=== PATIENT | female | born 1955 | race Caucasian/White ===

== ENCOUNTER 2019-01-08 22:10 | Inpatient (IN) | payer MEDICARE, OTHER ==
[~2019-01-08] VITALS: Ht 154.9 cm; Wt 121.8 kg
[2019-01-08] MEDS ORDERED: KETOROLAC 15 MG/ML VIAL IVP ONE (22:45)
[2019-01-08] MEDS ORDERED: diphenhydrAMINE 50 MG/ML INJ (BENADRYL) IVP ONE (22:45)
[2019-01-08] MEDS ORDERED: PROMETHAZINE INJ 25 MG/ML (PHENERGAN) AMP IVP ONE (22:45)
[2019-01-08] MEDS ORDERED: ACETAMINOPHEN 500 MG TAB (TYLENOL) PO ONE (22:45)
[2019-01-08 22:59] LABS: HEMATOCRIT 37 % (35-52); HEMOGLOBIN 11.9 G/DL (11.5-16.0); MEAN CORPUSCULAR HEMOGLOBIN 25 PG (25-34); MEAN CORPUSCULAR HGB CONC 32 G/DL (32-36); MEAN CORPUSCULAR VOLUME 78 FL (80-99); MEAN PLATELET VOLUME 9.9 FL (7.4-10.4); PLATELET COUNT 217 10^3/uL (130-400); WHITE BLOOD COUNT 10.4 10^3/uL (4.3-11.0)
[2019-01-08 23:00] LABS: BASOPHILS # (AUTO) 0.1 10^3/uL (0.0-0.1); BASOPHILS % (AUTO) 1 % (0-10); EOSINOPHILS # (AUTO) 0.1 10^3/uL (0.0-0.3); EOSINOPHILS % (AUTO) 1 % (0-10); LYMPHOCYTES # (AUTO) 0.9 X 10^3 (1.0-4.0); LYMPHOCYTES % (AUTO) 8 % (12-44); MONOCYTES # (AUTO) 0.9 X 10^3 (0.0-1.0); MONOCYTES % (AUTO) 9 % (0-12); NEUTROPHILS # (AUTO) 8.4 X 10^3 (1.8-7.8); NEUTROPHILS % (AUTO) 81 % (42-75)
[2019-01-08] MEDS ORDERED: PRD20T PO (23:00)
[2019-01-08] MEDS ORDERED: RT-ALBUINH IH (23:00)
[2019-01-08] MEDS ORDERED: BENZ100C18 PO (23:00)
--- NOTE | 2019-01-08 23:01 | ED General ---
General Chief Complaint: Chest Pain Stated Complaint: FLU SYMPTOMS History of Present Illness Date Seen by Provider: Jan 08, 2019 Time Seen by Provider: 23:00 Initial Comments Patient presents emergency department for evaluation of multiple symptoms including cough congestion fevers chills headache chest pain shortness of breath and generally not feeling well. She had a heart catheterization 3 weeks ago at [facility] with stents placed and was treated with Keflex for urinary tract infection however she says that she still has frequent urination. Symptoms of cough and fever she says started approximately one week ago she feels it is worse over the past several days. She says she has a pounding headache for the past week as well which she thinks may be related to her Ranexa. She says the cough is productive of yellowish sputum. She appears chronically ill and is in mild respiratory distress. Allergies and Home Medications Allergies Coded Allergies: No Known Drug Allergies (Unverified , 01/08/19) Home Medications Albuterol Sulfate 1 Puff Puff, 2 PUFF IH Q4H 1 PUFF = 90 MCG Prescribed by: FARZAD CRAVEN on 01/08/192299 Benzonatate 100 Mg Capsule, 100 MG PO TID PRN for COUGH Prescribed by: FARZAD CRAVEN on 01/08/192299 Prednisone 20 Mg Tab, 60 MG PO DAILY Prescribed by: FARZAD CRAVEN on 01/08/192299 Patient Home Medication List Home Medication List Reviewed: Yes Review of Systems Review of Systems Constitutional: chills, fever EENTM: nose congestion Respiratory: cough, dyspnea on exertion, short of breath Cardiovascular: chest pain Gastrointestinal: No abdominal pain Genitourinary: frequency Musculoskeletal: joint pain, muscle pain Skin: No rash Psychiatric/Neurological: Headache Hematologic/Lymphatic: Denies Blood Clots Past Htjbxxj-Rsqgun-Egjowp Hx Patient Social History Recent Foreign Travel: No Contact w/Someone Who Travel: No Physical Exam Vital Signs Vital Signs - First Documented 01/08/19 22:18 Temp 100.9 Pulse 79 Resp 16 B/P (MAP) 165/72 (103) Pulse Ox 94 Capillary Refill : Height, Weight, BMI Height: '" Weight: lbs. oz. kg; BMI Method: General Appearance: Chronically ill, Mild Distress HEENT: PERRL/EOMI, Pharynx Normal Neck: Full Range of Motion Respiratory: Crackles, Rhonci, Wheezing Cardiovascular: Regular Rate, Rhythm, No Edema Gastrointestinal: Non Tender Extremity: Normal Capillary Refill Neurologic/Psychiatric: Alert, Oriented x3 Skin: Normal Color, Warm/Dry Progress/Results/Core Measures Suspected Sepsis SIRS Temperature: Pulse: Respiratory Rate: Laboratory Tests 01/08/19 22:38: White Blood Count 10.4 Blood Pressure / Mean: Laboratory Tests 01/08/19 22:38: Creatinine 0.85, INR Comment 1.1, Platelet Count 217, Total Bilirubin 0.4 Results/Orders Lab Results Laboratory Tests Test 01/08/19 22:38 Range/Units White Blood Count 10.4 4.3-11.0 10^3/uL Red Blood Count 4.78 4.35-5.85 10^6/uL Hemoglobin 11.9 11.5-16.0 G/DL Hematocrit 37 35-52 % Mean Corpuscular Volume 78 L 80-99 FL Mean Corpuscular Hemoglobin 25 25-34 PG Mean Corpuscular Hemoglobin Concent 32 32-36 G/DL Red Cell Distribution Width 14.0 10.0-14.5 % Platelet Count 217 130-400 10^3/uL Mean Platelet Volume 9.9 7.4-10.4 FL Neutrophils (%) (Auto) 81 H 42-75 % Lymphocytes (%) (Auto) 8 L 12-44 % Monocytes (%) (Auto) 9 0-12 % Eosinophils (%) (Auto) 1 0-10 % Basophils (%) (Auto) 1 0-10 % Neutrophils # (Auto) 8.4 H 1.8-7.8 X 10^3 Lymphocytes # (Auto) 0.9 L 1.0-4.0 X 10^3 Monocytes # (Auto) 0.9 0.0-1.0 X 10^3 Eosinophils # (Auto) 0.1 0.0-0.3 10^3/uL Basophils # (Auto) 0.1 0.0-0.1 10^3/uL Prothrombin Time 14.5 12.2-14.7 SEC INR Comment 1.1 0.8-1.4 Activated Partial Thromboplast Time 27 24-35 SEC Sodium Level 135 135-145 MMOL/L Potassium Level 4.4 3.6-5.0 MMOL/L Chloride Level 98 98-107 MMOL/L Carbon Dioxide Level 19 L 21-32 MMOL/L Anion Gap 18 H 5-14 MMOL/L Blood Urea Nitrogen 19 H 7-18 MG/DL Creatinine 0.85 0.60-1.30 MG/DL Estimat Glomerular Filtration Rate > 60 BUN/Creatinine Ratio 22 Glucose Level 270 H 70-105 MG/DL Calcium Level 9.0 8.5-10.1 MG/DL Corrected Calcium 8.9 8.5-10.1 MG/DL Magnesium Level 1.8 1.8-2.4 MG/DL Total Bilirubin 0.4 0.1-1.0 MG/DL Aspartate Amino Transf (AST/SGOT) 9 5-34 U/L Alanine Aminotransferase (ALT/SGPT) 13 0-55 U/L Alkaline Phosphatase 105 40-136 U/L Troponin T 11 H <=10 NG/L Pro-B-Type Natriuretic Peptide 575.0 H <75.0 PG/ML Total Protein 7.1 6.4-8.2 GM/DL Albumin 4.1 3.2-4.5 GM/DL Micro Results Microbiology 01/08/19 Influenza Types A,B Antigen (WANDA) - Final, Complete My Orders Orders - FARZAD CRAVEN DO Cbc With Automated Diff (01/08/19 22:24) Magnesium (01/08/19 22:24) Chest 1 View Ap/Pa Only (01/08/19 22:24) Ekg Tracing (01/08/19 22:24) Comprehensive Metabolic Panel (01/08/19 22:24) Protime With Inr (01/08/19 22:24) Partial Thromboplastin Time (01/08/19 22:24) Saline Lock/Iv-Start (01/08/19 22:24) Troponin T (01/08/19 22:24) Probnp Fs (01/08/19 22:24) Ua Culture If Indicated (01/08/19 22:24) Influenza A And B Antigens (01/08/19 22:24) Acetaminophen Tablet (Tylenol Tablet) (01/08/19 22:45) Ketorolac Injection (Toradol Injection) (01/08/19 22:45) Promethazine Injection (Phenergan Injec (01/08/19 22:45) Diphenhydramine Injection (Benadryl Inje (01/08/19 22:45) Blood Culture (01/08/19 23:35) Lactic Acid Analyzer (01/08/19 23:35) Levofloxacin 750 Mg/150 Ml Iv (Levaquin (01/08/19 23:45) Azithromycin Injection (Zithromax Inject (01/09/19 00:00) Medications Given in ED Current Medications Medications Dose Ordered Sig/Sha Route Start Time Stop Time Status Last Admin Dose Admin Acetaminophen 1,000 mg ONCE ONCE PO 01/08/19 22:45 01/08/19 22:46 DC 01/08/19 22:50 1,000 MG Diphenhydramine HCl 25 mg ONCE ONCE IVP 01/08/19 22:45 01/08/19 22:46 DC 01/08/19 22:47 25 MG Promethazine HCl 12.5 mg ONCE ONCE IVP 01/08/19 22:45 01/08/19 22:46 DC 01/08/19 22:52 12.5 MG Vital Signs/I&O 01/08/19 22:18 Temp 100.9 Pulse 79 Resp 16 B/P (MAP) 165/72 (103) Pulse Ox 94 Capillary Refill : Progress Note : Time: 00:04 Progress Note Patient is febrile with cough and appears to have an abnormal chest x-ray with possible perihilar infiltrate and/or right lower lobe infiltrate. She could have some pulmonary edema as well however I do not have a old chest x-ray to compare to. Given symptoms of cough fever productive sputum she would have a diagnosis of healthcare associated pneumonia. She was started on Levaquin and Zithromax. Her troponin is slightly elevated so this will need to be trended in addition her elevated BNP may need to be further evaluated as well. Patient will be transferred to inpatient care at [facility] in stable condition. Departure Impression Primary Impression: HCAP (healthcare-associated pneumonia) Additional Impressions: Elevated troponin Elevated brain natriuretic peptide (BNP) level Disposition: XFER SHT-TRM HOSP Condition: Stable Admissions Decision to Admit/Date: Jan 09, 2019 Time/Decision to Admit Time: 00:00 Transfer Method of Transfer: EMS Departure-Patient Inst. Decision time for Depature: 22:59 Scripts Benzonatate (TESSALON PERLES) 100 Mg Capsule 100 MG PO TID PRN for COUGH, #15 CAP Prov: FARZAD CRAVEN DO 01/08/19 Prednisone (Prednisone) 20 Mg Tab 60 MG PO DAILY for 4 Days, #4 TAB 0 Refills Prov: FARZAD CRAVEN DO 01/08/19 Albuterol Sulfate (PROAIR HFA) 1 Puff Puff 2 PUFF IH Q4H, #1 INHALER 1 PUFF = 90 MCG Prov: FARZAD CRAVEN DO 01/08/19 FARZAD CRAVEN DO Jan 08, 2019 23:01
[2019-01-08 23:08] LABS: INR 1.1 (0.8-1.4); PROTHROMBIN TIME PATIENT 14.5 SEC (12.2-14.7)
[2019-01-08 23:25] LABS: BUN/CREATININE RATIO 22; CARBON DIOXIDE 19 MMOL/L (21-32); CHLORIDE 98 MMOL/L (98-107); CREATININE SERUM 0.85 MG/DL (0.60-1.30); GFR ESTIMATED > 60; GLUCOSE 270 MG/DL (70-105); POTASSIUM 4.4 MMOL/L (3.6-5.0); SODIUM 135 MMOL/L (135-145)
[2019-01-08 23:26] LABS: ALANINE AMINOTRANSFERASE 13 U/L (0-55); ALBUMIN 4.1 GM/DL (3.2-4.5); ALKALINE PHOSPHATASE 105 U/L (40-136); BILIRUBIN,TOTAL 0.4 MG/DL (0.1-1.0); MAGNESIUM 1.8 MG/DL (1.8-2.4); TOTAL PROTEIN 7.1 GM/DL (6.4-8.2)
[2019-01-08] MEDS ORDERED: LEVOFLOXACIN 750 MG/150 ML IV 150 ML IV ONE (23:45)
[2019-01-09] MEDS ORDERED: AZITHROMYCIN INJECTION 500 MG in NS (IVPB) 250 ML IV ONE ×2
[2019-01-09 00:08] LABS: CLARITY,URINE SL CLOUDY; COLOR,URINE YELLOW; GLUCOSE, URINE (UA) 2+ (NEGATIVE); KETONES,URINE NEGATIVE (NEGATIVE); NITRITE,URINE POSITIVE (NEGATIVE); PH,URINE 6.5 (5-9); PROTEIN,URINE NEGATIVE (NEGATIVE)
[2019-01-09 00:09] LABS: BACTERIA,URINE LARGE /HPF; BILIRUBIN,URINE NEGATIVE (NEGATIVE); LEUKOCYTE ESTERASE ,URINE NEGATIVE (NEGATIVE); RBC,URINE 0-2 /HPF; SQUAMOUS EPITHELIAL CELL,UR 0-2 /HPF; UROBILINOGEN,URINE 0.2 MG/DL (NORMAL)
--- NOTE | 2019-01-09 01:55 | NUR ---
JARVIS COLMENARES admitted to room 408-1, with an admitting diagnosis of PNEUMONIA AND CHEST PAIN, on 01/09/19 from [facility], accompanied by EMS STAFF. JARVIS COLMENARES introduced to surroundings, call light, bed controls, phone, TV, temperature control, lights, meal times, smoking policy, visitor policy, side rail policy, bathrooms and showers. Patient Rights given to patient in the handbook. JARVIS COLMENARES verbalizes understanding that [facility] is not responsible for the loss or damage to any personal effects or valuables that are kept in the patients posession during their hospitalization. Care Plans and Discharge Planning were discussed with the with the pt. JARVIS COLMENARES verbalizes understanding of Interdisciplinary Patient Education. Patient and/or family were informed about the Rapid Response Team and its purpose.
[2019-01-09 02:00] VITALS: BP 139/81
[2019-01-09] MEDS ORDERED: AZITHROMYCIN 500 MG (ZITHROMAX) VIAL ONE (03:11)
[2019-01-09] MEDS ORDERED: WATER (STERILE) FOR INJECTION 10 ML ONE (03:12)
--- NOTE | 2019-01-09 03:12 | NUR ---
Zithromax 500mg dose was not give in ED. Dose given when pt came to the floor
[2019-01-09] MEDS: PROMETHAZINE INJ 25 MG/ML (PHENERGAN) AMP IV PRN ×2 (03:51→14:23)
[2019-01-09 04:00] VITALS: BP 150/82
[2019-01-09 04:05] LABS: BASOPHILS % (AUTO) 0 % (0-10); EOSINOPHILS # (AUTO) 0.2 10^3/uL (0.0-0.3); EOSINOPHILS % (AUTO) 2 % (0-10); HEMATOCRIT 37 % (35-52); HEMOGLOBIN 11.6 G/DL (11.5-16.0); LYMPHOCYTES # (AUTO) 1.5 X 10^3 (1.0-4.0); LYMPHOCYTES % (AUTO) 17 % (12-44); MEAN CORPUSCULAR HEMOGLOBIN 25 PG (25-34); MEAN CORPUSCULAR HGB CONC 32 G/DL (32-36); MEAN CORPUSCULAR VOLUME 78 FL (80-99); MEAN PLATELET VOLUME 9.9 FL (7.4-10.4); MONOCYTES # (AUTO) 0.7 X 10^3 (0.0-1.0); MONOCYTES % (AUTO) 8 % (0-12); NEUTROPHILS # (AUTO) 6.1 X 10^3 (1.8-7.8); NEUTROPHILS % (AUTO) 72 % (42-75); PLATELET COUNT 206 10^3/uL (130-400); RED CELL DISTRIBUTION WIDTH 14.5 % (10.0-14.5); WHITE BLOOD COUNT 8.4 10^3/uL (4.3-11.0)
[2019-01-09 04:28] LABS: BILIRUBIN,TOTAL 0.6 MG/DL (0.1-1.0); CALCIUM 8.9 MG/DL (8.5-10.1); POTASSIUM 4.3 MMOL/L (3.6-5.0); TOTAL PROTEIN 6.8 GM/DL (6.4-8.2)
--- NOTE | 2019-01-09 06:55 | Diagnostic Imaging Report ---
Indication: Dyspnea and cough since Thursday, worsening. Comparison: None. Discussion: Single portable upright view of the chest was obtained. Cardiomegaly is noted. Engorgement of central pulmonary vascularity is present. Bilateral mixed interstitial and alveolar opacities are noted diffusely. Findings likely represent moderate to severe pulmonary edema, with atypical pneumonia not entirely excluded. No pleural fluid or pneumothorax. No osseous abnormality. Impression: 1. Cardiomegaly with suspected moderate to severe failure. Dictated by: Dictated on workstation # [id number]
[2019-01-09 08:00] VITALS: BP 149/74
[2019-01-09] MEDS ORDERED: inSUlin ASPART (NovoLOG) 1 UNIT/0.01 ML (CHARGE PER UNIT) SC SCH (10:00)
[2019-01-09] MEDS ORDERED: LEVOFLOXACIN 500 MG/100 ML IV 100 ML IV SCH (10:10)
--- NOTE | 2019-01-09 10:10 | History & Physical-Hospitalist ---
History of Present Illness HPI/Chief Complaint This is a 63-year-old white female who has been ill for the last week. She has been in her house and in bed with cough productive of green smith sputum and increased shortness of breath. She had gotten out yesterday to go to [facility] with her and then began having chills and becoming more dyspneic and presented the emergency room in [place] where she was found to be ill with evidence of a right lower lobe pneumonia and elevated BNP and relative hypoxia with O2 sat of 87 percent. She was accepted here for inpatient admission for pneumonia. Patient had a heart catheter about 3 weeks ago and was found to have obstructive coronary artery disease that was not amenable to stent placement. She has not been able to tolerate the Ranexa because of headaches. Her BNP was elevated and chest x-ray is reflective of possible pulmonary edema. At the time of my interview this morning the patient is lying down flat in no respiratory distress and says that she feels a little better. Source: patient Exam Limitations: no limitations Date Seen 01/09/19 Time Seen by a Provider: 09:45 Attending Physician Darline Zapien MD PCP Referring Physician Date of Admission Jan 09, 2019 at 00:27 Home Medications & Allergies Home Medications Reviewed patient Home Medication Reconciliation performed by pharmacy medication reconciliations a/c technician and/or nursing. Patients Allergies have been reviewed. Allergies Allergies Coded Allergies No Known Drug Allergies (Unverified01/08/19) Past Dwbiaof-Jtbvtl-Fpsgzu Hx Past Med/Social Hx: Reviewed Nursing Past Med/Soc Hx Patient Social History Marrital Status: Number of Children: 4 Employed/Student: retired (RN) Alcohol Use: Denies Use Smoking Status: Never a Smoker Recent Foreign Travel: No Contact w/other who traveled: No Recent Infectious Disease Expo: No Immunizations Up To Date Date of Pneumonia Vaccine: Jan 09, 2017 Date of Influenza Vaccine: Sep 11, 2018 Past Medical History Surgeries: Adenoidectomy, Hysterectomy, Oophorectomy Respiratory: Asthma Cardiac: Coronary Artery Disease, High Cholesterol, Hypertension Neurological: Neuropathy : No Hysterectomy Gastrointestinal: Gastroesophageal Reflux Musculoskeletal: Arthritis Endocrine: Diabetes, Insulin dep Psychosocial: Depression Family History Cancer (Breast) Review of Systems Constitutional: chills EENTM: no symptoms reported Respiratory: cough, dyspnea on exertion, short of breath Cardiovascular: no symptoms reported Gastrointestinal: heartburn Genitourinary: no symptoms reported Musculoskeletal: neck pain Skin: no symptoms reported Psychiatric/Neurological: Depressed Physical Exam Physical Exam Vital Signs Vital Signs - First Documented 01/08/19 22:18 Temp 100.9 Pulse 79 Resp 16 B/P (MAP) 165/72 (103) Pulse Ox 94 Capillary Refill : Less Than 3 Seconds Height, Weight, BMI Height: 5'1.00" Weight: 268lbs. 10.0oz. 121.289968dm; 50.8 BMI Method:Stated General Appearance: No Apparent Distress, Obese Eyes: Bilateral Eye Normal Inspection HEENT: Normal ENT Inspection, Pharynx Normal Neck: Limited Range of Motion Respiratory: Chest Non Tender, No Accessory Muscle Use, No Respiratory Distress , Rales, Wheezing Cardiovascular: Regular Rate, Rhythm, No Gallop, No Murmur, Normal Peripheral Pulses Gastrointestinal: Normal Bowel Sounds, No Organomegaly, Non Tender, Soft Back: Normal Inspection, No CVA Tenderness, No Vertebral Tenderness Extremity: Normal Range of Motion, Non Tender, No Calf Tenderness Neurologic/Psychiatric: Alert, Oriented x3, No Motor/Sensory Deficits, Normal Mood/Affect, agent ticketing gate II-XII Norm as Tested Skin: Normal Color, Warm/Dry Results Results/Procedures Labs Laboratory Tests 01/08/19 22:38 01/09/19 03:53 Patient resulted labs reviewed. Imaging: Reviewed Imaging Films, Reviewed Imaging Report Assessment/Plan Admission Diagnosis 1. Pneumonia- community acquired but with recent hospitalization also with history of allergies to cephalosporins-Day number 2 Levaquin and Zithromax 2. Reactive airway disease secondary to number 1-we'll add Advair avoiding steroids secondary to diabetes 3. Coronary artery disease not amenable to stent placement per her history 4. Elevated BNP and cardiomegaly and chest x-ray will obtain echocardiogram consult cardiology 5. Type II diabetes with medical noncompliance secondary to financial difficulties 6. Hypertension we'll restart her medications 7. Intolerance of KEILY inhibitor secondary to cough 8. Morbid obesity and obstructive sleep apnea intolerant of CPAP 9. Strong family history of cancer the breast will obtain mammograms 10. Depression we'll continue sertraline Admission Status: Inpatient Order (span 2 midnights) Reason for Inpatient Admission: Multiple comorbidities Diagnosis/Problems Diagnosis/Problems (1) PNEUMONIA Status: Acute (2) Asthma exacerbation Status: Acute (3) Obstructive sleep apnea Status: Chronic (4) Obesity Status: Chronic Qualifiers: Body mass index: BMI 50.0-59.9 (5) Coronary artery disease Status: Chronic Qualifiers: Coronary Disease-Associated Artery/Lesion type: unga artery Associated angina: with stable angina (6) Hypertension Status: Chronic (7) Diabetes Status: Chronic Qualifiers: Diabetes mellitus type: type 2 Diabetes mellitus long-term insulin use: with long-term use Diabetes mellitus complication status: with neurologic complications Diabetes mellitus complication detail: with polyneuropathy Qualified Codes: E11.42 - Type 2 diabetes mellitus with diabetic polyneuropathy ; Z79.4 - superintendent terminal (current) use of insulin (8) Elevated brain natriuretic peptide (BNP) level Status: Acute (9) Elevated troponin Status: Acute Clinical Quality Measures AMI/AHF: ASA po Prior to arrival: No DVT/VTE Risk/Contraindication: Risk Factor Score Per Nursin RFS Level Per Nursing on Admit: 3=High DARLINE ZAPIEN MD Jan 09, 2019 10:10
[2019-01-09] MEDS ORDERED: ENOXAPARIN 40 MG/0.4 ML (LOVENOX) SYR SC SCH (10:15)
--- NOTE | 2019-01-09 10:27 | NUR ---
EULOGIO DUVAL[employer]PORATE EXECUTIVE NOTIFIED OF NEED FOR 2D ECHO AT THIS TIME. THIS RN WILL CONT TO MONITOR THIS PATIENT THROUGHOUT THE REMAINDER OF THIS SHIFT.
[2019-01-09] MEDS: ENOXAPARIN 60 MG/0.6 ML (LOVENOX) SYR SC SCH ×2 (10:35→21:25)
--- NOTE | 2019-01-09 11:51 | NUR ---
Noon vital signs poor, see interventions for details. New orders to send this patient to icu-8 at this time, per Dr. You. vitals signs 101.2 pulse 111 b/p 86/50 o2 at 90 on a bipap machine.
[2019-01-09 12:00] VITALS: BP 121/56
--- NOTE | 2019-01-09 12:37 | Diagnostic Imaging Report ---
INDICATION: Pneumonia and cough. TIME OF EXAM: 12:26 PM COMPARISON: Correlation is made with prior study from one day earlier. FINDINGS: Patchy airspace infiltrate in the right base is seen consistent with pneumonia. Left lung is clear. No effusion or pneumothorax is seen. IMPRESSION: Patchy right basilar pneumonia. This appears to be improved when compared with examination one day earlier. Dictated by: Dictated on workstation # [id number]
[2019-01-09] MEDS ORDERED: RANOLAZINE ER 500 MG TAB (RANEXA) PO NR (13:30)
[2019-01-09] MEDS ORDERED: amLODIPine 10 MG (NORVASC) TAB PO NR (13:30)
[2019-01-09] MEDS ORDERED: meTOprolol SUCCINATE 100 MG (TOPROL XL) TAB PO NR (13:30)
--- NOTE | 2019-01-09 13:32 | Consultation-Cardiology ---
HPI-Cardiology Cardiology Consultation: Date of Consultation 01/09/19 Time Seen by a Provider: 13:10 Date of Admission 01/08/19 Attending Physician Darline Deng MD Admitting Physician Consulting Physician DAPHNE FUCHS MD, MA, FACP, FACC, FSCAI, CCDS Physician requesting consult: Dr Deng HPI: Chief Complaint: CC: Shaking chills HPI 63 yo woman who presented to [facility] last night with shaking chills. Was transferred to this hosp to Dr Deng of community-acquired pneumonia. Has had cough productive of yellowis/greenish sputum for several days. We have been asked to see her for chronic chest discomfort: present for many months to a year, present in the mid chest, worse with exertion, improved with rest, feeling of pressure, mild to mod in intensity, sometimes radiating to shoulders , present nearly daily, unchanged in the recent past. Has had recent cath in [place] and her chef teacher has informed her she is not a candidate for further [facility] intervention Review of Systems-Cardiology Review of Systems Constitutional: malaise, tiredness; No weight loss, No weight gain Eyes: No vision change Ears/Nose/Throat: No nasal drainage, No recent hearing loss, No ulcerations Respiratory: As described under HPI Cardiovascular: As described under HPI Gastrointestinal: No constipation, No diarrhea, No nausea, No vomiting Genitourinary: No dysuria, No hematuria, No urine frequency changes Musculoskeletal: No back pain Psychiatric/Neurological: No seizure, No focal weakness, No syncope Hematologic: No bleeding abnormalities NHQ-Uwhsfh-Ddehzr Hx Patient Social History Marrital Status: Number of Children: 4 Employed/Student: retired (RN) Alcohol Use: Denies Use Smoking Status: Never a Smoker Recent Foreign Travel: No Recent Infectious Disease Expo: No Hospitalization with Isolation: Denies Immunizations Up To Date Date of Pneumonia Vaccine: Jan 09, 2017 Date of Influenza Vaccine: Sep 11, 2018 Past Medical History PMH As described under Assessment. Family Medical History Family Medical History: Notes a strong fam h/o DM and heart disease, but does not report h/o early CAD in the [facility] Allergies and Home Medications Allergies Coded Allergies: No Known Drug Allergies (Unverified , 01/08/19) Home Medications Albuterol Sulfate 1 Puff Puff, 2 PUFF IH Q4H 1 PUFF = 90 MCG Prescribed by: FARZAD CRAVEN on 01/08/192299 Benzonatate 100 Mg Capsule, 100 MG PO TID PRN for COUGH Prescribed by: FARZAD CRAVEN on 01/08/192299 Prednisone 20 Mg Tab, 60 MG PO DAILY Prescribed by: FARZAD CRAVEN on 01/08/192299 Patient Home Medication List Home Medication List Reviewed: Yes Physical Exam-Cardiology Physical Exam Vital Signs/I&O 01/09/19 01/09/19 01/09/19 01/09/19 02:00 02:00 03:24 04:00 Temp 100.0 98.9 Pulse 71 74 75 Resp 20 18 B/P (MAP) 139/81 150/82 (104) Pulse Ox 96 O2 Delivery Room Air Room Air Room Air 01/09/19 01/09/19 01/09/19 01/09/19 07:00 08:00 08:00 12:00 Temp 99.6 99.8 Pulse 73 68 83 Resp 22 20 B/P (MAP) 149/74 (99) 121/56 (77) Pulse Ox 96 O2 Delivery Room Air Room Air Room Air O2 Flow Rate 2.00 Capillary Refill : Less Than 3 Seconds Constitutional: AAO x 3, well-developed, well-nourished HEENT: EOMI, hearing is well preserved; No xanthelasmas are seen Neck: No carotid bruit; carotid pulses are 2 + bilaterally, with good upstrokes Respiratory: No accessory muscle use; other (fair to good bilat air entry, diminished at the bases) Cardiovascular: regular rate-rhythm, S1 and S2, systolic murmur (faint JERICA at card base) Gastrointestinal: No tender; soft; No guarding, No rebound; audible bowel sounds Extremities: No clubbing, No cyanosis, No significant edema Neurologic/Psychiatric: oriented x 3, grossly intact, power is 5/5 both on sides Skin: No rash on exposed areas, No ulcerations on exposed areas Data Review Labs Laboratory Tests 01/08/19 22:38: White Blood Count 10.4, Red Blood Count 4.78, Hemoglobin 11.9, Hematocrit 37, Mean Corpuscular Volume 78L, Mean Corpuscular Hemoglobin 25, Mean Corpuscular Hemoglobin Concent 32, Red Cell Distribution Width 14.0, Platelet Count 217, Mean Platelet Volume 9.9, Neutrophils (%) (Auto) 81H, Lymphocytes (%) (Auto) 8L , Monocytes (%) (Auto) 9, Eosinophils (%) (Auto) 1, Basophils (%) (Auto) 1, Neutrophils # (Auto) 8.4H, Lymphocytes # (Auto) 0.9L, Monocytes # (Auto) 0.9, Eosinophils # (Auto) 0.1, Basophils # (Auto) 0.1, Prothrombin Time 14.5, INR Comment 1.1, Activated Partial Thromboplast Time 27, Sodium Level 135, Potassium Level 4.4, Chloride Level 98, Carbon Dioxide Level 19L, Anion Gap 18H , Blood Urea Nitrogen 19H, Creatinine 0.85, Estimat Glomerular Filtration Rate > 60, BUN/Creatinine Ratio 22, Glucose Level 270H, Calcium Level 9.0, Corrected Calcium 8.9, Magnesium Level 1.8, Total Bilirubin 0.4, Aspartate Amino Transf ( AST/SGOT) 9, Alanine Aminotransferase (ALT/SGPT) 13, Alkaline Phosphatase 105, Troponin T 11H, Pro-B-Type Natriuretic Peptide 575.0H, Total Protein 7.1, Albumin 4.1 01/08/19 23:55: Urine Color YELLOW, Urine Clarity SL CLOUDY, Urine pH 6.5, Urine Specific [place] 1.010L, Urine Protein NEGATIVE, Urine Glucose (UA) 2+H, Urine Ketones NEGATIVE, Urine Nitrite POSITIVEH, Urine Bilirubin NEGATIVE, Urine Urobilinogen 0.2, Urine Leukocyte Esterase NEGATIVE, Urine RBC (Auto) TRACEH, Urine RBC 0-2, Urine WBC 10-25H, Urine Squamous Epithelial Cells 0-2, Urine Crystals NONE, Urine Bacteria LARGEH, Urine Casts NONE, Urine Mucus NONE, Urine Culture Indicated YES, Lactic Acid Level 0.83 01/09/19 03:53: White Blood Count 8.4, Red Blood Count 4.67, Hemoglobin 11.6, Hematocrit 37, Mean Corpuscular Volume 78L, Mean Corpuscular Hemoglobin 25, Mean Corpuscular Hemoglobin Concent 32, Red Cell Distribution Width 14.5, Platelet Count 206, Mean Platelet Volume 9.9, Neutrophils (%) (Auto) 72, Lymphocytes (%) (Auto) 17, Monocytes (%) (Auto) 8, Eosinophils (%) (Auto) 2, Basophils (%) (Auto) 0, Neutrophils # (Auto) 6.1, Lymphocytes # (Auto) 1.5, Monocytes # (Auto) 0.7, Eosinophils # (Auto) 0.2, Basophils # (Auto) 0.0, Sodium Level 137, Potassium Level 4.3, Chloride Level 102, Carbon Dioxide Level 23, Anion Gap 12, Blood Urea Nitrogen 17, Creatinine 1.00, Estimat Glomerular Filtration Rate 56, BUN/ Creatinine Ratio 17, Glucose Level 218H, Calcium Level 8.9, Corrected Calcium 8.9, Total Bilirubin 0.6, Aspartate Amino Transf (AST/SGOT) 13, Alanine Aminotransferase (ALT/SGPT) 14, Alkaline Phosphatase 91, Total Protein 6.8, Albumin 4.0, Troponin I < 0.028 Microbiology 01/08/19 Influenza Types A,B Antigen (WANDA) - Final, Complete Laboratory Tests 01/08/19 22:38 01/09/19 03:53 A/P-Cardiology Assessment/Admission Diagnosis Community acquired pneumonia Chronic stable angina pectoris. Reports severe intolerance to oral nitrates ( severe headaches) CAD. Has had LAD stenting in early 2017 (per her description); last card cath in late Dec 2018 at [place] and was told that she has diffused blockages in small caliber vessels and that she is not a candidate for further [facility] intervention Echo on 01/09/19: LVEF 65-70%, grade I rivers dysfunction, PASP approx 25 mmHg DM II HTN Obesity with BMI approx 51. ROBBIN reported, but intolerant to CPAP KEILY-inhib cause cough, but has been able to take ARBs Discussion and Recomendations * Complex issues that include CAD that is, by her report, inoperable * Continue triple therapy for angina (metoprolol succinate, amlodipine, ranolazine. Oral/topical nitrates not a good option because of her marked intolerance. Also notes moderate intolerance to ranolazine (headaches) but has been able to continue it w/o interruption since being placed on it and it has helped angina * Continue dual antiplatelet therapy * Monitor labs * I discussed her case with Dr Deng on the phone this am * I answered Ms Roger' CV-related questions Clinical Quality Measures AMI/AHF: ASA po Prior to arrival: No DVT/VTE Risk/Contraindication: Risk Factor Score Per Nursin RFS Level Per Nursing on Admit: 3=High DAPHNE FUCHS MD FACP FACC CCDS Jan 09, 2019 13:32
[2019-01-09] MEDS ORDERED: ASPIRIN 81 MG CHEW (CHILDREN'S ASA) PO NR (13:50)
[2019-01-09] MEDS ORDERED: CLOPIDOGREL 75 MG (PLAVIX) TABLET PO NR (13:50)
[2019-01-09] MEDS ORDERED: AMLO10TA4 PO (13:58)
[2019-01-09] MEDS ORDERED: MORP-34 PO (13:58)
[2019-01-09] MEDS ORDERED: GABA-486 PO (13:58)
[2019-01-09] MEDS ORDERED: CLOP75TA69 PO (13:58)
[2019-01-09] MEDS ORDERED: ASPI81TA55 PO (13:58)
[2019-01-09] MEDS ORDERED: RANO500T3 PO (13:58)
[2019-01-09] MEDS ORDERED: SERT100T8 PO (13:58)
[2019-01-09] MEDS ORDERED: TIZA4CAP8 PO (14:01)
[2019-01-09] MEDS ORDERED: LOSA100T57 PO (14:01)
[2019-01-09] MEDS ORDERED: METO100T12 PO (14:01)
[2019-01-09] MEDS ORDERED: FAMO20TA5 PO (14:01)
[2019-01-09 16:00] VITALS: BP 138/88
[2019-01-09] MEDS: inSUlin ASPART (NovoLOG) 1 UNIT/0.01 ML (CHARGE PER UNIT) SC SCH ×2 (16:42→21:26)
[2019-01-09] MEDS: RT-ALBUTEROL/IPRATROPIUM 3 ML (DUONEB) VIAL INH SCH (19:28)
[2019-01-09] MEDS: RT-ADVAIR HFA 115/21 MCG PER PUFF IH SCH (19:28)
[2019-01-09 20:00] VITALS: BP 162/82
[2019-01-09] MEDS: meTOprolol SUCCINATE 100 MG (TOPROL XL) TAB PO SCH (21:24)
[2019-01-09] MEDS: SERTRALINE 100 MG (ZOLOFT) TAB PO SCH (21:24)
[2019-01-09] MEDS: RANOLAZINE ER 500 MG TAB (RANEXA) PO SCH (21:24)
[2019-01-09] MEDS: inSUlin DETERMIR 1 UNIT/0.01 ML (LEVEMIR) CHARGE PER UNIT SQ SCH (21:25)
[2019-01-09] MEDS: FAMOTIDINE 20 MG (PEPCID) TABLET PO SCH (21:25)
[2019-01-10] VITALS (7 sets, daily range): BP systolic 119–170; BP diastolic 68–88
[2019-01-10] MEDS: RT-ALBUTEROL/IPRATROPIUM 3 ML (DUONEB) VIAL INH SCH ×4 (01:32→20:19)
[2019-01-10] MEDS: inSUlin ASPART (NovoLOG) 1 UNIT/0.01 ML (CHARGE PER UNIT) SC SCH ×4 (06:17→22:27)
[2019-01-10] MEDS: FAMOTIDINE 20 MG (PEPCID) TABLET PO SCH ×2 (08:55→20:28)
[2019-01-10] MEDS ORDERED: LOSA100T57 PO (08:55)
[2019-01-10] MEDS ORDERED: FAMO20TA3 PO (08:55)
[2019-01-10] MEDS ORDERED: ASPI-983 PO (08:55)
[2019-01-10] MEDS ORDERED: GABA-486 PO (08:55)
[2019-01-10] MEDS: meTOprolol SUCCINATE 100 MG (TOPROL XL) TAB PO SCH ×2 (08:55→20:28)
[2019-01-10] MEDS ORDERED: SERT100T8 PO (08:55)
[2019-01-10] MEDS: AZITHROMYCIN 250 MG TAB (ZITHROMAX) PO SCH (08:55)
[2019-01-10] MEDS: ASPIRIN E.C. 81 MG (ECOTRIN) TAB PO SCH (08:55)
[2019-01-10] MEDS: CLOPIDOGREL 75 MG (PLAVIX) TABLET PO SCH (08:55)
[2019-01-10] MEDS: amLODIPine 10 MG (NORVASC) TAB PO SCH (08:55)
[2019-01-10] MEDS ORDERED: RANO500T3 PO (08:55)
[2019-01-10] MEDS ORDERED: AMLO10TA7 PO (08:55)
[2019-01-10] MEDS: RANOLAZINE ER 500 MG TAB (RANEXA) PO SCH ×2 (08:55→20:28)
[2019-01-10] MEDS ORDERED: METO100T12 PO (08:55)
[2019-01-10] MEDS ORDERED: TIZA4TAB3 PO (08:55)
[2019-01-10] MEDS ORDERED: CLOP75TA69 PO (08:55)
--- NOTE | 2019-01-10 08:56 | NUR ---
WENT OVER MEDICATION BOTTLES THE PATIENT BROUGHT IN WITH HER. SHE VERIFIED HOW SHE TAKES THEM. SHE TAKES ASPIRIN 81MG DAILY OTC. THERE WERE THREE NEW PRESCRIPTIONS ENTERED BY [facility] ON 01-08-19 HOWEVER THE PATIENT WAS ADMITTED SO SHE DID NOT RECEIVE OR START THESE SCRIPTS. I REMOVED THEM FROM THE MED REC AT THIS TIME. SHE DID NOT HAVE HER INSULIN IN THE BOX WITH HER MEDS BUT STATES SHE USES HUMALOG SLIDING SCALE AND LEVEMIR 34 UNITS HS.
[2019-01-10] MEDS ORDERED: LEVOFLOXACIN 500 MG/100 ML IV 100 ML IV SCH (09:00)
[2019-01-10] MEDS ORDERED: meTOprolol SUCCINATE 100 MG (TOPROL XL) TAB PO SCH (09:00)
[2019-01-10] MEDS ORDERED: INSU100V SQ (09:01)
[2019-01-10] MEDS ORDERED: INSU100I29 SQ (09:01)
--- NOTE | 2019-01-10 09:19 | Progress Note-Hospitalist ---
Subjective HPI/CC On Admission Date Seen by Provider: Jan 10, 2019 Time Seen by Provider: 09:04 This is a 63-year-old white female who has been ill for the last week. She has been in her house and in bed with cough productive of green smith sputum and increased shortness of breath. She had gotten out yesterday to go to [facility] with her and then began having chills and becoming more dyspneic and presented the emergency room in [place] where she was found to be ill with evidence of a right lower lobe pneumonia and elevated BNP and relative hypoxia with O2 sat of 87 percent. She was accepted here for inpatient admission for pneumonia. Subjective/Events-last exam Pt reports feeling poorly still. Laying flat in bed. Denies orthopnea but does complain of SOB. Focused Exam Lactate Level 01/08/19 23:55: Lactic Acid Level 0.83 Objective Exam Vital Signs Vital Signs Date Time Temp Pulse Resp B/P (MAP) Pulse Ox O2 Delivery O2 Flow Rate FiO2 01/11/19 08:06 96 Nasal Cannula 2.00 01/11/19 08:00 97.4 64 20 146/67 (93) 01/09/19 16:31 21 Capillary Refill : Less Than 3 Seconds General Appearance: No Apparent Distress, Obese Respiratory: Lungs Clear, No Accessory Muscle Use, No Respiratory Distress, Decreased Breath Sounds (porr inspiratory effort) Cardiovascular: Regular Rate, Rhythm, No Gallop, No Murmur, Normal Peripheral Pulses Gastrointestinal: Normal Bowel Sounds, Non Tender, Soft Extremity: Non Tender, No Calf Tenderness Neurologic/Psychiatric: Alert, Oriented x3 Results/Procedures Lab Patient resulted labs reviewed. Imaging: Reviewed Imaging Films, Reviewed Imaging Report Assessment/Plan Assessment and Plan Assess & Plan/Chief Complaint HCAP- Continue on Levaquin and Azithro Reactive airway disease- Continue Advair CAD- Cardiology consulted, appreciate recs, continue Plavix, ASA dCHF- denies orthopnea, appears clinically compensated; cardiology consulted IDDMII- SSI, social scientist consulted due to financial difficulties with affording medications HTN- Continue Metoprolol, amlodipine- cannot tolerate KEILY due to cough Depression: Continue Zoloft Family history of breast cancer: Mammogram ordered over the weekend Diagnosis/Problems Diagnosis/Problems (1) Coronary artery disease Status: Chronic Qualifiers: Coronary Disease-Associated Artery/Lesion type: [place] artery Associated angina: with stable angina (2) HCAP (healthcare-associated pneumonia) Status: Acute (3) Diabetes Status: Chronic Qualifiers: Diabetes mellitus type: type 2 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
[2019-01-10] MEDS: RT-ADVAIR HFA 115/21 MCG PER PUFF IH SCH ×2 (09:57→20:19)
--- NOTE | 2019-01-10 10:56 | Physical Therapy Evaluation ---
PT Evaluation-General Medical Diagnosis Admission Date Jan 09, 2019 at 00:27 Medical Diagnosis: pneumonia and chest pain Onset Date: Jan 09, 2019 Therapy Diagnosis Therapy Diagnosis: impaired mobility, strength, endurance Height/Weight Height (Feet): 5 Height (Inches): 1.00 Weight (Pounds): 268 Weight (Ounces): 10.0 Precautions Precautions/Isolations: Fall Prevention Weight Bear Status Right Lower Extremity: Right Weight Bearing/Tolerated Left Lower Extremity: Left Weight Bearing/Tolerated Referral Physician: Cammie Wakefield MD Reason for Referral: Evaluation/Treatment Medical History Additional Medical History Past Medical History Surgeries: Adenoidectomy, Hysterectomy, Oophorectomy Respiratory: Asthma Cardiac: Coronary Artery Disease, High Cholesterol, Hypertension Neurological: Neuropathy : No Hysterectomy Gastrointestinal: Gastroesophageal Reflux Musculoskeletal: Arthritis Endocrine: Diabetes, Insulin dep Psychosocial: Depression Reviewed History: Yes Social History Home: Single Level Entry Into Home: Level Entry Prior/Core FIM Prior Level of Function Therapy Code Descriptions/Definitions Functional [place] Measure: 0=Not Assessed/NA 4=Minimal Assistance 1=Total Assistance 5=Supervision or Setup 2=Maximal Assistance 6=Modified [place] 3=Moderate Assistance 7=Complete [place] Therapy Quality Codes: 6 Independent with activity with or without an assistive device 5 Patient requires set up or clean up by helper. Patient completes activity by themselves 4 Supervision or touching assist (CGA). [place] provide cues , steadying assist 3 The helper provides less than half the effort to complete the activity 2 The helper provides more than half the effort to complete the activity 1 Dependent. The helper does all the effort to complete an activity 7 Patient refused to complete or attempt activity 9 The patient did not perform the activity before the current illness or injury 88 Not attempted due to Medical conditions or safety concerns Functional Abilities and Goals: Independent: Patient completed the activities by him/herself, with or without an assistive device, with no assistance from a helper. Needed Some Help: Patient needed partial assistance from another person to complete activities. Dependent: A helper completed the activities for the patient. Unknown: Not Applicable: Bed Mobility: 6 Transfers (B,C,W/C) (FIM): 6 Gait: 6 Indoor Mobility (Ambulation): Independent Stairs: Independent Patient states she uses a 4-wheeled walker on occasion. PT Evaluation-Current Subjective Patient in bed pre tx, agrees to PT, has no complaints of pain. Pt/Family Goals to be independent at home Objective Patient Orientation: Person, Place, Situation Attachments: Oxygen 2L of O2 nasal canula ROM/Strength ROM Lower Extremities WNL Strength Lower Extremities 4/5 gross bilateral lower extremities Sensory Vision: Wears Glasses Hearing: Impaired Sensation Right Lower Extremit: Impaired Sensation Left Lower Extremity: Impaired Transfers Therapy Code Descriptions/Definitions Functional [place] Measure: 0=Not Assessed/NA 4=Minimal Assistance 1=Total Assistance 5=Supervision or Setup 2=Maximal Assistance 6=Modified [place] 3=Moderate Assistance 7=Complete [place] Transfers (B, C, W/C) (FIM): 5 Scootin Rollin Supine to/from Sit: 5 Sit to/from Stand: 5 Gait Mode of Locomotion: Walk Anticipated Mode of Locomotion: Walk Gait (FIM): 2 Distance: 80' Gait Level of Assist: 5 Gait Persons Needed: 1 Gait Assistive Device: FWW Comments/Gait Description Slow but steady ambulation, cues for purse lip breathing Balance Sitting Static: Normal Sitting Dynamic: Normal Standing Static: Normal Standing Dynamic: Normal Treatment LAQ x15, AP x15 Assessment/Needs Patient has impaired mobility, strength, endurance, gets SOB with activity Rehab Potential: Fair PT Short Term Goals Short Term Goals Time Frame: Jan 17, 2019 Transfers (B,C,W/C) (FIM): 6 Gait (FIM): 6 Gait Distance Comment: 150' Gait Level of Assist: 6 Gait Assistive Device: FWW PT Plan Problem List Problem List: Activity Tolerance, Functional Strength, Safety, Balance, Gait, Transfer, Bed Mobility Treatment/Plan Treatment Plan: Continue Plan of Care Treatment Plan: Bed Mobility, Education, Functional Activity David, Functional Strength, Gait, Safety, Therapeutic Exercise, Transfers Treatment Duration: Jan 17, 2019 Frequency: 6 times per week Estimated Hrs Per Day: .25 hour per day (15-30') Patient and/or Family Agrees t: Yes Safety Risks/Education Patient Education: Gait Training, Transfer Techniques, Correct Positioning, Safety Issues Teaching Recipient: Patient Teaching Methods: Demonstration, Discussion Response to Teaching: Reinforcement Needed Discharge Recommendations Plan Patient will perform bed mobility and transfer training, balance and endurance training, functional strengthening, stair training, gait training, and education , to improve functional mobility and independence at home. Therapy D/C Recommendations: Home w/ Family Support Time/GCodes Time In: 1030 Time Out: 1045 Total Billed Treatment Time: 15 Total Billed Treatment 1 visit BETH 15' JEREMIAS DELACRUZ PT Jan 10, 2019 10:56
--- NOTE | 2019-01-10 11:09 | Progress Note-Cardiology ---
Cardiology SOAP Progress Note Subjective: Sitting up in bed. Just finished ambulating with PT. No c/o CP today. Continued dyspnea with exertion. No c/o CP or palpitations. Objective: I&O/Vital Signs 01/10/19 01/10/19 01/10/19 01/10/19 07:00 08:00 08:00 09:54 Temp 98.7 Pulse 66 70 Resp 22 B/P (MAP) 169/79 (109) Pulse Ox 95 97 98 O2 Delivery Room Air Nasal Cannula Nasal Cannula O2 Flow Rate 2.00 2.00 01/10/19 01/10/19 01/10/19 01/10/19 12:00 13:07 15:00 15:24 Temp 96.9 98.5 Pulse 69 77 74 Resp 22 22 B/P (MAP) 149/68 (95) 119/72 (88) Pulse Ox 98 96 97 O2 Delivery Room Air Nasal Cannula Nasal Cannula O2 Flow Rate 2.00 2.00 01/10/19 00:00 Intake Total 1630 ml Output Total 2600 ml Balance -970 ml Weight (Pounds): 268 Weight (Ounces): 10.0 Weight (Calculated Kilograms): 121.289536 Constitutional: AAO x 3, well-developed, well-nourished Respiratory: No accessory muscle use; other (fair to good bilat air entry, diminished at the bases) Cardiovascular: regular rate-rhythm, S1 and S2, systolic murmur (faint JERICA at card base) Gastrointestional: No tender; soft; No guarding, No rebound; audible bowel sounds Extremities: No clubbing, No cyanosis, No significant edema Neurologic/Psychiatric: oriented x 3, grossly intact, power is 5/5 both on sides Skin: No rash on exposed areas, No ulcerations on exposed areas Results/Procedures: Labs Laboratory Tests 01/09/19 20:16: Glucometer 320H 01/10/19 05:41: Glucometer 229H 01/10/19 11:03: Glucometer 293H 01/10/19 15:25: Glucometer 209H Microbiology 01/08/19 Blood Culture - Preliminary, Resulted No growth 01/08/19 Influenza Types A,B Antigen (WANDA) - Final, Complete 01/08/19 Urine Culture - Preliminary, Resulted Escherichia coli A/P: Assessment: Community acquired pneumonia Chronic stable angina pectoris. Reports severe intolerance to oral nitrates ( severe headaches) CAD. Has had LAD stenting in early 2017 (per her description); last card cath in late Dec 2018 at [facility] and was told that she has diffused blockages in small caliber vessels and that she is not a candidate for further [facility] intervention Echo on 01/09/19: LVEF 65-70%, grade I [place] dysfunction, PASP approx 25 mmHg DM II HTN Obesity with BMI approx 51. ROBBIN reported, but intolerant to CPAP KEILY-inhib cause cough, but has been able to take ARBs Plan: * Complex issues that include CAD that is, by her report, inoperable * Continue triple therapy for angina (metoprolol succinate, amlodipine, ranolazine. Oral/topical nitrates not a good option because of her marked intolerance. Also notes moderate intolerance to ranolazine (headaches) but has been able to continue it w/o interruption since being placed on it and it has helped angina - no c/o CP today * Continue dual antiplatelet therapy * Monitor labs * Management of pneumonia per medical services Physician Assessment Physician Assessment No cp or palp or syncope; shortness of breath improving Lungs: good air entry, diminished at the bases Cor: reg Ext: no c/c/e A&R * As documented in our note above that I updated (italics) and as noted below * Continue current regimen * Monitor labs Clinical Quality Measures AMI/AHF: ASA po Prior to arrival: SAL Savage Jan 10, 2019 11:09 DAPHNE FUCHS MD [facility] Jan 10, 2019 18:30
[2019-01-10] MEDS: LACTOBACILLUS ACIDOPHILUS (PROBIOTIC) CAPSULE PO SCH ×2 (11:53→16:20)
[2019-01-10] MEDS: ENOXAPARIN 60 MG/0.6 ML (LOVENOX) SYR SC SCH ×2 (11:53→22:26)
--- NOTE | 2019-01-10 13:55 | NUR ---
Pastoral care visit.
--- NOTE | 2019-01-10 16:14 | NUR ---
CM/SS, respond to consult. Patient resides with her spouse in [place]. Concerns were for possible non-compliance to Rx due to costs/financial hardship. As a result of interview, the following post hospital plan is indicated: Patient's PCP is Dr. Lemuel Ojeda. She understands that she can access [facility] pharmacy if Rx assistance is needed. Tiler'S Assistant provided a [facility] Financial Assistance application for her completion to assist with expediting that process. Patient and her spouse changed insurances to a Medicare replacement, Roberto Nguyen. She indicates this plan has better Rx coverage for them and has greatly improved their ability to obtain meds. Her spouse has multiple comorbidities and is disabled, multiple cardiac drugs and noc O2. They are enrolled with Meals on Wheels and will continue that program. DME: Patient has 4WW with seat. If she should need home O2, her preferred agency is [employer] [place] which is where her spouse is established for his services. It does not appear that Rx assistance is necessary for discharge; however, will continue to follow patient progress and reassess intermittently. 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 Her custodial was several years ago because of a work related injury.
--- NOTE | 2019-01-10 16:48 | Pulmonary Consultation ---
History of Present Illness History of Present Illness Date of Consultation 01/10/19 16:43 Date of Admission Allergies and Home Medications Allergies Coded Allergies: KEILY Inhibitors (Verified Adverse Reaction, Unknown, cough, 01/10/19) Home Medications Amlodipine Besylate 10 Mg Tablet, 10 MG PO HS, (Reported) Aspirin 81 Mg Tablet.dr, 81 MG PO DAILY, (Reported) Clopidogrel Bisulfate 75 Mg Tablet, 75 MG PO DAILY, (Reported) Famotidine 20 Mg Tablet, 20 MG PO BID, (Reported) Gabapentin 100 Mg Capsule, 100 MG PO TID, (Reported) Insulin Detemir 100 Unit/1 Ml Insuln.pen, 34 UNIT SQ HS, (Reported) Insulin Lispro 100 Unit/1 Ml Vial, SQ TIDAC, (Reported) Losartan Potassium 100 Mg Tablet, 100 MG PO DAILY, (Reported) Metoprolol Tartrate 100 Mg Tablet, 100 MG PO BID, (Reported) Ranolazine 500 Mg Tab.er.12h, 500 MG PO BID, (Reported) Sertraline HCl 100 Mg Tablet, 100 MG PO HS, (Reported) Tizanidine HCl 4 Mg Tablet, 4 MG PO Q6H PRN for MUSCLE SPASMS, (Reported) Past Mqeuxtc-Kcyimk-Lovavy Hx Past Med/Social Hx: Reviewed Nursing Past Med/Soc Hx Patient Social History Alcohol Use: Denies Use Smoking Status: Never a Smoker Recent Foreign Travel: No Contact w/Someone Who Travel: No Recent Infectious Disease Expo: No Physical Abuse: No Sexual Abuse: No Mistreated: No Fear: No Immunizations Up To Date Date of Pneumonia Vaccine: Jan 09, 2017 Date of Influenza Vaccine: Sep 11, 2018 Past Medical History Adenoidectomy, Hysterectomy, Oophorectomy Coronary Artery Disease, High Cholesterol, Hypertension 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 10.0oz. 121.301175tz; 50.8 BMI Method:Stated Exam Exam Vital Signs Date Time Temp Pulse Resp B/P (MAP) Pulse Ox O2 Delivery O2 Flow Rate FiO2 01/10/19 15:24 98.5 74 22 119/72 (88) 97 Nasal Cannula 2.00 01/10/19 15:00 96 Nasal Cannula 2.00 01/10/19 13:07 77 3/11/19 12:00 96.9 69 22 149/68 (95) 98 Room Air 01/10/19 09:54 98 Nasal Cannula 2.00 01/10/19 08:00 97 Nasal Cannula 2.00 01/10/19 08:00 98.7 70 22 169/79 (109) 95 Room Air 01/10/19 07:00 66 01/10/19 04:51 98.5 70 20 149/80 (103) 93 Room Air 01/10/19 01:33 93 Nasal Cannula 2.00 01/10/19 01:00 80 01/10/19 00:22 98.9 82 24 165/73 (103) 96 Room Air 01/09/19 20:00 Room Air 2.00 01/09/19 20:00 99.5 88 22 162/82 (108) 96 Room Air 01/09/19 19:40 Nasal Cannula 2.00 01/09/19 19:29 95 Nasal Cannula 2.00 01/09/19 19:00 94 I & O 01/10/19 07:00 Intake Total 1930 ml Output Total 3200 ml Balance -1270 ml Height & Weight Height: 5'1.00" Weight: 268lbs. 10.0oz. 121.392410cs; 50.8 BMI Method:Stated General Appearance: No Apparent Distress, Obese Respiratory: Lungs Clear, No Accessory Muscle Use, No Respiratory Distress, Decreased Breath Sounds (porr inspiratory effort) Cardiovascular: Regular Rate, Rhythm, No Gallop, No Murmur, Normal Peripheral Pulses Capillary Refill: Less Than 3 Seconds Extremity: Non Tender, No Calf Tenderness Neurologic/Psychiatric: Alert, Oriented x3 Skin: Normal Color, Warm/Dry Results Lab Laboratory Tests 01/08/19 22:38 01/09/19 03:53 Assessment/Plan Assessment/Plan HCAP -Currently on Levaquin and azithromycin -BNP is 571 -Influ is neg Grade I diastolic dysfunction -EF 01/09/19 shows EF 65-70% -PAP 25 ROBBIN -PT has been intolerant of CPAP therapy -out pt follow up CAD KEKE SLAUGHTER DO Jan 10, 2019 16:48
[2019-01-10] MEDS ORDERED: fluCOnazole (DIFLUCAN) 100 MG TAB PO NR (17:00)
[2019-01-10] MEDS: SERTRALINE 100 MG (ZOLOFT) TAB PO SCH (20:28)
[2019-01-10] MEDS: inSUlin DETERMIR 1 UNIT/0.01 ML (LEVEMIR) CHARGE PER UNIT SQ SCH (22:26)
[2019-01-11] VITALS (7 sets, daily range): BP systolic 126–158; BP diastolic 63–70
--- NOTE | 2019-01-11 02:13 | NUR ---
0140-pt called this rn to the room because she is diaphoretic-pt denies any concerns other than she is requesting her bs be check-bs resulted 233- pt cleaned up, gown & linens changed
[2019-01-11] MEDS: RT-ALBUTEROL/IPRATROPIUM 3 ML (DUONEB) VIAL INH SCH ×4 (02:52→21:48)
--- NOTE | 2019-01-11 06:37 | NUR ---
pt requesting to wait to take novolog & lactobacillus
[2019-01-11] MEDS: RT-ADVAIR HFA 115/21 MCG PER PUFF IH SCH ×2 (08:06→21:48)
[2019-01-11] MEDS: amLODIPine 10 MG (NORVASC) TAB PO SCH (08:43)
[2019-01-11] MEDS: inSUlin ASPART (NovoLOG) 1 UNIT/0.01 ML (CHARGE PER UNIT) SC SCH ×4 (08:43→22:38)
[2019-01-11] MEDS: LACTOBACILLUS ACIDOPHILUS (PROBIOTIC) CAPSULE PO SCH ×3 (08:43→17:09)
[2019-01-11] MEDS: RANOLAZINE ER 500 MG TAB (RANEXA) PO SCH ×2 (08:43→20:25)
[2019-01-11] MEDS: AZITHROMYCIN 250 MG TAB (ZITHROMAX) PO SCH (08:44)
[2019-01-11] MEDS: CLOPIDOGREL 75 MG (PLAVIX) TABLET PO SCH (08:44)
[2019-01-11] MEDS: FAMOTIDINE 20 MG (PEPCID) TABLET PO SCH ×2 (08:44→20:25)
[2019-01-11] MEDS: ASPIRIN E.C. 81 MG (ECOTRIN) TAB PO SCH (08:44)
[2019-01-11] MEDS: meTOprolol SUCCINATE 100 MG (TOPROL XL) TAB PO SCH ×2 (08:44→20:25)
[2019-01-11] MEDS: ACETAMINOPHEN 325 MG TABLET PO PRN ×3 (08:48→23:15)
--- NOTE | 2019-01-11 09:18 | Progress Note-Hospitalist ---
Subjective HPI/CC On Admission Date Seen by Provider: Jan 11, 2019 Time Seen by Provider: 09:13 This is a 63-year-old white female who has been ill for the last week. She has been in her house and in bed with cough productive of green smith sputum and increased shortness of breath. She had gotten out yesterday to go to [facility] with her and then began having chills and becoming more dyspneic and presented the emergency room in [place] where she was found to be ill with evidence of a right lower lobe pneumonia and elevated BNP and relative hypoxia with O2 sat of 87 percent. She was accepted here for inpatient admission for pneumonia. Patient had a heart catheter about 3 weeks ago and was found to have obstructive coronary artery disease that was not amenable to stent placement. She has not been able to tolerate the Ranexa because of headaches. Her BNP was elevated and chest x-ray is reflective of possible pulmonary edema. At the time of my interview this morning the patient is lying down flat in no respiratory distress and says that she feels a little better. Subjective/Events-last exam Pt reports not feeling any better still. Woke up drenched in sweat twice overnight. Has remained afebrile overnight though. Still on oxygen. Focused Exam Lactate Level 01/08/19 23:55: Lactic Acid Level 0.83 Objective Exam Vital Signs Vital Signs Date Time Temp Pulse Resp B/P (MAP) Pulse Ox O2 Delivery O2 Flow Rate FiO2 01/11/19 08:06 96 Nasal Cannula 2.00 01/11/19 08:00 97.4 64 20 146/67 (93) 01/09/19 16:31 21 Capillary Refill : Less Than 3 Seconds General Appearance: No Apparent Distress, Obese Respiratory: Lungs Clear, No Accessory Muscle Use, No Respiratory Distress Cardiovascular: Regular Rate, Rhythm, No Gallop, No Murmur, Normal Peripheral Pulses Gastrointestinal: Normal Bowel Sounds, Non Tender, Soft Extremity: Non Tender, No Calf Tenderness Neurologic/Psychiatric: Alert, Oriented x3, Normal Mood/Affect Results/Procedures Lab Patient resulted labs reviewed. Imaging: Reviewed Imaging Films, Reviewed Imaging Report Assessment/Plan Assessment and Plan Assess & Plan/Chief Complaint HCAP- Continue on Levaquin and Azithro Reactive airway disease- Continue Advair, Pulm consulted- appreciate recs CAD- Cardiology consulted, appreciate recs, continue Plavix, ASA dCHF- denies orthopnea, appears clinically compensated; cardiology consulted IDDMII- SSI, social service assistant consulted due to financial difficulties with affording medications HTN- Continue Metoprolol, amlodipine- cannot tolerate KEILY due to cough Depression: Continue Zoloft Family history of breast cancer: Mammogram ordered over the weekend but unable to be done- needs as an outpatient UTI- e coli growing on culture- should be covered by Levaquin but will await sensitivities Diagnosis/Problems Diagnosis/Problems (1) Coronary artery disease Status: Chronic Qualifiers: Coronary Disease-Associated Artery/Lesion type: [place] artery Associated angina: with stable angina (2) HCAP (healthcare-associated pneumonia) Status: Acute (3) Diabetes Status: Chronic Qualifiers: Diabetes mellitus type: type 2 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
[2019-01-11] MEDS: ENOXAPARIN 60 MG/0.6 ML (LOVENOX) SYR SC SCH ×2 (11:13→22:38)
[2019-01-11] MEDS: LEVOFLOXACIN 500 MG TAB (LEVAQUIN) PO SCH (11:15)
--- NOTE | 2019-01-11 11:36 | Progress Note-Cardiology ---
Cardiology SOAP Progress Note Subjective: Sitting up in a chair at the bedside. No c/o CP today. Dyspnea improved. Objective: I&O/Vital Signs 01/11/19 01/11/19 01/11/19 01/11/19 12:00 12:54 14:50 15:23 Temp 98.6 99.3 Pulse 67 74 70 Resp 20 20 B/P (MAP) 139/66 (90) 136/68 (90) Pulse Ox 96 95 97 O2 Delivery Room Air Nasal Cannula Nasal Cannula O2 Flow Rate 2.00 2.00 01/11/19 01/11/19 01/11/19 19:00 19:03 20:19 Temp 97.0 Pulse 75 64 74 Resp 20 B/P (MAP) 146/67 (93) 158/70 (99) Pulse Ox 98 O2 Delivery Room Air Nasal Cannula O2 Flow Rate 2.00 01/11/19 00:00 Intake Total 2220 ml Output Total 1900 ml Balance 320 ml Weight (Pounds): 268 Weight (Ounces): 10.0 Weight (Calculated Kilograms): 121.921719 Constitutional: AAO x 3, well-developed, well-nourished Respiratory: No accessory muscle use; other (fair to good bilat air entry, diminished at the bases) Cardiovascular: regular rate-rhythm, S1 and S2, systolic murmur (faint JERICA at card base) Gastrointestional: No tender; soft; No guarding, No rebound; audible bowel sounds Extremities: No clubbing, No cyanosis, No significant edema Neurologic/Psychiatric: oriented x 3, grossly intact, power is 5/5 both on sides Skin: No rash on exposed areas, No ulcerations on exposed areas Results/Procedures: Labs Laboratory Tests 01/11/19 01:47: Glucometer 233H 01/11/19 06:27: Glucometer 220H 01/11/19 10:58: Glucometer 242H 01/11/19 15:24: Glucometer 243H Microbiology 01/08/19 Blood Culture - Preliminary, Resulted No growth 01/08/19 Influenza Types A,B Antigen (WANDA) - Final, Complete 01/08/19 Urine Culture - Final, Complete Escherichia coli A/P: Assessment: Community acquired pneumonia Chronic stable angina pectoris. Reports severe intolerance to oral nitrates ( severe headaches) CAD. Has had LAD stenting in early 2018 (per her description); last card cath in late Dec 2018 at [facility] and was told that she has diffused blockages in small caliber vessels and that she is not a candidate for further [facility] intervention Echo on 01/09/19: LVEF 65-70%, grade I rivers dysfunction, PASP approx 25 mmHg DM II HTN Obesity with BMI approx 51. ROBBIN reported, but intolerant to CPAP KEILY-inhib cause cough, but has been able to take ARBs Plan: * Complex issues that include CAD that is, by her report, inoperable * Continue triple therapy for angina (metoprolol succinate, amlodipine, ranolazine. Oral/topical nitrates not a good option because of her marked intolerance. Also notes moderate intolerance to ranolazine (headaches) but has been able to continue it w/o interruption since being placed on it and it has helped angina - no further c/o CP * Continue dual antiplatelet therapy * Monitor labs * Management of pneumonia per medical services * Discharge planning for today * She states she will f/u with her assembler semiconductor at [facility] * Continue cardiac meds Physician Assessment Physician Assessment No cp. Shortness of breath at usual baseline. No palp or syncope Lungs: fair to good bilat air entry Cor: reg Ext: no c/c/e A&R * As documented in our note above that I updated (italics) and as noted below * Outpt cardiac f/u advised Clinical Quality Measures AMI/AHF: ASA po Prior to arrival: No SAL BACON FOOD AND BEVERAGE ASSISTANT Jan 11, 2019 11:36 DAPHNE FUCHS MD [facility] Jan 11, 2019 21:30
[2019-01-11] MEDS ORDERED: METO-395 PO (11:38)
--- NOTE | 2019-01-11 14:15 | Physical Therapy Daily Note ---
PT Daily Note-Current Subjective Pt sitting in recliner upon arrival. Pt agrees to PT. Pain Location: No Pain Reported Mental Status Patient Orientation: Person, Place, Time, Situation Attachments: Oxygen (2L) Transfers Therapy Code Descriptions/Definitions Functional [place] Measure: 0=Not Assessed/NA 4=Minimal Assistance 1=Total Assistance 5=Supervision or Setup 2=Maximal Assistance 6=Modified [place] 3=Moderate Assistance 7=Complete [place] Therapy Quality Codes: 6 Independent with activity with or without an assistive device 5 Patient requires set up or clean up by helper. Patient completes activity by themselves 4 Supervision or touching assist (CGA). [place] provide cues , steadying assist 3 The helper provides less than half the effort to complete the activity 2 The helper provides more than half the effort to complete the activity 1 Dependent. The helper does all the effort to complete an activity 7 Patient refused to complete or attempt activity 9 The patient did not perform the activity before the current illness or injury 88 Not attempted due to Medical conditions or safety concerns Scootin Rollin Supine to/from Sit: 6 Sit to/from Stand: 6 Bed to/from Chair: 6 Weight Bearing Right Lower Extremity: Right Weight Bearing/Tolerated Left Lower Extremity: Left Weight Bearing/Tolerated Gait Training Distance (FIM): 3=150 ft Distance: 150' Gait Level of Assist: 5 Gait Persons Needed: 1 Gait Assistive Device: FWW Pt walks with slight kyphotic posture and slow ervin. Pt reports SOB but O2 shows 95% during ambulation. Treatments Pt transfers from recliner to standing and ambulates in hallway using FWW at SBA with O2. Pt returns to EOB to rest then transfers to Supine in bed with HOB raised. Pt resting with all needs met at end of tx. Assessment Current Status: Good Progress Pt improved distance of ambulation, although still feeling SOB due to medical dx. PT Short Term Goals Short Term Goals Time Frame: Jan 17, 2019 Transfers (B,C,W/C) (FIM): 6 Gait (FIM): 6 Gait Distance Comment: 150' Gait Level of Assist: 6 Gait Assistive Device: FWW PT Plan Problem List Problem List: Activity Tolerance, Functional Strength, Safety, Gait Treatment/Plan Treatment Plan: Continue Plan of Care Treatment Plan: Bed Mobility, Education, Functional Activity David, Functional Strength, Gait, Safety, Therapeutic Exercise, Transfers Treatment Duration: Jan 17, 2019 Frequency: 6 times per week Estimated Hrs Per Day: .25 hour per day (15-30') Patient and/or Family Agrees t: Yes Safety Risks/Education Patient Education: Gait Training, Transfer Techniques, Correct Positioning, Safety Issues Teaching Recipient: Patient Teaching Methods: Discussion Response to Teaching: Verbalize Understanding Time/GCodes Time In: 1332 Time Out: 1402 Total Billed Treatment Time: 30 Total Billed Treatment 1, GT (20m) & FA (10m) G Codes Necessary: ITZ Nuñez EMERGENCY MEDICAL SERVICE COORDINATOR Jan 11, 2019 14:15
--- NOTE | 2019-01-11 16:08 | Pulmonary Progress Note ---
Sepsis Event Evaluation Height, Weight, BMI Height: 5'" Weight: 268lbs. 10.0oz. 121.074448cf; 50.8 BMI Method:Stated Focused Exam Lactate Level 01/08/19 23:55: Lactic Acid Level 0.83 Exam Exam Vital Signs Date Time Temp Pulse Resp B/P (MAP) Pulse Ox O2 Delivery O2 Flow Rate FiO2 01/11/19 15:23 99.3 70 20 136/68 (90) 97 Nasal Cannula 2.00 01/11/19 14:50 95 Nasal Cannula 2.00 01/11/19 12:54 74 01/11/19 12:00 98.6 67 20 139/66 (90) 96 Room Air 01/11/19 08:06 96 Nasal Cannula 2.00 01/11/19 08:00 97.4 64 20 146/67 (93) 98 Room Air 01/11/19 08:00 Nasal Cannula 2.00 01/11/19 07:06 65 01/11/19 04:30 98.0 67 20 126/65 (85) 97 Nasal Cannula 2.00 01/11/19 02:53 94 Nasal Cannula 2.00 01/11/19 01:00 70 01/11/19 00:16 98.8 73 20 140/63 (88) 95 Nasal Cannula 2.00 01/10/19 20:27 78 20 154/88 (110) 96 Nasal Cannula 2.00 01/10/19 20:19 96 Nasal Cannula 2.00 01/10/19 20:00 Nasal Cannula 2.00 01/10/19 19:19 99.6 80 19 156/80 (105) 97 Nasal Cannula 2.00 01/10/19 19:00 77 I & O 01/11/19 06:59 Intake Total 2620 ml Output Total 4100 ml Balance -1480 ml Height & Weight Height: 5'.00" Weight: 268lbs. 10.0oz. 121.770214dc; 50.8 BMI Method:Stated General Appearance: No Apparent Distress, Obese Respiratory: Lungs Clear, No Accessory Muscle Use, No Respiratory Distress, Decreased Breath Sounds (porr inspiratory effort) Cardiovascular: Regular Rate, Rhythm, No Gallop, No Murmur, Normal Peripheral Pulses Capillary Refill: Less Than 3 Seconds Extremity: Non Tender, No Calf Tenderness Neurologic/Psychiatric: Alert, Oriented x3 Assessment/Plan Assessment/Plan HCAP -Currently on Levaquin and azithromycin -BNP is 571 -Influ is neg Grade I diastolic dysfunction -EF 01/09/19 shows EF 65-70% -PAP 25 ROBBIN -PT has been intolerant of CPAP therapy -out pt follow up CAD KEKE SLAUGHTER DO Jan 11, 2019 16:08
[2019-01-11] MEDS: NYSTATIN OINTMENT 30 GM TUBE TOP SCH (20:25)
[2019-01-11] MEDS: SERTRALINE 100 MG (ZOLOFT) TAB PO SCH (20:25)
[2019-01-11] MEDS: inSUlin DETERMIR 1 UNIT/0.01 ML (LEVEMIR) CHARGE PER UNIT SQ SCH (22:38)
[2019-01-12] VITALS: BP 146/77
[2019-01-12] MEDS: RT-ALBUTEROL/IPRATROPIUM 3 ML (DUONEB) VIAL INH SCH ×2 (03:14→06:47)
[2019-01-12 04:09] VITALS: BP 137/78
[2019-01-12] MEDS: inSUlin ASPART (NovoLOG) 1 UNIT/0.01 ML (CHARGE PER UNIT) SC SCH ×2 (05:43→11:23)
[2019-01-12] MEDS: ACETAMINOPHEN 325 MG TABLET PO PRN ×2 (05:58→11:24)
--- NOTE | 2019-01-12 06:21 | Pulmonary Progress Note ---
Subjective Time Seen by a Provider: 07:03 Subjective/Events-last exam Pt is doing much better. Sepsis Event Evaluation Height, Weight, BMI Height: 5'1.00" Weight: 268lbs. 10.0oz. 121.842621qn; 50.8 BMI Method:Stated Exam Exam Vital Signs Date Time Temp Pulse Resp B/P (MAP) Pulse Ox O2 Delivery O2 Flow Rate FiO2 01/12/19 04:09 97.6 64 14 137/78 (97) 94 Nasal Cannula 01/12/19 03:14 97 Nasal Cannula 1.00 01/12/19 01:00 73 01/12/19 00:00 97.8 68 16 146/77 (100) 92 Nasal Cannula 2.00 01/11/19 21:48 98 Nasal Cannula 2.00 01/11/19 20:19 74 158/70 (99) Nasal Cannula 2.00 01/11/19 20:00 Nasal Cannula 2.00 01/11/19 19:03 97.0 64 20 146/67 (93) 98 Room Air 01/11/19 19:00 75 01/11/19 15:23 99.3 70 20 136/68 (90) 97 Nasal Cannula 2.00 01/11/19 14:50 95 Nasal Cannula 2.00 01/11/19 12:54 74 01/11/19 12:00 98.6 67 20 139/66 (90) 96 Room Air 01/11/19 08:06 96 Nasal Cannula 2.00 01/11/19 08:00 97.4 64 20 146/67 (93) 98 Room Air 01/11/19 08:00 Nasal Cannula 2.00 01/11/19 07:06 65 I & O 01/12/19 07:00 Intake Total 2620 ml Output Total 2500 ml Balance 120 ml Height & Weight Height: 5'1.00" Weight: 268lbs. 10.0oz. 121.159613ra; 50.8 BMI Method:Stated General Appearance: No Apparent Distress, Obese Respiratory: Lungs Clear, No Accessory Muscle Use, No Respiratory Distress, Decreased Breath Sounds (porr inspiratory effort) Cardiovascular: Regular Rate, Rhythm, No Gallop, No Murmur, Normal Peripheral Pulses Capillary Refill: Less Than 3 Seconds Extremity: Non Tender, No Calf Tenderness Neurologic/Psychiatric: Alert, Oriented x3 Assessment/Plan Assessment/Plan HCAP -Currently on Levaquin and azithromycin - Continue x 5days then D/C -Influ is neg Grade I diastolic dysfunction -EF 01/09/19 shows EF 65-70% -PAP 25 ROBBIN hx -PT has been intolerant of CPAP therapy -out pt follow up CAD DM Pt is ok for discharge from pulmonary standpoint. KEKE ESPANA DO Jan 12, 2019 06:20
--- NOTE | 2019-01-12 06:47 | NUR ---
PT STATES SHE IS NOT READY TO ORDER BREAKFAST AT THIS TIME, PT STATES SHE WILL TAKE HER LACTOBACILLUS WHEN SHE ORDERS HER BREAKFAST.
[2019-01-12] MEDS: RT-ADVAIR HFA 115/21 MCG PER PUFF IH SCH (06:57)
[2019-01-12] MEDS: RANOLAZINE ER 500 MG TAB (RANEXA) PO SCH (08:27)
[2019-01-12] MEDS: AZITHROMYCIN 250 MG TAB (ZITHROMAX) PO SCH (08:27)
[2019-01-12] MEDS: CLOPIDOGREL 75 MG (PLAVIX) TABLET PO SCH (08:27)
[2019-01-12] MEDS: LACTOBACILLUS ACIDOPHILUS (PROBIOTIC) CAPSULE PO SCH (08:27)
[2019-01-12] MEDS: amLODIPine 10 MG (NORVASC) TAB PO SCH (08:28)
[2019-01-12] MEDS: FAMOTIDINE 20 MG (PEPCID) TABLET PO SCH (08:28)
[2019-01-12] MEDS: ASPIRIN E.C. 81 MG (ECOTRIN) TAB PO SCH (08:28)
[2019-01-12] MEDS: meTOprolol SUCCINATE 100 MG (TOPROL XL) TAB PO SCH (08:28)
[2019-01-12] MEDS: NYSTATIN OINTMENT 30 GM TUBE TOP SCH (08:28)
[2019-01-12] MEDS ORDERED: AZIT250T12 PO (08:46)
[2019-01-12] MEDS ORDERED: FLUT12AE4 IH (08:46)
[2019-01-12] MEDS ORDERED: NYST15OI13 TOP (08:46)
[2019-01-12] MEDS ORDERED: LEVO500T80 PO (08:46)
--- NOTE | 2019-01-12 08:50 | Discharge Inst-Simple/Standard ---
Discharge Inst-Standard Discharge Medications New, Converted or Re-Newed RX: Transmitted to Pharmacy Patient Instructions/Follow Up Plan of Care/Instructions/FU: Please continue to take your medications as written. Please follow up with your PCP and your mellowing machine operator. Please establish with Dr You to follow your ROBBIN and keep your referral to Dr Joy. Activity as Tolerated: Yes Discharge Diet: ADA Diet, Cardiac Diet Return to The Hospital For: Shortness of breath, chest pain, fevers, if you feel you are getting worse. EDUARDA MEAD MD Jan 12, 2019 08:50
--- NOTE | 2019-01-12 08:56 | Discharge Summary-Hospitalist ---
Diagnosis/Chief Complaint Date of Admission Jan 09, 2019 at 00:27 Date of Discharge Discharge Date: Jan 12, 2019 Admission Diagnosis 1. Pneumonia- community acquired but with recent hospitalization also with history of allergies to cephalosporins-Day number 2 Levaquin and Zithromax 2. Reactive airway disease secondary to number 1-we'll add Advair avoiding steroids secondary to diabetes 3. Coronary artery disease not amenable to stent placement per her history 4. Elevated BNP and cardiomegaly and chest x-ray will obtain echocardiogram consult cardiology 5. Type II diabetes with medical noncompliance secondary to financial difficulties 6. Hypertension we'll restart her medications 7. Intolerance of KEILY inhibitor secondary to cough 8. Morbid obesity and obstructive sleep apnea intolerant of CPAP 9. Strong family history of cancer the breast will obtain mammograms 10. Depression we'll continue sertraline Discharge Diagnosis (1) Coronary artery disease Status: Chronic (2) HCAP (healthcare-associated pneumonia) Status: Acute (3) Diabetes Status: Chronic (4) Hypertension Status: Chronic (5) Elevated brain natriuretic peptide (BNP) level Status: Acute Discharge Summary Procedures/Consulations Dr Mckeon- Cardiology Dr layne- Pulmonology Discharge Physical Exam Allergies: Coded Allergies: KEILY Inhibitors (Verified Adverse Reaction, Unknown, cough, 01/10/19) Vitals & I&Os Vital Signs Date Time Temp Pulse Resp B/P (MAP) Pulse Ox O2 Delivery O2 Flow Rate FiO2 01/12/19 12:13 74 18 147/65 98 Room Air 01/12/19 11:24 96.8 01/12/19 06:35 0.00 01/09/19 16:31 21 General Appearance: No Apparent Distress, WD/WN Respiratory: Lungs Clear, No Respiratory Distress Cardiovascular: Regular Rate, Rhythm, No Murmur Neurologic/Psychiatric: Alert, Oriented x3 Hospital Course Pt was admitted for pneumonia and acute asthma exacerbation. She was treated with IV abx. She had profound weakness from her illness and PT/OT was consulted to assisted with therapy to treat her debility. She improved slowly but had an otherwise uneventful hospital course. Cardiology was consulted as she had chronic stable angina. She is to follow up with her Battery Charger Conveyor Line as an outpatient. She did complain of vaginal pain which was treated with diflucan for presumed yeast infection and referral was made for outpatient cable supervisor follow up per her request. She was discharged home in stable condition to complete her course of antibiotics. Labs (last 24 hrs) Microbiology 01/08/19 Blood Culture - Preliminary, Resulted No growth 01/08/19 Influenza Types A,B Antigen (WANDA) - Final, Complete 01/08/19 Urine Culture - Final, Complete Escherichia coli Patient resulted labs reviewed. Pending Labs Imaging: Reviewed Imaging Films, Reviewed Imaging Report Discussion & Recommendations Discharge Planning: >30 minutes discharge planning Discharge Home Medications: Active Scripts Active Nystatin 15 Gm Oint...g. 0 Gm TOP BID Advair Hfa 115-21 Mcg Inhaler (Fluticasone/Salmeterol) 12 Gm Hfa.aer.ad 2 Puff IH BID@08,20 Azithromycin 250 Mg Tablet 250 Mg PO DAILY Levofloxacin 500 Mg Tablet 500 Mg PO DAILY@11 Metoprolol Succinate 100 Mg Tab.er.24h 100 Mg PO BID Reported Humalog (Insulin Lispro) 100 Unit/1 Ml Vial SQ TIDAC Levemir Flextouch (Insulin Detemir) 100 Unit/1 Ml Insuln.pen 34 Unit SQ HS Tizanidine HCl 4 Mg Tablet 4 Mg PO Q6H PRN Ranexa (Ranolazine) 500 Mg Tab.er.12h 500 Mg PO BID Aspirin EC (Aspirin) 81 Mg Tablet.dr 81 Mg PO DAILY Plavix (Clopidogrel Bisulfate) 75 Mg Tablet 75 Mg PO DAILY Amlodipine Besylate 10 Mg Tablet 10 Mg PO HS Acid Deputy Juvenile Officer (FAMOTIDINE) (Famotidine) 20 Mg Tablet 20 Mg PO BID Gabapentin 100 Mg Capsule 100 Mg PO TID Sertraline HCl 100 Mg Tablet 100 Mg PO HS Instructions to patient/family Please see electronic discharge instructions given to patient. Clinical Quality Measures AMI/AHF: ASA po Prior to arrival: No DVT/VTE Risk/Contraindication: Risk Factor Score Per Nursin RFS Level Per Nursing on Admit: 3=High Problem Qualifiers (1) Coronary artery disease: Coronary Disease-Associated Artery/Lesion type: [place] artery Associated angina: with stable angina (2) Diabetes: Diabetes mellitus type: type 2 Diabetes mellitus skilled nursing insulin use: with medium cycle salesperson use Diabetes mellitus complication status: with neurologic complications Diabetes mellitus complication detail: with polyneuropathy Qualified Codes: E11.42 - Type 2 diabetes mellitus with diabetic polyneuropathy ; Z79.4 - USP (current) use of insulin EDUARDA MEAD MD Jan 12, 2019 08:56
[2019-01-12 09:00] VITALS: BP 147/65
--- NOTE | 2019-01-12 10:00 | Diagnostic Imaging Report ---
INDICATION: Pneumonia. Time of exam 6:39 a.m. COMPARISON: Correlation is made with prior study from 01/09/2019. FINDINGS: The heart size is stable. Patchy right basilar infiltrate does appear improved and shows partial clearing since prior study. Left lung is clear. No effusion or pneumothorax is seen. IMPRESSION: Improved aeration to the right base when compared with the examination three days earlier. Dictated by: Dictated on workstation # [id number]
--- NOTE | 2019-01-12 10:08 | Cardiology Progress Note ---
Cardiology SOAP Progress Note Subjective: No cardiac symptoms. Objective: I&O/Vital Signs 01/12/19 01/12/19 01/12/19 09:00 11:24 12:13 Temp 96.8 96.8 Pulse 74 74 Resp 18 18 B/P (MAP) 147/65 (92) 147/65 Pulse Ox 98 98 O2 Delivery Room Air Room Air 01/12/19 00:00 Intake Total 2120 ml Output Total 1500 ml Balance 620 ml Weight (Pounds): 268 Weight (Ounces): 10.0 Weight (Calculated Kilograms): 121.224303 Constitutional: AAO x 3, well-developed, well-nourished Respiratory: No accessory muscle use; lungs clear to auscultation, other (fair to good bilat air entry, diminished at the bases) Cardiovascular: regular rate-rhythm, S1 and S2, systolic murmur (faint JERICA at card base) Gastrointestional: No tender; soft; No guarding, No rebound; audible bowel sounds Extremities: No normal range of motion, No non-tender, No normal inspection, No pedal edema, No calf tenderness, No normal capillary refill, No pelvis stable , No calf tenderness, No inflammation, No pedal edema, No slow capillary refill , No swelling, No other, No abrasion, No clubbing, No cyanosis, No ecchymosis, No laceration, No no lower extremity edema bilateral, No significant edema, No tenderness, No wound Neurologic/Psychiatric: no motor/sensory deficits, alert, normal mood/affect, oriented x 3, grossly intact, power is 5/5 both on sides Skin: No rash on exposed areas, No ulcerations on exposed areas Results/Procedures: Labs Laboratory Tests 01/11/19 21:47: Glucometer 241H 01/12/19 05:06: Glucometer 177H 01/12/19 11:15: Glucometer 291H Microbiology 01/08/19 Blood Culture - Preliminary, Resulted No growth 01/08/19 Influenza Types A,B Antigen (WANDA) - Final, Complete 01/08/19 Urine Culture - Final, Complete Escherichia coli A/P: Assessment/Dx: Community acquired pneumonia Chronic stable angina pectoris. Reports severe intolerance to oral nitrates ( severe headaches) CAD. Has had LAD stenting in early 2017 (per her description); last card cath in late Dec 2018 at [place] and was told that she has diffused blockages in small caliber vessels and that she is not a candidate for further [facility] intervention Echo on 01/09/19: LVEF 65-70%, grade I rivers dysfunction, PASP approx 25 mmHg DM II HTN Obesity with BMI approx 51. ROBBIN reported, but intolerant to CPAP KEILY-inhib cause cough, but has been able to take ARBs Plan: * Complex issues that include CAD that is, by her report, inoperable * Continue triple therapy for angina (metoprolol succinate, amlodipine, ranolazine. Oral/topical nitrates not a good option because of her marked intolerance. Also notes moderate intolerance to ranolazine (headaches) but has been able to continue it w/o interruption since being placed on it and it has helped angina - no further c/o CP * Continue dual antiplatelet therapy * Monitor labs * Management of pneumonia per medical services * Continue cardiac meds Thank you for your consultation. Please call me if you have any questions. Brea Montejo MD, FACP, FACC, FSCAI, FHRS, CCDS Interventional Cardiology Cardiac Electrophysiology Vascular Medicine and Endovascular Interventions Clinical Quality Measures AMI/AHF: ASA po Prior to arrival: Sinan Garrison MD Jan 12, 2019 10:08
--- NOTE | 2019-01-12 10:18 | Physical Therapy Daily Note ---
PT Daily Note-Current Subjective Pt sitting in recliner upon arrival. Pt agrees to PT. Pain Location: No Pain Reported Mental Status Patient Orientation: Person, Place, Time, Situation Transfers Therapy Code Descriptions/Definitions Functional [place] Measure: 0=Not Assessed/NA 4=Minimal Assistance 1=Total Assistance 5=Supervision or Setup 2=Maximal Assistance 6=Modified [place] 3=Moderate Assistance 7=Complete [place] Therapy Quality Codes: 6 Independent with activity with or without an assistive device 5 Patient requires set up or clean up by helper. Patient completes activity by themselves 4 Supervision or touching assist (CGA). [place] provide cues , steadying assist 3 The helper provides less than half the effort to complete the activity 2 The helper provides more than half the effort to complete the activity 1 Dependent. The helper does all the effort to complete an activity 7 Patient refused to complete or attempt activity 9 The patient did not perform the activity before the current illness or injury 88 Not attempted due to Medical conditions or safety concerns Weight Bearing Right Lower Extremity: Right Weight Bearing/Tolerated Left Lower Extremity: Left Weight Bearing/Tolerated Treatments Upon arrival, Paste Worker visiting with pt about DC. TRAFFIC II MANAGER discusses pt ed. about FWW vs 4WW, proper positioning and sizing w/in FWW as well as FWW skis and tennis balls to improve current FWW. Pt resting in recliner at end of tx with all needs met. Assessment Current Status: Good Progress Pt is motivated to continue to improve at home and is excited to DC. PT Short Term Goals Short Term Goals Time Frame: Jan 17, 2019 Transfers (B,C,W/C) (FIM): 6 Gait (FIM): 6 Gait Distance Comment: 150' Gait Level of Assist: 6 Gait Assistive Device: FWW PT Plan Problem List Problem List: Activity Tolerance Treatment/Plan Treatment Plan: Continue Plan of Care Treatment Plan: Bed Mobility, Education, Functional Activity David, Functional Strength, Gait, Safety, Therapeutic Exercise, Transfers Treatment Duration: Jan 17, 2019 Frequency: 6 times per week Estimated Hrs Per Day: .25 hour per day (15-30') Patient and/or Family Agrees t: Yes Safety Risks/Education Patient Education: Gait Training, Correct Positioning, Safety Issues Teaching Recipient: Patient Teaching Methods: Discussion Response to Teaching: Verbalize Understanding Time/GCodes Time In: 925 Time Out: 940 Total Billed Treatment Time: 15 Total Billed Treatment 1, FA (15m) G Codes Necessary: ITZ Nuñez TRAFFIC II MANAGER Jan 12, 2019 10:18
[2019-01-12] MEDS: LEVOFLOXACIN 500 MG TAB (LEVAQUIN) PO SCH (10:50)
[2019-01-12] MEDS: ENOXAPARIN 60 MG/0.6 ML (LOVENOX) SYR SC SCH (10:52)
[2019-01-12 12:13] VITALS: BP 147/65
--- NOTE | 2019-01-12 13:10 | NUR ---
CM/SS. Final conversation with patient about her insulin. She does not get paid for a few more days. She has samples to use from Dr. Ojeda, she is also continuing her plan to utilize the [facility] pharmacy at [place] as soon as she can access that. [employer] provided her a [facility] Financial Assist form to expedite. She has not attempted to get insulin Rx under her new insurance this year, she does not know what benefit she has. Spouse here to transport.
--- NOTE | 2019-01-14 13:29 | Physician Query Clarification ---
PQ-Conflicting Diagnosis Admission/Discharge Admission Date: Jan 09, 2019 at 00:27 Discharge Date: Jan 12, 2019 at 12:16 The medical record reflects the following clinical scenario: History/Risk Factors: asthma Clinical Findings: pneumonia, asthma Treatment: Albuterol, Advair Question: Do you agree with the impression of the ACUTE EXACERBATION ASTHMA per Dr. Deng H&P? Please document a response below. PHYSICIAN RESPONSE Do you agree w/Consulting Dx?: Yes In responding to this query, please exercise your independent professional judgment. The purpose of this communication is to more accurately reflect the complexity of your patients condition. The fact that a question is asked does not imply that any particular answer is desired or expected. Thank you for your timely response to this clarification. Requestors name: [ ] Phone # [ ] THIS PHYSICIAN QUERY FORM IS A PERMANENT PART OF THE MEDICAL RECORD ZOILA CARROLL Jan 14, 2019 13:29 EDUARDA MEAD MD Jan 14, 2019 14:41
== END 2019-01-12 12:16 | disposition home or self-care (01) | DRG 194 ==
LOC: EDUNIT# 22:10 → ER FS 22:15 → 4TH 01-09 00:27
PROVIDERS: ADMIT Internal Medicine; ATTEND Internal Medicine
DX: J18.9 Pneumonia, unspecified organism (principal); J45.901 Unspecified asthma with (acute) exacerbation; N39.0 Urinary tract infection, site not specified; B96.20 Unspecified Escherichia coli [E. coli] as the cause of diseases classified elsewhere; R09.02 Hypoxemia; I25.118 Atherosclerotic heart disease of native coronary artery with other forms of angina pectoris; E66.01 Morbid (severe) obesity due to excess calories; Z68.43 Body mass index [BMI] 50.0-59.9, adult; E78.00 Pure hypercholesterolemia, unspecified; I11.0 Hypertensive heart disease with heart failure; I50.9 Heart failure, unspecified; K21.9 Gastro-esophageal reflux disease without esophagitis; E11.42 Type 2 diabetes mellitus with diabetic polyneuropathy; F32.9 Major depressive disorder, single episode, unspecified; M19.91 Primary osteoarthritis, unspecified site; G47.33 Obstructive sleep apnea (adult) (pediatric); R79.89 Other specified abnormal findings of blood chemistry; Z80.3 Family history of malignant neoplasm of breast; Z91.19 Patient's noncompliance with other medical treatment and regimen; Z82.49 Family history of ischemic heart disease and other diseases of the circulatory system; Z79.4 Long term (current) use of insulin; Z95.5 Presence of coronary angioplasty implant and graft; Z88.1 Allergy status to other antibiotic agents
CPT/HCPCS: 36415; 71045; 71046; 80053; 81000; 82962; 83605; 83735; 83880; 84484; 85025; 85610; 85730; 87040; 87077; 87088; 87186; 87804; 93005; 93306; 94640; 94760; 94761; 96374; 96375

== ENCOUNTER 2019-06-24 07:19 | Emergency (ER) | payer MEDICARE | END 2019-06-24 09:43 | disposition home or self-care (01) | LOC: ER FS 07:19 ==

== ENCOUNTER 2020-01-01 11:26 | Emergency (ER) | payer MEDICARE ==
[~2020-01-01] VITALS: Ht 152 cm; Wt 118.0 kg
[~2020-01-01 11:26] MED LIST: AMLO10TA4 PO; AMLO10TA7 PO; ASPI-983 PO; ASPI81TA55 PO; AZIT250T12 PO; BENZ100C18 PO; CLOP75TA69 PO; FAMO20TA3 PO; FAMO20TA5 PO; FLUT12AE4 IH; GABA-486 PO; INSU100I29 SQ; INSU100V SQ; LEVO500T80 PO; LOSA100T57 PO; MECL-149 PO; METO100T12 PO; MORP-69 PO; MTP100TCR PO; NYST15OI13 TOP; ONDA4TAB11 PO; PRD20T PO; RANO500T3 PO; RT-ALBUINH IH; SERT100T8 PO; TIZA4CAP8 PO; TIZA4TAB4 PO
--- NOTE | 2020-01-01 11:55 | ED Fall/Injury ---
General Chief Complaint: Trauma-Non Activation Stated Complaint: FALL Source: patient Exam Limitations: no limitations History of Present Illness Date Seen by Provider: Jan 01, 2020 Time Seen by Provider: 11:50 Initial Comments Patient uses a cane due to neuropathy fell all dealing with her dogs in the yard today onto her right side injuring her right knee and her right chest and right sided abdomen. No syncope or chest pain she does complain of shortness of breath but no pain with breathing Occurred: just prior to arrival Injuries/Pain Location: chest, abdomen, lower extremity Context: lost balance Loss of Consciousness: no loss of consciousness Modifying Factors: Worse With Movement Associated Symptoms (Fall): Abdominal Pain; No Chest Pain, No Confusion, No Nausea/Vomiting, No Neck Pain; Shortness of Air Allergies and Home Medications Allergies Coded Allergies: Penicillins (Verified Allergy, Unknown, 06/24/19) acetaminophen (Verified Allergy, Unknown, 06/24/19) clarithromycin (Verified Allergy, Unknown, 06/24/19) codeine (Verified Allergy, Unknown, 06/24/19) glimepiride (Verified Allergy, Unknown, 06/24/19) meperidine (Verified Allergy, Unknown, 06/24/19) oxycodone (Verified Allergy, Unknown, 06/24/19) promethazine (Verified Allergy, Unknown, 06/24/19) sitagliptin (Verified Allergy, Unknown, 06/24/19) KEILY Inhibitors (Verified Adverse Reaction, Unknown, cough, 01/10/19) Home Medications Amlodipine Besylate 10 Mg Tablet, 10 MG PO HS, (Reported) Aspirin 81 Mg Tablet.dr, 81 MG PO DAILY, (Reported) Azithromycin 250 Mg Tablet, 250 MG PO DAILY Prescribed by: EDUARDA MEAD on 01/12/19 0846 Clopidogrel Bisulfate 75 Mg Tablet, 75 MG PO DAILY, (Reported) Famotidine 20 Mg Tablet, 20 MG PO BID, (Reported) Fluticasone/Salmeterol 12 Gm Hfa.aer.ad, 2 PUFF IH BID@ Prescribed by: EDUARDA MEAD on 01/12/19 0846 Gabapentin 100 Mg Capsule, 100 MG PO TID, (Reported) Insulin Detemir 100 Unit/1 Ml Insuln.pen, 34 UNIT SQ HS, (Reported) Insulin Lispro 100 Unit/1 Ml Vial, SQ TIDAC, (Reported) Levofloxacin 500 Mg Tablet, 500 MG PO DAILY@11 Prescribed by: EDUARDA MEAD on 01/12/19 0846 Meclizine HCl 25 Mg Tablet, 25 MG PO Q6H PRN for DIZZINESS Prescribed by: PADMAJA GRACIA on 06/24/19 09 Metoprolol Succinate 100 Mg Tab.er.24h, 100 MG PO BID Prescribed by: SAL BACON on 01/11/19 1138 Nystatin 15 Gm Oint...g., 0 GM TOP BID Prescribed by: EDUARDA MEAD on 01/12/19 0846 Ondansetron 4 Mg Tab.rapdis, 4 MG PO Q6H PRN for NAUSEA/VOMITING Prescribed by: PADMAJA GRACIA on 06/24/19925 Ranolazine 500 Mg Tab.er.12h, 500 MG PO BID, (Reported) Sertraline HCl 100 Mg Tablet, 100 MG PO HS, (Reported) Tizanidine HCl 4 Mg Tablet, 4 MG PO Q6H PRN for MUSCLE SPASMS, (Reported) Patient Home Medication List Home Medication List Reviewed: Yes Review of Systems Review of Systems Constitutional: no symptoms reported Eyes: No Symptoms Reported Ears, Nose, Mouth, Throat: no symptoms reported Respiratory: see HPI Cardiovascular: see HPI Gastrointestinal: see HPI Genitourinary: no symptoms reported : No Musculoskeletal: see HPI Skin: no symptoms reported Psychiatric/Neurological: No Symptoms Reported Past Crzpshj-Cdxtch-Skrnot Hx Past Med/Social Hx: Reviewed Nursing Past Med/Soc Hx Patient Social History Alcohol Use: Denies Use Recreational Drug Use: No Smoking Status: Never a Smoker 2nd Hand Smoke Exposure: No Recent Hopitalizations: No Physical Abuse: No Sexual Abuse: No Mistreated: No Fear: No Immunizations Up To Date Date of Pneumonia Vaccine: Jan 09, 2017 Date of Influenza Vaccine: Sep 11, 2018 Seasonal Allergies Seasonal Allergies: No Past Medical History Surgeries: Yes (Uvulopalatopharyngoplasty) Adenoidectomy, Hysterectomy, Oophorectomy Respiratory: Yes Asthma, Sleep Apnea Cardiac: Yes Angina, Coronary Artery Disease, Heart Attack, High Cholesterol, Hypertension Neurological: Yes Neuropathy [employer] History: Hysterectomy Genitourinary: No Gastrointestinal: Yes Gastroesophageal Reflux Musculoskeletal: Yes Degenerate Disk Disease, Arthritis, Chronic Back Pain Endocrine: Yes Diabetes, Insulin dep HEENT: No Cancer: No Psychosocial: Yes Depression Integumentary: No Blood Disorders: No Family Medical History Cancer Physical Exam Vital Signs Vital Signs - First Documented 01/01/20 11:42 Temp 36.6 Pulse 68 Resp 18 B/P (MAP) 173/88 (116) Pulse Ox 97 Capillary Refill : Height, Weight, BMI Height: 5'1.00" Weight: 268lbs. 10.0oz. 121.166210dd; 50.8 BMI Method:Stated General Appearance: no apparent distress, obese HEENT: PERRL/EOMI, normal ENT inspection Neck: non-tender, full range of motion, supple, normal inspection Cardiovascular: regular rate, rhythm, no edema, no murmur Respiratory: lungs clear, normal breath sounds, no respiratory distress, no accessory muscle use, other (mild to moderate right upper quadrant chest tenderness) Gastrointestinal: normal bowel sounds, soft, tenderness, hernia (right upper quadrant area either a mass or hernia), mass, other (. Using erythema abrasions noted) Back: normal inspection, no CVA tenderness, other (no evidence of injury to the ribs flank or back) Extremities: pelvis stable; No calf tenderness; other (patient indicates pain to the right knee there is no bruising there is no deformity gross ligamentous laxity) Neurologic/Psychiatric: technical support representative II-XII nml as tested, no motor/sensory deficits, alert, normal mood/affect, oriented x 3 Skin: normal color, warm/dry Progress/Results/Core Measures Results/Orders Lab Results Laboratory Tests Test 01/01/20 12:00 Range/Units White Blood Count 11.4 H 4.3-11.0 10^3/uL Red Blood Count 5.10 4.35-5.85 10^6/uL Hemoglobin 12.7 11.5-16.0 G/DL Hematocrit 40 35-52 % Mean Corpuscular Volume 78 L 80-99 FL Mean Corpuscular Hemoglobin 25 25-34 PG Mean Corpuscular Hemoglobin Concent 32 32-36 G/DL Red Cell Distribution Width 14.2 10.0-14.5 % Platelet Count 237 130-400 10^3/uL Mean Platelet Volume 10.0 7.4-10.4 FL Sodium Level 134 L 135-145 MMOL/L Potassium Level 4.6 3.6-5.0 MMOL/L Chloride Level 100 98-107 MMOL/L Carbon Dioxide Level 23 21-32 MMOL/L Anion Gap 11 5-14 MMOL/L Blood Urea Nitrogen 26 H 7-18 MG/DL Creatinine 0.77 0.60-1.30 MG/DL Estimat Glomerular Filtration Rate > 60 BUN/Creatinine Ratio 34 Glucose Level 322 H 70-105 MG/DL Calcium Level 9.2 8.5-10.1 MG/DL Corrected Calcium 9.0 8.5-10.1 MG/DL Total Bilirubin 0.5 0.1-1.0 MG/DL Aspartate Amino Transf (AST/SGOT) 12 5-34 U/L Alanine Aminotransferase (ALT/SGPT) 15 0-55 U/L Alkaline Phosphatase 114 40-136 U/L Troponin I < 0.30 <0.30 NG/ML Total Protein 7.2 6.4-8.2 GM/DL Albumin 4.2 3.2-4.5 GM/DL My Orders Orders - VERDE,MARCIO B DO Ct Chest/Abdomen/Pelvis Wo (01/01/20 11:46) Cbc No Diff (01/01/20 11:46) Comprehensive Metabolic Panel (01/01/20 11:46) Troponin I Fs (01/01/20 11:46) Knee 3 View Right (01/01/20 11:46) Ekg Tracing (01/01/20 11:46) Ed Iv/Invasive Line Start (01/01/20 11:46) Fentanyl Injection (Sublimaze Injection (01/01/20 12:00) Ondansetron Injection (Zofran Injectio (01/01/20 13:00) Medications Given in ED Current Medications Medications Dose Ordered Sig/Sha Route Start Time Stop Time Status Last Admin Dose Admin Fentanyl Citrate 50 mcg ONCE ONCE IVP 01/01/20 12:00 01/01/20 12:01 DC 01/01/20 12:54 50 MCG Ondansetron HCl 8 mg ONCE ONCE IVP 01/01/20 13:00 01/01/20 13:01 DC 01/01/20 12:54 8 MG Vital Signs/I&O 01/01/20 11:42 Temp 36.6 Pulse 68 Resp 18 B/P (MAP) 173/88 (116) Pulse Ox 97 Progress Progress Note : Progress Note Morbidly obese female who became overbalanced and fell injuring her right chest and abdomen. She is on aspirin and Plavix for coronary artery disease and she complains of mild shortness of breath without chest pain. Differential would include rib fractures hemothorax pulmonary contusion and blunt intra-abdominal trauma given her antiplatelet therapy. We'll plan aggressive advanced imaging and disposition based on screening labs and imaging. Initial ECG Impression Date: Jan 01, 2020 Initial ECG Impression Time: 12:23 Initial ECG Rate: 65 Initial ECG Rhythm: Normal Sinus Initial ECG Impression: Nonspecific Changes Initial ECG Comparisson: No Previous ECG Available Departure Communication (Admissions) CT chest abdomen pelvis show no contusion no bleeding no fractures no solid organ injury laboratory studies normal EKG was unremarkable CT chest showed no pulmonary edema or infiltrate. Once the patient was disrobed the right knee is apparent the symmetric with the left as far as I can tell due to her body habitus there is a small superficial linear abrasion on the proximal tibia with no bleeding partial care. Reviewed all this with the patient explaining her should be discharged home with topical and oral analgesics Impression Primary Impression: Fall at home Additional Impressions: Contusion, chest wall Contusion of right knee Disposition: 01 HOME, SELF-CARE Condition: Stable Departure-Patient Inst. Referrals: NO,LOCAL PHYSICIAN (PCP/Family) Primary Care Physician Patient Instructions: Preventing Falls in the Older Adult, Contusion (DC), Bruised Rib MARCIO VERDE DO Jan 01, 2020 11:55
[2020-01-01] MEDS ORDERED: fentaNYL INJECTION 100 MCG/2 ML AMP IVP ONE (12:00)
--- NOTE | 2020-01-01 12:26 | Diagnostic Imaging Report ---
Clinical indication: Patient status post fall right knee pain. EXAMINATION: X-ray of the right knee, 3 views. COMPARISON: None. FINDINGS: There is no acute fracture or dislocation. There are severely hypertrophic tricompartmental spurs. There is severe medial compartment narrowing and mild lateral compartment narrowing. Central osteophytes are seen involving the lateral distal femoral condyle. There is no significant knee effusion. IMPRESSION: 1: There is no acute fracture or dislocation. 2: There is severe degenerative disease of the right knee. Dictated by: Dictated on workstation # [id number]
[2020-01-01 12:33] LABS: HEMOGLOBIN 12.7 G/DL (11.5-16.0); RED CELL DISTRIBUTION WIDTH 14.2 % (10.0-14.5); WHITE BLOOD COUNT 11.4 10^3/uL (4.3-11.0)
[2020-01-01 12:44] LABS: CARBON DIOXIDE 23 MMOL/L (21-32); CHLORIDE 100 MMOL/L (98-107); POTASSIUM 4.6 MMOL/L (3.6-5.0); SODIUM 134 MMOL/L (135-145)
[2020-01-01 12:45] LABS: ALANINE AMINOTRANSFERASE 15 U/L (0-55); ALBUMIN 4.2 GM/DL (3.2-4.5); ALKALINE PHOSPHATASE 114 U/L (40-136); BILIRUBIN,TOTAL 0.5 MG/DL (0.1-1.0); BUN/CREATININE RATIO 34; CALCIUM 9.2 MG/DL (8.5-10.1); CREATININE SERUM 0.77 MG/DL (0.60-1.30); GFR ESTIMATED > 60; GLUCOSE 322 MG/DL (70-105); TOTAL PROTEIN 7.2 GM/DL (6.4-8.2)
[2020-01-01] MEDS ORDERED: ONDANSETRON 4 MG/2 ML (SDV) Z0FRAN IVP ONE (13:00)
--- NOTE | 2020-01-01 13:19 | Diagnostic Imaging Report ---
CLINICAL INDICATION: Patient status post fall with right-sided chest wall pain and abdominal pain. Patient with shortness of breath. EXAM: CT scan of the chest, abdomen, and pelvis performed without IV or enteric contrast. All CT scans use one or more of the following dose optimizing techniques: automated exposure control, MA and/or KvP adjustment based on patient size and exam type or iterative reconstruction. COMPARISON: None. FINDINGS: There is mild atelectasis involving both lung bases. Otherwise, lungs are clear. There is no pleural effusion or pneumothorax. There is no mediastinal or hilar lymphadenopathy. There is no axillary lymphadenopathy. There is no mediastinal hematoma. There is atherosclerotic disease involving the coronary arteries. Extrathoracic soft tissue structures show no significant abnormality. Liver is prominent measuring 24.4 cm in craniocaudal dimension, but there is small left lobe of liver and this may represent a Mohini's lobe. There are vascular calcifications seen within the abdomen and pelvis. The spleen, pancreas and adrenal glands are unremarkable. There is high-density layered fluid within the gallbladder. There is a focal area of increased density within the gallbladder. This may represent stones and sludge. No CT evidence of cholecystitis. Both kidneys are unremarkable with no hydronephrosis, stone, or mass. The ureters and bladder are unremarkable. Uterus and adnexal regions are not visualized and likely surgically resected. There is no intestinal obstruction. There is no intra-abdominal free air or free fluid. There is no significant lymphadenopathy. The extraabdominal and extrapelvic soft tissue structures are unremarkable. There are hypertrophic spurs involving the thoracic and lumbar spine. There is no acute thoracic spine or lumbar spine fracture. There is multilevel thoracic and lumbar spine degenerative disease. The sternum is intact. There is no rib fracture visualized. IMPRESSION: 1. There is no CT evidence of acute chest, abdomen, or pelvic process. There is no pneumothorax, intra-abdominal free fluid, or free air. There is no acute bony fracture seen on this exam. 2: There is an enlarged liver which may be related to Mohini's lobe. 3: Cholelithiasis with no CT evidence of cholecystitis. Dictated by: Dictated on workstation # [id number]
[2020-01-01] MEDS ORDERED: TRM50T PO (13:56)
[2020-01-01] MEDS ORDERED: DICL100G31 TP (13:57)
[2020-01-01 14:02] VITALS: BP 145/74
== END 2020-01-01 14:08 | disposition home or self-care (01) ==
LOC: EDUNIT# 11:26 → ER FS 11:27
DX: S20.211A Contusion of right front wall of thorax, initial encounter (principal); S80.01XA Contusion of right knee, initial encounter; J45.909 Unspecified asthma, uncomplicated; I10 Essential (primary) hypertension; E11.40 Type 2 diabetes mellitus with diabetic neuropathy, unspecified; E78.00 Pure hypercholesterolemia, unspecified; I25.2 Old myocardial infarction; I25.10 Atherosclerotic heart disease of native coronary artery without angina pectoris; K21.9 Gastro-esophageal reflux disease without esophagitis; F32.9 Major depressive disorder, single episode, unspecified; Z79.02 Long term (current) use of antithrombotics/antiplatelets; Z79.82 Long term (current) use of aspirin; Z79.51 Long term (current) use of inhaled steroids; Z79.4 Long term (current) use of insulin; Z88.0 Allergy status to penicillin; Z88.6 Allergy status to analgesic agent; Z88.5 Allergy status to narcotic agent; Z79.84 Long term (current) use of oral hypoglycemic drugs; Z88.8 Allergy status to other drugs, medicaments and biological substances; Z88.1 Allergy status to other antibiotic agents; W19.XXXA Unspecified fall, initial encounter; Y92.007 Garden or yard of unspecified non-institutional (private) residence as the place of occurrence of the external cause
CPT/HCPCS: 36415; 71250; 73562; 74176; 80053; 84484; 85027; 93005; 96374; 96375

== ENCOUNTER 2021-05-16 12:48 | Emergency (ER) | payer MEDICARE ==
[~2021-05-16] VITALS: Ht 152.4 cm; Wt 118.1 kg
[~2021-05-16 12:48] MED LIST changes: +AMLO-251 PO; -AMLO10TA7 PO; +ASPI-1238 PO; -ASPI-983 PO; +DICL100G13 TP; +SERT-414 PO; -SERT100T8 PO; +TRM50T PO
--- NOTE | 2021-05-16 13:28 | ED Chest Pain ---
General Chief Complaint: Chest Pain Stated Complaint: CHEST PAIND History of Present Illness Date Seen by Provider: May 16, 2021 Time Seen by Provider: 01:18 Initial Comments 65-year-old female presents from her doctor's office with chest pain. Patient was seen her doctor today because of swelling in her right jaw and tenderness. She states it started 2 days ago and was worse yesterday. She did not have chest pain until 11:00 today. Significant history of coronary artery disease with 2 MIs and 4 stents. Her licensed occupational therapist is at [facility], her last stent was about 2 years ago and she has not been seen by her licensed occupational therapist in about a year. No new change of her medications, she has not taken her a.m. medications today. Denies any recent illness, fever chills or cough. Denies any abdominal pain nausea. Allergies and Home Medications Allergies Coded Allergies: Penicillins (Verified Allergy, Unknown, 06/24/19) acetaminophen (Verified Allergy, Unknown, 06/24/19) clarithromycin (Verified Allergy, Unknown, 06/24/19) codeine (Verified Allergy, Unknown, 06/24/19) glimepiride (Verified Allergy, Unknown, 06/24/19) meperidine (Verified Allergy, Unknown, 06/24/19) oxycodone (Verified Allergy, Unknown, 06/24/19) promethazine (Verified Allergy, Unknown, 06/24/19) sitagliptin (Verified Allergy, Unknown, 06/24/19) KEILY Inhibitors (Verified Adverse Reaction, Unknown, cough, 01/10/19) Home Medications Amlodipine Besylate 10 Mg Tablet, 10 MG PO HS, (Reported) Last Action: Last Taken Edited Aspirin 81 Mg Tablet.dr, 81 MG PO DAILY, (Reported) Last Action: Last Taken Edited Clopidogrel Bisulfate 75 Mg Tablet, 75 MG PO DAILY, (Reported) Last Action: Last Taken Edited Famotidine 20 Mg Tablet, 20 MG PO BID, (Reported) Last Action: Last Taken Edited Fluticasone/Salmeterol 12 Gm Hfa.aer.ad, 2 PUFF IH BID@08,20 Prescribed by: EDUARDA MEAD on 01/12/19 0846 Last Action: Last Taken Edited Gabapentin 100 Mg Capsule, 100 MG PO TID, (Reported) Last Action: Last Taken Edited Insulin Detemir 100 Unit/1 Ml Insuln.pen, 34 UNIT SQ HS, (Reported) Last Action: Last Taken Edited Insulin Lispro 100 Unit/1 Ml Vial, SQ TIDAC, (Reported) Last Action: Last Taken Edited Metoprolol Succinate 100 Mg Tab.er.24h, 100 MG PO BID Prescribed by: SAL BACON on 01/11/19 1138 Last Action: Last Taken Edited Nystatin 15 Gm Oint...g., 0 GM TOP BID Prescribed by: EDUARDA MEAD on 01/12/19 0846 Last Action: Last Taken Edited Ranolazine 500 Mg Tab.er.12h, 500 MG PO BID, (Reported) Last Action: Last Taken Edited Sertraline HCl 100 Mg Tablet, 100 MG PO HS, (Reported) Last Action: Last Taken Edited Tizanidine HCl 4 Mg Tablet, 4 MG PO Q6H PRN for MUSCLE SPASMS, (Reported) Last Action: Last Taken Edited Valacyclovir HCl 1,000 Mg Tablet, 1,000 MG PO BID Prescribed by: ELBA HORN on 05/16/21 1503 Patient Home Medication List Home Medication List Reviewed: Yes Review of Systems Review of Systems Constitutional: No fever, No malaise, No weakness EENTM: See HPI, Other (jaw swelling and pain R side. NO dental pain or mouth swelling. Pain began in her neck- right sided) Respiratory: Denies Cough, Denies Shortness of Air Cardiovascular: Chest Pain; Denies Edema, Denies Lightheadedness, Denies Palpitations, Denies Syncope Gastrointestinal: Denies Abdominal Pain, Denies Nausea, Denies Vomiting Psychiatric/Neurological: Denies Headache, Denies Numbness, Denies Paresthesia, Denies Seizure Past Glfsckk-Irduma-Uatzjd Hx Patient Social History Tobacco Use?: No Seasonal Allergies Seasonal Allergies: No Past Medical History Surgeries: Yes (Uvulopalatopharyngoplasty) Adenoidectomy, Hysterectomy, Oophorectomy Respiratory: Yes Asthma, Sleep Apnea Cardiac: Yes Angina, Coronary Artery Disease, Heart Attack, High Cholesterol, Hypertension Neurological: Yes Neuropathy BEEF BONER History: Hysterectomy Genitourinary: No Gastrointestinal: Yes Gastroesophageal Reflux Musculoskeletal: Yes Degenerate Disk Disease, Arthritis, Chronic Back Pain Endocrine: Yes Diabetes, Insulin dep HEENT: No Cancer: No Psychosocial: Yes Depression Integumentary: No Blood Disorders: No Family Medical History Cancer Physical Exam Vital Signs Vital Signs - First Documented Capillary Refill : Height, Weight, BMI Height: 5'1.00" Weight: 268lbs. 10.0oz. 121.797015ry; 51.00 BMI Method:Stated General Appearance: No Apparent Distress, WD/WN HEENT: PERRL/EOMI, TMs Normal, Pharynx Normal, Other (edema angle of R mandible with minimal tenderness. NOTED clusters of erythematous macules and papules submental area (c/w zoster)) Neck: Full Range of Motion, Supple, Other (tenderness R mid neck paraspinal ms without palpable mass. ) Respiratory: Chest Non Tender, Lungs Clear, Normal Breath Sounds, No Accessory Muscle Use, No Respiratory Distress Cardiovascular: Regular Rate, Rhythm, No Edema, No JVD, Normal Peripheral Pulses Gastrointestinal: Non Tender, Soft Extremity: Normal Capillary Refill, Normal Inspection, Non Tender Neurologic/Psychiatric: Alert, Oriented x3, No Motor/Sensory Deficits, Normal Mood/Affect Progress/Results/Core Measures Results/Orders Lab Results Laboratory Tests Test 05/16/21 13:00 05/16/21 14:10 05/16/21 14:15 Range/Units White Blood Count 7.6 4.3-11.0 10^3/uL Red Blood Count 4.97 4.35-5.85 10^6/uL Hemoglobin 11.9 11.5-16.0 G/DL Hematocrit 39 35-52 % Mean Corpuscular Volume 78 L 80-99 FL Mean Corpuscular Hemoglobin 24 L 25-34 PG Mean Corpuscular Hemoglobin Concent 31 L 32-36 G/DL Red Cell Distribution Width 15.6 H 10.0-14.5 % Platelet Count 245 130-400 10^3/uL Mean Platelet Volume 9.9 7.4-10.4 FL Immature Granulocyte % (Auto) 0 % Neutrophils (%) (Auto) 67 42-75 % Lymphocytes (%) (Auto) 18 12-44 % Monocytes (%) (Auto) 10 0-12 % Eosinophils (%) (Auto) 5 0-10 % Basophils (%) (Auto) 1 0-10 % Neutrophils # (Auto) 5.1 1.8-7.8 X 10^3 Lymphocytes # (Auto) 1.4 1.0-4.0 X 10^3 Monocytes # (Auto) 0.7 0.0-1.0 X 10^3 Eosinophils # (Auto) 0.4 H 0.0-0.3 10^3/uL Basophils # (Auto) 0.1 0.0-0.1 10^3/uL Immature Granulocyte # (Auto) 0.0 0.0-0.1 10^3/uL Sodium Level 139 135-145 MMOL/L Potassium Level 4.3 3.6-5.0 MMOL/L Chloride Level 103 98-107 MMOL/L Carbon Dioxide Level 25 21-32 MMOL/L Anion Gap 11 5-14 MMOL/L Blood Urea Nitrogen 20 H 7-18 MG/DL Creatinine 0.87 0.60-1.30 MG/DL Estimat Glomerular Filtration Rate > 60 BUN/Creatinine Ratio 23 Glucose Level 169 H 70-105 MG/DL Calcium Level 8.5 8.5-10.1 MG/DL Corrected Calcium 8.3 L 8.5-10.1 MG/DL Total Bilirubin 0.4 0.1-1.0 MG/DL Aspartate Amino Transf (AST/SGOT) 11 5-34 U/L Alanine Aminotransferase (ALT/SGPT) 13 0-55 U/L Alkaline Phosphatase 90 40-136 U/L Troponin I < 0.30 < 0.30 <0.30 NG/ML Total Protein 7.1 6.4-8.2 GM/DL Albumin 4.3 3.2-4.5 GM/DL Urine Color YELLOW Urine Clarity CLEAR Urine pH 6.5 5-9 Urine Specific [place] <=1.005 1.016-1.022 Urine Protein NEGATIVE NEGATIVE Urine Glucose (UA) 2+ H NEGATIVE Urine Ketones NEGATIVE NEGATIVE Urine Nitrite POSITIVE H NEGATIVE Urine Bilirubin NEGATIVE NEGATIVE Urine Urobilinogen 0.2 < = 1.0 MG/DL Urine Leukocyte Esterase TRACE H NEGATIVE Urine RBC (Auto) NEGATIVE NEGATIVE Urine RBC NONE /HPF Urine WBC 5-10 H /HPF Urine Squamous Epithelial Cells 2-5 /HPF Urine Crystals NONE /LPF Urine Bacteria LARGE H /HPF Urine Casts NONE /LPF Urine Mucus NEGATIVE /LPF Urine Culture Indicated YES My Orders Orders - ROVENSTINEELBA DO Ed Iv/Invasive Line Start (05/16/21 13:23) Chest 1 View Ap/Pa Only (05/16/21 13:23) Ekg Tracing (05/16/21 13:23) Cbc With Automated Diff (05/16/21 13:23) Comprehensive Metabolic Panel (05/16/21 13:23) Troponin I Fs (05/16/21 13:23) Aspirin Chewable Tablet (Baby Aspirin Ch (05/16/21 13:30) Ns Iv 1000 Ml (Sodium Chloride 0.9%) (05/16/21 13:45) Troponin I Fs (05/16/21 14:05) Urinalysis (05/16/21 14:07) Urine Culture (05/16/21 14:10) Medications Given in ED Current Medications Medications Dose Ordered Sig/Sha Route Start Time Stop Time Status Last Admin Dose Admin Aspirin 324 mg ONCE ONCE PO 05/16/21 13:30 05/16/21 13:40 DC 05/16/21 14:01 324 MG Vital Signs/I&O 05/16/21 05/16/21 12:50 12:50 Temp 36.5 Pulse 79 Resp 22 B/P (MAP) 170/78 (108) Pulse Ox 95 O2 Delivery Room Air Room Air Initial ECG Impression Date: May 16, 2021 Initial ECG Impression Time: 12:55 Initial ECG Rate: 70 Initial ECG Rhythm: Normal Sinus Initial ECG Intervals: Normal Initial ECG Comparisson: No Previous ECG Available, Unchanged (compared to ECG 01/01/2020) Comment anterior q-waves Diagnostic Imaging Diagonstic Imaging: Xray Plain Films/CT/US/NM/MRI: chest Comments Date of Exam:05/16/21 CHEST 1 VIEW AP/PA ONLY Indication: Chest pain. TIME OF EXAM: 1:16 PM Correlation is made with prior chest from 01/12/2019. The heart is enlarged. Lungs appear to be clear. No infiltrate or failure is detected. There is no effusion or pneumothorax. IMPRESSION: Cardiomegaly. No other significant abnormality is detected. Dictated on workstation # [id number] Dict: 05/16/21 1332 Trans: 05/16/21 1340 [facility] [id number] Interpreted by: SUSIE MARSH MD Electronically signed by: Departure Impression Primary Impression: Chest pain Qualified Codes: R07.9 - Chest pain, unspecified Additional Impression: Varicella-zoster Disposition: 01 HOME, SELF-CARE Condition: Improved Departure-Patient Inst. Decision time for Depature: 14:58 Referrals: GEOVANNA HAWKINS MD, DAVID L JR, MD SELF,NICHOL DIXON (PCP/Family) Primary Care Physician Patient Instructions: Shingles (DC), Chest Pain (DC) Add. Discharge Instructions: Continue your current medications Call Dr Hawkins or Dr Larsen to set up a new patient visit (Cardiology) Take the Nitroglycerin as directed for any further episodes of chest pain. Call 911 for any CP not relieved by Nitroglycerin All discharge instructions reviewed with patient and/or family. Voiced understanding. Scripts Nitroglycerin (Nitroglycerin) 0.4 Mg Tab.subl 0.4 MG SL UD PRN for CHEST PAIN, #20 TAB Prov: ELBA HORN DO 05/16/21 Valacyclovir HCl (Valtrex) 1,000 Mg Tablet 1000 MG PO BID, #14 TAB Prov: ELBA HORN DO 05/16/21 ELBA HORN DO May 16, 2021 13:28
[2021-05-16] MEDS ORDERED: ASPIRIN 81 MG CHEW (CHILDREN'S ASA) PO ONE (13:30)
[2021-05-16 13:37] LABS: HEMATOCRIT 39 % (35-52); HEMOGLOBIN 11.9 G/DL (11.5-16.0); MEAN CORPUSCULAR HEMOGLOBIN 24 PG (25-34); MEAN CORPUSCULAR HGB CONC 31 G/DL (32-36); MEAN CORPUSCULAR VOLUME 78 FL (80-99); MEAN PLATELET VOLUME 9.9 FL (7.4-10.4); PLATELET COUNT 245 10^3/uL (130-400); WHITE BLOOD COUNT 7.6 10^3/uL (4.3-11.0)
[2021-05-16 13:38] LABS: BASOPHILS # (AUTO) 0.1 10^3/uL (0.0-0.1); BASOPHILS % (AUTO) 1 % (0-10); EOSINOPHILS # (AUTO) 0.4 10^3/uL (0.0-0.3); EOSINOPHILS % (AUTO) 5 % (0-10); LYMPHOCYTES # (AUTO) 1.4 X 10^3 (1.0-4.0); LYMPHOCYTES % (AUTO) 18 % (12-44); MONOCYTES # (AUTO) 0.7 X 10^3 (0.0-1.0); MONOCYTES % (AUTO) 10 % (0-12); NEUTROPHILS # (AUTO) 5.1 X 10^3 (1.8-7.8); NEUTROPHILS % (AUTO) 67 % (42-75)
--- NOTE | 2021-05-16 13:41 | Diagnostic Imaging Report ---
Indication: Chest pain. TIME OF EXAM: 1:16 PM Correlation is made with prior chest from 01/12/2019. The heart is enlarged. Lungs appear to be clear. No infiltrate or failure is detected. There is no effusion or pneumothorax. IMPRESSION: Cardiomegaly. No other significant abnormality is detected. Dictated by: Dictated on workstation # [id number]
[2021-05-16] MEDS ORDERED: NS IV 1000 ML 1,000 ML IV SCH (13:45)
[2021-05-16 13:52] LABS: ALANINE AMINOTRANSFERASE 13 U/L (0-55); ALBUMIN 4.3 GM/DL (3.2-4.5); ALKALINE PHOSPHATASE 90 U/L (40-136); BILIRUBIN,TOTAL 0.4 MG/DL (0.1-1.0); BUN/CREATININE RATIO 23; CALCIUM 8.5 MG/DL (8.5-10.1); CARBON DIOXIDE 25 MMOL/L (21-32); CHLORIDE 103 MMOL/L (98-107); CREATININE SERUM 0.87 MG/DL (0.60-1.30); GFR ESTIMATED > 60; GLUCOSE 169 MG/DL (70-105); POTASSIUM 4.3 MMOL/L (3.6-5.0); SODIUM 139 MMOL/L (135-145); TOTAL PROTEIN 7.1 GM/DL (6.4-8.2)
[2021-05-16 14:16] LABS: BILIRUBIN,URINE NEGATIVE (NEGATIVE); CLARITY,URINE CLEAR; COLOR,URINE YELLOW; GLUCOSE, URINE (UA) 2+ (NEGATIVE); KETONES,URINE NEGATIVE (NEGATIVE); LEUKOCYTE ESTERASE ,URINE TRACE (NEGATIVE); NITRITE,URINE POSITIVE (NEGATIVE); PH,URINE 6.5 (5-9); PROTEIN,URINE NEGATIVE (NEGATIVE)
[2021-05-16 14:21] LABS: BACTERIA,URINE LARGE /HPF
[2021-05-16] MEDS ORDERED: VALA10004 PO (15:03)
[2021-05-16] MEDS ORDERED: NITR0.4T39 SL (15:11)
[2021-05-16 15:30] VITALS: BP 154/82
== END 2021-05-16 15:30 | disposition home or self-care (01) ==
LOC: EDUNIT# 12:48 → ER FS 12:50
DX: R07.9 Chest pain, unspecified (principal); B01.9 Varicella without complication; I10 Essential (primary) hypertension; I25.10 Atherosclerotic heart disease of native coronary artery without angina pectoris; I25.2 Old myocardial infarction; E11.40 Type 2 diabetes mellitus with diabetic neuropathy, unspecified; J45.909 Unspecified asthma, uncomplicated; K21.9 Gastro-esophageal reflux disease without esophagitis; G89.29 Other chronic pain; M54.9 Dorsalgia, unspecified; F32.9 Major depressive disorder, single episode, unspecified; Z95.5 Presence of coronary angioplasty implant and graft; Z79.82 Long term (current) use of aspirin; Z79.51 Long term (current) use of inhaled steroids; Z79.4 Long term (current) use of insulin; Z79.899 Other long term (current) drug therapy
CPT/HCPCS: 36415; 71045; 80053; 81000; 84484; 85025; 87077; 87088; 87186; 93005

== ENCOUNTER 2021-05-18 09:26 | Inpatient (IN) | payer MEDICARE ==
[~2021-05-18] VITALS: Ht 145 cm; Wt 152.5 kg
[~2021-05-18 09:26] MED LIST changes: +NITR0.4T39 SL; +VALA10004 PO
--- NOTE | 2021-05-18 09:58 | ED General ---
General Stated Complaint: UNRESPONSIVE History of Present Illness Date Seen by Provider: May 18, 2021 Time Seen by Provider: 09:45 Initial Comments 65-year-old female presents via EMS for unresponsive state. Patient was using the restroom and evidently feeling weak her son called 911 paramedics on arrival her oxygen saturations were 30% these gave her oxygen and assisted her breathing with a [id number]-aokh, on EMS arrival they started an IO in her left humerus, gave fluids and continue to assist her breathing and got her sats below 80%. Patient remained unresponsive with normal sinus rhythm and normal blood pressure. Patient seen by myself 2 days earlier for right jaw pain and an outbreak of shingles, also was having some chest tightness and had a work-up for her chest pain including 2 - troponins over few hours and was feeling better upon departure. (ELBA HORN DO) Allergies and Home Medications Allergies Coded Allergies: Penicillins (Verified Allergy, Unknown, 06/24/19) acetaminophen (Verified Allergy, Unknown, 06/24/19) clarithromycin (Verified Allergy, Unknown, 06/24/19) codeine (Verified Allergy, Unknown, 06/24/19) glimepiride (Verified Allergy, Unknown, 06/24/19) meperidine (Verified Allergy, Unknown, 06/24/19) oxycodone (Verified Allergy, Unknown, 06/24/19) promethazine (Verified Allergy, Unknown, 06/24/19) sitagliptin (Verified Allergy, Unknown, 06/24/19) KEILY Inhibitors (Verified Adverse Reaction, Unknown, cough, 01/10/19) Home Medications Amlodipine Besylate 10 Mg Tablet, 10 MG PO HS, (Reported) Aspirin 81 Mg Tablet.dr, 81 MG PO DAILY, (Reported) Clopidogrel Bisulfate 75 Mg Tablet, 75 MG PO DAILY, (Reported) Famotidine 20 Mg Tablet, 20 MG PO BID, (Reported) Fluticasone/Salmeterol 12 Gm Hfa.aer.ad, 2 PUFF IH BID@ Prescribed by: EDUARDA MEAD on 01/12/19 0846 Gabapentin 100 Mg Capsule, 100 MG PO TID, (Reported) Insulin Detemir 100 Unit/1 Ml Insuln.pen, 34 UNIT SQ HS, (Reported) Insulin Lispro 100 Unit/1 Ml Vial, SQ TIDAC, (Reported) Metoprolol Succinate 100 Mg Tab.er.24h, 100 MG PO BID Prescribed by: SAL BACON on 01/11/19 1138 Nitroglycerin 0.4 Mg Tab.subl, 0.4 MG SL UD PRN for CHEST PAIN Prescribed by: ELBA HORN on 05/16/21 1511 Nystatin 15 Gm Oint...g., 0 GM TOP BID Prescribed by: EDUARDA MEAD on 01/12/19 0846 Ranolazine 500 Mg Tab.er.12h, 500 MG PO BID, (Reported) Sertraline HCl 100 Mg Tablet, 100 MG PO HS, (Reported) Tizanidine HCl 4 Mg Tablet, 4 MG PO Q6H PRN for MUSCLE SPASMS, (Reported) Valacyclovir HCl 1,000 Mg Tablet, 1,000 MG PO BID Prescribed by: ELBA HORN on 05/16/21 1503 Patient Home Medication List Home Medication List Reviewed: Yes (ELBA HORN DO) Review of Systems Review of Systems Constitutional: no symptoms reported (unable to obtain) (ELBA HORN DO) Past Tqwqfmu-Fqsgfr-Gppjas Hx Seasonal Allergies Seasonal Allergies: No (ELBA HORN DO) Past Medical History Surgery/Hospitalization HX: PCTA x 2 with stenting, Hyst Surgeries: Yes (Uvulopalatopharyngoplasty) Adenoidectomy, Hysterectomy, Oophorectomy Respiratory: Yes Asthma, Sleep Apnea Cardiac: Yes Angina, Coronary Artery Disease, Heart Attack, High Cholesterol, Hypertension Neurological: Yes Neuropathy [employer] History: Hysterectomy Genitourinary: No Gastrointestinal: Yes Gastroesophageal Reflux Musculoskeletal: Yes Degenerate Disk Disease, Arthritis, Chronic Back Pain Endocrine: Yes Diabetes, Insulin dep HEENT: No Cancer: No Psychosocial: Yes Depression Integumentary: No Blood Disorders: No (ELBA HORN DO) Family Medical History Cancer (ELBA HORN DO) Physical Exam Vital Signs Vital Signs - First Documented 05/18/21 10:50 Temp 36.1 Pulse 96 Resp 10 B/P (MAP) 172/82 (112) Pulse Ox 88 O2 Delivery Ambu Bag (PATSY MELENDEZ APRN) Vital Signs Capillary Refill : (ELBA HORN DO) Height, Weight, BMI Height: 5'1.00" Weight: 268lbs. 10.0oz. 121.015671tq; 50.00 BMI Method:Stated General Appearance: Other (unresponsive) Neck: Normal Inspection, Supple, Other (shingles rash Right ant neck and submental area) Respiratory: No Accessory Muscle Use, Decreased Breath Sounds (assisted REspirations w BVM), Wheezing (faint) Cardiovascular: Regular Rate, Rhythm, No JVD Gastrointestinal: No Pulsatile Mass, Soft; No Distended Extremity: Normal Capillary Refill, Normal Inspection Neurologic/Psychiatric: Other (unresponsive) (ELBA HORN DO) Focused Exam Lactate Level 05/18/21 09:48: Lactic Acid Level 3.32*H (PATSY MELENDEZ APRN) Lactic Acid Level Laboratory Tests Test 05/18/21 09:48 Lactic Acid Level 3.32 MMOL/L (0.50-2.00) *H (PATSY MELENDEZ APRN) Progress/Results/Core Measures Suspected Sepsis SIRS Temperature: Pulse: Respiratory Rate: Laboratory Tests 05/18/21 09:48: White Blood Count 12.3H Blood Pressure / Mean: 05/18/21 09:48: Lactic Acid Level 3.32*H Laboratory Tests 05/18/21 09:48: Creatinine 0.89, INR Comment 1.0, Platelet Count 337, Total Bilirubin 0.4 (ELBA HORN DO) Results/Orders Lab Results Laboratory Tests Test 05/18/21 09:48 05/18/21 10:02 05/18/21 10:17 05/18/21 11:39 Range/Units White Blood Count 12.3 H 4.3-11.0 10^3/uL Red Blood Count 5.30 4.35-5.85 10^6/uL Hemoglobin 12.8 11.5-16.0 G/DL Hematocrit 42 35-52 % Mean Corpuscular Volume 80 80-99 FL Mean Corpuscular Hemoglobin 24 L 25-34 PG Mean Corpuscular Hemoglobin Concent 30 L 32-36 G/DL Red Cell Distribution Width 15.6 H 10.0-14.5 % Platelet Count 337 130-400 10^3/uL Mean Platelet Volume 9.8 7.4-10.4 FL Immature Granulocyte % (Auto) 1 % Neutrophils (%) (Auto) 68 42-75 % Lymphocytes (%) (Auto) 18 12-44 % Monocytes (%) (Auto) 11 0-12 % Eosinophils (%) (Auto) 3 0-10 % Basophils (%) (Auto) 1 0-10 % Neutrophils # (Auto) 8.3 H 1.8-7.8 X 10^3 Lymphocytes # (Auto) 2.2 1.0-4.0 X 10^3 Monocytes # (Auto) 1.3 H 0.0-1.0 X 10^3 Eosinophils # (Auto) 0.3 0.0-0.3 10^3/uL Basophils # (Auto) 0.1 0.0-0.1 10^3/uL Immature Granulocyte # (Auto) 0.1 0.0-0.1 10^3/uL Prothrombin Time 13.0 12.2-14.7 SEC INR Comment 1.0 0.8-1.4 Activated Partial Thromboplast Time 25 24-35 SEC Sodium Level 135 135-145 MMOL/L Potassium Level 4.6 3.6-5.0 MMOL/L Chloride Level 100 98-107 MMOL/L Carbon Dioxide Level 21 21-32 MMOL/L Anion Gap 14 5-14 MMOL/L Blood Urea Nitrogen 21 H 7-18 MG/DL Creatinine 0.89 0.60-1.30 MG/DL Estimat Glomerular Filtration Rate > 60 BUN/Creatinine Ratio 24 Glucose Level 258 H 70-105 MG/DL Lactic Acid Level 3.32 *H 0.50-2.00 MMOL/L Calcium Level 8.3 L 8.5-10.1 MG/DL Corrected Calcium 8.1 L 8.5-10.1 MG/DL Total Bilirubin 0.4 0.1-1.0 MG/DL Aspartate Amino Transf (AST/SGOT) 18 5-34 U/L Alanine Aminotransferase (ALT/SGPT) 14 0-55 U/L Alkaline Phosphatase 95 40-136 U/L Troponin I 0.55 *H <0.30 NG/ML Pro-B-Type Natriuretic Peptide 1392.0 H <75.0 PG/ML Total Protein 7.2 6.4-8.2 GM/DL Albumin 4.3 3.2-4.5 GM/DL Urine Color YELLOW Urine Clarity TURBID Urine pH 6.0 5-9 Urine Specific [place] 1.020 1.016-1.022 Urine Protein 1+ H NEGATIVE Urine Glucose (UA) 3+ H NEGATIVE Urine Ketones NEGATIVE NEGATIVE Urine Nitrite NEGATIVE NEGATIVE Urine Bilirubin NEGATIVE NEGATIVE Urine Urobilinogen 0.2 < = 1.0 MG/DL Urine Leukocyte Esterase NEGATIVE NEGATIVE Urine RBC (Auto) NEGATIVE NEGATIVE Urine RBC 0-2 /HPF Urine WBC 10-25 H /HPF Urine Squamous Epithelial Cells RARE /HPF Urine Crystals NONE /LPF Urine Bacteria LARGE H /HPF Urine Casts PRESENT /LPF Urine Hyaline Casts 0-2 H /LPF Urine Mucus LARGE H /LPF Urine Culture Indicated YES Urine Opiates Screen NEGATIVE NEGATIVE Urine Oxycodone Screen NEGATIVE NEGATIVE Urine Methadone Screen NEGATIVE NEGATIVE Urine Propoxyphene Screen NEGATIVE NEGATIVE Urine Barbiturates Screen NEGATIVE NEGATIVE Ur Tricyclic Antidepressants Screen NEGATIVE NEGATIVE Urine Phencyclidine Screen NEGATIVE NEGATIVE Urine Amphetamines Screen NEGATIVE NEGATIVE Urine Methamphetamines Screen NEGATIVE NEGATIVE Urine Benzodiazepines Screen NEGATIVE NEGATIVE Urine Cocaine Screen NEGATIVE NEGATIVE Urine Cannabinoids Screen NEGATIVE NEGATIVE Blood Gas Puncture Site RT. BRACHIAL Blood Gas Patient Temperature 36.1 Arterial Blood pH 7.23 *L 7.37-7.43 Arterial Blood Partial Pressure CO2 60 H 35-45 MMHG Arterial Blood Partial Pressure O2 29 *L 79-93 MMHG Arterial Blood HCO3 25 23-27 MMOL/L Arterial Blood Total CO2 26.9 21.0-31.0 MMOL/L Arterial Blood Oxygen Saturation 42 L 94-100 % Arterial Blood Base Excess -3.3 L -2.5-2.5 MMOL/L Erasto Test YES-POS Blood Gas Ventilator Setting YES Blood Gas Inspired Oxygen 100% Influenza Type A (RT-PCR) Not Detected Not Detecte Influenza Type B (RT-PCR) Not Detected Not Detecte SARS-CoV-2 RNA (RT-PCR) Not Detected Not Detecte (PATSY MELENDEZ APRN) My Orders Orders - PATSY MELENDEZ APRN Fentanyl Inj (Sublimaze Injection) (05/18/21 11:45) Midazolam Injection (Versed Injection) (05/18/21 11:45) Ct Head Wo (05/18/21 11:37) Ct Angio Chest W (05/18/21 11:37) Covid 19 Inhouse Test (05/18/21 11:37) Influenza A And B By Pcr (05/18/21 11:37) Iohexol Injection (Omnipaque 350 Mg/Ml 1 (05/18/21 12:00) Received Contrast (Hold Metformin- Contr (05/18/21 12:00) Sodium Chloride Flush (Catheter Flush Sy (05/18/21 12:00) Ns (Ivpb) (Sodium Chloride 0.9% Ivpb Bag (05/18/21 12:00) Fibrin Degradation Products (05/18/21 11:52) Chest 1 View, Ap/Pa Only (05/18/21 12:08) Ketamine Injection (Ketalar Injection) (05/18/21 12:15) Cefepime Injection (Maxipime Injection) (05/18/21 12:15) Cefepime Injection (Maxipime Injection) (05/18/21 12:30) (PATSY MELENDEZ APRN) Medications Given in ED Current Medications Medications Dose Ordered Sig/Sha Route Start Time Stop Time Status Last Admin Dose Admin Iohexol 100 ml ONCE ONCE IV 05/18/21 12:00 05/18/21 12:01 DC 05/18/21 12:07 100 ML Ketamine HCl 25 mg ONCE ONCE IV 05/18/21 11:30 05/18/21 11:31 DC 05/18/21 10:48 25 MG Ketamine HCl 75 mg ONCE ONCE IV 05/18/21 10:45 05/18/21 10:46 DC 05/18/21 10:33 75 MG Sodium Chloride 10 ml NEEDED PRN IV 05/18/21 12:00 05/18/21 12:07 10 ML Sodium Chloride 100 ml ONCE ONCE IV 05/18/21 12:00 05/18/21 12:01 DC 05/18/21 12:07 80 ML (PATSY MELENDEZ APRN) Vital Signs/I&O 05/18/21 05/18/21 10:50 11:25 Temp 36.1 36.6 Pulse 96 64 Resp 10 16 B/P (MAP) 172/82 (112) 140/81 (100) Pulse Ox 88 O2 Delivery Ambu Bag Room Air (PATSY MELENDEZ APRN) Vital Signs/I&O Capillary Refill : (ELBA HORN DO) Progress Note : Time: 11:03 Progress Note Discussed pt disposition w patients sons who were allowed to see her prior to transfer to [facility]. Explained need for higher level of care emergently and that [facility] was equipped to treat and further evaluate their mother, but if necessary they can stabilize then transfer to a higher level of care after further diagnostic evals. Family expresses understanding. *Prior to transfer to [facility] ETT was pulled back (p reading CXR) and re- secured. (ELBA HORN DO) ECG Initial ECG Impression Date: May 18, 2021 Initial ECG Impression Time: 10:13 Initial ECG Rate: 78 Initial ECG Rhythm: Normal Sinus Initial ECG Intervals: Normal Initial ECG Intervals Anterior q-waves No STEMI Initial ECG Impression: Nonspecific Changes Initial ECG Comparisson: Unchanged (from ECG 05/16/2021) (ELBA HORN DO) Diagnostic Imaging Diagonstic Imaging: Xray Plain Films/CT/US/NM/MRI: chest Comments Date of Exam:05/18/21 CHEST 1 VIEW AP/PA ONLY Indication: Post nasogastric tube placement, intubation. FINDINGS: Frontal view the chest demonstrates an endotracheal tube in the right mainstem bronchus. This needs [place] 3 cm. Bilateral pulmonary infiltrates are present. These are greater on the left than the right. An orogastric tube transverses radiograph. IMPRESSION: 1. Endotracheal tube needs to be pulled back approximately 3 cm. 2. There are bilateral pulmonary infiltrates. Dictated by: Dictated on workstation # [id number] Dict: 05/18/21 1010 Trans: 05/18/21 1011 [id number] Interpreted by: CRESCENCIO VILLEGAS MD Electronically signed by: CRESCENCIO VILLEGAS MD 05/18/21 1011 NAME: JARVIS COLMENARES MED REC#: [id number] PT STATUS: DEP ER : 1955 PHYSICIAN: ELBA HORN DO ADMIT DATE: 05/16/21/ER FS Signed Date of Exam:05/16/21 CHEST 1 VIEW AP/PA ONLY Indication: Chest pain. TIME OF EXAM: 1:16 PM Correlation is made with prior chest from 01/12/2019. The heart is enlarged. Lungs appear to be clear. No infiltrate or failure is detected. There is no effusion or pneumothorax. IMPRESSION: Cardiomegaly. No other significant abnormality is detected. Dictated by: Dictated on workstation # [id number] Dict: 05/16/21 1332 Trans: 05/16/21 1610 [facility] [id number] Interpreted by: SUSIE MARSH MD Electronically signed by: SUSIE MARSH MD 05/16/21 1610 (ELBA HORN DO) Critical Care Note Critical Care Start Time: 09:45 Stop Time: 10:55 Total Time (minutes) 70 Progress arrived EMS in unresponsive state and assisted shallow breathing w BVM, sats 90% GCS= 9 E-3/ V-1/ M-5 Intubation 20 etomidate, 100 succinycholine 7.0 tube inserted w rigid stylet visualized passing through cords w glidescope secured confirmed placement w BS both lungs, chest rise and CXR (pulled back 3cm afterwards) sedated w : Versed 4mg Fentanyl 100mcg Ketamine 75 & 25 mg attempted to use vent machine, but not functioning // unsuccessful....see NN for details (ELBA HORN DO) Departure Communication (Admissions) NAME: JARVIS COLMENARES [facility] REC#: [id number] PT STATUS: REG ER : 1955 PHYSICIAN: PATSY MELENDEZ RETORT COOLER ADMIT DATE: 05/18/21/ER Draft Date of Exam:05/18/21 CT HEAD WO EXAMINATION: CT head without contrast. TECHNIQUE: Multiple contiguous axial images were obtained through the brain without the use of intravenous contrast. All CT scans use one or more of the following dose optimizing techniques: automated exposure control, MA and/or KvP adjustment based on patient size and exam type or iterative reconstruction. HISTORY: Weakness. Unresponsive. COMPARISON: None available. FINDINGS: No large acute territorial ischemia, mass, or hemorrhage. Decreased attenuation is seen in the periventricular and subcortical white matter. No midline shift or mass effect. The ventricles, cortical sulci, and basilar cisterns are patent and unremarkable. The orbits are normal. Paranasal sinuses are normal. Mastoid air cells are clear. No soft tissue abnormality is seen. No osseus lesions or fractures are seen. IMPRESSION: 1. No large acute territorial ischemia, mass, or hemorrhage. 2. Age-indeterminate microvascular disease in the periventricular and subcortical white matter. If indicated, consider further evaluation with MRI brain. Dictated on workstation # [id number] Dict: 05/18/21 1216 Trans: 05/18/21 1219 [facility] [id number] Interpreted by: ARIANE CEJA DO Electronically signed by: 1133-patient arrived via EMS from [facility]. She has lung sounds on the right but not on the left. Stat chest x-ray obtained and showed a right mainstem intubation. Tube was withdrawn 4 cm. She has bilateral breath sounds now. Oxygen saturation about 90% with ventilator settings of tidal volume 450, PEEP of 12, FiO2 100%. Bilateral infiltrates noted on chest x-ray does not look like a Covid swab was done. I will do this here. She has an she has a papulovesicular rash to the right side of her neck consistent with a shingles diagnosis. These are not crusted over yet and she should be in precautions for this as well. 21-I discussed with Dr. Claudio, we will admit on cefepime consult cardiology. I spoke with Dr. Larsen he will see the patient as well. (PATSY MELENDEZ APRN) Impression Primary Impression: Respiratory failure Qualified Codes: J96.01 - Acute respiratory failure with hypoxia Additional Impression: Hypoxia Disposition: ADMITTED INPATIENT Condition: Critical Admissions Decision to Admit Reason: Admit from ER (General) Decision to Admit/Date: May 18, 2021 Time/Decision to Admit Time: 11:59 (PATSY MELENDEZ APRN) Transfer Transfer Reason: Exceeds level of care Time Spoke to Accepting Phy: 10:30 Transfer Progress Notes Initially called Dr Claudio for ICU admission @ 1015- he accepted and then later called back w suggestion for ER -ER transfer so I called Dr Addison @ 1030 who accepts. Desire for CT scan, but unsafe to do so @ facility due to fact patient was being ventilated manually as vent was not functioning. Move to higher level of care was critical for further eval and treatment. Great assistance w patient care from [facility]- EMS Transfer Time: 11:00 Transfer Facility: ER to ER transfer - FS to [facility] (LEBA HORN DO) Departure-Patient Inst. Referrals: NICHOL OLIVER MD (PCP/Family) Primary Care Physician ELBA HORN DO May 18, 2021 09:58 PATSY MELENDEZ APRN May 18, 2021 11:52
[2021-05-18 10:12] LABS: HEMATOCRIT 42 % (35-52); HEMOGLOBIN 12.8 G/DL (11.5-16.0); LYMPHOCYTES % (AUTO) 18 % (12-44); MEAN CORPUSCULAR HEMOGLOBIN 24 PG (25-34); MEAN CORPUSCULAR HGB CONC 30 G/DL (32-36); MEAN CORPUSCULAR VOLUME 80 FL (80-99); MEAN PLATELET VOLUME 9.8 FL (7.4-10.4); NEUTROPHILS % (AUTO) 68 % (42-75); PLATELET COUNT 337 10^3/uL (130-400); WHITE BLOOD COUNT 12.3 10^3/uL (4.3-11.0)
--- NOTE | 2021-05-18 10:12 | Diagnostic Imaging Report ---
Indication: Post nasogastric tube placement, intubation. FINDINGS: Frontal view the chest demonstrates an endotracheal tube in the right mainstem bronchus. This needs [place] 3 cm. Bilateral pulmonary infiltrates are present. These are greater on the left than the right. An orogastric tube transverses radiograph. IMPRESSION: 1. Endotracheal tube needs to be pulled back approximately 3 cm. 2. There are bilateral pulmonary infiltrates. Dictated by: Dictated on workstation # [id number]
[2021-05-18 10:13] LABS: BASOPHILS # (AUTO) 0.1 10^3/uL (0.0-0.1); BASOPHILS % (AUTO) 1 % (0-10); EOSINOPHILS # (AUTO) 0.3 10^3/uL (0.0-0.3); EOSINOPHILS % (AUTO) 3 % (0-10); LYMPHOCYTES # (AUTO) 2.2 X 10^3 (1.0-4.0); MONOCYTES # (AUTO) 1.3 X 10^3 (0.0-1.0); MONOCYTES % (AUTO) 11 % (0-12); NEUTROPHILS # (AUTO) 8.3 X 10^3 (1.8-7.8)
[2021-05-18] MEDS ORDERED: KETAMINE SYRINGE 50 MG/5 ML SYRINGE ONE (10:28)
[2021-05-18 10:31] LABS: ABG PCO2 60 MMHG (35-45); ABG PH 7.23 (7.37-7.43)
[2021-05-18 10:32] LABS: ABG BASE EXCESS -3.3 MMOL/L (-2.5-2.5); ABG OXYGEN SATURATION 42 % (94-100); ABG PO2 29 MMHG (79-93); ABG TCO2 26.9 MMOL/L (21.0-31.0); ALLENS TEST YES-POS
[2021-05-18 10:33] LABS: INSPIRED O2 100%; PATIENT TEMP 36.1; VENTILATOR YES
[2021-05-18 10:35] LABS: CARBON DIOXIDE 21 MMOL/L (21-32); CHLORIDE 100 MMOL/L (98-107); POTASSIUM 4.6 MMOL/L (3.6-5.0); SODIUM 135 MMOL/L (135-145)
[2021-05-18 10:36] LABS: ALANINE AMINOTRANSFERASE 14 U/L (0-55); ALKALINE PHOSPHATASE 95 U/L (40-136); BILIRUBIN,TOTAL 0.4 MG/DL (0.1-1.0); BUN/CREATININE RATIO 24; CALCIUM 8.3 MG/DL (8.5-10.1); CREATININE SERUM 0.89 MG/DL (0.60-1.30); GFR ESTIMATED > 60; GLUCOSE 258 MG/DL (70-105)
[2021-05-18 10:38] LABS: ALBUMIN 4.3 GM/DL (3.2-4.5); TOTAL PROTEIN 7.2 GM/DL (6.4-8.2)
[2021-05-18] MEDS ORDERED: KETAMINE HCL 100 MG/ML 5 ML VIAL IV ONE ×4 (10:45→12:15)
[2021-05-18 10:51] LABS: AMPHETAMINE SCREEN, URINE NEGATIVE (NEGATIVE); BARBITURATE SCREEN URINE NEGATIVE (NEGATIVE); BENZODIAZEPINES SCREEN URINE NEGATIVE (NEGATIVE); CANNABINOID SCREEN, URINE NEGATIVE (NEGATIVE); COCAINE SCREEN URINE NEGATIVE (NEGATIVE); METHADONE STAT NEGATIVE (NEGATIVE); METHAMPHETAMINE SCREEN URINE S NEGATIVE (NEGATIVE); OPIATE SCREEN URINE NEGATIVE (NEGATIVE); OXYCODONE STAT NEGATIVE (NEGATIVE); PROPOXYPHENE STAT NEGATIVE (NEGATIVE); TRICYCLIC ANTIDEPRESSANTS SCRE NEGATIVE (NEGATIVE)
[2021-05-18 10:59] LABS: BILIRUBIN,URINE NEGATIVE (NEGATIVE); CLARITY,URINE TURBID; COLOR,URINE YELLOW; GLUCOSE, URINE (UA) 3+ (NEGATIVE); KETONES,URINE NEGATIVE (NEGATIVE); LEUKOCYTE ESTERASE ,URINE NEGATIVE (NEGATIVE); NITRITE,URINE NEGATIVE (NEGATIVE); PROTEIN,URINE 1+ (NEGATIVE)
[2021-05-18 11:00] LABS: BACTERIA,URINE LARGE /HPF; HYALINE CASTS, URINE 0-2 /LPF; RBC,URINE 0-2 /HPF; SQUAMOUS EPITHELIAL CELL,UR RARE /HPF
[2021-05-18] MEDS ORDERED: MIDAZOLAM 5 MG/5 ML (VERSED) VIAL IVP ONE (11:45)
[2021-05-18] MEDS ORDERED: CATHETER FLUSH 10 ML SYR IV PRN (12:00)
[2021-05-18] MEDS ORDERED: NS 100 ML (IVPB) BAG IV ONE (12:00)
[2021-05-18] MEDS ORDERED: HOLD METFORMIN - RECEIVED CONTRAST 20 ML VIAL IV SCH (12:00)
[2021-05-18] MEDS ORDERED: IOHEXOL 350 MG/ML 100 ML (OMNIPAQUE 350) VIAL IV ONE (12:00)
[2021-05-18] MEDS ORDERED: CEFEPIME INJECTION 1,000 MG in WATER (STERILE) FOR INJECTION 10 ML IV ONE ×2 (12:15→12:30)
--- NOTE | 2021-05-18 12:19 | Diagnostic Imaging Report ---
EXAMINATION: CT head without contrast. TECHNIQUE: Multiple contiguous axial images were obtained through the brain without the use of intravenous contrast. All CT scans use one or more of the following dose optimizing techniques: automated exposure control, MA and/or KvP adjustment based on patient size and exam type or iterative reconstruction. HISTORY: Weakness. Unresponsive. COMPARISON: None available. FINDINGS: No large acute territorial ischemia, mass, or hemorrhage. Decreased attenuation is seen in the periventricular and subcortical white matter. No midline shift or mass effect. The ventricles, cortical sulci, and basilar cisterns are patent and unremarkable. The orbits are normal. Paranasal sinuses are normal. Mastoid air cells are clear. No soft tissue abnormality is seen. No osseus lesions or fractures are seen. IMPRESSION: 1. No large acute territorial ischemia, mass, or hemorrhage. 2. Age-indeterminate microvascular disease in the periventricular and subcortical white matter. If indicated, consider further evaluation with MRI brain. Dictated by: Dictated on workstation # [id number]
--- NOTE | 2021-05-18 12:23 | Diagnostic Imaging Report ---
PROCEDURE: CT angiography of the chest with contrast. TECHNIQUE: Multiple contiguous axial images were obtained through the chest after uneventful bolus administration of intravenous contrast. 3D reconstructed CTA MIP acquisitions were also performed. Auto Exposure Controls were utilized during the CT exam to meet ALARA standards for radiation dose reduction. INDICATION: Unresponsive. Weakness. Elevated D-dimer. Concern for PE. COMPARISON: Chest radiograph performed earlier the same date. FINDINGS: This helical CT pulmonary angiogram is diagnostic to the subsegmental level branches of the pulmonary artery and demonstrates no pulmonary emboli. The heart and great vessels are unremarkable. There is no pericardial effusion. There is calcified aortic and coronary atherosclerotic plaque without aneurysm. There is no axillary, mediastinal, or hilar adenopathy. Consolidative opacities are seen throughout the lungs with small bilateral pleural effusions present. No evidence of pneumothorax. No central endobronchial obstructing lesions. Endotracheal tube is in place with the tip overlying the trachea approximately 5 cm above the yudith. Osseous structures appear normal. Limited views of the upper abdomen are unremarkable. The enteric tube is seen with the tip in the stomach. IMPRESSION: 1. No acute pulmonary embolus. 2. Large amount of consolidative opacities throughout the dependent lungs with small bilateral pleural effusions. Findings are concerning for pneumonia with components of atelectasis or edema also possible. Dictated by: Dictated on workstation # [id number]
--- NOTE | 2021-05-18 12:35 | Diagnostic Imaging Report ---
EXAMINATION: Chest 1 view HISTORY: Evaluate endotracheal tube. COMPARISON: Chest radiograph performed earlier the same date. FINDINGS: The endotracheal tube remains within the right mainstem bronchus. Enteric tube is seen with the tip not included on the exam. Diffuse patchy opacities are seen throughout the lungs. No pneumothorax. Possible small pleural effusions are seen. Stable cardiac silhouette. IMPRESSION: 1. The endotracheal tube remains within the right mainstem bronchus. Recommend pulling back 3 to 4 cm. 2. Continued diffuse patchy opacities throughout the lungs with somewhat improved aeration in the left upper lobe. Dictated by: Dictated on workstation # [id number]
[2021-05-18] MEDS ORDERED: PROPOFOL DRIP (ICU) 100 ML IV ONE (12:56)
[2021-05-18] MEDS: CEFEPIME 2,000 MG/SWFI 20 ML IV PUSH IV SCH ×2 (13:23)
[2021-05-18] MEDS ORDERED: ENOXAPARIN 40 MG/0.4 ML (LOVENOX) SYR SC SCH (13:30)
[2021-05-18] MEDS ORDERED: FUROSEMIDE 40 MG/4 ML INJ (LASIX) ONE (13:44)
--- NOTE | 2021-05-18 13:51 | Tele-ICU Consult ---
History of Present Illness History of Present Illness Date Seen by Provider: May 18, 2021 Time Seen by Provider: 13:46 Date of Admission 05/18/2021 Reason for Visit: acute respiratory failure History of Present Illness She is a elderly female with past medical history of morbid obesity, hypertension, type 2 diabetes mellitus requiring insulin, coronary artery disease status post stent placement presented to the emergency room with a decreased responsiveness hence she was intubated en route and brought to the emergency room. Chest x-ray showed bilateral extensive infiltrates. Initially her ET tube is at the right mainstem bronchus which is. I did repeat chest x- ray done which showed again in the proximal portion of the right mainstem bronchus. This time as there is question of blockage of the tube the tube is exchanged by the respiratory therapist and afterwards another x-ray done at this time the ET tube above the yudith. Bilateral extensive infiltrates present. He had this time she looks like she may have a either pneumonia and are congestive heart failure. Based on her history of coronary artery disease and microvascular coronary artery disease and hypertension with obesity with the diastolic dysfunction your additional congestive heart failure is concern in this patient. Initial Covid19 test is negative. IV Lasix is being given. I have reviewed her results and ordered vent settings sedation DVT prophylaxis and ulcer prophylaxis. Discussed with the RN and the respiratory therapist. Allergies and Home Medications Allergies Coded Allergies: Penicillins (Verified Allergy, Unknown, 06/24/19) acetaminophen (Verified Allergy, Unknown, 06/24/19) clarithromycin (Verified Allergy, Unknown, 06/24/19) codeine (Verified Allergy, Unknown, 06/24/19) glimepiride (Verified Allergy, Unknown, 06/24/19) meperidine (Verified Allergy, Unknown, 06/24/19) oxycodone (Verified Allergy, Unknown, 06/24/19) promethazine (Verified Allergy, Unknown, 06/24/19) sitagliptin (Verified Allergy, Unknown, 06/24/19) KEILY Inhibitors (Verified Adverse Reaction, Unknown, cough, 01/10/19) Home Medications Amlodipine Besylate 10 Mg Tablet, 10 MG PO HS, (Reported) Aspirin 81 Mg Tablet.dr, 81 MG PO DAILY, (Reported) Clopidogrel Bisulfate 75 Mg Tablet, 75 MG PO DAILY, (Reported) Famotidine 20 Mg Tablet, 20 MG PO BID, (Reported) Fluticasone/Salmeterol 12 Gm Hfa.aer.ad, 2 PUFF IH BID@,20 Prescribed by: EDUARDA MEAD on 01/12/19 0846 Gabapentin 100 Mg Capsule, 100 MG PO TID, (Reported) Insulin Detemir 100 Unit/1 Ml Insuln.pen, 34 UNIT SQ HS, (Reported) Insulin Lispro 100 Unit/1 Ml Vial, SQ TIDAC, (Reported) Metoprolol Succinate 100 Mg Tab.er.24h, 100 MG PO BID Prescribed by: SAL BACON on 01/11/19 1138 Nitroglycerin 0.4 Mg Tab.subl, 0.4 MG SL UD PRN for CHEST PAIN Prescribed by: ELBA HORN on 05/16/21 1511 Nystatin 15 Gm Oint...g., 0 GM TOP BID Prescribed by: EDUARDA MEAD on 01/12/19 0846 Ranolazine 500 Mg Tab.er.12h, 500 MG PO BID, (Reported) Sertraline HCl 100 Mg Tablet, 100 MG PO HS, (Reported) Tizanidine HCl 4 Mg Tablet, 4 MG PO Q6H PRN for MUSCLE SPASMS, (Reported) Valacyclovir HCl 1,000 Mg Tablet, 1,000 MG PO BID Prescribed by: ELBA HORN on 05/16/21 1503 Past Medical/Social/Family Hx Patient Social History Marrital Status: (per attending) Immunizations Up To Date Tetanus Booster (TDap): Unknown Date of Pneumonia Vaccine: Jan 09, 2017 Current Status Primary Language: [place] Island[place] Review of Systems Constitutional: see HPI Other per attending physician Sepsis Event Evaluation Height, Weight, BMI Height: 5'1.00" Weight: 268lbs. 10.0oz. 121.508329zh; 50.00 BMI Method:Stated Exam Exam Patient acknowledged, consented, and participated in this virtual visit which was conducted using real time audio/video Vital Signs Date Time Temp Pulse Resp B/P (MAP) Pulse Ox O2 Delivery O2 Flow Rate FiO2 05/18/21 13:30 83 05/18/21 11:37 100 05/18/21 11:25 36.6 64 16 140/81 (100) Room Air 05/18/21 10:50 36.1 96 10 172/82 (112) 88 Ambu Bag Height & Weight Height: 5'1.00" Weight: 268lbs. 10.0oz. 121.871405gn; 50.00 BMI Method:Stated General Appearance: Other (unresponsive) Neck: Normal Inspection, Supple, Other (shingles rash Right ant neck and submental area) Respiratory: No Accessory Muscle Use, Decreased Breath Sounds (assisted REspirations w BVM), Wheezing (faint) Cardiovascular: Regular Rate, Rhythm, No JVD Capillary Refill: Less Than 3 Seconds Extremity: Normal Capillary Refill, Normal Inspection Neurologic/Psychiatric: Other (unresponsive) Results Lab Laboratory Tests 05/18/21 09:48 Meds reviewed Radiology cxrs reviewed Assessment/Plan Assessment/Plan 1. Acute hypoxic respiratory failure due to possible underlying pneumonia and/or congestive heart failure. 2. History of coronary artery disease with the microvascular as well as macrovascular disease. 3. Morbid obesity 4. Type 2 diabetes mellitus requiring insulin. 5. Hypertension with diastolic dysfunction Recommendations 1. Mechanical ventilatory support with a tidal volume of 450, respiratory rate 20, PEEP 12 and FiO2 100% and wean oxygen as tolerated. 2. IV Lasix 3. Broad-spectrum antibiotic with cefepime and doxycycline. 4. Monitor for hyperglycemia and a treatment with insulin for primary care physician 5. DVT prophylaxis and ulcer prophylaxis. 6. Sepsis protocol. Critical Care: Critically Ill Patient Time spent with patient (mins): 65 Diagnosis/Problems Problems/Diagonsis (1) Acute on chronic diastolic (congestive) heart failure (2) Hypertension Status: Chronic (3) Obesity Status: Chronic (4) Pneumonia Status: Acute (5) Respiratory failure Status: Acute Qualifiers: Qualified Codes: J96.01 - Acute respiratory failure with hypoxia KIM ROSALES MD May 18, 2021 13:51
--- NOTE | 2021-05-18 13:58 | Diagnostic Imaging Report ---
EXAMINATION: Chest 1 view HISTORY: Enteric tube placement. COMPARISON: Chest radiograph performed earlier the same date. FINDINGS: The endotracheal tube is visualized overlying the trachea approximately 4 cm above the yudith. Enteric tube is seen descending below the diaphragm with the tip overlying the stomach. Increasing consolidative opacities are seen in the right lung base with improved aeration in the left lung base. Stable cardiac silhouette. No large pleural effusion or pneumothorax. IMPRESSION: 1. Endotracheal tube and enteric tube in appropriate configuration. 2. Consolidative opacities in the right lung base with improved aeration in the left lung. Dictated by: Dictated on workstation # [id number]
[2021-05-18] MEDS ORDERED: ETOMIDATE IV SOLN 20 MG/10 ML VIAL IV ONE (14:21)
[2021-05-18] MEDS ORDERED: MIDAZOLAM 5 MG/5 ML (VERSED) VIAL IJ ONE (14:21)
[2021-05-18] MEDS ORDERED: fentaNYL INJ 100 MCG/2 ML AMP IV ONE (14:21)
[2021-05-18] MEDS ORDERED: SUCCINYLCHOLINE INJ 100 MG/5 ML SYR/VIAL INJ ONE (14:21)
[2021-05-18 14:32] LABS: ABG BASE EXCESS -1.6 MMOL/L (-2.5-2.5); ABG OXYGEN SATURATION 90 % (94-100); ABG PCO2 49 MMHG (35-45); ABG PO2 56 MMHG (79-93)
[2021-05-18 14:46] VITALS: BP 126/70
[2021-05-18] MEDS ORDERED: RT-ALBUTEROL/IPRATROPIUM 3 ML (DUONEB) VIAL ONE (14:46)
[2021-05-18 14:56] LABS: ALLENS TEST YES-POS
[2021-05-18 14:57] LABS: INSPIRED O2 100; PATIENT TEMP 34.9; VENTILATOR YES
--- NOTE | 2021-05-18 14:57 | History & Physical-Hospitalist ---
History of Present Illness HPI/Chief Complaint Paulette Roger is a 65-year-old female with past medical history of hypertension, insulin-dependent diabetes, coronary artery disease, GERD, morbid obesity, who presented with weakness and respiratory failure. EMS was called to her home where she had become very weak and short of breath while using the toilet. She required endotracheal intubation and intraosseous access. There is no ventilator available at [place] and she had to be mechanically bagged. Due to this, a complete work-up was not able to be performed in the emergency room and she was transferred to the [facility] emergency room. After arrival, she was placed on a ventilator. CT scans were performed which showed no acute intracranial abnormalities but did reveal bilateral consolidations, pleural effusions, and possible pulmonary edema. She is Covid and flu negative. She was recently diagnosed with shingles. According to her nurse, she was awake and following commands prior to being started on sedation. Source: RN/MD Exam Limitations: clinical condition Date Seen 05/18/21 Time Seen by a Provider: 13:30 Attending Physician Rachelle Broussard MD PCP SelfLemuel MD Referring Physician Date of Admission May 18, 2021 at 12:17 Home Medications & Allergies Home Medications Reviewed patient Home Medication Reconciliation performed by pharmacy medication reconciliations senior radiation protection technician and/or nursing. Patients Allergies have been reviewed. Allergies Allergies Coded Allergies Penicillins (Verified Allergy, Unknown, 06/24/19) acetaminophen (Verified Allergy, Unknown, 06/24/19) clarithromycin (Verified Allergy, Unknown, 06/24/19) codeine (Verified Allergy, Unknown, 06/24/19) glimepiride (Verified Allergy, Unknown, 06/24/19) meperidine (Verified Allergy, Unknown, 06/24/19) oxycodone (Verified Allergy, Unknown, 06/24/19) promethazine (Verified Allergy, Unknown, 06/24/19) sitagliptin (Verified Allergy, Unknown, 06/24/19) KEILY Inhibitors (Verified Adverse Reaction, Unknown, cough, 01/10/19) Past Vuavzsk-Lrhyhy-Dnmfuj Hx Patient Social History Marrital Status: (per attending) Immunizations Up To Date Date of Influenza Vaccine: Sep 11, 2018 Tetanus Booster (TDap): Unknown Date of Pneumonia Vaccine: Jan 09, 2017 Seasonal Allergies Seasonal Allergies: No Current Status Primary Language: Nicaraguan Past Medical History Surgeries: Adenoidectomy, Hysterectomy, Oophorectomy Asthma, Sleep Apnea Angina, Coronary Artery Disease, Heart Attack, High Cholesterol, Hypertension Neuropathy PRINTMAKER History: Hysterectomy Gastroesophageal Reflux Degenerate Disk Disease, Arthritis, Chronic Back Pain Diabetes, Insulin dep Depression Blood Disorders: No Family Medical History Cancer Review of Systems ROS-Unable to Obtain: Intubated and sedated Constitutional: see HPI Physical Exam Physical Exam Vital Signs Vital Signs - First Documented 05/18/21 05/18/21 05/18/21 10:50 11:37 13:00 Temp 36.1 Pulse 96 Resp 10 B/P (MAP) 172/82 (112) Pulse Ox 88 O2 Delivery Ambu Bag O2 Flow Rate 100.00 FiO2 100 Capillary Refill : Less Than 3 Seconds Height, Weight, BMI Height: 5'1.00" Weight: 268lbs. 10.0oz. 121.672505ol; 50.00 BMI Method:Stated General Appearance: No Apparent Distress, Obese, Other (Intubated and sedated) Neck: Supple, Other (Right submandibular vesicular lesions) Respiratory: Decreased Breath Sounds, Other (Coarse breath sounds bilaterally, intubated and mechanically ventilated) Cardiovascular: Regular Rate, Rhythm, No Murmur Gastrointestinal: Normal Bowel Sounds, Soft Extremity: Normal Inspection, Pedal Edema Neurologic/Psychiatric: Other (Sedated) Skin: Normal Color, Cool Lymphatic: No Adenopathy Results Results/Procedures Labs Laboratory Tests 05/18/21 09:48 Patient resulted labs reviewed. Imaging: Reviewed Imaging Films, Reviewed Imaging Report Assessment/Plan Admission Diagnosis Acute respiratory distress syndrome Admission Status: Inpatient Order (span 2 midnights) Reason for Inpatient Admission: Mechanically ventilated Assessment and Plan Acute respiratory distress syndrome Endotracheally intubated Severe sepsis due to pneumonia Lactic acidosis Pulmonary edema Bilateral pleural effusions NSTEMI CAD Intubated 05/18, high FiO2 and PEEP requirements CT chest with no PE, bilateral consolidations and small pleural effusions, possible pulmonary edema IV fluids held due to likely CHF and pulmonary edema One dose IV Lasix given Troponin elevated at 0.55 Add on procalcitonin Repeat lactic acid level and troponin Started on cefepime and doxycycline TeleICU consulted, appreciate assistance T2DM Sliding scale insulin Levemir HTN Hold home meds Morbid obesity Clinically significant, no acute management needs DVT prophylaxis: Lovenox Critical Care Critically Ill Patient Diagnosis/Problems Diagnosis/Problems (1) Acute respiratory distress syndrome (ARDS) Status: Acute (2) Endotracheally intubated Status: Acute (3) Severe sepsis Status: Acute (4) PNA (pneumonia) Status: Acute Qualifiers: Pneumonia type: due to unspecified organism Laterality: bilateral Lung location: unspecified part of lung Qualified Codes: J18.9 - Pneumonia, unspecified organism (5) NSTEMI (non-ST elevation myocardial infarction) Status: Acute (6) Pulmonary edema Status: Acute Qualifiers: Chronicity: acute Qualified Codes: J81.0 - Acute pulmonary edema (7) Bilateral pleural effusion Status: Acute (8) Herpes zoster infection of mandibular region Status: Acute (9) Hypertension Status: Chronic (10) Diabetes Status: Chronic (11) Morbid obesity Status: Chronic RACHELLE BROUSSARD MD May 18, 2021 14:57
--- NOTE | 2021-05-18 15:08 | Consultation-Cardiology ---
HPI-Cardiology Cardiology Consultation: Date of Consultation 05/18/21 Date of Admission Attending Physician Crys Claudio MD Admitting Physician Lemuel Ojeda MD Consulting Physician FARZAD HARDWICK JR, MD HPI: Time Seen by a Provider: 15:02 Chief Complaint: Reason for consultation: Possible heart failure and elevated troponin. I saw Paulette in the intensive care unit this afternoon. She was intubated and sedated. The majority of the history I obtained from the emergency room physician in [place] as well as the nursing staff. According to the emergency room physician, the patient had presented to her primary provider complaining of some chest pain. She was then told to go to the emergency room at [place]. She was undergoing evaluation in the emergency room. Developed progressive respiratory failure and ultimately was intubated. She was then transferred to our facility for further management. She was felt to be in heart failure and also had an elevated troponin level. As such, a cardiology consultation was requested. By report, she normally follows with a wallcovering texturer at [facility] and has had coronary stenting in the past. Details unknown to me. Again, I was not able to obtain any history from the patient due to her clinical status being intubated and sedated. Certain portions of this document may have been dictated utilizing voice recognition technology. Inherent to this technology, typographical and grammatical errors may exist. As much as I am diligent to identify and correct these mistakes, some errors may remain in the document. Review of Systems-Cardiology Review of Systems Other comments Not obtainable due to clinical status. OOI-Mnqffz-Mdsltj Hx Patient Social History Marrital Status: (per attending) 2nd Hand Smoke Exposure: No Immunizations Up To Date Date of Pneumonia Vaccine: Jan 09, 2017 Date of Influenza Vaccine: Sep 11, 2018 Past Medical History PMH As described under Assessment. Family Medical History Family Medical History: Notes a strong [facility] h/o DM and heart disease, but does not report h/o early CAD in the [facility] Allergies and Home Medications Allergies Coded Allergies: Penicillins (Verified Allergy, Unknown, 06/24/19) acetaminophen (Verified Allergy, Unknown, 06/24/19) clarithromycin (Verified Allergy, Unknown, 06/24/19) codeine (Verified Allergy, Unknown, 06/24/19) glimepiride (Verified Allergy, Unknown, 06/24/19) meperidine (Verified Allergy, Unknown, 06/24/19) oxycodone (Verified Allergy, Unknown, 06/24/19) promethazine (Verified Allergy, Unknown, 06/24/19) sitagliptin (Verified Allergy, Unknown, 06/24/19) KEILY Inhibitors (Verified Adverse Reaction, Unknown, cough, 01/10/19) Home Medications Amlodipine Besylate 10 Mg Tablet, 10 MG PO HS, (Reported) Aspirin 81 Mg Tablet.dr, 81 MG PO DAILY, (Reported) Clopidogrel Bisulfate 75 Mg Tablet, 75 MG PO DAILY, (Reported) Famotidine 20 Mg Tablet, 20 MG PO BID, (Reported) Fluticasone/Salmeterol 12 Gm Hfa.aer.ad, 2 PUFF IH BID@ Prescribed by: EDUARDA MEAD on 01/12/19 0846 Gabapentin 100 Mg Capsule, 100 MG PO TID, (Reported) Insulin Detemir 100 Unit/1 Ml Insuln.pen, 34 UNIT SQ HS, (Reported) Insulin Lispro 100 Unit/1 Ml Vial, SQ TIDAC, (Reported) Metoprolol Succinate 100 Mg Tab.er.24h, 100 MG PO BID Prescribed by: SAL BACON on 01/11/19 1138 Nitroglycerin 0.4 Mg Tab.subl, 0.4 MG SL UD PRN for CHEST PAIN Prescribed by: ELBA HORN on 05/16/21 1511 Nystatin 15 Gm Oint...g., 0 GM TOP BID Prescribed by: EDUARDA MEAD on 01/12/19 0846 Ranolazine 500 Mg Tab.er.12h, 500 MG PO BID, (Reported) Sertraline HCl 100 Mg Tablet, 100 MG PO HS, (Reported) Tizanidine HCl 4 Mg Tablet, 4 MG PO Q6H PRN for MUSCLE SPASMS, (Reported) Valacyclovir HCl 1,000 Mg Tablet, 1,000 MG PO BID Prescribed by: ELBA HORN on 05/16/21 1503 Patient Home Medication List Home Medication List Reviewed: Yes Exam Vital Signs Vital Signs Date Time Temp Pulse Resp B/P (MAP) Pulse Ox O2 Delivery O2 Flow Rate FiO2 05/18/21 15:00 79 12 142/90 (107) 93 Mechanical Ventilator 100.00 05/18/21 11:37 100 05/18/21 11:25 36.6 Physical Exam General: Intubated and sedated. Well nourished and appears stated age. Eye: Conjunctivae are clear. There are no xanthelasma. HENT: Normocephalic. Atraumatic. Carotid pulsations 2/2 without bruits. Neck: Jugular venous pressure does not appear elevated. No thyromegaly appreciated. Respiratory: Symmetrical expansion bilaterally. Coarse breath sounds to the ventilator. Cardiovascular: Normal rate. Regular rhythm. No murmur. No gallop. Point of maximal impulse is not appear displaced. Good pulses equal in all extremities. No edema. Gastrointestinal: Soft. Normal bowel sounds. Skin: Skin turgor is normal. There is no pallor. Musculoskeletal: No obvious deformities. Neurologic: Intubated and sedated. Psychiatric: Not obtainable due to clinical status. Labs Laboratory Tests Test 05/18/21 09:48 05/18/21 10:02 05/18/21 10:17 05/18/21 11:39 Range/Units White Blood Count 12.3 H 4.3-11.0 10^3/uL Red Blood Count 5.30 4.35-5.85 10^6/uL Hemoglobin 12.8 11.5-16.0 G/DL Hematocrit 42 35-52 % Mean Corpuscular Volume 80 80-99 FL Mean Corpuscular Hemoglobin 24 L 25-34 PG Mean Corpuscular Hemoglobin Concent 30 L 32-36 G/DL Red Cell Distribution Width 15.6 H 10.0-14.5 % Platelet Count 337 130-400 10^3/uL Mean Platelet Volume 9.8 7.4-10.4 FL Immature Granulocyte % (Auto) 1 % Neutrophils (%) (Auto) 68 42-75 % Lymphocytes (%) (Auto) 18 12-44 % Monocytes (%) (Auto) 11 0-12 % Eosinophils (%) (Auto) 3 0-10 % Basophils (%) (Auto) 1 0-10 % Neutrophils # (Auto) 8.3 H 1.8-7.8 X 10^3 Lymphocytes # (Auto) 2.2 1.0-4.0 X 10^3 Monocytes # (Auto) 1.3 H 0.0-1.0 X 10^3 Eosinophils # (Auto) 0.3 0.0-0.3 10^3/uL Basophils # (Auto) 0.1 0.0-0.1 10^3/uL Immature Granulocyte # (Auto) 0.1 0.0-0.1 10^3/uL Prothrombin Time 13.0 12.2-14.7 SEC INR Comment 1.0 0.8-1.4 Activated Partial Thromboplast Time 25 24-35 SEC Sodium Level 135 135-145 MMOL/L Potassium Level 4.6 3.6-5.0 MMOL/L Chloride Level 100 98-107 MMOL/L Carbon Dioxide Level 21 21-32 MMOL/L Anion Gap 14 5-14 MMOL/L Blood Urea Nitrogen 21 H 7-18 MG/DL Creatinine 0.89 0.60-1.30 MG/DL Estimat Glomerular Filtration Rate > 60 BUN/Creatinine Ratio 24 Glucose Level 258 H 70-105 MG/DL Lactic Acid Level 3.32 *H 0.50-2.00 MMOL/L Calcium Level 8.3 L 8.5-10.1 MG/DL Corrected Calcium 8.1 L 8.5-10.1 MG/DL Total Bilirubin 0.4 0.1-1.0 MG/DL Aspartate Amino Transf (AST/SGOT) 18 5-34 U/L Alanine Aminotransferase (ALT/SGPT) 14 0-55 U/L Alkaline Phosphatase 95 40-136 U/L Troponin I 0.55 *H <0.30 NG/ML Pro-B-Type Natriuretic Peptide 1392.0 H <75.0 PG/ML Total Protein 7.2 6.4-8.2 GM/DL Albumin 4.3 3.2-4.5 GM/DL Urine Color YELLOW Urine Clarity TURBID Urine pH 6.0 5-9 Urine Specific [place] 1.020 1.016-1.022 Urine Protein 1+ H NEGATIVE Urine Glucose (UA) 3+ H NEGATIVE Urine Ketones NEGATIVE NEGATIVE Urine Nitrite NEGATIVE NEGATIVE Urine Bilirubin NEGATIVE NEGATIVE Urine Urobilinogen 0.2 < = 1.0 MG/DL Urine Leukocyte Esterase NEGATIVE NEGATIVE Urine RBC (Auto) NEGATIVE NEGATIVE Urine RBC 0-2 /HPF Urine WBC 10-25 H /HPF Urine Squamous Epithelial Cells RARE /HPF Urine Crystals NONE /LPF Urine Bacteria LARGE H /HPF Urine Casts PRESENT /LPF Urine Hyaline Casts 0-2 H /LPF Urine Mucus LARGE H /LPF Urine Culture Indicated YES Urine Opiates Screen NEGATIVE NEGATIVE Urine Oxycodone Screen NEGATIVE NEGATIVE Urine Methadone Screen NEGATIVE NEGATIVE Urine Propoxyphene Screen NEGATIVE NEGATIVE Urine Barbiturates Screen NEGATIVE NEGATIVE Ur Tricyclic Antidepressants Screen NEGATIVE NEGATIVE Urine Phencyclidine Screen NEGATIVE NEGATIVE Urine Amphetamines Screen NEGATIVE NEGATIVE Urine Methamphetamines Screen NEGATIVE NEGATIVE Urine Benzodiazepines Screen NEGATIVE NEGATIVE Urine Cocaine Screen NEGATIVE NEGATIVE Urine Cannabinoids Screen NEGATIVE NEGATIVE Blood Gas Puncture Site RT. BRACHIAL Blood Gas Patient Temperature 36.1 Arterial Blood pH 7.23 *L 7.37-7.43 Arterial Blood Partial Pressure CO2 60 H 35-45 MMHG Arterial Blood Partial Pressure O2 29 *L 79-93 MMHG Arterial Blood HCO3 25 23-27 MMOL/L Arterial Blood Total CO2 26.9 21.0-31.0 MMOL/L Arterial Blood Oxygen Saturation 42 L 94-100 % Arterial Blood Base Excess -3.3 L -2.5-2.5 MMOL/L Erasto Test YES-POS Blood Gas Ventilator Setting YES Blood Gas Inspired Oxygen 100% Influenza Type A (RT-PCR) Not Detected Not Detecte Influenza Type B (RT-PCR) Not Detected Not Detecte SARS-CoV-2 RNA (RT-PCR) Not Detected Not Detecte Test 05/18/21 12:29 05/18/21 14:49 Range/Units Blood Gas Puncture Site L RAD Blood Gas Patient Temperature 34.9 Arterial Blood pH 7.30 *L 7.37-7.43 Arterial Blood Partial Pressure CO2 49 H 35-45 MMHG Arterial Blood Partial Pressure O2 56 L 79-93 MMHG Arterial Blood HCO3 24 23-27 MMOL/L Arterial Blood Total CO2 26.0 21.0-31.0 MMOL/L Arterial Blood Oxygen Saturation 90 L 94-100 % Arterial Blood Base Excess -1.6 -2.5-2.5 MMOL/L Erasto Test YES-POS Blood Gas Ventilator Setting YES Blood Gas Inspired Oxygen 100 Radiology ELECTROCARDIOGRAM (05/18/2021): Sinus rhythm with left anterior hemiblock and left ventricular hypertrophy with repolarization abnormality. ELECTROCARDIOGRAM (05/16/2021): Sinus rhythm with left anterior hemiblock and left ventricular hypertrophy with repolarization abnormality with poor R wave progression. ECHOCARDIOGRAM (01/09/2019): 1. Normal left ventricular chamber size with mild concentric left ventricular hypertrophy. Normal left ventricular systolic function with an estimated ejection fraction of 65-70%. 2. Grade 1 diastolic dysfunction. 3. Mild mitral regurgitation. 4. The estimated pulmonary artery systolic pressure is 25 mmHg. Diagnosis/Problems Diagnosis/Problems (1) Acute on chronic diastolic (congestive) heart failure Assessment & Plan: Her most recent echocardiogram showed a normal ejection fraction. I have ordered a follow-up echocardiogram for tomorrow. She does have an elevated BNP level with some evidence of pulmonary congestion on previous chest x-rays. She seems to be responding to intravenous Lasix. (2) NSTEMI (non-ST elevation myocardial infarction) Status: Acute Assessment & Plan: By report, she was complaining of chest pain at the outside facility prior to being intubated. She has elevated troponin levels but no obvious ischemic changes on her resting electrocardiogram. This could be a type II non-ST elevation myocardial infarction due to her acute respiratory failure. We will continue to trend the troponin levels. Resume aspirin and clopidogrel when able. Likewise, resume amlodipine and ranolazine when able. If her troponin levels continue to rise, she may need further evaluation with a cardiac catheterization. However, given her current clinical status coupled with her morbid obesity, this would certainly be a high risk procedure. (3) Coronary artery disease with unstable angina pectoris Assessment & Plan: We will proceed as above. (4) Acute kidney injury superimposed on chronic kidney disease Assessment & Plan: This may also be causing the troponin and BNP levels to be elevated. We will need to follow her renal function closely with the intravenous furosemide. (5) Essential hypertension Assessment & Plan: Resume outpatient antihypertensive medication when able. (6) Mixed hyperlipidemia Assessment & Plan: For unclear reasons, she has not been taking a statin at home. I have added a lipid panel to the blood work from this morning sample. FARZAD HARDWICK JR, MD May 18, 2021 15:08
[2021-05-18] MEDS ORDERED: NS IV 1000 ML 1,000 ML ONE (15:17)
[2021-05-18] MEDS: PROPOFOL DRIP (ICU) 100 ML IV SCH ×4 (15:26→23:02)
[2021-05-18] MEDS: PANTOPRAZOLE 40 MG (PROTONIX) VIAL IV SCH (15:32)
[2021-05-18] MEDS: DOXYCYCLINE INJECTION 100 MG in NS (IVPB) 100 ML IV SCH (15:32)
[2021-05-18 15:52] LABS: TRIGLYCERIDES 246 MG/DL (<150); VLDL CHOLESTEROL 49 MG/DL (5-40)
[2021-05-18 15:57] LABS: CHOLESTEROL 202 MG/DL (< 200)
[2021-05-18 15:58] LABS: HDL CHOLESTEROL 30 MG/DL (40-60)
[2021-05-18] MEDS ORDERED: RT-ALBUTEROL SULF 2.5 MG/3 ML PRE-MIX VIAL INH PRN (16:00)
[2021-05-18 18:19] VITALS: BP 93/54
[2021-05-18] MEDS: RT-ALBUTEROL/IPRATROPIUM 3 ML (DUONEB) VIAL INH SCH ×2 (18:19→21:18)
[2021-05-18] MEDS: inSUlin ASPART (NovoLOG) 1 UNIT/0.01 ML (CHARGE PER UNIT) SC SCH (19:53)
[2021-05-18] MEDS ORDERED: inSUlin ASPART (NovoLOG) 1 UNIT/0.01 ML (CHARGE PER UNIT) SC SCH (20:00)
[2021-05-18] MEDS ORDERED: VALACYCLOVIR 500 MG TAB (VALTREX) NG SCH (21:00)
[2021-05-18 21:18] VITALS: BP 96/39
[2021-05-18] MEDS ORDERED: NOREPINEPHRINE 8 MG/250 ML 250 ML IV ONE (21:47)
[2021-05-18] MEDS: NOREPINEPHRINE 8 MG/250 ML 250 ML IV SCH (21:52)
--- NOTE | 2021-05-18 23:15 | Anesthesia-Procedure Note ---
Procedures/Interventions Procedure Start/Stop/Diagnosis Date of Procedure: May 18, 2021 Start Time: 16:36 Brief History Called to ICU 12 for arterial line placement due to labile pressures and recent vent placement. Patient admitted to ICU 12 earlier today in respiratory failure and intubated. NIBP cuff reading 110/70. Patient on ventilator with propofol gtt for sedation. 20 g arterial line placed in patient's left wrist after prepping with chloraprep x1 attempt. Secured with opsite and wrist restraint replaced. NIBP correlates well with art line reading and wave form good. Reported off to PIERRE Pittman Stop Time: 16:50 CHARISSA DOUGHERTY CRNA May 18, 2021 23:15
[2021-05-19] MEDS: CEFEPIME 2,000 MG/SWFI 20 ML IV PUSH IV SCH ×4 (00:45→12:35)
[2021-05-19 02:18] VITALS: BP 121/45
[2021-05-19] MEDS: RT-ALBUTEROL/IPRATROPIUM 3 ML (DUONEB) VIAL INH SCH ×6 (02:18→21:55)
[2021-05-19] MEDS: DOXYCYCLINE INJECTION 100 MG in NS (IVPB) 100 ML IV SCH ×2 (02:56→15:18)
[2021-05-19] MEDS: PROPOFOL DRIP (ICU) 100 ML IV SCH ×9 (02:59→23:02)
[2021-05-19 03:14] LABS: ABG BASE EXCESS -5.2 MMOL/L (-2.5-2.5); ABG OXYGEN SATURATION 97 % (94-100); ABG PCO2 40 MMHG (35-45); ABG PO2 95 MMHG (79-93)
[2021-05-19 03:19] LABS: BASOPHILS # (AUTO) 0.1 10^3/uL (0.0-0.1); BASOPHILS % (AUTO) 0 % (0-10); EOSINOPHILS % (AUTO) 0 % (0-10); HEMATOCRIT 34 % (35-52); HEMOGLOBIN 10.6 g/dL (11.5-16.0); LYMPHOCYTES # (AUTO) 0.5 10^3/uL (1.0-4.0); LYMPHOCYTES % (AUTO) 2 % (12-44); MEAN CORPUSCULAR HEMOGLOBIN 25 pg (25-34); MEAN CORPUSCULAR HGB CONC 32 g/dL (32-36); MEAN CORPUSCULAR VOLUME 78 fL (80-99); MEAN PLATELET VOLUME 9.8 fL (9.0-12.2); MONOCYTES # (AUTO) 1.2 10^3/uL (0.0-1.0); MONOCYTES % (AUTO) 6 % (0-12); NEUTROPHILS # (AUTO) 20.3 10^3/uL (1.8-7.8); NEUTROPHILS % (AUTO) 92 % (42-75); PLATELET COUNT 215 10^3/uL (130-400); WHITE BLOOD COUNT 22.2 10^3/uL (4.3-11.0)
[2021-05-19 03:20] LABS: ALLENS TEST ART LINE; INSPIRED O2 85%; PATIENT TEMP 37; VENTILATOR YES
[2021-05-19 03:21] LABS: ABG PH 7.32 (7.37-7.43)
[2021-05-19 04:57] LABS: BAND NEUTROPHILS 16 %; LYMPHOCYTES % (MANUAL) 3 %; MONOCYTES % (MANUAL) 2 %; NEUTROPHILS % (MANUAL) 79 %
[2021-05-19 04:58] LABS: MICROCYTOSIS SLIGHT
[2021-05-19 05:47] LABS: ALBUMIN 3.5 GM/DL (3.2-4.5); BILIRUBIN,TOTAL 0.8 MG/DL (0.1-1.0); CALCIUM 8.2 MG/DL (8.5-10.1); CREATININE SERUM 1.54 MG/DL (0.60-1.30); POTASSIUM 3.8 MMOL/L (3.6-5.0); TOTAL PROTEIN 6.4 GM/DL (6.4-8.2)
[2021-05-19] MEDS: NOREPINEPHRINE 8 MG/250 ML 250 ML IV SCH ×3 (05:48→22:37)
[2021-05-19] MEDS: inSUlin ASPART (NovoLOG) 1 UNIT/0.01 ML (CHARGE PER UNIT) SC SCH ×3 (06:34→18:20)
--- NOTE | 2021-05-19 06:57 | Progress Note - Hospitalist ---
Subjective HPI/CC On Admission Date Seen by Provider: May 19, 2021 Time Seen by Provider: 10:00 Paulette Roger is a 65-year-old female with past medical history of hypertension, insulin-dependent diabetes, coronary artery disease, GERD, morbid obesity, who presented with weakness and respiratory failure. EMS was called to her home wh ere she had become very weak and short of breath while using the toilet. She required endotracheal intubation and intraosseous access. There is no ventilator available at [facility] and she had to be mechanically bagged. Due to this, a complete work-up was not able to be performed in the emergency room and she was transferred to the [facility] emergency room. After arrival, she was placed on a ventilator. CT scans were performed which showed no acute intracranial abnormalities but did reveal bilateral consolidations, pleural effusions, and possible pulmonary edema. She is Covid and flu negative. She was recently diagnosed with shingles. According to her nurse, she was awake and following commands prior to being started on sedation. Subjective/Events-last exam Patient remains intubated The right neck maintained on acyclovir IV since Valtrex was not being absorbed and OG tube removed Patient with non-ST elevation NJ requiring heparin Lumbar puncture will need to wait due to cardiac issues take precedence Check meds and labs Maintain on cefepime New onset atrial fibrillation now Elevated troponin noted Discussed with Dr. Larsen Focused Exam Lactate Level 05/18/21 09:48: Lactic Acid Level 3.32*H 05/18/21 14:49: Lactic Acid Level 1.33 05/19/21 09:50: Lactic Acid Level 1.01 Objective Exam Vital Signs Vital Signs Date Time Temp Pulse Resp B/P (MAP) Pulse Ox O2 Delivery O2 Flow Rate FiO2 05/20/21 05:33 130/52 05/20/21 04:00 36.8 91 28 96 Mechanical Ventilator 40.00 05/20/21 04:00 40 Capillary Refill : NONE General Appearance: No Apparent Distress, WD/WN, Chronically ill, Other (Intubated) Respiratory: Decreased Breath Sounds Cardiovascular: Irregularly Irregular Results/Procedures Lab Laboratory Tests 05/20/21 01:21 Patient resulted labs reviewed. Imaging: Reviewed Imaging Films, Reviewed Imaging Report Assessment/Plan Assessment and Plan Assess & Plan/Chief Complaint Assessment: ARDS Severe sepsis Pneumonia Intubated 05/08/2021 Acute right neck herpes zoster maintained on acyclovir IV Non-ST elevation NJ requiring heparin drip New onset atrial fibrillation Plan: Heparin drip since non-ST elevation NJ and new onset atrial fibrillation take precedence over lumbar puncture Maintain acyclovir Critical Care Critically Ill Patient ASHWINI BLANKENSHIP DO May 19, 2021 06:57
[2021-05-19 07:14] VITALS: BP 104/40
--- NOTE | 2021-05-19 09:07 | Tele-ICU Progress Note ---
Subjective Date Seen by a Provider: May 19, 2021 Time Seen by a Provider: 08:59 Subjective/Events-last exam Patient remained intubated and she is currently on 80% FiO2. She required briefly Levophed last night she has a midline catheter. However she would need a central line. Advised her to get a surgical consultation for CVC. RN reports that patient has a rash on the neck suggestive of herpes zoster. She was start ed on valacyclovir orally. However in view of her altered mental status and respiratory failure you I am also concerned about her. Just ran cephalitis. Hence we start her on acyclovir intravenously every 8 hours and try to get a lumbar puncture done by the anesthesia tomorrow after holding Lovenox today and tomorrow. Platelets are adequate even though they are decreased. Currently is 259 which is adequate. Chest x-ray reviewed and showed still bilateral infiltrate may be a minimal improvement seen Sepsis Event Evaluation Height, Weight, BMI Height: 5'1.00" Weight: 268lbs. 10.0oz. 121.047132nb; 59.07 BMI Method:Stated Focused Exam Lactate Level 05/18/21 09:48: Lactic Acid Level 3.32*H 05/18/21 14:49: Lactic Acid Level 1.33 Exam Exam Patient acknowledged, consented, and participated in this virtual visit which was conducted using real time audio/video Vital Signs Date Time Temp Pulse Resp B/P (MAP) Pulse Ox O2 Delivery O2 Flow Rate FiO2 05/19/21 08:28 76 128/51 05/19/21 08:24 65 81/37 05/19/21 08:18 74 106/40 05/19/21 08:00 68 23 104/40 (61) 94 Mechanical Ventilator 80.00 05/19/21 07:25 36.7 Mechanical Ventilator 80.00 05/19/21 07:14 76 27 96 80 05/19/21 07:10 137/46 05/19/21 07:00 78 28 163/53 (89) 97 Mechanical Ventilator 80.00 05/19/21 07:00 75 05/19/21 06:41 Mechanical Ventilator 80.00 05/19/21 06:00 75 22 125/51 (75) 95 Mechanical Ventilator 85.00 05/19/21 05:00 80 27 125/42 (69) 95 Mechanical Ventilator 85.00 05/19/21 04:57 36.6 7/18/21 04:41 111/42 05/19/21 04:00 94 Mechanical Ventilator 85 05/19/21 04:00 80 20 143/46 (78) 95 Mechanical Ventilator 85.00 05/19/21 03:15 37.0 05/19/21 03:00 85 21 96 Mechanical Ventilator 85.00 05/19/21 02:59 175/54 05/19/21 02:18 79 28 94 85 05/19/21 02:11 85.00 05/19/21 02:00 79 27 129/46 (73) 95 Mechanical Ventilator 95.00 05/19/21 01:00 87 05/19/21 01:00 84 21 121/47 (71) 92 Mechanical Ventilator 95.00 05/19/21 00:44 37.6 05/19/21 00:00 91 Mechanical Ventilator 95 05/19/21 00:00 84 19 95/40 (58) 89 Mechanical Ventilator 95.00 05/18/21 23:02 114/41 05/18/21 23:00 84 23 114/42 (66) 91 Mechanical Ventilator 95.00 05/18/21 22:28 150/51 (84) 96 Mechanical Ventilator 95.00 05/18/21 22:00 81 26 106/54 (71) 90 Mechanical Ventilator 100.00 05/18/21 22:00 37.8 05/18/21 21:52 100/53 05/18/21 21:18 79 29 90 100 05/18/21 21:00 91 24 95/41 (59) 89 Mechanical Ventilator 100.00 05/18/21 20:00 81 24 104/43 (63) 90 Mechanical Ventilator 100.00 05/18/21 19:54 102/43 05/18/21 19:51 38.0 81 25 104/43 (63) 92 Mechanical Ventilator 100.00 05/18/21 19:50 91 Mechanical Ventilator 100 05/18/21 19:00 76 05/18/21 18:19 71 26 90 100 05/18/21 18:00 68 26 93/54 (67) 90 Mechanical Ventilator 100.00 05/18/21 17:35 78 140/46 05/18/21 17:00 78 25 140/46 (77) 91 Mechanical Ventilator 100.00 05/18/21 16:00 75 26 99/59 (72) 86 Mechanical Ventilator 100.00 05/18/21 16:00 36.8 05/18/21 16:00 89 Mechanical Ventilator 100 05/18/21 15:26 84 129/96 05/18/21 15:25 111 05/18/21 15:00 79 12 142/90 (107) 93 Mechanical Ventilator 100.00 05/18/21 14:46 81 27 88 100 05/18/21 14:00 77 22 136/77 (96) 90 Mechanical Ventilator 100.00 05/18/21 13:30 83 05/18/21 13:00 89 29 151/77 (101) 85 Mechanical Ventilator 100.00 05/18/21 12:35 76 16 152/83 90 Mechanical Ventilator 05/18/21 12:30 76 12 152/83 (106) 89 Mechanical Ventilator 05/18/21 12:00 58 14 129/79 (96) 87 Mechanical Ventilator 05/18/21 11:45 60 16 85/55 (65) 87 Mechanical Ventilator 05/18/21 11:37 100 05/18/21 11:30 61 16 94/61 (72) 89 Mechanical Ventilator 05/18/21 11:25 36.6 64 16 140/81 (100) Room Air 05/18/21 10:50 36.1 96 10 172/82 (112) 88 Ambu Bag 05/18/21 09:39 36.1 96 25 172/82 (112) 88 Ambu Bag 10.00 I & O 05/19/21 07:00 Intake Total 200 ml Output Total 3025 ml Balance -2825 ml Height & Weight Height: 5'1.00" Weight: 268lbs. 10.0oz. 121.285960jg; 59.07 BMI Method:Stated General Appearance: Other (unresponsive) Neck: Normal Inspection, Supple, Other (shingles rash Right ant neck and subm ental area) Respiratory: No Accessory Muscle Use, Decreased Breath Sounds (assisted REspirations w BVM), Wheezing (faint) Cardiovascular: Regular Rate, Rhythm, No JVD Capillary Refill: NONE Extremity: Normal Capillary Refill, Normal Inspection Neurologic/Psychiatric: Other (unresponsive) Skin: Normal Color, Cool Lymphatic: No Adenopathy Results Lab Laboratory Tests 05/18/21 09:48 05/19/21 03:05 Meds reviewed Radiology cxr reviewed Assessment/Plan Assessment/Plan 1. Acute hypoxic respiratory failure due to possible underlying pneumonia and/or congestive heart failure. 2. History of coronary artery disease with the microvascular as well as macrovascular disease. 3. Morbid obesity 4. Type 2 diabetes mellitus requiring insulin. 5. Hypertension with diastolic dysfunction. 6. herpes zoster on the neck. needs to r/o zoster encephalitis. Recommendations 1. Mechanical ventilatory support with a tidal volume of 450, respiratory rate 20, PEEP 17 and FiO2 80% and wean oxygen as tolerated. 2. IV Lasix as tolerated 3. Broad-spectrum antibiotic with cefepime and doxycycline. and will add acyclovir to cover encephalitis 4. Monitor for hyperglycemia and a treatment with insulin for primary care physician 5. DVT prophylaxis and ulcer prophylaxis. 6. Suggest to get a LP done by anesthesia for csf analysis. 7. Gen. Surgery consult for cvc. 8. Hernandez cultures Critical Care: Critically Ill Patient Time spent with patient (mins): 35 Diagnosis/Problems Diagnosis/Problems (1) Acute on chronic diastolic (congestive) heart failure (2) Hypertension Status: Chronic (3) Obesity Status: Chronic (4) Pneumonia Status: Acute (5) Respiratory failure Status: Acute Qualifiers: Qualified Codes: J96.01 - Acute respiratory failure with hypoxia KIM ROSALES MD May 19, 2021 09:07
[2021-05-19] MEDS: PANTOPRAZOLE 40 MG (PROTONIX) VIAL IV SCH (09:15)
[2021-05-19] MEDS: ACYCLOVIR INJECTION 800 MG in NS (IVPB) 250 ML IV SCH ×2 (09:23→16:50)
[2021-05-19] MEDS ORDERED: ENOXAPARIN 60 MG/0.6 ML (LOVENOX) SYR SC SCH (10:00)
--- NOTE | 2021-05-19 10:12 | Consultation - Surgery ---
History of Present Illness History of Present Illness Patient Consulted On(hernan/time) 05/19/21 10:07 Time Seen by Provider: 09:11 Reason for Visit: acute respiratory failure History of Present Illness Surgery asked to consult regarding hypotension, venous insufficiency. HPI per ED: 65-year-old female presents via EMS for unresponsive state. Patient was using the restroom and evidently feeling weak her son called 911 paramedics on arrival her oxygen saturations were 30% these gave her oxygen and assisted her breathing with a [id number], on EMS arrival they started an IO in her left humerus, gave fluids and continue to assist her breathing and got her sats below 80%. Patient remained unresponsive with normal sinus rhythm and normal blood pressure. Patient seen by myself 2 days earlier for right jaw pain and an outbreak of shingles, also was having some chest tightness and had a work-up for her chest pain including 2 - troponins over few hours and was feeling better upon departure. When I saw pt she was intubated and sedated. Allergies and Home Medications Allergies Coded Allergies: Penicillins (Verified Allergy, Unknown, 06/24/19) acetaminophen (Verified Allergy, Unknown, 06/24/19) clarithromycin (Verified Allergy, Unknown, 06/24/19) codeine (Verified Allergy, Unknown, 06/24/19) glimepiride (Verified Allergy, Unknown, 06/24/19) meperidine (Verified Allergy, Unknown, 06/24/19) oxycodone (Verified Allergy, Unknown, 06/24/19) promethazine (Verified Allergy, Unknown, 06/24/19) sitagliptin (Verified Allergy, Unknown, 06/24/19) KEILY Inhibitors (Verified Adverse Reaction, Unknown, cough, 01/10/19) Home Medications Amlodipine Besylate 10 Mg Tablet, 10 MG PO HS, (Reported) Aspirin 81 Mg Tablet.dr, 81 MG PO DAILY, (Reported) Clopidogrel Bisulfate 75 Mg Tablet, 75 MG PO DAILY, (Reported) Famotidine 20 Mg Tablet, 20 MG PO BID, (Reported) Fluticasone/Salmeterol 12 Gm Hfa.aer.ad, 2 PUFF IH BID@08,20 Prescribed by: EDUARDA MEAD on 01/12/19 0846 Gabapentin 100 Mg Capsule, 100 MG PO TID, (Reported) Insulin Detemir 100 Unit/1 Ml Insuln.pen, 34 UNIT SQ HS, (Reported) Insulin Lispro 100 Unit/1 Ml Vial, SQ TIDAC, (Reported) Metoprolol Succinate 100 Mg Tab.er.24h, 100 MG PO BID Prescribed by: SAL BACON on 01/11/19 1138 Nitroglycerin 0.4 Mg Tab.subl, 0.4 MG SL UD PRN for CHEST PAIN Prescribed by: ELBA HORN on 05/16/21 1511 Nystatin 15 Gm Oint...g., 0 GM TOP BID Prescribed by: EDUARDA MEAD on 01/12/19 0846 Ranolazine 500 Mg Tab.er.12h, 500 MG PO BID, (Reported) Sertraline HCl 100 Mg Tablet, 100 MG PO HS, (Reported) Tizanidine HCl 4 Mg Tablet, 4 MG PO Q6H PRN for MUSCLE SPASMS, (Reported) Valacyclovir HCl 1,000 Mg Tablet, 1,000 MG PO BID Prescribed by: ELBA HORN on 05/16/21 1503 Patient Home Medication List Home Medication List Reviewed: Yes Past Kbycenq-Yudrda-Rvwphm Hx Patient Social History Smoking Status: Never a Smoker 2nd Hand Smoke Exposure: No Recent Hopitalizations: No Alcohol Use?: No Have you traveled recently?: No Immunizations Up To Date Date of Pneumonia Vaccine: Jan 09, 2017 Date of Influenza Vaccine: Sep 11, 2018 Seasonal Allergies Seasonal Allergies: No Surgeries History of Surgeries: Yes (Uvulopalatopharyngoplasty) Surgeries: Adenoidectomy, Hysterectomy, Oophorectomy Respiratory History of Respiratory Disorde: Yes Respiratory Disorders: Asthma, Sleep Apnea Cardiovascular History of Cardiac Disorders: Yes Cardiac Disorders: Angina, Coronary Artery Disease, Heart Attack, High Cholesterol, Hypertension Neurological History of Neurological Disord: Yes Neurological Disorders: Neuropathy 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 Genitourinary History of Genitourinary Disor: No Gastrointestinal History of Gastrointestinal Di: Yes Gastrointestinal Disorders: Gastroesophageal Reflux Musculoskeletal History of Musculoskeletal Dis: Yes Musculoskeletal Disorders: Degenerate Disk Disease, Arthritis, Chronic Back Pain Endocrine History of Endocrine Disorders: Yes Endocrine Disorders: Diabetes, Insulin dep HEENT History of HEENT Disorders: No Cancer History of Cancer: No Psychosocial History of Psychiatric Problem: Yes Behavioral Health Disorders: Depression Integumentary History of Skin or Integumenta: No Blood Transfusions History of Blood Disorders: No Family Medical History Significant Family History: Cancer Review of Systems-General ROS-Unable to Obtain: pt intubated and sedated Physical Exam-General Problems Physical Exam Vital Signs Vital Signs - First Documented 05/18/21 05/18/21 09:39 11:37 Temp 36.1 Pulse 96 Resp 25 B/P (MAP) 172/82 (112) Pulse Ox 88 O2 Delivery Ambu Bag O2 Flow Rate 10.00 FiO2 100 Capillary Refill : NONE General Appearance: mild distress, obese Eyes: Bilateral Eye PERRL, Bilateral Eye EOMI HEENT: PERRL/EOMI Respiratory: no respiratory distress, no accessory muscle use, decreased breath sounds, crackles, other (inubated) Cardiovascular: regular rate, rhythm, no murmur Gastrointestinal: soft, no organomegaly Neurologic/Psychiatric: other (intubated and sedated) Lymphatic: no adenopathy (neck, axilla or groin) Data Review Labs Laboratory Tests 05/18/21 10:17: Blood Gas Puncture Site RT. BRACHIAL, Blood Gas Patient Temperature 36.1, Arterial Blood pH 7.23*L, Arterial Blood Partial Pressure CO2 60H, Arterial Blood Partial Pressure O2 29*L, Arterial Blood HCO3 25, Arterial Blood Total CO2 26.9, Arterial Blood Oxygen Saturation 42L, Arterial Blood Base Excess -3.3L, Erasto Test YES-POS, Blood Gas Ventilator Setting YES, Blood Gas Inspired Oxygen 100% 05/18/21 11:39: Influenza Type A (RT-PCR) Not Detected, Influenza Type B (RT-PCR) Not Detected, SARS-CoV-2 RNA (RT-PCR) Not Detected 05/18/21 12:29: Blood Gas Puncture Site L RAD, Blood Gas Patient Temperature 34.9, Arterial Blood pH 7.30*L, Arterial Blood Partial Pressure CO2 49H, Arterial Blood Partial Pressure O2 56L, Arterial Blood HCO3 24, Arterial Blood Total CO2 26.0, Arterial Blood Oxygen Saturation 90L, Arterial Blood Base Excess -1.6, Erasto Test YES- POS, Blood Gas Ventilator Setting YES, Blood Gas Inspired Oxygen 100 05/18/21 14:49: D-Dimer 2.10H, Lactic Acid Level 1.33, Troponin I 1.124*H, Triglycerides Level 246H, Procalcitonin 0.32H 7/17/21 15:19: Triglycerides Level 246H, Cholesterol Level 202H, LDL Cholesterol Direct 168H, VLDL Cholesterol 49H, HDL Cholesterol 30L 05/18/21 17:20: Glucometer 130H 05/18/21 19:43: Glucometer 126H 05/19/21 03:05: White Blood Count 22.2H, Red Blood Count 4.31, Hemoglobin 10.6L, Hematocrit 34L, Mean Corpuscular Volume 78L, Mean Corpuscular Hemoglobin 25, Mean Corpuscular Hemoglobin Concent 32, Red Cell Distribution Width 15.7H, Platelet Count 215, Mean Platelet Volume 9.8, Immature Granulocyte % (Auto) 0, Neutrophils (%) (Auto) 92H, Lymphocytes (%) (Auto) 2L, Monocytes (%) (Auto) 6, Eosinophils (%) (Auto) 0, Basophils (%) (Auto) 0, Neutrophils # (Auto) 20.3H, Lymphocytes # (Auto) 0.5L, Monocytes # (Auto) 1.2H, Eosinophils # (Auto) 0.0, Basophils # (Auto) 0.1, Immature Granulocyte # (Auto) 0.1, Neutrophils % (Manual) 79, Lymphocytes % (Manual) 3, Monocytes % (Manual) 2, Band Neutrophils 16, Microcytosis SLIGHT, Blood Gas Puncture Site L RAD, Blood Gas Patient Temperature 37, Arterial Blood pH 7.32*L, Arterial Blood Partial Pressure CO2 40, Arterial Blood Partial Pressure O2 95H, Arterial Blood HCO3 20L, Arterial Blood Total CO2 21.0, Arterial Blood Oxygen Saturation 97, Arterial Blood Base Excess -5.2L, Erasto Test ART LINE, Blood Gas Ventilator Setting YES, Blood Gas Inspired Oxygen 85%, Sodium Level 138, Potassium Level 3.8, Chloride Level 106, Carbon Dioxide Level 17L, Anion Gap 15H, Blood Urea Nitrogen 25H, Creatinine 1.54H, Estimat Glomerular Filtration Rate 34, BUN/Creatinine Ratio 16, Glucose Level 188H, Calcium Level 8.2L, Corrected Calcium 8.6, Total Bilirubin 0.8, Aspartate Amino Transf (AST/SGOT) 15, Alanine Aminotransferase (ALT/SGPT) 14, Alkaline Phosphatase 58, Total Protein 6.4, Albumin 3.5 05/19/21 04:55: Phosphorus Level 5.0H, Magnesium Level 2.0 05/19/21 06:34: Glucometer 180H 05/19/21 09:50: Microbiology 05/18/21 Urine Culture - Preliminary, Resulted Probable E.coli Assessment/Plan Assessment/Plan Assessment/Plan Venous Insufficiency Hypotension Pt needs central IV access so she can get medication to support her blood pressure; will place central line. KILLIAN MOTT DO May 19, 2021 10:12
--- NOTE | 2021-05-19 10:13 | Progress Note-Post Operative ---
Post-Operative Progess Note Surgeon (s)/[employer] Attendant (s) Surgeon KILLIAN MOTT DO [employer] Attendant: none Pre-Operative Diagnosis Venous insufficiency, Hypotension Post-Operative Diagnosis same Procedure & Operative Findings Date of Procedure 05/19/21 Procedure Performed/Findings The patient was in their bed in the ICU, was prepped and draped in the sterile fashion. A surgical pause was performed. Ultrasound was used to locate the internal jugular vein. Once located anesthetic was infiltrated above it. Using an 18 gauge finder needle and watching with the US; the left internal jugular vein was accessed. Dark nonpulsatile blood was withdrawn. The wire was inserted. Fluoroscopy assured proper placement. The needle was removed. A [#11] blade scalpel was used to make a stab incision along the guidewire. Dilator sheath was then advanced over the wire using Seldinger technique and the dilator was removed. The [place] catheter was inserted over the guide wire using the Seldinger technique. The [place]ong wire was removed. The catheter was then accessed in all three ports without difficulty. Good flash of blood was seen and it was then flushed with saline. The catheter was sutured in place with 3-0 silk on a jaguar needle. The areas were then washed and dried. Sterile dressing was placed over incision. The patient tolerated the procedure well without complication. Anesthesia Type pt on propofol for sedation Estimated Blood Loss Estimated blood loss (mL): scant Specimens/Packing Specimens Removed none KILLIAN MOTT DO May 19, 2021 10:13
--- NOTE | 2021-05-19 10:21 | Cardiology Progress Note ---
Progress Note-Cardiology Events since last exam Date Seen by Provider: May 19, 2021 Time Seen by Provider: 10:14 Events since last exam We are seeing her due to NSTEMI and possible heart failure. This morning she went into atrial fibrillation. As far as we can tell, she has no previous history of atrial fibrillation. She remains intubated and sedated. I am not able to obtain any history from the patient. The eICU has requested that enoxaparin be put on hold because they are recommending a lumbar puncture to screen for possible herpes zoster related encephalitis. Vitals Last set of Vitals Signs Vital Signs 05/19/21 05/19/21 05/19/21 05/19/21 07:14 07:25 10:00 10:01 Temp 36.7 Pulse 76 Resp 17 B/P (MAP) 101/50 Pulse Ox 95 O2 Delivery Mechanical Ventilator O2 Flow Rate 80.00 FiO2 80 Labs Labs Laboratory Tests 05/19/21 03:05 Exam Vital Signs Vital Signs Date Time Temp Pulse Resp B/P (MAP) Pulse Ox O2 Delivery O2 Flow Rate FiO2 05/19/21 10:01 76 101/50 05/19/21 10:00 17 95 Mechanical Ventilator 80.00 05/19/21 07:25 36.7 05/19/21 07:14 80 Physical Exam General: Intubated and sedated. Well nourished and appears stated age.She is morbidly obese. Eye: Conjunctivae are clear. There are no xanthelasma. HENT: Normocephalic. Atraumatic. Carotid pulsations 2/2 without bruits. Respiratory: Symmetrical expansion bilaterally. Coarse breath sounds to the ventilator. Cardiovascular: Normal rate. Irregular rhythm. Distant S1/S2. No murmur. No gallop. Point of maximal impulse is not appear displaced. Good pulses equal in all extremities. No edema. Gastrointestinal: Soft. Normal bowel sounds. Skin: Skin turgor is normal. There is no pallor. Musculoskeletal: No obvious deformities. Neurologic: Intubated and sedated. Psychiatric: Not obtainable due to clinical status. Labs Laboratory Tests Test 05/18/21 10:17 05/18/21 11:39 05/18/21 12:29 05/18/21 14:49 Range/Units Blood Gas Puncture Site RT. BRACHIAL L RAD Blood Gas Patient Temperature 36.1 34.9 Arterial Blood pH 7.23 *L 7.30 *L 7.37-7.43 Arterial Blood Partial Pressure CO2 60 H 49 H 35-45 MMHG Arterial Blood Partial Pressure O2 29 *L 56 L 79-93 MMHG Arterial Blood HCO3 25 24 23-27 MMOL/L Arterial Blood Total CO2 26.9 26.0 21.0-31.0 MMOL/L Arterial Blood Oxygen Saturation 42 L 90 L 94-100 % Arterial Blood Base Excess -3.3 L -1.6 -2.5-2.5 MMOL/L Erasto Test YES-POS YES-POS Blood Gas Ventilator Setting YES YES Blood Gas Inspired Oxygen 100% 100 Influenza Type A (RT-PCR) Not Detected Not Detecte Influenza Type B (RT-PCR) Not Detected Not Detecte SARS-CoV-2 RNA (RT-PCR) Not Detected Not Detecte D-Dimer 2.10 H 0.00-0.49 UG/ML Lactic Acid Level 1.33 0.50-2.00 MMOL/L Troponin I 1.124 *H <0.028 NG/ML Triglycerides Level 246 H <150 MG/DL Procalcitonin 0.32 H <0.10 NG/ML Test 05/18/21 15:19 05/18/21 17:20 05/18/21 19:43 05/19/21 03:05 Range/Units Triglycerides Level 246 H <150 MG/DL Cholesterol Level 202 H < 200 MG/DL LDL Cholesterol Direct 168 H 1-129 MG/DL VLDL Cholesterol 49 H 5-40 MG/DL HDL Cholesterol 30 L 40-60 MG/DL Glucometer 130 H 126 H 70-110 MG/DL White Blood Count 22.2 H 4.3-11.0 10^3/uL Red Blood Count 4.31 3.80-5.11 10^6/uL Hemoglobin 10.6 L 11.5-16.0 g/dL Hematocrit 34 L 35-52 % Mean Corpuscular Volume 78 L 80-99 fL Mean Corpuscular Hemoglobin 25 25-34 pg Mean Corpuscular Hemoglobin Concent 32 32-36 g/dL Red Cell Distribution Width 15.7 H 10.0-14.5 % Platelet Count 215 130-400 10^3/uL Mean Platelet Volume 9.8 9.0-12.2 fL Immature Granulocyte % (Auto) 0 % Neutrophils (%) (Auto) 92 H 42-75 % Lymphocytes (%) (Auto) 2 L 12-44 % Monocytes (%) (Auto) 6 0-12 % Eosinophils (%) (Auto) 0 0-10 % Basophils (%) (Auto) 0 0-10 % Neutrophils # (Auto) 20.3 H 1.8-7.8 10^3/uL Lymphocytes # (Auto) 0.5 L 1.0-4.0 10^3/uL Monocytes # (Auto) 1.2 H 0.0-1.0 10^3/uL Eosinophils # (Auto) 0.0 0.0-0.3 10^3/uL Basophils # (Auto) 0.1 0.0-0.1 10^3/uL Immature Granulocyte # (Auto) 0.1 0.0-0.1 10^3/uL Neutrophils % (Manual) 79 % Lymphocytes % (Manual) 3 % Monocytes % (Manual) 2 % Band Neutrophils 16 % Microcytosis SLIGHT Blood Gas Puncture Site L RAD Blood Gas Patient Temperature 37 Arterial Blood pH 7.32 *L 7.37-7.43 Arterial Blood Partial Pressure CO2 40 35-45 MMHG Arterial Blood Partial Pressure O2 95 H 79-93 MMHG Arterial Blood HCO3 20 L 23-27 MMOL/L Arterial Blood Total CO2 21.0 21.0-31.0 MMOL/L Arterial Blood Oxygen Saturation 97 94-100 % Arterial Blood Base Excess -5.2 L -2.5-2.5 MMOL/L Erasto Test ART LINE Blood Gas Ventilator Setting YES Blood Gas Inspired Oxygen 85% Sodium Level 138 135-145 MMOL/L Potassium Level 3.8 3.6-5.0 MMOL/L Chloride Level 106 98-107 MMOL/L Carbon Dioxide Level 17 L 21-32 MMOL/L Anion Gap 15 H 5-14 MMOL/L Blood Urea Nitrogen 25 H 7-18 MG/DL Creatinine 1.54 H 0.60-1.30 MG/DL Estimat Glomerular Filtration Rate 34 BUN/Creatinine Ratio 16 Glucose Level 188 H 70-105 MG/DL Calcium Level 8.2 L 8.5-10.1 MG/DL Corrected Calcium 8.6 8.5-10.1 MG/DL Total Bilirubin 0.8 0.1-1.0 MG/DL Aspartate Amino Transf (AST/SGOT) 15 5-34 U/L Alanine Aminotransferase (ALT/SGPT) 14 0-55 U/L Alkaline Phosphatase 58 40-136 U/L Total Protein 6.4 6.4-8.2 GM/DL Albumin 3.5 3.2-4.5 GM/DL Test 05/19/21 04:55 05/19/21 06:34 05/19/21 09:50 Range/Units Phosphorus Level 5.0 H 2.3-4.7 MG/DL Magnesium Level 2.0 1.6-2.4 MG/DL Glucometer 180 H 70-110 MG/DL Lactic Acid Level 1.01 0.50-2.00 MMOL/L Diagnosis/Problems Diagnosis/Problems (1) Paroxysmal atrial fibrillation Assessment & Plan: This is a new finding in this patient. At some point, we would need to resume anticoagulation. Her heart rates are currently controlled on no AV krista blocking agents. (2) NSTEMI (non-ST elevation myocardial infarction) Status: Acute Assessment & Plan: By report, she was complaining of chest pain at the outside facility prior to being intubated. She has elevated troponin levels which continued to rise, but no obvious ischemic changes on her resting electrocardiogram. This could be a type II non-ST elevation myocardial infarction due to her acute respiratory failure. We will continue to trend the troponin levels. Resume aspirin and clopidogrel when able. Likewise, resume amlodipine and ranolazine when able. Once her noncardiac issues are further stabilized, we may need to consider further evaluation with a cardiac catheterization. (3) Acute on chronic respiratory failure with hypoxemia Assessment & Plan: Most likely multifactorial. The hospitalist and eICU are managing this condition. I suspect there may only be a small component of heart failure at play here. (4) Acute on chronic diastolic (congestive) heart failure Assessment & Plan: Her most recent echocardiogram showed a normal ejection fraction.Her chest x-ray from this morning looks more like pneumonia than heart failure. We will await the follow-up echocardiogram later today. Furosemide has been discontinued. (5) Coronary artery disease with unstable angina pectoris Assessment & Plan: We will proceed as above. (6) Acute kidney injury superimposed on chronic kidney disease Assessment & Plan: This may also be causing the troponin and BNP levels to be elevated. Furosemide has been discontinued. (7) Essential hypertension Assessment & Plan: Resume outpatient antihypertensive medication when able. She is currently in shock on norepinephrine infusion. (8) Mixed hyperlipidemia Assessment & Plan: For unclear reasons, she has not been taking a statin at home. Her LDL is elevated. I have started rosuvastatin. (9) Morbid obesity Status: Chronic Assessment & Plan: This will need to be addressed in the long run. FARZAD HARDWICK JR, MD May 19, 2021 10:21
--- NOTE | 2021-05-19 10:22 | Diagnostic Imaging Report ---
EXAMINATION: Chest 1 view HISTORY: ARDS. Intubated. Follow-up. COMPARISON: 05/18/2021. FINDINGS: Stable configuration of the endotracheal tube and enteric tube. Patchy and consolidative opacities are again seen throughout the right hemithorax. Small amount of patchy opacities are stable in the left lung base. No large pleural effusion or pneumothorax. Stable cardiac silhouette. IMPRESSION: 1. Stable chest with stable patchy and consolidative opacities throughout the right hemithorax and small amount of patchy opacities in the left lung base. 2. Stable support devices. Dictated by: Dictated on workstation # [id number]
[2021-05-19] MEDS ORDERED: cefTRIAXone 1,000 MG in WATER (STERILE) FOR INJECTION 10 ML IV SCH (11:15)
[2021-05-19 11:49] VITALS: BP 121/54
[2021-05-19] MEDS: HEParin 1000 UNIT/ML (10ML VIAL) FOR BOLUS IV SCH ×2 (11:53→21:08)
[2021-05-19] MEDS: HEParin DRIP 25000 UNIT/500ML 500 ML IV SCH (11:54)
[2021-05-19] MEDS ORDERED: NOREPINEPHRINE 8 MG/250 ML 250 ML IV ONE (12:27)
[2021-05-19] MEDS ORDERED: NS IV 500 ML 500 ML IV SCH (14:30)
[2021-05-19 14:43] VITALS: BP 93/49
[2021-05-19] MEDS: fentaNYL INJ 100 MCG/2 ML AMP IVP PRN (16:19)
[2021-05-19] MEDS ORDERED: KETAMINE HCL 100 MG/ML 5 ML VIAL IJ ONE (16:51)
[2021-05-19] MEDS ORDERED: fentaNYL INJ 100 MCG/2 ML AMP IV ONE (16:51)
[2021-05-19] MEDS ORDERED: MIDAZOLAM 5 MG/5 ML (VERSED) VIAL IJ ONE (16:51)
--- NOTE | 2021-05-19 17:07 | Diagnostic Imaging Report ---
INDICATION: Central line placement, atrial fibrillation. COMPARISON STUDY: Chest from this morning. FINDINGS: Frontal view of the chest demonstrates interval placement of a left jugular catheter with its tip in the inferior aspect of the SVC. Endotracheal tube and enteric tube are present. Bilateral pulmonary infiltrates, right greater than left, are again identified. No effusion is seen. IMPRESSION: 1. Central venous catheter placed in good position. 2. Stable pulmonary infiltrates. Dictated by: Dictated on workstation # [id number]
[2021-05-19 18:05] VITALS: BP 130/52
[2021-05-19] MEDS: ROSUVASTATIN 20 MG (CRESTOR) TABLET PO SCH (20:06)
[2021-05-19] MEDS: AMIODARONE INJECTION 450 MG in D5W IV SOLUTION (EXCEL) 250 ML IV SCH ×2 (21:10→22:37)
[2021-05-19] MEDS ORDERED: AMIODARONE 150 MG/D5W 100 ML BOLUS IV ONE ×2 (21:30)
[2021-05-19 21:55] VITALS: BP 132/57
[2021-05-20] MEDS: ACYCLOVIR INJECTION 800 MG in NS (IVPB) 250 ML IV SCH ×3 (00:33→23:20)
[2021-05-20] MEDS: inSUlin ASPART (NovoLOG) 1 UNIT/0.01 ML (CHARGE PER UNIT) SC SCH ×5 (00:33→23:20)
[2021-05-20] MEDS: CEFEPIME 2,000 MG/SWFI 20 ML IV PUSH IV SCH ×4 (00:41→14:02)
[2021-05-20] MEDS: PROPOFOL DRIP (ICU) 100 ML IV SCH ×9 (00:52→18:54)
[2021-05-20 01:31] LABS: ABG BASE EXCESS -5.9 MMOL/L (-2.5-2.5); ABG OXYGEN SATURATION 96 % (94-100); ABG PCO2 36 MMHG (35-45); ABG PO2 78 MMHG (79-93); ABG TCO2 19.9 MMOL/L (21.0-31.0)
[2021-05-20 01:32] LABS: ALLENS TEST ART LINE; BASOPHILS % (AUTO) 0 % (0-10); EOSINOPHILS % (AUTO) 0 % (0-10); HEMATOCRIT 33 % (35-52); HEMOGLOBIN 10.6 g/dL (11.5-16.0); INSPIRED O2 40%; LYMPHOCYTES # (AUTO) 0.4 10^3/uL (1.0-4.0); LYMPHOCYTES % (AUTO) 3 % (12-44); MEAN CORPUSCULAR HEMOGLOBIN 24 pg (25-34); MEAN CORPUSCULAR HGB CONC 32 g/dL (32-36); MEAN CORPUSCULAR VOLUME 76 fL (80-99); MEAN PLATELET VOLUME 10.5 fL (9.0-12.2); MONOCYTES # (AUTO) 0.8 10^3/uL (0.0-1.0); MONOCYTES % (AUTO) 5 % (0-12); NEUTROPHILS # (AUTO) 15.6 10^3/uL (1.8-7.8); NEUTROPHILS % (AUTO) 92 % (42-75); PLATELET COUNT 212 10^3/uL (130-400); VENTILATOR YES
[2021-05-20 01:33] LABS: PATIENT TEMP 37
[2021-05-20 01:37] LABS: ABG PH 7.34 (7.37-7.43)
[2021-05-20 01:49] LABS: ALBUMIN 3.2 GM/DL (3.2-4.5); POTASSIUM 3.6 MMOL/L (3.6-5.0)
[2021-05-20 01:50] LABS: CALCIUM 7.9 MG/DL (8.5-10.1)
[2021-05-20 01:51] LABS: TOTAL PROTEIN 6.3 GM/DL (6.4-8.2)
[2021-05-20 01:53] LABS: BILIRUBIN,TOTAL 0.7 MG/DL (0.1-1.0)
[2021-05-20 01:55] LABS: CREATININE SERUM 1.66 MG/DL (0.60-1.30)
[2021-05-20 02:25] VITALS: BP 104/48
[2021-05-20] MEDS: RT-ALBUTEROL/IPRATROPIUM 3 ML (DUONEB) VIAL INH SCH ×6 (02:25→22:08)
[2021-05-20] MEDS: DOXYCYCLINE INJECTION 100 MG in NS (IVPB) 100 ML IV SCH ×2 (02:33→15:17)
[2021-05-20 04:16] LABS: PHOSPHORUS 4.6 MG/DL (2.3-4.7)
[2021-05-20 04:18] LABS: MAGNESIUM 2.1 MG/DL (1.6-2.4)
[2021-05-20] MEDS: NOREPINEPHRINE 8 MG/250 ML 250 ML IV SCH ×3 (04:50→20:04)
--- NOTE | 2021-05-20 05:58 | Progress Note - Hospitalist ---
Subjective HPI/CC On Admission Date Seen by Provider: May 20, 2021 Time Seen by Provider: 11:00 Paulette Roger is a 65-year-old female with past medical history of hypertension, insulin-dependent diabetes, coronary artery disease, GERD, morbid obesity, who presented with weakness and respiratory failure. EMS was called to her home where she had become very weak and short of breath while using the toilet. She required endotracheal intubation and intraosseous access. There is no ventilator available at [facility] and she had to be mechanically bagged. Due to this, a complete work-up was not able to be performed in the emergency room and she was transferred to the [facility] emergency room. After arrival, she was placed on a ventilator. CT scans were performed which showed no acute intracranial abnormalities but did reveal bilateral consolidations, pleural effusions, and possible pulmonary edema. She is Covid and flu negative. She was recently diagnosed with shingles. According to her nurse, she was awake and following commands prior to being started on sedation. Subjective/Events-last exam Pt about the same Remains intubated Levophed weaning off CXR shows no changes Oxygen on ABG shows 78 WC down from 22 to 17,000 Creatinine of 1.66 Heparin drip maintained Focused Exam Lactate Level 05/18/21 09:48: Lactic Acid Level 3.32*H 05/18/21 14:49: Lactic Acid Level 1.33 05/19/21 09:50: Lactic Acid Level 1.01 Objective Exam Vital Signs Vital Signs Date Time Temp Pulse Resp B/P (MAP) Pulse Ox O2 Delivery O2 Flow Rate FiO2 05/21/21 02:06 74 26 93 45 05/20/21 23:28 Mechanical Ventilator 05/20/21 23:22 37.4 126/58 (80) 50.00 Capillary Refill : NONE General Appearance: No Apparent Distress, WD/WN, Chronically ill, Other (Sedated and intubated) Respiratory: Decreased Breath Sounds Results/Procedures Lab Patient resulted labs reviewed. Imaging: Reviewed Imaging Films, Reviewed Imaging Report Assessment/Plan Assessment and Plan Assess & Plan/Chief Complaint Assessment: ARDS Severe sepsis Pneumonia Intubated 05/08/2021 Acute right neck herpes zoster maintained on acyclovir IV Non-ST elevation WA requiring heparin drip New onset atrial fibrillation Plan: Heparin drip since non-ST elevation [place] and new onset atrial fibrillation take precedence over lumbar puncture Maintain acyclovir 05/20/2021: Acyclovir Antibiotics Supportive care Cardiology and pulmonology appreciated Critical Care Critically Ill Patient ASHWINI BLANKENSHIP DO May 20, 2021 05:58
[2021-05-20] MEDS: AMIODARONE INJECTION 450 MG in D5W IV SOLUTION (EXCEL) 250 ML IV SCH ×2 (06:22→21:27)
[2021-05-20] MEDS: HEParin DRIP 25000 UNIT/500ML 500 ML IV SCH ×2 (06:24→21:03)
[2021-05-20] MEDS: POTASSIUM CL 10MEQ/50ML IVPB 50 ML IV SCH (06:25)
[2021-05-20] MEDS: KCL 20 MEQ TAB (K-DUR) PO SCH (06:26)
[2021-05-20] MEDS: MAGNESIUM 1 GM/100 ML IVPB 100 ML IV SCH (06:26)
[2021-05-20 06:37] VITALS: BP 101/47
[2021-05-20] MEDS ORDERED: fentaNYL DRIP PRE-MIX 0 ML IV ONE (08:49)
[2021-05-20] MEDS ORDERED: fentaNYL INJ 100 MCG/2 ML AMP ONE ×2 (08:51→20:19)
--- NOTE | 2021-05-20 09:07 | Cardiology Progress Note ---
Progress Note-Cardiology Events since last exam Date Seen by Provider: May 20, 2021 Time Seen by Provider: 09:01 Events since last exam We are seeing her due to possible NSTEMI and possible heart failure. She was successfully weaned off norepinephrine. She remains on IV heparin and IV amiodarone. She is still in atrial fibrillation/flutter. I am not able to obtain any history from the patient because she remains intubated and sedated. I spoke with the nurse and her son who were at the bedside. Vitals Last set of Vitals Signs Vital Signs 05/20/21 05/20/21 06:00 06:37 Temp 36.7 Pulse 89 Resp 27 B/P (MAP) 131/58 (82) Pulse Ox 93 O2 Delivery Mechanical Ventilator O2 Flow Rate 40.00 FiO2 40 Labs Labs Laboratory Tests 05/20/21 01:21 Exam Vital Signs Vital Signs Date Time Temp Pulse Resp B/P (MAP) Pulse Ox O2 Delivery O2 Flow Rate FiO2 05/20/21 06:37 89 27 93 40 05/20/21 06:00 36.7 131/58 (82) Mechanical Ventilator 40.00 Physical Exam General: Intubated and sedated. Well nourished and appears stated age.She is morbidly obese. Eye: Conjunctivae are clear. There are no xanthelasma. HENT: Normocephalic. Atraumatic. Carotid pulsations 2/2 without bruits. Respiratory: Symmetrical expansion bilaterally. Coarse breath sounds to the ventilator. Cardiovascular: Normal rate. Irregular rhythm. Distant S1/S2. No murmur. No gallop. Point of maximal impulse is not appear displaced. Good pulses equal in all extremities. No edema. Gastrointestinal: Soft. Normal bowel sounds. Skin: Skin turgor is normal. There is no pallor. Musculoskeletal: No obvious deformities. Neurologic: Intubated and sedated. Psychiatric: Not obtainable due to clinical status. Labs Laboratory Tests Test 05/19/21 09:50 05/19/21 11:03 05/19/21 11:31 05/19/21 15:21 Range/Units Lactic Acid Level 1.01 0.50-2.00 MMOL/L Activated Partial Thromboplast Time 37 H 83 H 24-35 SEC Glucometer 189 H 70-110 MG/DL Test 05/19/21 18:15 05/19/21 20:10 05/19/21 22:44 05/20/21 01:21 Range/Units Glucometer 151 H 212 H 70-110 MG/DL Activated Partial Thromboplast Time 52 H 79 H 24-35 SEC White Blood Count 17.0 H 4.3-11.0 10^3/uL Red Blood Count 4.37 3.80-5.11 10^6/uL Hemoglobin 10.6 L 11.5-16.0 g/dL Hematocrit 33 L 35-52 % Mean Corpuscular Volume 76 L 80-99 fL Mean Corpuscular Hemoglobin 24 L 25-34 pg Mean Corpuscular Hemoglobin Concent 32 32-36 g/dL Red Cell Distribution Width 15.7 H 10.0-14.5 % Platelet Count 212 130-400 10^3/uL Mean Platelet Volume 10.5 9.0-12.2 fL Immature Granulocyte % (Auto) 1 % Neutrophils (%) (Auto) 92 H 42-75 % Lymphocytes (%) (Auto) 3 L 12-44 % Monocytes (%) (Auto) 5 0-12 % Eosinophils (%) (Auto) 0 0-10 % Basophils (%) (Auto) 0 0-10 % Neutrophils # (Auto) 15.6 H 1.8-7.8 10^3/uL Lymphocytes # (Auto) 0.4 L 1.0-4.0 10^3/uL Monocytes # (Auto) 0.8 0.0-1.0 10^3/uL Eosinophils # (Auto) 0.0 0.0-0.3 10^3/uL Basophils # (Auto) 0.0 0.0-0.1 10^3/uL Immature Granulocyte # (Auto) 0.1 0.0-0.1 10^3/uL Percent Immature Platelet Fraction 3.5 0.0-7.6 % Blood Gas Puncture Site LEFT ARTLINE Blood Gas Patient Temperature 37 Arterial Blood pH 7.34 *L 7.37-7.43 Arterial Blood Partial Pressure CO2 36 35-45 MMHG Arterial Blood Partial Pressure O2 78 L 79-93 MMHG Arterial Blood HCO3 19 L 23-27 MMOL/L Arterial Blood Total CO2 19.9 L 21.0-31.0 MMOL/L Arterial Blood Oxygen Saturation 96 94-100 % Arterial Blood Base Excess -5.9 L -2.5-2.5 MMOL/L Erasto Test ART LINE Blood Gas Ventilator Setting YES Blood Gas Inspired Oxygen 40% Sodium Level 136 135-145 MMOL/L Potassium Level 3.6 3.6-5.0 MMOL/L Chloride Level 105 98-107 MMOL/L Carbon Dioxide Level 18 L 21-32 MMOL/L Anion Gap 13 5-14 MMOL/L Blood Urea Nitrogen 48 H 7-18 MG/DL Creatinine 1.66 H 0.60-1.30 MG/DL Estimat Glomerular Filtration Rate 31 BUN/Creatinine Ratio 29 Glucose Level 213 H 70-105 MG/DL Calcium Level 7.9 L 8.5-10.1 MG/DL Corrected Calcium 8.5 8.5-10.1 MG/DL Phosphorus Level 4.6 2.3-4.7 MG/DL Magnesium Level 2.1 1.6-2.4 MG/DL Total Bilirubin 0.7 0.1-1.0 MG/DL Aspartate Amino Transf (AST/SGOT) 14 5-34 U/L Alanine Aminotransferase (ALT/SGPT) 17 0-55 U/L Alkaline Phosphatase 56 40-136 U/L Total Protein 6.3 L 6.4-8.2 GM/DL Albumin 3.2 3.2-4.5 GM/DL Test 05/20/21 06:29 05/20/21 08:37 Range/Units Glucometer 170 H 70-110 MG/DL Diagnosis/Problems Diagnosis/Problems (1) Paroxysmal atrial fibrillation Assessment & Plan: This is a new finding in this patient. I suspect this may have been brought on by her acute, noncardiac illness. If this does not resolve by later this afternoon, I will consider a cardioversion at the bedside. We will continue amiodarone and heparin. (2) NSTEMI (non-ST elevation myocardial infarction) Status: Acute Assessment & Plan: By report, she was complaining of chest pain at the outside facility prior to being intubated. She has elevated troponin levels which continued to rise, but no obvious ischemic changes on her resting elec trocardiogram. This could be a type II non-ST elevation myocardial infarction due to her acute respiratory failure and now superimposed acute kidney injury that is worsening. Resume aspirin and clopidogrel when able. Likewise, resume amlodipine and ranolazine when able. Once her noncardiac issues are further stabilized, we may need to consider further evaluation with a cardiac catheterization. (3) Acute on chronic respiratory failure with hypoxemia Assessment & Plan: Most likely multifactorial. The hospitalist and eICU are managing this condition. I suspect there may only be a small component of heart failure at play here. Given her worsening renal function, I would hold off on treating her with any diuretics at this time. (4) Acute on chronic diastolic (congestive) heart failure Assessment & Plan: Her echocardiogram from this admission showed a normal ejection fraction. Her chest x-rays f look more like pneumonia than heart failure. Furosemide has been discontinued. (5) Coronary artery disease with unstable angina pectoris Assessment & Plan: We will proceed as above. (6) Acute kidney injury superimposed on chronic kidney disease Assessment & Plan: This may also be causing the troponin and BNP levels to be elevated. Furosemide has been discontinued. (7) Essential hypertension Assessment & Plan: Resume outpatient antihypertensive medication when able. These are on hold due to her previous shock. (8) Mixed hyperlipidemia Assessment & Plan: For unclear reasons, she has not been taking a statin at home. Her LDL is elevated. I have started rosuvastatin. (9) Morbid obesity Status: Chronic Assessment & Plan: This will need to be addressed in the long run. FARZAD HARDWICK JR, MD May 20, 2021 09:07
[2021-05-20] MEDS: fentaNYL INJ 100 MCG/2 ML AMP IVP PRN ×2 (09:11→20:20)
--- NOTE | 2021-05-20 10:05 | Diagnostic Imaging Report ---
INDICATION: ARDS. Comparison with 05/19/2021. FINDINGS: ET tube, NG tube and left central line all remain unchanged in position. Lungs remain well-aerated. There has been some decrease in the consolidated infiltrate in the right lower lung. Left lung remains clear. Heart is not enlarged. No pneumothorax or pleural effusions. IMPRESSION: Slight improvement with some decrease in density of the right lower lobe infiltrates since previous exam. Dictated by: Dictated on workstation # [id number]
[2021-05-20] MEDS ORDERED: fentaNYL DRIP PRE-MIX 250 ML IV ONE (10:18)
[2021-05-20] MEDS: PANTOPRAZOLE 40 MG (PROTONIX) VIAL IV SCH (10:29)
[2021-05-20] MEDS: HEParin 1000 UNIT/ML (10ML VIAL) FOR BOLUS IV SCH ×2 (10:30→17:50)
[2021-05-20 11:01] VITALS: BP 128/67
--- NOTE | 2021-05-20 11:02 | Tele-ICU Progress Note ---
Subjective Date Seen by a Provider: May 20, 2021 Time Seen by a Provider: 10:30 Sepsis Event Evaluation Height, Weight, BMI Height: 5'1.00" Weight: 268lbs. 10.0oz. 121.412311st; 59.07 BMI Method:Stated Focused Exam Lactate Level 05/18/21 09:48: Lactic Acid Level 3.32*H 05/18/21 14:49: Lactic Acid Level 1.33 05/19/21 09:50: Lactic Acid Level 1.01 Exam Exam Patient acknowledged, consented, and participated in this virtual visit which was conducted using real time audio/video Vital Signs Date Time Temp Pulse Resp B/P (MAP) Pulse Ox O2 Delivery O2 Flow Rate FiO2 05/20/21 09:12 89 101/56 05/20/21 07:00 84 05/20/21 06:37 89 27 93 40 05/20/21 06:00 36.7 76 27 131/58 (82) 93 Mechanical Ventilator 40.00 05/20/21 05:33 130/52 05/20/21 05:00 36.8 76 29 120/52 (74) 92 Mechanical Ventilator 40.00 05/20/21 04:00 36.8 91 28 126/51 (76) 96 Mechanical Ventilator 40.00 05/20/21 04:00 95 Mechanical Ventilator 40 05/20/21 03:16 139/59 05/20/21 03:00 36.9 86 26 121/60 (80) 98 Mechanical Ventilator 40.00 05/20/21 02:25 93 26 94 40 05/20/21 02:00 36.9 92 26 113/47 (69) 93 Mechanical Ventilator 40.00 05/20/21 01:00 37.0 80 25 129/62 (84) 94 Mechanical Ventilator 40.00 05/20/21 01:00 80 05/20/21 00:52 115/56 05/20/21 00:00 95 Mechanical Ventilator 40 05/20/21 00:00 37.1 88 27 134/63 (86) 94 Mechanical Ventilator 40.00 05/19/21 23:02 127/56 05/19/21 23:00 37.2 88 26 131/57 (81) 94 Mechanical Ventilator 40.00 05/19/21 22:30 85 132/57 05/19/21 22:00 37.2 94 20 138/55 (82) 95 Mechanical Ventilator 40.00 05/19/21 21:55 94 26 95 40 05/19/21 21:00 37.3 86 21 103/48 (66) 93 Mechanical Ventilator 40.00 05/19/21 20:55 112/50 05/19/21 20:08 37.3 85 26 123/55 (77) 96 Mechanical Ventilator 40.00 05/19/21 20:00 95 Mechanical Ventilator 40 05/19/21 19:00 37.4 73 25 107/47 (67) Mechanical Ventilator 40.00 05/19/21 19:00 86 05/19/21 18:20 93 120/49 05/19/21 18:05 86 26 96 70 05/19/21 18:02 85 137/58 05/19/21 18:00 87 27 135/56 (82) 95 Mechanical Ventilator 40.00 05/19/21 17:47 93 119/58 05/19/21 17:17 Mechanical Ventilator 40.00 05/19/21 17:04 Mechanical Ventilator 50.00 05/19/21 17:00 76 25 101/51 (68) 100 Mechanical Ventilator 60.00 05/19/21 16:08 Mechanical Ventilator 60.00 05/19/21 16:00 36.6 05/19/21 16:00 90 21 96/51 (66) 97 Mechanical Ventilator 70.00 05/19/21 15:56 97 Mechanical Ventilator 70 05/19/21 15:30 Mechanical Ventilator 70.00 05/19/21 15:15 71 92/49 05/19/21 15:00 69 18 91/50 (64) 95 Mechanical Ventilator 80.00 05/19/21 14:43 78 28 95 70 05/19/21 14:00 86 24 95/46 (62) 96 Mechanical Ventilator 80.00 05/19/21 13:00 80 15 93/42 (59) 96 Mechanical Ventilator 80.00 05/19/21 12:51 92 05/19/21 12:30 80 103/51 05/19/21 12:30 80 105/52 05/19/21 12:00 75 26 91/44 (60) 93 Mechanical Ventilator 80.00 05/19/21 12:00 36.6 Mechanical Ventilator 80.00 05/19/21 11:49 77 28 94 80 05/19/21 11:16 94 Mechanical Ventilator 80 I & O 05/20/21 07:00 Intake Total 3521 ml Output Total 1305 ml Balance 2216 ml Height & Weight Height: 5'1.00" Weight: 268lbs. 10.0oz. 121.612753mz; 59.07 BMI Method:Stated General Appearance: No Apparent Distress, WD/WN, Chronically ill, Other (Intubated) Neck: Normal Inspection, Supple, Other (shingles rash Right ant neck and submental area) Respiratory: Decreased Breath Sounds Cardiovascular: Irregularly Irregular Capillary Refill: NONE Gastrointestinal: soft, no organomegaly Extremity: Normal Capillary Refill, Normal Inspection Neurologic/Psychiatric: Other (unresponsive) Skin: Normal Color, Cool Lymphatic: No Adenopathy Results Lab Laboratory Tests 05/19/21 03:05 05/20/21 01:21 Assessment/Plan Assessment/Plan (Tele-ICU Physician , Progress Note ) BEDSIDE RN IS NOT AVAILABLE TO DISCUSS PATIENT, A/P DONE BASED ON DATA ABAILABLE IN EMR AND VIDEO ASSESSMENT BY E-CAMERA. FINAL PLAN /DECISIONS ARE BY ROUNDING BEDSIDE PHYSICIANS Available chart/ vitals / labs / Images reviewed Video assessment done using teleICU camera, rest of exam as per RN Afebrile hemodynamically stable, no pressors, I/O = pos 1100 Drips: amio , levo , heparin Consultants: alexandra VENT SETTINGS. AC 26 400-peep 15 40% PAP 32 ABG reviewed Sedation: RASS Not candidate for SBTContraindications : Cardiovascular Stability / Sedation Score / FI02/PEEP / ABG / CXR Hospital course: 05/19 - intubated ( with exchange of ETT for right bronchus intubation and blockage of ETT A/P Acute hypoxic respiratory failure due to possible underlying pneumonia and/or congestive heart failure CT 05/18 - no PE , bilat basilar infiltrates - intubated , AC 26 400-peep 15 40% PAP 32 - WILL NEED to decrease peep to 12 -> 10 SHOCK - off pressors 05/20 PNA/ UTI - cefepime / doxy - sputum NL ruchi 05/18 - urine - E coli 05/18 - blood staph coag ( contaminamt ) CAD , NSTEMI type II - ECHO 05/19/21 - EF 60% RVSP 34 mm Hg - cardiology follows A fib , new on admission - amio gtt - heparing gtt - as per cards cardioversion considered DM II - iss , as per PCP Morbid obesity BMI 60 Lines : L IJ 05/18 , (Central Line Necessity Reviewed) Woods: OG: + Nutrition: Analgesia: Anxiety/ delirium VTE Prophylaxis: hep gtt Stress Ulcer Prophylaxis: ppi Glycemic Control: + Plans in collaboration with bedside consultants and IM MDs. A total of _25 minutes of critical care time was devoted to this patient today, required to treat and/or prevent further deterioration of critical care con dition ( as above ) . MOMO NIÑO MD May 20, 2021 11:02
--- NOTE | 2021-05-20 12:43 | Progress Note ---
CARLO DE LA O MED STUDENT 05/20/21 1243: Progress Note CC: unable to obtain, pt intubated and sedated PE: general: sedated respiratory: mechanically ventilated; coarse breath sounds CV: RRR no murmur abdomen: soft, non-distended extremity: no edema, normal appearing neuro/psych: sedated Assessment/plan: ARDS intubated on 05/08 RT consulted CXR today shows slight improvement of RLL infiltrates severe sepsis IV cefepime and doxycycline Levophed held today d/t normal BP NSTEMI heparin drip Dr. Larsen consulted shingles acyclovir acute kidney injury IV fluids HTN DM CAD obesity DIANDRA BLANKENSHIP DO 05/20/214: Supervisory-Addendum Brief Verification & Attestation Participated in pt care: history, MDM, physical Personally performed: exam, history, MDM, supervision of care Care discussed with: Medical Student Procedures: n/a Results interpretation: Verified all documentation Verification and Attestation of Medical Student E/M Service A medical student performed and documented this service in my presence. I reviewed and verified all information documented by the medical student and made modifications to such information, when appropriate. I personally performed the physical exam and medical decision making. Diandra Blankenship, May 20, 2021,21:24 CARLO DE LA O MED STUDENT May 20, 2021 12:43 DIANDRA BLANKENSHIP DO May 20, 2021 21:24
[2021-05-20] MEDS: NS IV 1000 ML 1,000 ML IV SCH (14:16)
[2021-05-20 14:48] VITALS: BP 131/60
[2021-05-20 18:31] VITALS: BP 148/69
--- NOTE | 2021-05-20 19:48 | Pulmonary Progress Note ---
Subjective Date Seen by a Provider: May 20, 2021 Time Seen by a Provider: 19:47 Sepsis Event Evaluation Height, Weight, BMI Height: 5'1.00" Weight: 268lbs. 10.0oz. 121.925378ln; 59.07 BMI Method:Stated Focused Exam Lactate Level 05/18/21 09:48: Lactic Acid Level 3.32*H 05/18/21 14:49: Lactic Acid Level 1.33 05/19/21 09:50: Lactic Acid Level 1.01 Exam Exam Patient acknowledged, consented, and participated in this virtual visit which was conducted using real time audio/video Vital Signs Date Time Temp Pulse Resp B/P (MAP) Pulse Ox O2 Delivery O2 Flow Rate FiO2 05/20/21 18:54 77 124/55 05/20/21 18:53 77 124/55 05/20/21 18:31 95 27 95 50 05/20/21 18:30 Mechanical Ventilator 60.00 05/20/21 17:00 37.1 80 18 92 40.00 05/20/21 16:00 36.5 05/20/21 16:00 91 Mechanical Ventilator 40 05/20/21 16:00 37.1 97 32 92 Mechanical Ventilator 40.00 05/20/21 15:00 37.1 79 25 132/86 (101) 92 Mechanical Ventilator 40.00 05/20/21 14:48 82 27 93 40 05/20/21 14:05 79 93/52 05/20/21 14:04 79 93/52 05/20/21 14:00 37.1 26 88/49 (62) 97 Mechanical Ventilator 40.00 05/20/21 13:00 37.1 86 33 88/50 (63) 95 Mechanical Ventilator 40.00 05/20/21 13:00 98 05/20/21 12:00 95 Mechanical Ventilator 40 05/20/21 12:00 37.3 94 26 101/54 (70) 93 Mechanical Ventilator 40.00 05/20/21 11:52 81 91/53 05/20/21 11:01 89 38 89 40 05/20/21 11:00 37.0 82 20 125/63 (83) 89 Mechanical Ventilator 40.00 05/20/21 10:00 36.9 70 26 111/55 (73) 97 Mechanical Ventilator 40.00 05/20/21 09:12 89 101/56 05/20/21 09:00 36.9 77 25 107/54 (71) 96 Mechanical Ventilator 40.00 05/20/21 08:00 36.9 77 23 112/48 (69) 94 Mechanical Ventilator 40.00 05/20/21 08:00 95 Mechanical Ventilator 40 05/20/21 07:00 36.8 75 26 106/49 (68) 94 Mechanical Ventilator 40.00 05/20/21 07:00 84 05/20/21 06:37 89 27 93 40 05/20/21 06:00 36.7 76 27 131/58 (82) 93 Mechanical Ventilator 40.00 05/20/21 05:33 130/52 05/20/21 05:00 36.8 76 29 120/52 (74) 92 Mechanical Ventilator 40.00 05/20/21 04:00 36.8 91 28 126/51 (76) 96 Mechanical Ventilator 40.00 05/20/21 04:00 95 Mechanical Ventilator 40 05/20/21 03:16 139/59 05/20/21 03:00 36.9 86 26 121/60 (80) 98 Mechanical Ventilator 40.00 05/20/21 02:25 93 26 94 40 05/20/21 02:00 36.9 92 26 113/47 (69) 93 Mechanical Ventilator 40.00 05/20/21 01:00 37.0 80 25 129/62 (84) 94 Mechanical Ventilator 40.00 05/20/21 01:00 80 05/20/21 00:52 115/56 05/20/21 00:00 95 Mechanical Ventilator 40 05/20/21 00:00 37.1 88 27 134/63 (86) 94 Mechanical Ventilator 40.00 05/19/21 23:02 127/56 05/19/21 23:00 37.2 88 26 131/57 (81) 94 Mechanical Ventilator 40.00 05/19/21 22:30 85 132/57 05/19/21 22:00 37.2 94 20 138/55 (82) 95 Mechanical Ventilator 40.00 05/19/21 21:55 94 26 95 40 05/19/21 21:00 37.3 86 21 103/48 (66) 93 Mechanical Ventilator 40.00 05/19/21 20:55 112/50 05/19/21 20:08 37.3 85 26 123/55 (77) 96 Mechanical Ventilator 40.00 05/19/21 20:00 95 Mechanical Ventilator 40 I & O 05/20/21 07:00 Intake Total 3521 ml Output Total 1305 ml Balance 2216 ml Height & Weight Height: 5'1.00" Weight: 268lbs. 10.0oz. 121.087298fq; 59.07 BMI Method:Stated General Appearance: No Apparent Distress, WD/WN, Chronically ill, Other (Intubated) Neck: Normal Inspection, Supple, Other (shingles rash Right ant neck and submental area) Respiratory: Decreased Breath Sounds Cardiovascular: Irregularly Irregular Capillary Refill: NONE Gastrointestinal: soft, no organomegaly Extremity: Normal Capillary Refill, Normal Inspection Neurologic/Psychiatric: Other (unresponsive) Skin: Normal Color, Cool Lymphatic: No Adenopathy Results Lab Laboratory Tests 05/19/21 03:05 05/20/21 01:21 Assessment/Plan Assessment/Plan TG 505; we will dc propofol and switch to midazolam JOSE MENDES MD May 20, 2021 19:48
[2021-05-20] MEDS: MIDAZOLAM DRIP PRE-MIX 100 ML IV SCH (19:57)
[2021-05-20] MEDS: ROSUVASTATIN 20 MG (CRESTOR) TABLET PO SCH (20:00)
[2021-05-20 22:08] VITALS: BP 119/54
[2021-05-21] MEDS: CEFEPIME 2,000 MG/SWFI 20 ML IV PUSH IV SCH ×4 (02:03→13:00)
[2021-05-21] MEDS: NS IV 1000 ML 1,000 ML IV SCH ×2 (02:04→06:44)
[2021-05-21 02:06] VITALS: BP 114/49
[2021-05-21] MEDS: RT-ALBUTEROL/IPRATROPIUM 3 ML (DUONEB) VIAL INH SCH ×6 (02:06→22:52)
[2021-05-21] MEDS: DOXYCYCLINE INJECTION 100 MG in NS (IVPB) 100 ML IV SCH ×2 (02:12→14:53)
[2021-05-21] MEDS: NOREPINEPHRINE 8 MG/250 ML 250 ML IV SCH ×3 (04:38→19:24)
--- NOTE | 2021-05-21 05:23 | Progress Note - Hospitalist ---
Subjective HPI/CC On Admission Date Seen by Provider: May 21, 2021 Time Seen by Provider: 10:00 Paulette Roger is a 65-year-old female with past medical history of hypertension, insulin-dependent diabetes, coronary artery disease, GERD, morbid obesity, who presented with weakness and respiratory failure. EMS was called to her home wh ere she had become very weak and short of breath while using the toilet. She required endotracheal intubation and intraosseous access. There is no ventilator available at [facility] and she had to be mechanically bagged. Due to this, a complete work-up was not able to be performed in the emergency room and she was transferred to the [facility] emergency room. After arrival, she was placed on a ventilator. CT scans were performed which showed no acute intracranial abnormalities but did reveal bilateral consolidations, pleural effusions, and possible pulmonary edema. She is Covid and flu negative. She was recently diagnosed with shingles. According to her nurse, she was awake and following commands prior to being started on sedation. Subjective/Events-last exam Pt is still intubated Coffee ground fluid from OG tube Creatinine better at 1.28 from 1.66 Converted to normal sinus rhythm Focused Exam Lactate Level 05/19/21 09:50: Lactic Acid Level 1.01 Objective Exam Vital Signs Vital Signs Date Time Temp Pulse Resp B/P (MAP) Pulse Ox O2 Delivery O2 Flow Rate FiO2 05/22/21 05:08 Mechanical Ventilator 40.00 05/22/21 04:00 36.9 61 35 97 05/22/21 04:00 55 Capillary Refill : NONE General Appearance: No Apparent Distress, WD/WN, Chronically ill Respiratory: Lungs Clear, Normal Breath Sounds Cardiovascular: Regular Rate, Rhythm Results/Procedures Lab Laboratory Tests 05/22/21 03:30 Patient resulted labs reviewed. Imaging: Reviewed Imaging Films, Reviewed Imaging Report Assessment/Plan Assessment and Plan Assess & Plan/Chief Complaint Assessment: ARDS Severe sepsis Pneumonia Intubated 05/08/2021 Acute right neck herpes zoster maintained on acyclovir IV Non-ST elevation LA requiring heparin drip New onset atrial fibrillation Plan: Heparin drip since non-ST elevation LA and new onset atrial fibrillation take precedence over lumbar puncture Maintain acyclovir 05/20/2021: Acyclovir Antibiotics Supportive care Cardiology and pulmonology appreciated 05/21/2021: Monitor for recurrent A. fib Monitor coffee-ground fluid and OG tube Critical Care Critically Ill Patient ASHWINI BLANKENSHIP DO May 21, 2021 05:23
[2021-05-21 05:27] LABS: BASOPHILS % (AUTO) 0 % (0-10); EOSINOPHILS # (AUTO) 0.1 10^3/uL (0.0-0.3); EOSINOPHILS % (AUTO) 1 % (0-10); HEMATOCRIT 27 % (35-52); HEMOGLOBIN 8.6 g/dL (11.5-16.0); LYMPHOCYTES # (AUTO) 0.6 10^3/uL (1.0-4.0); LYMPHOCYTES % (AUTO) 6 % (12-44); MEAN CORPUSCULAR HEMOGLOBIN 24 pg (25-34); MEAN CORPUSCULAR HGB CONC 32 g/dL (32-36); MEAN CORPUSCULAR VOLUME 75 fL (80-99); MONOCYTES # (AUTO) 0.5 10^3/uL (0.0-1.0); MONOCYTES % (AUTO) 6 % (0-12); NEUTROPHILS # (AUTO) 8.2 10^3/uL (1.8-7.8); NEUTROPHILS % (AUTO) 87 % (42-75); PLATELET COUNT 170 10^3/uL (130-400); WHITE BLOOD COUNT 9.5 10^3/uL (4.3-11.0)
[2021-05-21 05:29] LABS: ABG BASE EXCESS -4.4 MMOL/L (-2.5-2.5); ABG OXYGEN SATURATION 95 % (94-100); ABG PCO2 35 MMHG (35-45); ABG PH 7.38 (7.37-7.43); ABG PO2 77 MMHG (79-93); ABG TCO2 20.8 MMOL/L (21.0-31.0); ALLENS TEST ART LINE; INSPIRED O2 45%; PATIENT TEMP 37.4; VENTILATOR YES
[2021-05-21 05:40] LABS: POTASSIUM 3.1 MMOL/L (3.6-5.0)
[2021-05-21 05:42] LABS: CALCIUM 7.6 MG/DL (8.5-10.1)
[2021-05-21 05:43] LABS: TOTAL PROTEIN 5.6 GM/DL (6.4-8.2)
[2021-05-21 05:45] LABS: BILIRUBIN,TOTAL 0.5 MG/DL (0.1-1.0)
[2021-05-21 05:46] LABS: CREATININE SERUM 1.28 MG/DL (0.60-1.30)
[2021-05-21] MEDS: MAGNESIUM 1 GM/100 ML IVPB 100 ML IV SCH (06:33)
[2021-05-21] MEDS: KCL 20 MEQ TAB (K-DUR) PO SCH (06:33)
[2021-05-21] MEDS: inSUlin ASPART (NovoLOG) 1 UNIT/0.01 ML (CHARGE PER UNIT) SC SCH ×3 (06:33→19:24)
[2021-05-21] MEDS: POTASSIUM CL 10MEQ/50ML IVPB 50 ML IV SCH ×4 (06:33→13:16)
[2021-05-21 06:45] LABS: MAGNESIUM 2.3 MG/DL (1.6-2.4); PHOSPHORUS 3.8 MG/DL (2.3-4.7)
[2021-05-21 07:01] VITALS: BP 139/57
--- NOTE | 2021-05-21 08:07 | Diagnostic Imaging Report ---
HISTORY: ARDS, on ventilator COMPARISON: 05/20/2021 TECHNIQUE: Frontal view of the chest FINDINGS: The endotracheal tube is 4.6 cm above the yudith. Lung volumes are low. There is airspace consolidation at the right lung base. There is no pleural effusion or pneumothorax seen. There is perihilar central vascular congestion. An enteric tube crosses the [id number]. The left jugular line tip is partially obscured but appears to be at the low SVC. IMPRESSION: 1. Airspace consolidation in the right lung base with marked perihilar opacities, aeration appears mildly decreased compared to the prior exam. Dictated by: Dictated on workstation # [id number]
--- NOTE | 2021-05-21 08:30 | Cardiology Progress Note ---
Progress Note-Cardiology Events since last exam Date Seen by Provider: May 21, 2021 Time Seen by Provider: 08:24 Events since last exam We are seeing her due to possible NSTEMI, heart failure, and atrial fibrilla tion. She remains intubated and sedated. Overnight she converted to sinus rhythm. She is starting to have some brown-colored output from her OG tube. No michela blood. I am not able to obtain any history from the patient due to her clinical status. I did speak with her nurse at the bedside. Yesterday she was started on normal saline due to elevated creatinine. Vitals Last set of Vitals Signs Vital Signs 05/20/21 05/21/21 05/21/21 23:22 06:00 07:01 Temp 37.3 Pulse 75 Resp 38 B/P (MAP) 126/58 (80) Pulse Ox 91 O2 Delivery Mechanical Ventilator O2 Flow Rate 45.00 FiO2 45 Labs Labs Laboratory Tests 05/21/21 05:19 Exam Vital Signs Vital Signs Date Time Temp Pulse Resp B/P (MAP) Pulse Ox O2 Delivery O2 Flow Rate FiO2 05/21/21 07:01 75 38 91 45 05/21/21 06:00 37.3 Mechanical Ventilator 45.00 Physical Exam General: Intubated and sedated. Well nourished and appears stated age. She is obese Eye: Conjunctivae are clear. There are no xanthelasma. HENT: Normocephalic. Atraumatic. Carotid pulsations 2/2 without bruits. Neck: Jugular venous pressure does not appear elevated. No thyromegaly ap preciated. Respiratory: Symmetrical expansion bilaterally. Coarse breath sounds more consistent with rhonchi as opposed to mechanical breath sounds. Cardiovascular: Normal rate. Regular rhythm. No murmur. No gallop. Point of maximal impulse is not appear displaced. Good pulses equal in all extremities. 1+ bilateral pretibial edema. Gastrointestinal: Soft. Normal bowel sounds. Skin: Skin turgor is normal. There is no pallor. Musculoskeletal: No obvious deformities. Neurologic: Intubated and sedated. Psychiatric: Not obtainable due to clinical status. Labs Laboratory Tests Test 05/20/21 08:37 05/20/21 12:23 05/20/21 16:34 05/20/21 18:00 Range/Units Activated Partial Thromboplast Time 54 H 67 H 24-35 SEC Glucometer 162 H 151 H 70-110 MG/DL Triglycerides Level 505 H <150 MG/DL Test 05/20/21 23:09 05/21/21 05:19 Range/Units Activated Partial Thromboplast Time 82 H 75 H 24-35 SEC Glucometer 150 H 70-110 MG/DL White Blood Count 9.5 4.3-11.0 10^3/uL Red Blood Count 3.61 L 3.80-5.11 10^6/uL Hemoglobin 8.6 L 11.5-16.0 g/dL Hematocrit 27 L 35-52 % Mean Corpuscular Volume 75 L 80-99 fL Mean Corpuscular Hemoglobin 24 L 25-34 pg Mean Corpuscular Hemoglobin Concent 32 32-36 g/dL Red Cell Distribution Width 15.7 H 10.0-14.5 % Platelet Count 170 130-400 10^3/uL Mean Platelet Volume 10.0 9.0-12.2 fL Immature Granulocyte % (Auto) 1 % Neutrophils (%) (Auto) 87 H 42-75 % Lymphocytes (%) (Auto) 6 L 12-44 % Monocytes (%) (Auto) 6 0-12 % Eosinophils (%) (Auto) 1 0-10 % Basophils (%) (Auto) 0 0-10 % Neutrophils # (Auto) 8.2 H 1.8-7.8 10^3/uL Lymphocytes # (Auto) 0.6 L 1.0-4.0 10^3/uL Monocytes # (Auto) 0.5 0.0-1.0 10^3/uL Eosinophils # (Auto) 0.1 0.0-0.3 10^3/uL Basophils # (Auto) 0.0 0.0-0.1 10^3/uL Immature Granulocyte # (Auto) 0.1 0.0-0.1 10^3/uL Blood Gas Puncture Site ARTLINE Blood Gas Patient Temperature 37.4 Arterial Blood pH 7.38 7.37-7.43 Arterial Blood Partial Pressure CO2 35 35-45 MMHG Arterial Blood Partial Pressure O2 77 L 79-93 MMHG Arterial Blood HCO3 20 L 23-27 MMOL/L Arterial Blood Total CO2 20.8 L 21.0-31.0 MMOL/L Arterial Blood Oxygen Saturation 95 94-100 % Arterial Blood Base Excess -4.4 L -2.5-2.5 MMOL/L Erasto Test ART LINE Blood Gas Ventilator Setting YES Blood Gas Inspired Oxygen 45% Sodium Level 136 135-145 MMOL/L Potassium Level 3.1 L 3.6-5.0 MMOL/L Chloride Level 106 98-107 MMOL/L Carbon Dioxide Level 20 L 21-32 MMOL/L Anion Gap 10 5-14 MMOL/L Blood Urea Nitrogen 48 H 7-18 MG/DL Creatinine 1.28 0.60-1.30 MG/DL Estimat Glomerular Filtration Rate 42 BUN/Creatinine Ratio 38 Glucose Level 131 H 70-105 MG/DL Calcium Level 7.6 L 8.5-10.1 MG/DL Corrected Calcium 8.4 L 8.5-10.1 MG/DL Phosphorus Level 3.8 2.3-4.7 MG/DL Magnesium Level 2.3 1.6-2.4 MG/DL Total Bilirubin 0.5 0.1-1.0 MG/DL Aspartate Amino Transf (AST/SGOT) 9 5-34 U/L Alanine Aminotransferase (ALT/SGPT) 16 0-55 U/L Alkaline Phosphatase 52 40-136 U/L Total Protein 5.6 L 6.4-8.2 GM/DL Albumin 3.0 L 3.2-4.5 GM/DL Diagnosis/Problems Diagnosis/Problems (1) Paroxysmal atrial fibrillation Assessment & Plan: This is a new finding in this patient. I suspect this may have been brought on by her acute, noncardiac illness. She is now back in sinus rhythm. I will transition the amiodarone over to oral. We can change the IV heparin over to enoxaparin for easier administration. If she remains in atrial fibrillation, she may not necessarily need to be discharged with oral anticoagulation as I suspect the atrial fibrillation was brought on by the acute, noncardiac illness. (2) NSTEMI (non-ST elevation myocardial infarction) Status: Acute Assessment & Plan: By report, she was complaining of chest pain at the outside facility prior to being intubated. She has elevated troponin levels which continued to rise, but no obvious ischemic changes on her resting electrocardiogram. This could be a type II non-ST elevation myocardial infarction due to her acute respiratory failure and now superimposed acute kidney injury that was worsening versus a true type I NSTEMI. Resume aspirin and clopidogrel when able. Likewise, resume amlodipine and ranolazine when able. Once her noncardiac issues are further stabilized, we may need to consider further evaluation with a cardiac catheterization. As above, I will change her IV heparin over to enoxaparin subcutaneous. We may be able to consider changing this over to prophylactic dose for deep venous thrombosis in the next 24-48 hours. (3) Acute on chronic diastolic (congestive) heart failure Assessment & Plan: Her echocardiogram from this admission showed a normal ejection fraction. Her chest x-ray from this morning is slightly worse than yesterday. This raises the suspicion for some pulmonary edema. I would recommend changing the normal saline over to half-normal saline for maintenance fluids. (4) Coronary artery disease with unstable angina pectoris Assessment & Plan: She had a slight drop in her hemoglobin today. As such, I will still hold off on administering aspirin and clopidogrel. She just came off vasopressors on 05/20. Her blood pressures have been coming up. I will start very low-dose beta-elizabeth. As above, at some point we may need to decide whether or not to pursue a cardiac catheterization. (5) Acute on chronic respiratory failure with hypoxemia Assessment & Plan: Most likely multifactorial. The hospitalist and eICU are managing this condition. I suspect there may only be a small component of heart failure at play here. (6) Acute kidney injury superimposed on chronic kidney disease Assessment & Plan: This may also be causing the troponin and BNP levels to be elevated. This is improving after a fluid bolus. (7) Essential hypertension Assessment & Plan: As above, now that her blood pressures are improved, I will start low-dose beta-elizabeth in light of the possible NSTEMI and her hypertension. (8) Mixed hyperlipidemia Assessment & Plan: Continue intensive dose rosuvastatin in light of the possible NSTEMI. (9) Morbid obesity Status: Chronic Assessment & Plan: This will need to be addressed in the long run. FARZAD HARDWICK JR, MD May 21, 2021 08:29
[2021-05-21] MEDS: MIDAZOLAM DRIP PRE-MIX 100 ML IV SCH ×2 (08:45→20:09)
[2021-05-21] MEDS: PANTOPRAZOLE 40 MG (PROTONIX) VIAL IV SCH ×2 (08:46→20:09)
[2021-05-21 10:37] VITALS: BP 131/60
--- NOTE | 2021-05-21 11:26 | Tele-ICU Progress Note ---
Subjective Date Seen by a Provider: May 21, 2021 Time Seen by a Provider: 10:30 Sepsis Event Evaluation Height, Weight, BMI Height: 5'1.00" Weight: 268lbs. 10.0oz. 121.655781by; 59.07 BMI Method:Stated Focused Exam Lactate Level 05/18/21 14:49: Lactic Acid Level 1.33 05/19/21 09:50: Lactic Acid Level 1.01 Exam Exam Patient acknowledged, consented, and participated in this virtual visit which was conducted using real time audio/video Vital Signs Date Time Temp Pulse Resp B/P (MAP) Pulse Ox O2 Delivery O2 Flow Rate FiO2 05/21/21 10:37 72 30 92 45 05/21/21 09:00 37.5 76 35 93 Mechanical Ventilator 45.00 05/21/21 08:45 81 28 141/64 05/21/21 08:00 37.4 70 25 96 Mechanical Ventilator 45.00 05/21/21 08:00 95 Mechanical Ventilator 40 05/21/21 07:01 75 38 91 45 05/21/21 07:00 37.3 78 91 Mechanical Ventilator 45.00 05/21/21 06:47 77 05/21/21 06:00 37.3 71 25 96 Mechanical Ventilator 45.00 05/21/21 05:00 37.4 75 27 92 Mechanical Ventilator 45.00 05/21/21 04:00 37.3 71 29 93 Mechanical Ventilator 45.00 05/21/21 04:00 95 Mechanical Ventilator 45 05/21/21 03:00 37.3 71 26 94 Mechanical Ventilator 45.00 05/21/21 02:10 37.4 69 28 91 Mechanical Ventilator 45.00 05/21/21 02:06 74 26 93 45 05/21/21 02:00 37.4 70 26 93 Mechanical Ventilator 50.00 05/21/21 01:00 37.5 73 21 93 Mechanical Ventilator 50.00 05/21/21 01:00 73 05/21/21 00:00 37.5 87 33 94 Mechanical Ventilator 50.00 05/20/21 23:28 94 Mechanical Ventilator 50 05/20/21 23:22 37.4 81 29 126/58 (80) 95 Mechanical Ventilator 50.00 05/20/21 23:00 37.4 77 27 94 Mechanical Ventilator 50.00 05/20/21 22:15 Mechanical Ventilator 50.00 05/20/21 22:08 74 26 96 60 05/20/21 22:00 37.4 80 21 96 Mechanical Ventilator 60.00 05/20/21 21:00 37.4 75 27 93 Mechanical Ventilator 60.00 05/20/21 20:04 142/67 05/20/21 20:00 37.3 82 26 94 Mechanical Ventilator 60.00 05/20/21 19:57 76 18 115/59 05/20/21 19:45 94 Mechanical Ventilator 60 05/20/21 19:00 37.2 81 25 94 Mechanical Ventilator 60.00 05/20/21 19:00 81 05/20/21 19:00 94 Mechanical Ventilator 60.00 05/20/21 18:54 77 124/55 05/20/21 18:53 77 124/55 05/20/21 18:31 95 27 95 50 05/20/21 18:30 Mechanical Ventilator 60.00 05/20/21 18:00 37.1 80 18 89 Mechanical Ventilator 40.00 05/20/21 17:00 37.1 80 18 92 40.00 05/20/21 16:00 36.5 05/20/21 16:00 91 Mechanical Ventilator 40 05/20/21 16:00 37.1 97 32 92 Mechanical Ventilator 40.00 05/20/21 15:00 37.1 79 25 132/86 (101) 92 Mechanical Ventilator 40.00 05/20/21 14:48 82 27 93 40 05/20/21 14:05 79 93/52 05/20/21 14:04 79 93/52 05/20/21 14:00 37.1 26 88/49 (62) 97 Mechanical Ventilator 40.00 05/20/21 13:00 37.1 86 33 88/50 (63) 95 Mechanical Ventilator 40.00 05/20/21 13:00 98 05/20/21 12:00 95 Mechanical Ventilator 40 05/20/21 12:00 37.3 94 26 101/54 (70) 93 Mechanical Ventilator 40.00 05/20/21 11:52 81 91/53 I & O 05/21/21 07:00 Intake Total 1886 ml Output Total 1700 ml Balance 186 ml Height & Weight Height: 5'1.00" Weight: 268lbs. 10.0oz. 121.072400el; 59.07 BMI Method:Stated General Appearance: No Apparent Distress, WD/WN, Chronically ill, Other (Sedated and intubated) Neck: Normal Inspection, Supple, Other (shingles rash Right ant neck and submental area) Respiratory: Decreased Breath Sounds Cardiovascular: Irregularly Irregular Capillary Refill: NONE Gastrointestinal: soft, no organomegaly Extremity: Normal Capillary Refill, Normal Inspection Neurologic/Psychiatric: Other (unresponsive) Skin: Normal Color, Cool Lymphatic: No Adenopathy Results Lab Laboratory Tests 05/20/21 01:21 05/21/21 05:19 Assessment/Plan Assessment/Plan (Tele-ICU Physician , Progress Note ) Available chart/ vitals / labs / Images reviewed Video assessment done using teleICU camera, rest of exam as per RN discussed with RN NEVAEH overnight - - converted to sibus , brown secretion in NG Afebrile hemodynamically stable, no pressors, I/O = pos even Drips: amio , levo , heparin Consultants: alexandra VENT SETTINGS. AC 26 400-peep 15 40% PAP 32 ABG reviewed Sedation: RASS versed ( elev tgl on propofol Not candidate for SBTContraindications : Cardiovascular Stability / Sedation Score / FI02/PEEP / ABG / CXR reviewed Hospital course: 05/19 - intubated ( with exchange of ETT for right bronchus intubation and blockage of ETT , pressors , a fib rvr 05/21 - sinus , changed to versed A/P Acute hypoxic respiratory failure due to possible underlying pneumonia and/or congestive heart failure CT 05/18 - no PE , bilat basilar infiltrates - intubated 7. , AC 26 400-peep 12 45% PAP 32 - WILL NEED to decrease peep to 12 -> 10 SHOCK - off pressors 05/20 PNA RLL / UTI - cefepime / doxy - sputum NL ruchi 05/18 - urine - E coli 05/18 - blood staph coag ( contaminamt ) CAD , NSTEMI type II - ECHO 05/19/21 - EF 60% RVSP 34 mm Hg - cardiology follows A fib , new on admission - amio gtt - converted to sinus 05/21 - to change to po - heparing gtt - to lovenox as per cards mental status change - presumed due to Co2 retention , but with active Herpes and not folloing commands off propofol - will cont TX with acyclovir /cefepime 2 g q12 for meningitis - can not do LP with heparin gtt - WILL BE STOPPED TODAY 05/21 - WILL TRY PRECEDEX , OFF VERCED AND REASSESS NEEDS FOR ADDITIONAL W/UP IGGY - IMPROVING WITH HYDRATION - EF 60 % , on Fio2 40 % - will start IVF and follow anemia - -brown-colored output from her OG tube. No michela blood follow OFF TF , ON PPI DM II - iss , as per PCP Morbid obesity BMI 60 Lines : L IJ 05/18 , (Central Line Necessity Reviewed) Woods: + OG: + Nutrition: not TF yet with possible GIB Analgesia: Anxiety/ delirium VTE Prophylaxis: Stress Ulcer Prophylaxis: ppi Glycemic Control: + Plans in collaboration with bedside consultants and IM MDs. A total of 32 minutes of critical care time was devoted to this patient today, required to treat and/or prevent further deterioration of critical care condition ( as above ) . MOMO NIÑO MD May 21, 2021 11:26
[2021-05-21] MEDS: DexMEDEtomidine 250 ML DRIP 250 ML IV SCH (12:59)
[2021-05-21] MEDS: AMIODARONE 200 MG (CORDARONE) TAB PO SCH ×2 (12:59→20:10)
[2021-05-21] MEDS: ENOXAPARIN 300 MG/3 ML (LOVENOX) MULTI-DOSE VIAL SQ SCH ×2 (13:00→20:10)
[2021-05-21] MEDS: ACYCLOVIR INJECTION 800 MG in NS (IVPB) 250 ML IV SCH ×2 (13:09→19:29)
[2021-05-21] MEDS ORDERED: CYAN500T8 PO (13:46)
[2021-05-21] MEDS ORDERED: DAPA10TA PO (13:46)
[2021-05-21] MEDS ORDERED: FURO40TA4 PO (13:46)
[2021-05-21] MEDS ORDERED: GBPN600T PO (13:46)
[2021-05-21] MEDS ORDERED: VALA10004 PO (13:46)
[2021-05-21] MEDS ORDERED: ONDA4TAB11 PO (13:46)
[2021-05-21] MEDS ORDERED: HYDR-3820 PO (13:46)
[2021-05-21] MEDS ORDERED: INSU200I4 SQ (13:46)
[2021-05-21] MEDS ORDERED: CARV25TA PO (13:46)
[2021-05-21 14:00] VITALS: BP 142/62
[2021-05-21 19:25] VITALS: BP 117/56
[2021-05-21] MEDS: PROPOFOL DRIP (ICU) 100 ML IV SCH (19:37)
[2021-05-21] MEDS: ROSUVASTATIN 20 MG (CRESTOR) TABLET PO SCH (20:10)
[2021-05-21 22:52] VITALS: BP 117/56
[2021-05-22] MEDS: inSUlin ASPART (NovoLOG) 1 UNIT/0.01 ML (CHARGE PER UNIT) SC SCH ×4 (00:37→17:44)
[2021-05-22] MEDS: ACYCLOVIR INJECTION 800 MG in NS (IVPB) 250 ML IV SCH ×3 (01:48→15:58)
[2021-05-22] MEDS: CEFEPIME 2,000 MG/SWFI 20 ML IV PUSH IV SCH ×4 (01:48→13:09)
[2021-05-22] MEDS: NOREPINEPHRINE 8 MG/250 ML 250 ML IV SCH ×3 (02:12→17:44)
[2021-05-22] MEDS: PROPOFOL DRIP (ICU) 100 ML IV SCH (02:14)
[2021-05-22] MEDS: DOXYCYCLINE INJECTION 100 MG in NS (IVPB) 100 ML IV SCH ×2 (02:41→13:54)
[2021-05-22] MEDS: NS IV 1000 ML 1,000 ML IV SCH (02:41)
[2021-05-22 03:45] LABS: BASOPHILS % (AUTO) 0 % (0-10); EOSINOPHILS # (AUTO) 0.1 10^3/uL (0.0-0.3); EOSINOPHILS % (AUTO) 1 % (0-10); HEMATOCRIT 26 % (35-52); HEMOGLOBIN 8.3 g/dL (11.5-16.0); LYMPHOCYTES # (AUTO) 0.7 10^3/uL (1.0-4.0); LYMPHOCYTES % (AUTO) 11 % (12-44); MEAN CORPUSCULAR HEMOGLOBIN 24 pg (25-34); MEAN CORPUSCULAR HGB CONC 32 g/dL (32-36); MEAN CORPUSCULAR VOLUME 76 fL (80-99); MEAN PLATELET VOLUME 10.3 fL (9.0-12.2); MONOCYTES # (AUTO) 0.5 10^3/uL (0.0-1.0); MONOCYTES % (AUTO) 8 % (0-12); NEUTROPHILS # (AUTO) 5.1 10^3/uL (1.8-7.8); NEUTROPHILS % (AUTO) 79 % (42-75); PLATELET COUNT 168 10^3/uL (130-400); WHITE BLOOD COUNT 6.6 10^3/uL (4.3-11.0)
[2021-05-22 04:03] LABS: POTASSIUM 3.5 MMOL/L (3.6-5.0)
[2021-05-22 04:04] LABS: CALCIUM 7.8 MG/DL (8.5-10.1)
[2021-05-22 04:08] LABS: PHOSPHORUS 3.8 MG/DL (2.3-4.7)
[2021-05-22 04:09] LABS: CREATININE SERUM 1.1 MG/DL (0.60-1.30)
[2021-05-22 04:11] LABS: MAGNESIUM 2.3 MG/DL (1.6-2.4)
[2021-05-22 04:17] LABS: ABG BASE EXCESS -5.8 MMOL/L (-2.5-2.5); ABG OXYGEN SATURATION 99 % (94-100); ABG PCO2 33 MMHG (35-45); ABG PH 7.37 (7.37-7.43); ABG PO2 144 MMHG (79-93); ABG TCO2 19.5 MMOL/L (21.0-31.0)
[2021-05-22 04:19] LABS: ALLENS TEST ARTLINE; PATIENT TEMP 36.9; VENTILATOR YES
[2021-05-22] MEDS: MAGNESIUM 1 GM/100 ML IVPB 100 ML IV SCH (04:46)
[2021-05-22] MEDS: POTASSIUM CL 10MEQ/50ML IVPB 50 ML IV SCH ×3 (04:46→05:51)
[2021-05-22] MEDS: KCL 20 MEQ TAB (K-DUR) PO SCH (04:47)
--- NOTE | 2021-05-22 06:08 | Progress Note - Hospitalist ---
Subjective HPI/CC On Admission Date Seen by Provider: May 22, 2021 Time Seen by Provider: 09:30 Paulette Roger is a 65-year-old female with past medical history of hypertension, insulin-dependent diabetes, coronary artery disease, GERD, morbid obesity, who presented with weakness and respiratory failure. EMS was called to her home wh ere she had become very weak and short of breath while using the toilet. She required endotracheal intubation and intraosseous access. There is no ventilator available at [facility] and she had to be mechanically bagged. Due to this, a complete work-up was not able to be performed in the emergency room and she was transferred to the [facility] emergency room. After arrival, she was placed on a ventilator. CT scans were performed which showed no acute intracranial abnormalities but did reveal bilateral consolidations, pleural effusions, and possible pulmonary edema. She is Covid and flu negative. She was recently diagnosed with shingles. According to her nurse, she was awake and following commands prior to being started on sedation. Subjective/Events-last exam Pt about the same Decreasing PEEP to 10 Starting feeds today Hemoccult was negative Sister in law at the bedside Lovenox maintained for paroxysmal AF Protonix twice daily initiated Focused Exam Lactate Level Objective Exam Vital Signs Vital Signs Date Time Temp Pulse Resp B/P (MAP) Pulse Ox O2 Delivery O2 Flow Rate FiO2 05/23/21 04:00 91 Mechanical Ventilator 35 05/23/21 02:02 64 26 05/23/21 01:21 35.00 05/23/21 00:05 140/69 05/22/21 23:00 37.5 Capillary Refill : NONE General Appearance: No Apparent Distress, WD/WN, Chronically ill, Obese, Other (Intubated and sedated) Respiratory: No Accessory Muscle Use, No Respiratory Distress, Decreased Breath Sounds Cardiovascular: Regular Rate, Rhythm Results/Procedures Lab Laboratory Tests 05/23/21 02:54 Patient resulted labs reviewed. Imaging: Reviewed Imaging Films, Reviewed Imaging Report Assessment/Plan Assessment and Plan Assess & Plan/Chief Complaint Assessment: ARDS Severe sepsis Pneumonia Intubated 05/08/2021 Acute right neck herpes zoster maintained on acyclovir IV Non-ST elevation [place] requiring heparin drip New onset atrial fibrillation Plan: Heparin drip since non-ST elevation [place] and new onset atrial fibrillation take precedence over lumbar puncture Maintain acyclovir 05/20/2021: Acyclovir Antibiotics Supportive care Cardiology and pulmonology appreciated 05/21/2021: Monitor for recurrent A. fib Monitor coffee-ground fluid and OG tube 05/22/2021: Supportive care with intubation Appreciate eICU consultation Critical Care Critically Ill Patient ASHWINI BLANKENSHIP DO May 22, 2021 06:08
[2021-05-22 06:45] VITALS: BP 125/60
[2021-05-22] MEDS: RT-ALBUTEROL/IPRATROPIUM 3 ML (DUONEB) VIAL INH SCH ×5 (06:45→21:53)
[2021-05-22] MEDS: PANTOPRAZOLE 40 MG (PROTONIX) VIAL IV SCH ×2 (08:20→21:29)
[2021-05-22] MEDS: AMIODARONE 200 MG (CORDARONE) TAB PO SCH ×2 (08:21→21:29)
--- NOTE | 2021-05-22 08:25 | Cardiology Progress Note ---
Progress Note-Cardiology Events since last exam Date Seen by Provider: May 22, 2021 Time Seen by Provider: 08:21 Events since last exam We are seeing her due to elevated troponin, heart failure, and atrial fibril lation. She remains intubated and sedated in the ICU. She remains in sinus rhythm on oral amiodarone after receiving an intravenous bolus and infusion. The primary hospitalist has discontinued the IV fluids. The output from her OG tube continues to remain dark and at times, possibly blood-tinged. I spoke to the nurse at the bedside. Vitals Last set of Vitals Signs Vital Signs 05/22/21 16:00 Temp 37.8 Pulse 66 Resp 27 B/P (MAP) 140/72 (94) Pulse Ox 95 O2 Delivery Mechanical Ventilator O2 Flow Rate 40.00 FiO2 40 Labs Labs Laboratory Tests 05/22/21 03:30 Exam Vital Signs Vital Signs Date Time Temp Pulse Resp B/P (MAP) Pulse Ox O2 Delivery O2 Flow Rate FiO2 05/22/21 16:00 37.8 66 27 140/72 (94) 95 Mechanical Ventilator 40.00 05/22/21 16:00 40 Physical Exam General: Intubated and sedated. Well nourished and appears stated age. She is morbidly obese. Eye: Conjunctivae are clear. There are no xanthelasma. HENT: Normocephalic. Atraumatic. Carotid pulsations 2/2 without bruits. Neck: Jugular venous pressure does not appear elevated. No thyromegaly appreciated. Respiratory: Symmetrical expansion bilaterally. Coarse breath sounds to the ventilator. Cardiovascular: Normal rate. Regular rhythm. No murmur. No gallop. Point of maximal impulse is not appear displaced. Good pulses equal in all extremities. 1-2+ bilateral pretibial edema. Gastrointestinal: Soft. Normal bowel sounds. Skin: Skin turgor is normal. There is no pallor. Musculoskeletal: No obvious deformities. Neurologic: Intubated and sedated. Psychiatric: Not obtainable due to clinical status. Labs Laboratory Tests Test 05/21/21 17:56 05/21/21 20:07 05/22/21 00:37 05/22/21 03:30 Range/Units Glucometer 103 102 105 70-110 MG/DL White Blood Count 6.6 4.3-11.0 10^3/uL Red Blood Count 3.44 L 3.80-5.11 10^6/uL Hemoglobin 8.3 L 11.5-16.0 g/dL Hematocrit 26 L 35-52 % Mean Corpuscular Volume 76 L 80-99 fL Mean Corpuscular Hemoglobin 24 L 25-34 pg Mean Corpuscular Hemoglobin Concent 32 32-36 g/dL Red Cell Distribution Width 15.9 H 10.0-14.5 % Platelet Count 168 130-400 10^3/uL Mean Platelet Volume 10.3 9.0-12.2 fL Immature Granulocyte % (Auto) 1 % Neutrophils (%) (Auto) 79 H 42-75 % Lymphocytes (%) (Auto) 11 L 12-44 % Monocytes (%) (Auto) 8 0-12 % Eosinophils (%) (Auto) 1 0-10 % Basophils (%) (Auto) 0 0-10 % Neutrophils # (Auto) 5.1 1.8-7.8 10^3/uL Lymphocytes # (Auto) 0.7 L 1.0-4.0 10^3/uL Monocytes # (Auto) 0.5 0.0-1.0 10^3/uL Eosinophils # (Auto) 0.1 0.0-0.3 10^3/uL Basophils # (Auto) 0.0 0.0-0.1 10^3/uL Immature Granulocyte # (Auto) 0.1 0.0-0.1 10^3/uL Blood Gas Puncture Site ARTLINE Blood Gas Patient Temperature 36.9 Arterial Blood pH 7.37 7.37-7.43 Arterial Blood Partial Pressure CO2 33 L 35-45 MMHG Arterial Blood Partial Pressure O2 144 H 79-93 MMHG Arterial Blood HCO3 19 L 23-27 MMOL/L Arterial Blood Total CO2 19.5 L 21.0-31.0 MMOL/L Arterial Blood Oxygen Saturation 99 94-100 % Arterial Blood Base Excess -5.8 L -2.5-2.5 MMOL/L Erasto Test ARTLINE Blood Gas Ventilator Setting YES Blood Gas Inspired Oxygen 55% Sodium Level 139 135-145 MMOL/L Potassium Level 3.5 L 3.6-5.0 MMOL/L Chloride Level 110 H 98-107 MMOL/L Carbon Dioxide Level 17 L 21-32 MMOL/L Anion Gap 12 5-14 MMOL/L Blood Urea Nitrogen 48 H 7-18 MG/DL Creatinine 1.10 0.60-1.30 MG/DL Estimat Glomerular Filtration Rate 50 BUN/Creatinine Ratio 44 Glucose Level 105 70-105 MG/DL Calcium Level 7.8 L 8.5-10.1 MG/DL Phosphorus Level 3.8 2.3-4.7 MG/DL Magnesium Level 2.3 1.6-2.4 MG/DL Test 05/22/21 11:41 Range/Units Glucometer 85 70-110 MG/DL Diagnosis/Problems Diagnosis/Problems (1) Paroxysmal atrial fibrillation Assessment & Plan: This is a new finding in this patient. I suspect this may have been brought on by her acute, noncardiac illness. She remains in sinus rhythm. I will hold off on oral anticoagulation since I believe the atrial fibrillation was brought on by her acute illnesses. She may need to be discharged with a short course of amiodarone if she makes it through this acute illness. (2) NSTEMI (non-ST elevation myocardial infarction) Status: Acute Assessment & Plan: By report, she was complaining of chest pain at the outside facility prior to being intubated. She has elevated troponin levels which continued to rise, but no obvious ischemic changes on her resting electrocardiogram. This could be a type II non-ST elevation myocardial infarction due to her acute respiratory failure and now superimposed acute kidney injury that was worsening versus a true type I NSTEMI. Resume aspirin and clopidogrel when able. Continue low-dose beta-elizabeth. Likewise, resume ranolazine when able. Once her noncardiac issues are further stabilized, we may need to consider further evaluation with a cardiac catheterization. She received about 72 hours of anticoagulation with heparin and enoxaparin. I will now change the enoxaparin over to DVT prophylaxis dose. (3) Acute on chronic diastolic (congestive) heart failure Assessment & Plan: Her echocardiogram from this admission showed a normal e jection fraction. Her chest x-ray from this morning is slightly better than yesterday. Normal saline was discontinued on 05/21. (4) Coronary artery disease with unstable angina pectoris Assessment & Plan: She had a slight drop in her hemoglobin during this hospitalization. As such, I will still hold off on administering aspirin and clopidogrel. If her hemoglobin remains stable over the next 24 hours, then I would consider adding at least low strength aspirin. (5) Acute on chronic respiratory failure with hypoxemia Assessment & Plan: Most likely multifactorial. The hospitalist and eICU are managing this condition. As above, her chest x-ray was slightly improved this morning (6) Acute kidney injury superimposed on chronic kidney disease Assessment & Plan: This may also be causing the troponin and BNP levels to be elevated. This is improving after a fluid bolus. Normal saline has now been discontinued. We will need to watch her renal function closely. (7) Essential hypertension Assessment & Plan: Continue low-dose beta-elizabeth. We will adjust as needed. (8) Mixed hyperlipidemia Assessment & Plan: Continue intensive dose rosuvastatin in light of the possible NSTEMI. (9) Morbid obesity Status: Chronic Assessment & Plan: This will need to be addressed in the long run. FARZAD HARDWICK JR, MD May 22, 2021 08:24
[2021-05-22] MEDS: ENOXAPARIN 300 MG/3 ML (LOVENOX) MULTI-DOSE VIAL SQ SCH (08:41)
[2021-05-22] MEDS: fentaNYL INJ 100 MCG/2 ML AMP IVP PRN ×5 (09:02→19:25)
--- NOTE | 2021-05-22 09:05 | Tele-ICU Progress Note ---
Subjective Date Seen by a Provider: May 22, 2021 Time Seen by a Provider: 11:26 Subjective/Events-last exam 65 yo F with morbid obesity, acute hypoxic resp failure, intubated on 05/19, now on vent AC 26, FiO2 400 FiO2 40% PEEP 10-+ has bilateral infiltrates on CXR R > L ET ok, I reviewed CXR Elevated diaphragms due to obesity, COVID and flu neg serology On Ceffepime, doxycycline,, acyclovir for shingles, lesions are crusting on right neck no + cultures yet [employer] in blood probably a contaminant Hx of CAD, echo shows 60% LVEF on 05/19 with mild pulm htn Had a fib, started on amiodarone and converted yesterday, now on po 200 bid also IGGY, Cr now 1.10 Sedation was change form Propfol to Versed due to elevated TG's Left radial art line, off pressors, would pull left IJ in, place on 05/18, site looks ok, needs to due difficulty with venous access Sepsis Event Evaluation Height, Weight, BMI Height: 5'1.00" Weight: 268lbs. 10.0oz. [id number]; 59.07 BMI Method:Stated Focused Exam Lactate Level 05/19/21 09:50: Lactic Acid Level 1.01 Exam Exam Patient acknowledged, consented, and participated in this virtual visit which was conducted using real time audio/video Vital Signs Date Time Temp Pulse Resp B/P (MAP) Pulse Ox O2 Delivery O2 Flow Rate FiO2 05/22/21 07:50 95 Mechanical Ventilator 40 05/22/21 06:45 60 26 95 40 05/22/21 06:40 61 05/22/21 06:00 37.1 61 26 95 Mechanical Ventilator 40.00 05/22/21 05:08 Mechanical Ventilator 40.00 05/22/21 05:00 37.0 61 26 95 Mechanical Ventilator 45.00 05/22/21 04:52 Mechanical Ventilator 45.00 05/22/21 04:00 36.9 61 35 97 Mechanical Ventilator 55.00 05/22/21 04:00 93 Mechanical Ventilator 55 05/22/21 03:00 36.9 62 25 96 Mechanical Ventilator 55.00 05/22/21 02:28 37.0 61 30 91 Mechanical Ventilator 55.00 05/22/21 02:00 37.0 60 25 95 Mechanical Ventilator 45.00 05/22/21 01:00 37.2 61 25 94 Mechanical Ventilator 45.00 05/22/21 01:00 61 05/22/21 00:46 Mechanical Ventilator 45.00 05/22/21 00:00 37.3 62 27 96 Mechanical Ventilator 55.00 05/21/21 23:59 93 Mechanical Ventilator 55 05/21/21 23:00 37.4 62 26 99 Mechanical Ventilator 55.00 05/21/21 22:52 63 26 96 55 05/21/21 22:00 37.6 65 28 96 Mechanical Ventilator 55.00 05/21/21 21:00 37.7 66 25 95 Mechanical Ventilator 55.00 05/21/21 20:09 68 26 117/56 05/21/21 20:00 93 Mechanical Ventilator 55 05/21/21 20:00 38.0 68 26 93 Mechanical Ventilator 55.00 05/21/21 19:25 66 29 95 55 05/21/21 19:00 65 05/21/21 19:00 37.9 65 26 95 Mechanical Ventilator 65.00 05/21/21 18:00 37.9 66 28 94 Mechanical Ventilator 65.00 05/21/21 17:00 37.8 66 28 97 Mechanical Ventilator 65.00 05/21/21 16:38 95 Mechanical Ventilator 40 05/21/21 16:00 37.8 67 27 93 Mechanical Ventilator 65.00 05/21/21 15:00 37.8 71 25 91 Mechanical Ventilator 65.00 05/21/21 14:57 Mechanical Ventilator 65.00 05/21/21 14:00 75 29 92 55 05/21/21 14:00 37.8 76 29 92 Mechanical Ventilator 45.00 05/21/21 13:00 37.8 71 27 90 Mechanical Ventilator 45.00 05/21/21 12:59 71 126/55 05/21/21 12:36 68 05/21/21 12:00 95 Mechanical Ventilator 40 05/21/21 12:00 37.8 71 24 94 Mechanical Ventilator 45.00 05/21/21 11:00 37.7 26 93 Mechanical Ventilator 45.00 05/21/21 10:37 72 30 92 45 05/21/21 10:00 37.6 78 26 92 Mechanical Ventilator 45.00 I & O 05/22/21 07:00 Intake Total 1336 ml Output Total 1225 ml Balance 111 ml Height & Weight Height: 5'1.00" Weight: 268lbs. 10.0oz. 121.818085pg; 59.07 BMI Method:Stated General Appearance: No Apparent Distress, WD/WN, Anxious, Chronically ill Neck: Normal Inspection, Supple, Other (shingles rash Right ant neck and submental area) Respiratory: Lungs Clear, Normal Breath Sounds, Rhonci Cardiovascular: Regular Rate, Rhythm Capillary Refill: NONE Gastrointestinal: normal bowel sounds, non tender, soft, no organomegaly, other (hypoactive BS, is having bowel movement, ? blood form NG) Extremity: Normal Capillary Refill, Normal Inspection Neurologic/Psychiatric: Other (sedation off this am but not obeying commands, RASS -3) Skin: Normal Color, Cool Lymphatic: No Adenopathy Results Lab Laboratory Tests 05/21/21 05:19 05/22/21 03:30 Assessment/Plan Assessment/Plan Acute hypoxic respiratory failure due to possible underlying pneumonia and/or congestive heart failure CT 05/18 - no PE , bilat basilar infiltrates - intubated 7. , AC 26 400-peep 12 45% PAP 32 - WILL NEED to decrease peep to 12 -> 10 SHOCK - off pressors 05/20 PNA RLL / UTI - cefepime / doxy - sputum NL ruchi 05/18 - urine - E coli 05/18 - blood staph coag ( contaminamt ) CAD , NSTEMI type II - ECHO 05/19/21 - EF 60% RVSP 34 mm Hg - cardiology follows A fib , new on admission - amio gtt - converted to sinus 05/21 - to change to po - heparing gtt - to lovenox as per cards mental status change - presumed due to Co2 retention , but with active Herpes and not folloing commands off propofol - will cont TX with acyclovir /cefepime 2 g q12 for meningitis - can not do LP with heparin gtt - WILL BE STOPPED TODAY 05/21 - WILL TRY PRECEDEX , OFF VERCED AND REASSESS NEEDS FOR ADDITIONAL W/UP IGGY - IMPROVING WITH HYDRATION - EF 60 % , on Fio2 40 % - will start IVF and follow anemia - -brown-colored output from her OG tube. No michela blood follow OFF TF , ON PPI DM II - iss , as per PCP Morbid obesity BMI 60 Lines : L IJ 05/18 , (Central Line Necessity Reviewed) Woods: + OG: + Nutrition: not TF yet with possible GIB Analgesia: Anxiety/ delirium VTE Prophylaxis: Stress Ulcer Prophylaxis: ppi Glycemic Control: + Not ready for extubation, can pull arterial Would start NG feedings physical per script editor: Critically Ill Patient Time spent with patient (mins): 25 PATSY DAWKINS MD May 22, 2021 09:05
--- NOTE | 2021-05-22 09:37 | Diagnostic Imaging Report ---
Indication: Respiratory failure. Compared: 05/21/2021 Findings: There are bilateral infiltrates present greatest at the level of the mid to lower right lung where there has been improvement and much better visualization of the right heart border and right hemidiaphragm. The heart is enlarged and unchanged. ET tube and remaining support apparatus stable. No pneumothorax. Impression: Improvements and infiltrates most notably at the right base, stable support apparatus, no adverse change. Dictated by: Dictated on workstation # [id number]
[2021-05-22 10:10] VITALS: BP 117/51
[2021-05-22] MEDS: MIDAZOLAM DRIP PRE-MIX 100 ML IV SCH (11:14)
[2021-05-22 13:55] VITALS: BP 133/66
[2021-05-22] MEDS: DexMEDEtomidine 250 ML DRIP 250 ML IV SCH (17:49)
[2021-05-22 18:22] VITALS: BP 138/71
[2021-05-22] MEDS: ROSUVASTATIN 20 MG (CRESTOR) TABLET PO SCH (21:29)
[2021-05-22 21:54] VITALS: BP 140/69
[2021-05-23] MEDS: MIDAZOLAM DRIP PRE-MIX 100 ML IV SCH ×3 (00:05→22:02)
[2021-05-23] MEDS: fentaNYL INJ 100 MCG/2 ML AMP IVP PRN ×7 (00:25→19:55)
[2021-05-23] MEDS: inSUlin ASPART (NovoLOG) 1 UNIT/0.01 ML (CHARGE PER UNIT) SC SCH ×5 (00:25→23:58)
[2021-05-23] MEDS: NOREPINEPHRINE 8 MG/250 ML 250 ML IV SCH ×4 (01:10→23:58)
[2021-05-23] MEDS: CEFEPIME 2,000 MG/SWFI 20 ML IV PUSH IV SCH ×4 (01:17→14:25)
[2021-05-23] MEDS: ACYCLOVIR INJECTION 800 MG in NS (IVPB) 250 ML IV SCH ×3 (01:17→17:27)
[2021-05-23 02:02] VITALS: BP 133/67
[2021-05-23] MEDS: RT-ALBUTEROL/IPRATROPIUM 3 ML (DUONEB) VIAL INH SCH ×6 (02:02→21:30)
[2021-05-23 02:57] LABS: BASOPHILS % (AUTO) 1 % (0-10); EOSINOPHILS # (AUTO) 0.1 10^3/uL (0.0-0.3); EOSINOPHILS % (AUTO) 2 % (0-10); HEMATOCRIT 27 % (35-52); HEMOGLOBIN 8.3 g/dL (11.5-16.0); LYMPHOCYTES # (AUTO) 0.9 10^3/uL (1.0-4.0); LYMPHOCYTES % (AUTO) 15 % (12-44); MEAN CORPUSCULAR HEMOGLOBIN 24 pg (25-34); MEAN CORPUSCULAR HGB CONC 31 g/dL (32-36); MEAN CORPUSCULAR VOLUME 78 fL (80-99); MEAN PLATELET VOLUME 10.1 fL (9.0-12.2); MONOCYTES # (AUTO) 0.5 10^3/uL (0.0-1.0); MONOCYTES % (AUTO) 9 % (0-12); NEUTROPHILS # (AUTO) 4.2 10^3/uL (1.8-7.8); NEUTROPHILS % (AUTO) 72 % (42-75); PLATELET COUNT 167 10^3/uL (130-400); WHITE BLOOD COUNT 5.8 10^3/uL (4.3-11.0)
[2021-05-23 03:10] LABS: POTASSIUM 3.5 MMOL/L (3.6-5.0)
[2021-05-23 03:12] LABS: CALCIUM 7.9 MG/DL (8.5-10.1)
[2021-05-23 03:16] LABS: CREATININE SERUM 0.9 MG/DL (0.60-1.30); PHOSPHORUS 3.4 MG/DL (2.3-4.7)
[2021-05-23 03:18] LABS: MAGNESIUM 2.4 MG/DL (1.6-2.4)
[2021-05-23 03:29] LABS: ABG BASE EXCESS -7.2 MMOL/L (-2.5-2.5); ABG OXYGEN SATURATION 97 % (94-100); ABG PCO2 31 MMHG (35-45); ABG PH 7.36 (7.37-7.43); ABG PO2 82 MMHG (79-93)
[2021-05-23] MEDS: DOXYCYCLINE INJECTION 100 MG in NS (IVPB) 100 ML IV SCH ×2 (03:29→14:45)
[2021-05-23 03:32] LABS: ALLENS TEST YES-POS; PATIENT TEMP 37.1; VENTILATOR YES
[2021-05-23] MEDS: NS IV 1000 ML 1,000 ML IV SCH (05:01)
[2021-05-23] MEDS: POTASSIUM CL 10MEQ/50ML IVPB 50 ML IV SCH (05:02)
[2021-05-23] MEDS: KCL 20 MEQ TAB (K-DUR) PO SCH (05:02)
[2021-05-23] MEDS: MAGNESIUM 1 GM/100 ML IVPB 100 ML IV SCH (05:02)
[2021-05-23 06:17] VITALS: BP 147/74
--- NOTE | 2021-05-23 06:31 | Progress Note - Hospitalist ---
Subjective HPI/CC On Admission Date Seen by Provider: May 23, 2021 Time Seen by Provider: 10:30 Paulette Roger is a 65-year-old female with past medical history of hypertension, insulin-dependent diabetes, coronary artery disease, GERD, morbid obesity, who presented with weakness and respiratory failure. EMS was called to her home wh ere she had become very weak and short of breath while using the toilet. She required endotracheal intubation and intraosseous access. There is no ventilator available at [facility] and she had to be mechanically bagged. Due to this, a complete work-up was not able to be performed in the emergency room and she was transferred to the [facility] emergency room. After arrival, she was placed on a ventilator. CT scans were performed which showed no acute intracranial abnormalities but did reveal bilateral consolidations, pleural effusions, and possible pulmonary edema. She is Covid and flu negative. She was recently diagnosed with shingles. According to her nurse, she was awake and following commands prior to being started on sedation. Subjective/Events-last exam Pt about the same Tidal volume of 400 and PEEP down to 8 Increasing Fentanyl for agitation Unsure if she can be extubated or not May be a [place] candidate Review of Systems General: Fatigue, Malaise Neurological: Weakness Objective Exam Vital Signs Vital Signs Date Time Temp Pulse Resp B/P (MAP) Pulse Ox O2 Delivery O2 Flow Rate FiO2 05/24/21 05:16 64 22 153/76 05/24/21 04:00 93 Mechanical Ventilator 45 05/24/21 00:00 37.5 45.00 Capillary Refill : NONE General Appearance: No Apparent Distress, WD/WN, Chronically ill Respiratory: Lungs Clear, Normal Breath Sounds Cardiovascular: Regular Rate, Rhythm, No Edema Neurologic/Psychiatric: Alert, Oriented x3 Results/Procedures Lab Laboratory Tests 05/24/21 04:20 Patient resulted labs reviewed. Imaging: Reviewed Imaging Films, Reviewed Imaging Report Assessment/Plan Assessment and Plan Assess & Plan/Chief Complaint Assessment: ARDS Severe sepsis Pneumonia Intubated 05/08/2021 Acute right neck herpes zoster maintained on acyclovir IV Non-ST elevation [place] requiring heparin drip New onset atrial fibrillation Plan: Heparin drip since non-ST elevation [place] and new onset atrial fibrillation take precedence over lumbar puncture Maintain acyclovir 05/20/2021: Acyclovir Antibiotics Supportive care Cardiology and pulmonology appreciated 05/21/2021: Monitor for recurrent A. fib Monitor coffee-ground fluid and OG tube 05/22/2021: Supportive care with intubation Appreciate eICU consultation 05/23/2021: Scaled back Lovenox dose We will try to reach out to eICU regulatory consultant today [place] evaluation Maintain ventilator Critical Care Critically Ill Patient ASHWINI BLANKENSHIP DO May 23, 2021 06:31
[2021-05-23] MEDS: PANTOPRAZOLE 40 MG (PROTONIX) VIAL IV SCH (08:18)
[2021-05-23] MEDS: AMIODARONE 200 MG (CORDARONE) TAB PO SCH ×2 (08:18→21:08)
[2021-05-23] MEDS: ENOXAPARIN 40 MG/0.4 ML (LOVENOX) SYR SC SCH (08:19)
[2021-05-23] MEDS ORDERED: ENOXAPARIN 300 MG/3 ML (LOVENOX) MULTI-DOSE VIAL SQ SCH (09:00)
[2021-05-23 09:21] VITALS: BP 122/76
--- NOTE | 2021-05-23 09:35 | Tele-ICU Progress Note ---
Subjective Date Seen by a Provider: May 23, 2021 Time Seen by a Provider: 09:35 Sepsis Event Evaluation Height, Weight, BMI Height: 5'1.00" Weight: 268lbs. 10.0oz. 121.077312oj; 59.07 BMI Method:Stated Exam Exam Patient acknowledged, consented, and participated in this virtual visit which was conducted using real time audio/video Vital Signs Date Time Temp Pulse Resp B/P (MAP) Pulse Ox O2 Delivery O2 Flow Rate FiO2 05/23/21 09:21 67 29 90 35 05/23/21 09:00 37.0 60 25 136/73 (94) 99 Mechanical Ventilator 40.00 05/23/21 08:00 37.0 59 25 147/77 (100) 94 Mechanical Ventilator 40.00 05/23/21 07:00 37.0 60 25 147/77 (100) 94 Mechanical Ventilator 40.00 05/23/21 06:43 60 05/23/21 06:17 60 26 94 35 05/23/21 06:00 37.0 60 25 143/76 (98) 94 Mechanical Ventilator 40.00 05/23/21 05:00 37.1 61 25 146/74 (98) 95 Mechanical Ventilator 40.00 05/23/21 04:00 37.1 61 25 140/72 (94) 95 Mechanical Ventilator 40.00 05/23/21 04:00 91 Mechanical Ventilator 35 05/23/21 03:00 37.2 63 25 136/66 (89) 95 Mechanical Ventilator 40.00 05/23/21 02:02 64 26 93 35 05/23/21 02:00 37.3 62 25 135/69 (91) 95 Mechanical Ventilator 40.00 05/23/21 01:21 Mechanical Ventilator 35.00 05/23/21 01:00 62 05/23/21 00:05 63 27 140/69 05/23/21 00:00 37.3 64 25 142/72 (95) 95 Mechanical Ventilator 40.00 05/22/21 23:59 95 Mechanical Ventilator 40 05/22/21 23:00 37.5 64 25 138/70 (92) 95 Mechanical Ventilator 40.00 05/22/21 22:00 37.4 63 15 136/71 (92) 96 Mechanical Ventilator 40.00 05/22/21 21:54 63 27 94 40 05/22/21 21:00 37.6 64 27 142/71 (94) 95 Mechanical Ventilator 40.00 05/22/21 20:00 92 Mechanical Ventilator 40 05/22/21 20:00 37.8 65 27 131/70 (90) 94 Mechanical Ventilator 40.00 05/22/21 19:00 70 05/22/21 19:00 37.9 70 25 139/73 (95) 92 Mechanical Ventilator 40.00 05/22/21 18:22 66 27 94 40 05/22/21 18:00 37.8 67 26 135/68 (90) 93 Mechanical Ventilator 40.00 05/22/21 17:49 72 123/70 05/22/21 17:00 37.9 67 28 136/68 (90) 95 Mechanical Ventilator 40.00 05/22/21 16:00 37.8 66 27 140/72 (94) 95 Mechanical Ventilator 40.00 05/22/21 16:00 94 Mechanical Ventilator 40 05/22/21 15:00 37.8 66 27 139/69 (92) 95 Mechanical Ventilator 40.00 05/22/21 14:00 37.9 69 26 133/66 (88) 93 Mechanical Ventilator 40.00 05/22/21 13:55 68 29 94 40 05/22/21 13:00 37.9 65 22 133/67 (89) 95 Mechanical Ventilator 40.00 05/22/21 12:40 66 05/22/21 12:00 37.9 66 26 90 Mechanical Ventilator 40.00 05/22/21 11:58 36.6 05/22/21 11:47 90 Mechanical Ventilator 45 05/22/21 11:14 67 27 120/52 05/22/21 11:00 37.8 70 12 94 Mechanical Ventilator 40.00 05/22/21 10:10 65 27 92 45 05/22/21 10:00 37.4 70 36 94 Mechanical Ventilator 40.00 I & O 05/23/21 07:00 Intake Total 1842 ml Output Total 1325 ml Balance 517 ml Height & Weight Height: 5'1.00" Weight: 268lbs. 10.0oz. 121.050937zk; 59.07 BMI Method:Stated General Appearance: No Apparent Distress, WD/WN, Chronically ill, Obese, Other (Intubated and sedated) Neck: Normal Inspection, Supple, Other (shingles rash Right ant neck and submen alexander area) Respiratory: No Accessory Muscle Use, No Respiratory Distress, Decreased Breath Sounds Cardiovascular: Regular Rate, Rhythm Capillary Refill: NONE Gastrointestinal: normal bowel sounds, non tender, soft, no organomegaly, other (hypoactive BS, is having bowel movement, ? blood form NG) Extremity: Normal Capillary Refill, Normal Inspection Neurologic/Psychiatric: Other (sedation off this am but not obeying commands, RASS -3) Skin: Normal Color, Cool Lymphatic: No Adenopathy Results Lab Laboratory Tests 05/22/21 03:30 05/23/21 02:54 Assessment/Plan Assessment/Plan (Tele-ICU Physician , Progress Note ) Available chart/ vitals / labs / Images reviewed Video assessment done using teleICU camera, rest of exam as per RN discussed with RN overnight Afebrile hemodynamically stable, no pressors, I/O = pos 300 Drips: off : amio , levo , heparin Consultants: cards VENT SETTINGS. AC 26 400-peep 15 40% PAP 32 ABG reviewed Sedation: RASS 1 , not follow commands versed ( elev tgl on propofol precedex Not candidate for SBTContraindications : Cardiovascular Stability / Sedation Score / FI02/PEEP / ABG / CXR reviewed Hospital course: 05/19 - intubated ( with exchange of ETT for right bronchus intubation and blockage of ETT , pressors , a fib rvr 05/21 - sinus , changed to versed wutg elv TGL ( high ) 05/23- AC 26 400-peep 12 45% PAP 32 A/P Acute hypoxic respiratory failure due to possible underlying pneumonia and/or congestive heart failure CT 05/18 - no PE , bilat basilar infiltrates - intubated 05.19 , AC 26 400-peep 12 45% PAP 32 - WILL decrease peep to 10 -> 8 , rr to 20 - secretion aare thick , not SHOCK - off pressors 05/20 PNA RLL / UTI - cefepime / doxy - sputum NL ruchi 05/18 - urine - E coli 05/18 - blood staph coag ( contaminamt ) CAD , NSTEMI type II - ECHO 05/19/21 - EF 60% RVSP 34 mm Hg - cardiology follows A fib , new on admission - amio gtt - converted to sinus 05/21 - changed to po - heparing gtt - to lovenox proph mental status change - presumed due to Co2 retention , but with active Herpes and not folloing commands off propofol - will cont TX with acyclovir /cefepime 2 g q12 for meningitis - on PRECEDEX , VERCED - not follow commands - ? need LP - WILL DISCUSS WITH PCP IGGY - IMPROVING WITH HYDRATION - EF 60 % , on Fio2 40 % - will start IVF and follow anemia - -brown-colored output from her OG tube. No michela blood follow OFF TF , ON PPI Shingels - not acive skin lesions as per Rn now DM II - iss , as per PCP Morbid obesity BMI 60 Lines : L IJ 05/18 , (Central Line Necessity Reviewed) Woods: + OG: + Nutrition: sterted TF Analgesia: fentalyl Anxiety/ delirium VTE Prophylaxis: Stress Ulcer Prophylaxis: ppi Glycemic Control: + Plans in collaboration with bedside consultants and IM MDs. A total of 32 minutes of critical care time was devoted to this patient today, required to treat and/or prevent further deterioration of critical care condition ( as above ) . MOMO NIÑO MD May 23, 2021 09:35
--- NOTE | 2021-05-23 09:51 | Progress Note - Cardiology ---
Cardiology SOAP Progress Note Subjective: Intubated and sedated Moving around in the bed at times Objective: I&O/Vital Signs 05/23/21 05/23/21 05/23/21 05/23/21 01:00 01:21 02:00 02:02 Temp 37.3 Pulse 62 62 64 Resp B/P (MAP) 135/69 (91) Pulse Ox 95 93 O2 Delivery Mechanical Ventilator Mechanical Ventilator O2 Flow Rate 35.00 40.00 FiO2 35 05/23/21 05/23/21 05/23/21 05/23/21 03:00 04:00 04:00 05:00 Temp 37.2 37.1 37.1 Pulse 63 61 61 Resp B/P (MAP) 136/66 (89) 140/72 (94) 146/74 (98) Pulse Ox 95 91 95 95 O2 Delivery Mechanical Ventilator Mechanical Ventilator Mechanical Ventilator Mechanical Ventilator O2 Flow Rate 40.00 40.00 40.00 FiO2 35 05/23/21 05/23/21 05/23/21 05/23/21 06:00 06:17 06:43 07:00 Temp 37.0 37.0 Pulse 60 60 60 60 Resp B/P (MAP) 143/76 (98) 147/77 (100) Pulse Ox 94 94 94 O2 Delivery Mechanical Ventilator Mechanical Ventilator O2 Flow Rate 40.00 40.00 FiO2 35 05/23/21 05/23/21 05/23/21 05/23/21 08:00 08:00 09:00 09:21 Temp 37.0 37.0 Pulse 59 60 67 Resp B/P (MAP) 147/77 (100) 136/73 (94) Pulse Ox 94 92 99 90 O2 Delivery Mechanical Ventilator Mechanical Ventilator Mechanical Ventilator O2 Flow Rate 40.00 40.00 FiO2 35 35 05/23/21 05/23/21 05/23/21 05/23/21 10:00 11:00 12:00 12:40 Temp 37.0 37.1 37.2 Pulse 64 62 62 62 Resp B/P (MAP) 158/86 (110) 161/86 (111) 161/89 (113) Pulse Ox 92 92 92 O2 Delivery Mechanical Ventilator Mechanical Ventilator Mechanical Ventilator O2 Flow Rate 40.00 40.00 40.00 05/23/21 00:00 Intake Total 1116 ml Output Total 675 ml Balance 441 ml Weight (Pounds): 268 Weight (Ounces): 10.0 Weight (Calculated Kilograms): 121.368942 Constitutional: well-developed, well-nourished Respiratory: other (intubated; fair air entry) Cardiovascular: regular rate-rhythm; No JVD; S1 and S2 Gastrointestional: soft, audible bowel sounds Extremities: other (mild to mod bilat LE swelling) Neurologic/Psychiatric: other (sedated, but moving extremities at times; unable to cooperate with neuro exam) Skin: No rash on exposed areas, No ulcerations on exposed areas Results/Procedures: Labs Laboratory Tests 05/22/21 17:21: Glucometer 81 05/22/21 20:58: Glucometer 111H 05/22/21 23:43: Glucometer 96 05/23/21 02:54: White Blood Count 5.8, Red Blood Count 3.46L, Hemoglobin 8.3L, Hematocrit 27L, Mean Corpuscular Volume 78L, Mean Corpuscular Hemoglobin 24L, Mean Corpuscular Hemoglobin Concent 31L, Red Cell Distribution Width 16.0H, Platelet Count 167, Mean Platelet Volume 10.1, Immature Granulocyte % (Auto) 1, Neutrophils (%) (Auto) 72, Lymphocytes (%) (Auto) 15, Monocytes (%) (Auto) 9, Eosinophils (%) (Auto) 2, Basophils (%) (Auto) 1, Neutrophils # (Auto) 4.2, Lymphocytes # (Auto) 0.9L, Monocytes # (Auto) 0.5, Eosinophils # (Auto) 0.1, Basophils # (Auto) 0.0, Immature Granulocyte # (Auto) 0.0, Sodium Level 140, Potassium Level 3.5L, Chloride Level 113H, Carbon Dioxide Level 17L, Anion Gap 10, Blood Urea Nitrogen 46H, Creatinine 0.90, Estimat Glomerular Filtration Rate 63, BUN/Creatinine Ratio 51, Glucose Level 96, Calcium Level 7.9L, Phosphorus Level 3.4, Magnesium Level 2.4 05/23/21 03:00: Blood Gas Puncture Site R RADIAL, Blood Gas Patient Temperature 37.1, Arterial Blood pH 7.36L, Arterial Blood Partial Pressure CO2 31L, Arterial Blood Partial Pressure O2 82, Arterial Blood HCO3 17*L, Arterial Blood Total CO2 18.0L, Arterial Blood Oxygen Saturation 97, Arterial Blood Base Excess -7.2L, Erasto Test YES-POS, Blood Gas Ventilator Setting YES, Blood Gas Inspired Oxygen NA 05/23/21 11:29: Glucometer 110 Microbiology 05/19/21 Blood Culture - Preliminary, Resulted No growth 05/18/21 Gram Stain - Final, Complete 05/18/21 Sputum Culture - Final, Complete Usual upper respiratory ruchi 05/18/21 Urine Culture - Final, Complete Escherichia coli Procedures NAME: JARVIS COLMENARES [facility] REC#: [id number] PT STATUS: ADM IN : 1955 PHYSICIAN: FARZAD LARSEN JR, MD ADMIT DATE: 05/18/21/ICU Signed Date of Exam:05/22/21 CHEST 1 VIEW, AP/PA ONLY Indication: Respiratory failure. Compared: 05/21/2021 Findings: There are bilateral infiltrates present greatest at the level of the mid to lower right lung where there has been improvement and much better visualization of the right heart border and right hemidiaphragm. The heart is enlarged and unchanged. ET tube and remaining support apparatus stable. No pneumothorax. Impression: Improvements and infiltrates most notably at the right base, stable support apparatus, no adverse change. Dictated by: Dictated on workstation # [id number] Dict: 05/22/2126 Trans: 05/22/21 1356 CV [id number] Interpreted by: MELVIN RINALDI Electronically signed by: MELVIN RINALDI 05/22/21 1356 A/P: Assessment: New onset paroxysmal atrial fibrillation - first diagnosed during this hospitalization on May 19, 2021 - maintaining SR Elevated troponin - NSTEMI vs Type 2 [place] d/t sepsis/hypoxia Sepsis - secondary to UTI - management per medical/eICU services Acute on chronic diastolic (congestive) heart failure - Echo on 05-19-[address] Larsen: showed a-fib throughout the study; LVEF 60- 65%. Mild AoV sclerosis. PASP 34 mmHg Coronary artery disease with documented chronic angina pectoris - Previously reported she has had LAD stenting in early 2017 - Last card cath in late Dec 2018 at [place] and was told that she has diffused blockages in small caliber vessels and that she is not a candidate for further [facility] intervention - Previously reported severe intolerance to oral nitrates (severe headaches) Acute on chronic respiratory failure with hypoxemia requiring intubation - management per eICU/medical services - Multi-factorial - obesity hypoventilation syndrome/non-compliance with CPAP/acute on chronic diastolic CHF - ROBBIN - has not been tolerant to CPAP tx in the past IGGY on CKD - acute likely secondary to sepsis - CKD likely secondary to diabetic nephropathy Essential hypertension - continue current regimen - adjust as indicated HLD - statin DM 2 Obesity Medication intolerance - KEILY-inhib cause cough, but has been able to take ARBs Mild anemia of undetermined etiology - management per medical services Hypokalemia - replace Plan: Complex management issue with multiple co-morbidities as noted above Continue current medication regiment Advise ASA, low dose d/t known h/o CAD Maintaining SR - continue Amiodarone Continue BB Continue statin Monitor lab closely and replace electrolytes as indicated D/t episode of PAF advise OAC with Eliquis for stroke prophylaxis if ok with medical/eICU services Dr. Larsen notes have been reviewed SAL BACON May 23, 2021 09:51
[2021-05-23] MEDS ORDERED: ASPIRIN 81 MG CHEW (CHILDREN'S ASA) PO ONE (10:30)
[2021-05-23] MEDS ORDERED: PANTOPRAZOLE 40 MG (PROTONIX) VIAL IV ONE (10:30)
--- NOTE | 2021-05-23 10:49 | Progress Note - Cardiology ---
Cardiology SOAP Progress Note Subjective: Intubated, sedated, and on mech vent. Unable to provide any history Objective: I&O/Vital Signs 05/22/21 05/22/21 05/23/21 05/23/21 23:00 23:59 00:00 00:05 Temp 37.5 37.3 Pulse 64 64 63 Resp 25 25 27 B/P (MAP) 138/70 (92) 142/72 (95) 140/69 Pulse Ox 95 95 95 O2 Delivery Mechanical Ventilator Mechanical Ventilator Mechanical Ventilator O2 Flow Rate 40.00 40.00 FiO2 40 05/23/21 05/23/21 05/23/21 05/23/21 01:00 01:21 02:00 02:02 Temp 37.3 Pulse 62 62 64 Resp 25 26 B/P (MAP) 135/69 (91) Pulse Ox 95 93 O2 Delivery Mechanical Ventilator Mechanical Ventilator O2 Flow Rate 35.00 40.00 FiO2 35 05/23/21 05/23/21 05/23/21 05/23/21 03:00 04:00 04:00 05:00 Temp 37.2 37.1 37.1 Pulse 63 61 61 Resp 25 25 25 B/P (MAP) 136/66 (89) 140/72 (94) 146/74 (98) Pulse Ox 95 91 95 95 O2 Delivery Mechanical Ventilator Mechanical Ventilator Mechanical Ventilator Mechanical Ventilator O2 Flow Rate 40.00 40.00 40.00 FiO2 35 05/23/21 05/23/21 05/23/21 05/23/21 06:00 06:17 06:43 07:00 Temp 37.0 37.0 Pulse 60 60 60 60 Resp 25 26 25 B/P (MAP) 143/76 (98) 147/77 (100) Pulse Ox 94 94 94 O2 Delivery Mechanical Ventilator Mechanical Ventilator O2 Flow Rate 40.00 40.00 FiO2 35 05/23/21 05/23/21 05/23/21 08:00 09:00 09:21 Temp 37.0 37.0 Pulse 59 60 67 Resp 25 25 29 B/P (MAP) 147/77 (100) 136/73 (94) Pulse Ox 94 99 90 O2 Delivery Mechanical Ventilator Mechanical Ventilator O2 Flow Rate 40.00 40.00 FiO2 35 05/23/21 00:00 Intake Total 1116 ml Output Total 675 ml Balance 441 ml Weight (Pounds): 268 Weight (Ounces): 10.0 Weight (Calculated Kilograms): 121.711001 Constitutional: well-developed, well-nourished, other (Intubated, sedated, and on [facility]enio) Respiratory: other (intubated; fair air entry) Cardiovascular: regular rate-rhythm; No JVD; S1 and S2 Gastrointestional: soft, audible bowel sounds Extremities: other (mild to mod bilat LE swelling) Neurologic/Psychiatric: other (sedated, but moving extremities at times; unable to cooperate with neuro exam) Skin: No rash on exposed areas, No ulcerations on exposed areas Results/Procedures: Labs Laboratory Tests 05/22/21 11:41: Glucometer 85 05/22/21 17:21: Glucometer 81 05/22/21 20:58: Glucometer 111H 05/22/21 23:43: Glucometer 96 05/23/21 02:54: White Blood Count 5.8, Red Blood Count 3.46L, Hemoglobin 8.3L, Hematocrit 27L, Mean Corpuscular Volume 78L, Mean Corpuscular Hemoglobin 24L, Mean Corpuscular Hemoglobin Concent 31L, Red Cell Distribution Width 16.0H, Platelet Count 167, Mean Platelet Volume 10.1, Immature Granulocyte % (Auto) 1, Neutrophils (%) (Auto) 72, Lymphocytes (%) (Auto) 15, Monocytes (%) (Auto) 9, Eosinophils (%) (Auto) 2, Basophils (%) (Auto) 1, Neutrophils # (Auto) 4.2, Lymphocytes # (Auto) 0.9L, Monocytes # (Auto) 0.5, Eosinophils # (Auto) 0.1, Basophils # (Auto) 0.0, Immature Granulocyte # (Auto) 0.0, Sodium Level 140, Potassium Level 3.5L, Chloride Level 113H, Carbon Dioxide Level 17L, Anion Gap 10, Blood Urea Nitrogen 46H, Creatinine 0.90, Estimat Glomerular Filtration Rate 63, BUN/Creatinine Ratio 51, Glucose Level 96, Calcium Level 7.9L, Phosphorus Level 3.4, Magnesium Level 2.4 05/23/21 03:00: Blood Gas Puncture Site R RADIAL, Blood Gas Patient Temperature 37.1, Arterial Blood pH 7.36L, Arterial Blood Partial Pressure CO2 31L, Arterial Blood Partial Pressure O2 82, Arterial Blood HCO3 17*L, Arterial Blood Total CO2 18.0L, Arterial Blood Oxygen Saturation 97, Arterial Blood Base Excess -7.2L, Erasto Te st YES-POS, Blood Gas Ventilator Setting YES, Blood Gas Inspired Oxygen NA Microbiology 05/19/21 Blood Culture - Preliminary, Resulted No growth 05/18/21 Gram Stain - Final, Complete 05/18/21 Sputum Culture - Final, Complete Usual upper respiratory ruchi 05/18/21 Urine Culture - Final, Complete Escherichia coli Procedures Laboratory Tests 05/22/21 03:30 05/23/21 02:54 A/P: Assessment: New onset paroxysmal atrial fibrillation - first diagnosed during this hospitalization on May 19, 2021 - maintaining SR Elevated troponin - Probably type 2 [place] d/t sepsis/hypoxia Sepsis - secondary to UTI - management per medical/eICU services Acute on chronic diastolic (congestive) heart failure - Echo on 05-19-[address] Larsen: showed a-fib throughout the study; LVEF 60- 65%. Mild AoV sclerosis. PASP 34 mmHg Coronary artery disease with documented chronic angina pectoris - Previously reported she has had LAD stenting in early 2017 - Last card cath in late Dec 2018 at [place] and was told that she has diffused blockages in small caliber vessels and that she is not a candidate for further [facility] intervention - Previously reported severe intolerance to oral nitrates (severe headaches) Acute on chronic respiratory failure with hypoxemia requiring intubation, management per eICU/medical services - Multi-factorial - obesity hypoventilation syndrome/non-compliance with CPAP/acute on chronic diastolic CHF - ROBBIN - has not been tolerant to CPAP tx in the past IGGY on CKD - acute likely secondary to sepsis - CKD likely secondary to diabetic nephropathy Essential hypertension - continue current regimen - adjust as indicated HLD - statin DM 2 Obesity Medication intolerance - KEILY-inhib cause cough, but has been able to take ARBs Mild anemia of undetermined etiology, management per medical services Hypokalemia Plan: I examined her and reviewed her records. Management is complex due to multiple comorbidities Advise ASA, low dose d/t known h/o CAD Maintaining SR - continue Amiodarone Continue BB Continue statin Monitor lab closely and replace electrolytes as indicated D/t episode of PAF, we advise OAC with Eliquis for stroke prophylaxis - to be approved by medical/eICU services DAPHNE FUCHS MD FACP FAC CCDS May 23, 2021 10:49
--- NOTE | 2021-05-23 12:21 | Progress Note ---
CARLO DE LA O MED STUDENT 05/23/21 1221: Progress Note CC: unable to obtain d/t clinical condition PE: general: sedated CV: RRR, no edema respiratory: intubated; coarse breath sounds abdomen: soft, non-distended extremity: normal appearance neuro/psych: sedated Assessment/Plan: severe sepsis Cefepime Doxycycline ARDS intubated 05/08 Versed and Precedex NSTEMI Cardiology following Lovenox dose changed from therapeutic to prophylactic dose Anemia stable from yesterday, continue to monitor hemoccult negative shingles acyclovir acute kidney injury-resolved DIANDRA BLANKENSHIP DO 05/23/212127: Supervisory-Addendum Brief Verification & Attestation Participated in pt care: history, MDM, physical Personally performed: exam, history, MDM, supervision of care Care discussed with: Medical Student Procedures: n/a Results interpretation: Verified all documentation Verification and Attestation of Medical Student E/M Service A medical student performed and documented this service in my presence. I reviewed and verified all information documented by the medical student and made modifications to such information, when appropriate. I personally performed the physical exam and medical decision making. Diandra Blankenship, May 23, 2021,21:28 CARLO DE LA O MED STUDENT May 23, 2021 12:21 DIANDRA BLANKENSHIP DO May 23, 2021 21:28
[2021-05-23 13:10] VITALS: BP 176/92
[2021-05-23] MEDS: DexMEDEtomidine 250 ML DRIP 250 ML IV SCH ×3 (14:46→23:10)
[2021-05-23 18:29] VITALS: BP 156/81
[2021-05-23] MEDS: ROSUVASTATIN 20 MG (CRESTOR) TABLET PO SCH (21:07)
[2021-05-23 21:30] VITALS: BP 169/84
[2021-05-23] MEDS ORDERED: fentaNYL DRIP PRE-MIX 250 ML IV ONE (22:19)
[2021-05-23] MEDS: fentaNYL DRIP PRE-MIX 250 ML IV SCH (22:22)
[2021-05-24] MEDS: ACYCLOVIR INJECTION 800 MG in NS (IVPB) 250 ML IV SCH ×3 (01:29→18:35)
[2021-05-24] MEDS: CEFEPIME 2,000 MG/SWFI 20 ML IV PUSH IV SCH ×4 (01:30→13:48)
[2021-05-24 02:05] VITALS: BP 156/81
[2021-05-24] MEDS: RT-ALBUTEROL/IPRATROPIUM 3 ML (DUONEB) VIAL INH SCH ×6 (02:05→21:36)
[2021-05-24] MEDS: DOXYCYCLINE INJECTION 100 MG in NS (IVPB) 100 ML IV SCH ×2 (02:35→15:10)
[2021-05-24 04:38] LABS: ABG BASE EXCESS -8.2 MMOL/L (-2.5-2.5); ABG OXYGEN SATURATION 93 % (94-100); ABG PCO2 35 MMHG (35-45); ABG PO2 70 MMHG (79-93); ABG TCO2 17.8 MMOL/L (21.0-31.0)
[2021-05-24 04:39] LABS: ABG PH 7.31 (7.37-7.43); ALLENS TEST YES-POS; BASOPHILS % (AUTO) 0 % (0-10); EOSINOPHILS # (AUTO) 0.1 10^3/uL (0.0-0.3); EOSINOPHILS % (AUTO) 2 % (0-10); HEMATOCRIT 30 % (35-52); HEMOGLOBIN 9.4 g/dL (11.5-16.0); LYMPHOCYTES # (AUTO) 0.7 10^3/uL (1.0-4.0); LYMPHOCYTES % (AUTO) 10 % (12-44); MEAN CORPUSCULAR HEMOGLOBIN 24 pg (25-34); MEAN CORPUSCULAR HGB CONC 31 g/dL (32-36); MEAN CORPUSCULAR VOLUME 78 fL (80-99); MEAN PLATELET VOLUME 10.2 fL (9.0-12.2); MONOCYTES # (AUTO) 0.7 10^3/uL (0.0-1.0); MONOCYTES % (AUTO) 10 % (0-12); NEUTROPHILS # (AUTO) 5.5 10^3/uL (1.8-7.8); NEUTROPHILS % (AUTO) 78 % (42-75); PATIENT TEMP 37.1; PLATELET COUNT 201 10^3/uL (130-400); VENTILATOR YES
[2021-05-24 04:49] LABS: POTASSIUM 3.8 MMOL/L (3.6-5.0)
[2021-05-24 04:50] LABS: CALCIUM 7.9 MG/DL (8.5-10.1)
[2021-05-24 04:54] LABS: PHOSPHORUS 3.4 MG/DL (2.3-4.7)
[2021-05-24 04:55] LABS: CREATININE SERUM 0.77 MG/DL (0.60-1.30)
[2021-05-24 04:57] LABS: MAGNESIUM 2.3 MG/DL (1.6-2.4)
[2021-05-24] MEDS: KCL 20 MEQ TAB (K-DUR) PO SCH (05:01)
[2021-05-24] MEDS: MAGNESIUM 1 GM/100 ML IVPB 100 ML IV SCH (05:01)
[2021-05-24] MEDS: POTASSIUM CL 10MEQ/50ML IVPB 50 ML IV SCH (05:01)
[2021-05-24] MEDS: inSUlin ASPART (NovoLOG) 1 UNIT/0.01 ML (CHARGE PER UNIT) SC SCH ×4 (05:02→23:06)
[2021-05-24] MEDS: NS IV 1000 ML 1,000 ML IV SCH ×2 (05:04→15:10)
[2021-05-24] MEDS: fentaNYL DRIP PRE-MIX 250 ML IV SCH ×4 (05:16→20:14)
[2021-05-24] MEDS: MIDAZOLAM DRIP PRE-MIX 100 ML IV SCH ×2 (05:16→16:31)
--- NOTE | 2021-05-24 06:18 | Progress Note - Hospitalist ---
Subjective HPI/CC On Admission Date Seen by Provider: May 24, 2021 Time Seen by Provider: 10:00 Paulette Roger is a 65-year-old female with past medical history of hypertension, insulin-dependent diabetes, coronary artery disease, GERD, morbid obesity, who presented with weakness and respiratory failure. EMS was called to her home wh ere she had become very weak and short of breath while using the toilet. She required endotracheal intubation and intraosseous access. There is no ventilator available at [place] and she had to be mechanically bagged. Due to this, a complete work-up was not able to be performed in the emergency room and she was transferred to the [place] emergency room. After arrival, she was placed on a ventilator. CT scans were performed which showed no acute intracranial abnormalities but did reveal bilateral consolidations, pleural effusions, and possible pulmonary edema. She is Covid and flu negative. She was recently diagnosed with shingles. According to her nurse, she was awake and following commands prior to being started on sedation. Subjective/Events-last exam Pt doing a lot better Awake and alert but not following any commands Updated her son Hgb 9.4 CT of the brain will be ordered and lumbar puncture will be done tomorrow by anesthesia Lovenox is held for the lumbar puncture Spoke with EICU in depth Review of Systems General: Fatigue, Malaise Objective Exam Vital Signs Vital Signs Date Time Temp Pulse Resp B/P (MAP) Pulse Ox O2 Delivery O2 Flow Rate FiO2 05/24/21 20:00 92 Mechanical Ventilator 45 05/24/21 19:38 35.8 05/24/21 18:22 60 22 05/24/21 18:00 129/70 (89) 50.00 Capillary Refill : NONE General Appearance: No Apparent Distress, WD/WN, Chronically ill Respiratory: Lungs Clear, Normal Breath Sounds Cardiovascular: Regular Rate, Rhythm Results/Procedures Lab Laboratory Tests 05/24/21 04:20 Patient resulted labs reviewed. Imaging: Reviewed Imaging Films, Reviewed Imaging Report Assessment/Plan Assessment and Plan Assess & Plan/Chief Complaint Assessment: ARDS Severe sepsis Pneumonia Intubated 05/08/2021 Acute right neck herpes zoster maintained on acyclovir IV Non-ST elevation MN requiring heparin drip New onset atrial fibrillation Plan: Heparin drip since non-ST elevation MN and new onset atrial fibrillation take precedence over lumbar puncture Maintain acyclovir 05/20/2021: Acyclovir Antibiotics Supportive care Cardiology and pulmonology appreciated 05/21/2021: Monitor for recurrent A. fib Monitor coffee-ground fluid and OG tube 05/22/2021: Supportive care with intubation Appreciate eICU consultation 05/23/2021: Scaled back Lovenox dose We will try to reach out to eICU instructional systems design consultant today [place] evaluation Maintain ventilator 05/24/2021: CT head Lumbar puncture tomorrow to rule out encephalitis as cause of confusion and difficulty weaning Prognosis guarded Critical Care Critically Ill Patient ASHWINI BLANKENSHIP DO May 24, 2021 06:18
[2021-05-24 07:21] VITALS: BP 140/71
[2021-05-24] MEDS: ASPIRIN 81 MG CHEW (CHILDREN'S ASA) PO SCH (08:00)
[2021-05-24] MEDS: ENOXAPARIN 40 MG/0.4 ML (LOVENOX) SYR SC SCH (08:01)
[2021-05-24] MEDS: AMIODARONE 200 MG (CORDARONE) TAB PO SCH ×2 (08:01→20:13)
[2021-05-24] MEDS: PANTOPRAZOLE 40 MG (PROTONIX) VIAL IV SCH (08:01)
[2021-05-24] MEDS: NOREPINEPHRINE 8 MG/250 ML 250 ML IV SCH ×3 (08:22→22:52)
--- NOTE | 2021-05-24 08:33 | Tele-ICU Progress Note ---
Subjective Date Seen by a Provider: May 24, 2021 Time Seen by a Provider: 08:32 Sepsis Event Evaluation Height, Weight, BMI Height: 5'1.00" Weight: 268lbs. 10.0oz. 121.854440tl; 59.07 BMI Method:Stated Exam Exam Patient acknowledged, consented, and participated in this virtual visit which was conducted using real time audio/video Vital Signs Date Time Temp Pulse Resp B/P (MAP) Pulse Ox O2 Delivery O2 Flow Rate FiO2 05/24/21 08:00 36.7 64 21 134/72 (92) 92 Mechanical Ventilator 60.00 05/24/21 07:21 63 23 92 60 05/24/21 07:00 36.8 64 22 134/69 (90) 92 Mechanical Ventilator 45.00 05/24/21 07:00 64 05/24/21 06:00 36.9 64 21 140/75 (96) 91 Mechanical Ventilator 45.00 05/24/21 05:16 64 22 153/76 05/24/21 05:00 37.2 64 22 153/76 (101) 92 Mechanical Ventilator 45.00 05/24/21 04:00 93 Mechanical Ventilator 45 05/24/21 04:00 37.2 66 25 157/80 (105) 92 Mechanical Ventilator 45.00 05/24/21 03:00 37.2 71 19 162/80 (107) 90 Mechanical Ventilator 45.00 05/24/21 02:05 67 26 92 45 05/24/21 02:00 37.4 68 20 154/81 (105) 92 Mechanical Ventilator 45.00 05/24/21 01:00 37.5 65 17 160/78 (105) 93 Mechanical Ventilator 45.00 05/24/21 00:26 65 05/24/21 00:00 37.5 65 21 166/85 (112) 92 Mechanical Ventilator 45.00 05/23/21 23:59 93 Mechanical Ventilator 45 05/23/21 23:10 70 166/82 05/23/21 23:00 37.5 65 20 163/82 (109) 93 Mechanical Ventilator 45.00 05/23/21 22:02 70 28 166/82 05/23/21 22:00 37.4 70 20 166/86 (112) 93 Mechanical Ventilator 45.00 05/23/21 21:30 64 33 93 45 05/23/21 21:00 37.4 65 26 159/97 (117) 90 Mechanical Ventilator 45.00 05/23/21 20:00 37.4 64 31 166/82 (110) 93 Mechanical Ventilator 45.00 05/23/21 20:00 93 Mechanical Ventilator 45 05/23/21 19:00 37.3 69 31 164/83 (110) 91 Mechanical Ventilator 45.00 05/23/21 19:00 69 05/23/21 18:29 70 30 92 45 05/23/21 18:00 37.4 64 30 161/79 (106) 94 Mechanical Ventilator 45.00 05/23/21 17:31 Mechanical Ventilator 45.00 05/23/21 17:27 63 180/81 05/23/21 17:00 37.3 63 27 157/78 (104) 90 Mechanical Ventilator 40.00 05/23/21 16:15 93 Mechanical Ventilator 45 05/23/21 16:00 37.2 62 21 155/80 (105) 92 Mechanical Ventilator 40.00 05/23/21 15:00 37.2 63 19 154/78 (103) 91 Mechanical Ventilator 40.00 05/23/21 14:46 64 149/77 05/23/21 14:46 64 154/72 05/23/21 14:00 37.2 63 21 153/80 (104) 92 Mechanical Ventilator 40.00 05/23/21 13:10 63 25 91 35 05/23/21 13:00 37.2 63 21 176/92 (120) 89 Mechanical Ventilator 40.00 05/23/21 12:40 62 05/23/21 12:15 93 Mechanical Ventilator 35 05/23/21 12:00 37.2 62 19 161/89 (113) 92 Mechanical Ventilator 40.00 05/23/21 11:00 37.1 62 24 161/86 (111) 92 Mechanical Ventilator 40.00 05/23/21 10:00 37.0 64 28 158/86 (110) 92 Mechanical Ventilator 40.00 05/23/21 09:21 67 29 90 35 05/23/21 09:00 37.0 60 25 136/73 (94) 99 Mechanical Ventilator 40.00 I & O 05/24/21 07:00 Intake Total 876 ml Output Total 2065 ml Balance -1189 ml Height & Weight Height: 5'1.00" Weight: 268lbs. 10.0oz. 121.338293wn; 59.07 BMI Method:Stated General Appearance: No Apparent Distress, WD/WN, Chronically ill Neck: Normal Inspection, Supple, Other (shingles rash Right ant neck and submental area) Respiratory: Lungs Clear, Normal Breath Sounds Cardiovascular: Regular Rate, Rhythm, No Edema Capillary Refill: NONE Gastrointestinal: normal bowel sounds, non tender, soft, no organomegaly, other (hypoactive BS, is having bowel movement, ? blood form NG) Extremity: Normal Capillary Refill, Normal Inspection Neurologic/Psychiatric: Alert, Oriented x3 Skin: Normal Color, Cool Lymphatic: No Adenopathy Results Lab Laboratory Tests 05/23/21 02:54 05/24/21 04:20 Assessment/Plan Assessment/Plan (Tele-ICU Physician , Progress Note ) Available chart/ vitals / labs / Images reviewed Video assessment done using teleICU camera, rest of exam as per RN discussed with RN overnight increaded o2 Afebrile hemodynamically stable, no pressors, I/O =sundar 400 Drips: off . NS 15 Consultants: cards VENT SETTINGS. AC 22 400-peep 8 60% PAP 32 ABG reviewed Sedation: RASS 1 , not follow commands versed ( elev tgl on propofol precedex Not candidate for SBTContraindications : Cardiovascular Stability / Sedation Score / FI02/PEEP / ABG / CXR reviewed Hospital course: 05/19 - intubated ( with exchange of ETT for right bronchus intubation and blockage of ETT , pressors , a fib rvr 05/21 - sinus , changed to versed wutg elv TGL ( high ) 05/23- AC 26 400-peep 12 45% PAP 32 AC 22 400-peep 8, increased 65% PAP 30 A/P Acute hypoxic respiratory failure due to possible underlying pneumonia and/or congestive heart failure CT 05/18 - no PE , bilat basilar infiltrates - intubated . , AC 22 400-peep 8, increased 65% PAP 30, mild met acidosis - secretion are thick - cont duop neb q4 h - might need mycomist , CXR pending today SHOCK - off pressors 05/20 PNA RLL / UTI - cefepime / doxy - sputum NL ruchi 05/18 - urine - E coli 05/18 - blood staph coag ( contaminamt ) - repeated neg CAD , NSTEMI type II - ECHO 05/19/21 - EF 60% RVSP 34 mm Hg - cardiology follows A fib , new on admission - amio gtt - converted to sinus 05/21 - changed to po - heparing gtt OFF - to lovenox proph mental status change - CT HEAD NEG 05/18 - presumed due to Co2 retention , but with active Herpes and not folloing commands off propofol - will cont TX with acyclovir /cefepime 2 g q12 for meningitis - on fentanyl , midazolam - not followscommands - WILL STOP ALL SEDATION TODAY TO ASSESS ? need LP - WILL DISCUSS WITH PCP IGGY - IMPROVING WITH HYDRATION - EF 60 % , on Fio2 40 % - will start IVF and follow anemia -brown-colored output from her OG tube. No michela blood follow OFF TF , ON PPI , hb STABLE - START TROPHIC FEEDING Shingels - not acive skin lesions as per Rn now DM II - iss , as per PCP Morbid obesity BMI 60 Lines : L IJ 05/18 , (Central Line Necessity Reviewed) Woods: + OG: + Nutrition: trophic feeding , start 50 today ( mita Analgesia: fentalyl Anxiety/ delirium VTE Prophylaxis: Stress Ulcer Prophylaxis: ppi Glycemic Control: + Plans in collaboration with bedside consultants and IM MDs. A total of 37 minutes of critical care time was devoted to this patient today, required to treat and/or prevent further deterioration of critical care condition ( as above ) . MOMO NIÑO MD May 24, 2021 08:33
--- NOTE | 2021-05-24 09:07 | Tele-ICU Progress Note ---
Progress Note Discussed with Dr Recinos -sedation is off, patient is not responsive - will repeat CT scn of head today - if negative- will proceed with LP - [facility] Exam Height, Weight, BMI Height: 5'1.00" Weight: 268lbs. 10.0oz. 121.133905fx; 59.07 BMI Method:Stated MOMO NIÑO MD May 24, 2021 09:07
--- NOTE | 2021-05-24 09:35 | Diagnostic Imaging Report ---
HISTORY: Hypoxia COMPARISON: 05/22/2021 TECHNIQUE: Frontal view of the chest FINDINGS: Lung volumes are normal. There is dense consolidation in the right lung base with airspace opacities in the left perihilar region and the right upper lobe. Overall aeration has decreased since the prior exam. A small effusion is difficult to exclude but no large effusion is seen. There is no pneumothorax. The left central line tip projects over the mid SVC. The endotracheal tube is 4.5 cm above the yudith. An enteric tube crosses the [id number]. IMPRESSION: 1. Bilateral airspace opacities with dense consolidation in the right lung base, may be due to edema or pneumonia. Aeration has decreased since the prior exam. Dictated by: Dictated on workstation # [id number]
[2021-05-24 10:59] VITALS: BP 119/61
--- NOTE | 2021-05-24 12:38 | Progress Note ---
CARLO DE LA O MED STUDENT 05/24/21 1238: Progress Note CC: Unable to obtain d/t clinical condition. Family at bedside PE: general: ill-appearing, obese CV: RRR, no edema respiratory: intubated, coarse breath sounds abdomen: soft, nondistended extremity: normal inspection neuro/psych: opens eyes and moves in bed, but does not respond to verbal stimuli Assessment/plan: severe sepsis Cefepime and doxycycline Will get CT head LP tomorrow ARDS intubated 05/18 FiO2 increased to 60% sedation turned off CXR today shows worsening consolidation and aeration NSTEMI Cardiology following Anemia improved from yesterday, continue to monitor shingles acyclovir acute kidney injury-resolved DIANDRA BLANKENSHIP DO 05/24/21 1337: Supervisory-Addendum Brief Verification & Attestation Participated in pt care: history, MDM, physical Personally performed: exam, history, MDM, supervision of care Care discussed with: Medical Student Procedures: n/a Results interpretation: Verified all documentation Verification and Attestation of Medical Student E/M Service A medical student performed and documented this service in my presence. I reviewed and verified all information documented by the medical student and made modifications to such information, when appropriate. I personally performed the physical exam and medical decision making. Diandra Blankenship, May 24, 2021,13:37 CARLO DE LA O MED STUDENT May 24, 2021 12:38 DIANDRA BLANKENSHIP DO May 24, 2021 13:37
--- NOTE | 2021-05-24 13:12 | Diagnostic Imaging Report ---
Clinical indication: Patient altered mental status on ventilator. Patient with pneumonia and shingles outbreak. Exam: Axial CT scan of the brain without IV contrast with coronal and sagittal reformatted images. Auto Exposure Controls were utilized during the CT exam to meet ALARA standards for radiation dose reduction. Comparison: Head CT without contrast dated 05/18/2021.. Findings: There is skull streak artifact limiting evaluation of the brainstem, posterior fossa, and portions of the brain near the skull base. There is no evidence of acute cerebral infarct, intracranial hemorrhage, or gross mass effect. The brain parenchymal volume appears appropriate for patient's age. small confluent areas of low-attenuation white matter changes involving both frontal lobes. There is normal smith-white matter distinction. There is no significant midline shift or herniation. There is no evidence of hydrocephalus. The basal cisterns are unremarkable. The skull, extracranial soft tissue, and orbits are unremarkable. The paranasal sinuses are unremarkable. Temporal bones show no significant abnormality. Impression: Stable CT scan of the brain with no interval acute intracranial process. Dictated by: Dictated on workstation # [id number]
[2021-05-24 14:47] VITALS: BP 134/74
--- NOTE | 2021-05-24 16:20 | Progress Note - Cardiology ---
Cardiology SOAP Progress Note Subjective: Intubated, on mech vent, non-communicative Objective: I&O/Vital Signs 05/24/21 05/24/21 05/24/21 05/24/21 05:00 05:16 06:00 07:00 Temp 37.2 36.9 Pulse 64 64 64 64 Resp B/P (MAP) 153/76 (101) 153/76 140/75 (96) Pulse Ox 92 91 O2 Delivery Mechanical Ventilator Mechanical Ventilator O2 Flow Rate 45.00 45.00 05/24/21 05/24/21 05/24/21 05/24/21 07:00 07:21 07:45 08:00 Temp 36.8 36.7 Pulse 64 63 64 Resp B/P (MAP) 134/69 (90) 134/72 (92) Pulse Ox 92 92 92 92 O2 Delivery Mechanical Ventilator Mechanical Ventilator Mechanical Ventilator O2 Flow Rate 45.00 60.00 FiO2 60 60 05/24/21 05/24/21 05/24/21 05/24/21 09:00 10:00 10:05 10:59 Temp 36.6 36.8 Pulse 65 65 64 Resp B/P (MAP) 131/75 (93) 137/81 (99) Pulse Ox 92 98 93 O2 Delivery Mechanical Ventilator Mechanical Ventilator Mechanical Ventilator O2 Flow Rate 60.00 60.00 50.00 FiO2 55 05/24/21 05/24/21 05/24/21 05/24/21 11:00 12:00 13:00 13:00 Temp 37.0 36.9 36.9 Pulse 64 64 65 64 Resp B/P (MAP) 119/61 (80) 134/74 (94) 134/74 (94) Pulse Ox 94 93 93 O2 Delivery Mechanical Ventilator Mechanical Ventilator Mechanical Ventilator O2 Flow Rate 50.00 50.00 50.00 05/24/21 05/24/21 05/24/21 05/24/21 14:00 14:47 15:00 15:27 Temp 36.9 Pulse 61 91 61 Resp Pulse Ox 90 93 94 O2 Delivery Mechanical Ventilator Mechanical Ventilator Mechanical Ventilator O2 Flow Rate 50.00 50.00 45.00 FiO2 55 05/24/21 05/24/21 15:53 16:00 Temp 36.6 Pulse 63 Resp B/P (MAP) Arterial Line Pulse Ox 92 O2 Delivery Mechanical Ventilator O2 Flow Rate 50.00 05/24/21 00:00 Intake Total 756 ml Output Total 1015 ml Balance -259 ml Weight (Pounds): 268 Weight (Ounces): 10.0 Weight (Calculated Kilograms): 121.262888 Constitutional: well-developed, well-nourished, other (Intubated, on mech vent, non-communicative) Respiratory: other (intubated; fair air entry) Cardiovascular: regular rate-rhythm; No JVD; S1 and S2 Gastrointestional: soft, audible bowel sounds Extremities: other (mild to mod bilat LE swelling) Neurologic/Psychiatric: other (Intubated, on mech vent, non-communicative) Skin: No rash on exposed areas, No ulcerations on exposed areas Results/Procedures: Labs Laboratory Tests 05/23/21 18:25: Glucometer 108 05/23/21 23:11: Glucometer 131H 05/24/21 04:20: White Blood Count 7.0, Red Blood Count 3.90, Hemoglobin 9.4L, Hematocrit 30L, Mean Corpuscular Volume 78L, Mean Corpuscular Hemoglobin 24L, Mean Corpuscular Hemoglobin Concent 31L, Red Cell Distribution Width 15.9H, Platelet Count 201, Mean Platelet Volume 10.2, Immature Granulocyte % (Auto) 1, Neutrophils (%) (Auto) 78H, Lymphocytes (%) (Auto) 10L, Monocytes (%) (Auto) 10, Eosinophils (%) (Auto) 2, Basophils (%) (Auto) 0, Neutrophils # (Auto) 5.5, Lymphocytes # (Auto) 0.7L, Monocytes # (Auto) 0.7, Eosinophils # (Auto) 0.1, Basophils # (Auto) 0.0, Immature Granulocyte # (Auto) 0.1, Blood Gas Puncture Site RIGHT RADIAL, Blood Gas Patient Temperature 37.1, Arterial Blood pH 7.31*L, Arterial Blood Partial Pressure CO2 35, Arterial Blood Partial Pressure O2 70L, Arterial Blood HCO3 17*L, Arterial Blood Total CO2 17.8L, Arterial Blood Oxygen Saturation 93L, Arterial Blood Base Excess -8.2L, Erasto Test YES-POS, Blood Gas Ventilator Setting YES, Blood Gas Inspired Oxygen 55%, Sodium Level 142, Potassium Level 3.8, Chloride Level 116H, Carbon Dioxide Level 17L, Anion Gap 9, Blood Urea Ni trogen 40H, Creatinine 0.77, Estimat Glomerular Filtration Rate 75, BUN/Creatinine Ratio 52, Glucose Level 133H, Calcium Level 7.9L, Phosphorus Leve l 3.4, Magnesium Level 2.3 05/24/21 12:29: Glucometer 99 Microbiology 05/19/21 Blood Culture - Final, Complete No growth 05/18/21 Gram Stain - Final, Complete 05/18/21 Sputum Culture - Final, Complete Usual upper respiratory ruchi 05/18/21 Urine Culture - Final, Complete Escherichia coli Laboratory Tests 05/23/21 02:54 05/24/21 04:20 A/P: Assessment: New onset paroxysmal atrial fibrillation - first diagnosed during this hospitalization on May 19, 2021; currently maint aining SR Elevated troponin - Probably type 2 HI d/t sepsis/hypoxia Sepsis - secondary to UTI - management per medical/eICU services Acute on chronic diastolic (congestive) heart failure - Echo on 05-19-[address] Larsen: showed a-fib throughout the study; LVEF 60- 65%. Mild AoV sclerosis. PASP 34 mmHg Coronary artery disease with documented chronic angina pectoris - Previously reported she has had LAD stenting in early 2017 - Last card cath in late Dec 2018 at [facility] and was told that she has diffused blockages in small caliber vessels and that she is not a candidate for further [facility] intervention - Previously reported severe intolerance to oral nitrates (severe headaches) Acute on chronic respiratory failure with hypoxemia requiring intubation, management per eICU/medical services - Multi-factorial - obesity hypoventilation syndrome/non-compliance with CPAP/acute on chronic diastolic CHF - ROBBIN - has not been tolerant to CPAP tx in the past IGGY on CKD - acute likely secondary to sepsis - CKD likely secondary to diabetic nephropathy Essential hypertension - continue current regimen - adjust as indicated HLD - statin DM 2 Obesity H/o medication intolerance: KEILY-inhib cause cough, but has been able to take ARBs Mild anemia of undetermined etiology, management per medical services Plan: Management is complex due to multiple comorbidities Advise ASA, low dose d/t known h/o CAD Maintaining SR - continue Amiodarone Continue BB Continue statin Monitor lab closely and replace electrolytes as indicated D/t episode of PAF, we advise OAC with Eliquis for stroke prophylaxis - to be approved by medical/eICU services DAPHNE FUCHS MD FACP FAC CCDS May 24, 2021 16:20
[2021-05-24 18:22] VITALS: BP 129/70
[2021-05-24] MEDS: ROSUVASTATIN 20 MG (CRESTOR) TABLET PO SCH (20:13)
[2021-05-24 21:36] VITALS: BP 137/73
[2021-05-25] MEDS: ACYCLOVIR INJECTION 800 MG in NS (IVPB) 250 ML IV SCH ×3 (02:00→16:54)
[2021-05-25] MEDS: CEFEPIME 2,000 MG/SWFI 20 ML IV PUSH IV SCH ×4 (02:00→14:30)
[2021-05-25] MEDS: fentaNYL DRIP PRE-MIX 250 ML IV SCH ×6 (02:15→22:33)
[2021-05-25 02:53] VITALS: BP 133/72
[2021-05-25] MEDS: RT-ALBUTEROL/IPRATROPIUM 3 ML (DUONEB) VIAL INH SCH ×2 (02:53→07:24)
[2021-05-25] MEDS: DOXYCYCLINE INJECTION 100 MG in NS (IVPB) 100 ML IV SCH ×2 (04:01→14:39)
[2021-05-25] MEDS: MIDAZOLAM DRIP PRE-MIX 100 ML IV SCH ×2 (05:18→20:41)
[2021-05-25 05:21] LABS: BASOPHILS % (AUTO) 1 % (0-10); EOSINOPHILS # (AUTO) 0.2 10^3/uL (0.0-0.3); EOSINOPHILS % (AUTO) 2 % (0-10); HEMATOCRIT 28 % (35-52); HEMOGLOBIN 8.5 g/dL (11.5-16.0); LYMPHOCYTES # (AUTO) 0.8 10^3/uL (1.0-4.0); LYMPHOCYTES % (AUTO) 10 % (12-44); MEAN CORPUSCULAR HEMOGLOBIN 24 pg (25-34); MEAN CORPUSCULAR HGB CONC 31 g/dL (32-36); MEAN CORPUSCULAR VOLUME 80 fL (80-99); MEAN PLATELET VOLUME 9.6 fL (9.0-12.2); MONOCYTES # (AUTO) 0.6 10^3/uL (0.0-1.0); MONOCYTES % (AUTO) 8 % (0-12); NEUTROPHILS # (AUTO) 6.3 10^3/uL (1.8-7.8); NEUTROPHILS % (AUTO) 79 % (42-75); PLATELET COUNT 203 10^3/uL (130-400)
[2021-05-25 05:22] LABS: ABG BASE EXCESS -8.7 MMOL/L (-2.5-2.5); ABG OXYGEN SATURATION 96 % (94-100); ABG PCO2 37 MMHG (35-45); ABG PO2 82 MMHG (79-93); ABG TCO2 17.9 MMOL/L (21.0-31.0)
[2021-05-25 05:23] LABS: ABG PH 7.28 (7.37-7.43)
[2021-05-25 05:24] LABS: ALLENS TEST YES-POS
[2021-05-25 05:25] LABS: INSPIRED O2 65%; PATIENT TEMP 36.9; VENTILATOR YES
[2021-05-25 05:40] LABS: POTASSIUM 3.7 MMOL/L (3.6-5.0)
[2021-05-25 05:46] LABS: CREATININE SERUM 0.86 MG/DL (0.60-1.30); PHOSPHORUS 3.6 MG/DL (2.3-4.7)
[2021-05-25 05:48] LABS: MAGNESIUM 2.4 MG/DL (1.6-2.4)
[2021-05-25] MEDS: POTASSIUM CL 10MEQ/50ML IVPB 50 ML IV SCH (05:50)
[2021-05-25] MEDS: inSUlin ASPART (NovoLOG) 1 UNIT/0.01 ML (CHARGE PER UNIT) SC SCH ×4 (05:51→22:47)
[2021-05-25] MEDS: KCL 20 MEQ TAB (K-DUR) PO SCH (05:51)
[2021-05-25] MEDS: NOREPINEPHRINE 8 MG/250 ML 250 ML IV SCH ×3 (05:51→21:53)
[2021-05-25] MEDS: MAGNESIUM 1 GM/100 ML IVPB 100 ML IV SCH (05:51)
--- NOTE | 2021-05-25 06:22 | Progress Note - Hospitalist ---
Subjective HPI/CC On Admission Date Seen by Provider: May 25, 2021 Time Seen by Provider: 06:30 Paulette Roger is a 65-year-old female with past medical history of hypertension, insulin-dependent diabetes, coronary artery disease, GERD, morbid obesity, who presented with weakness and respiratory failure. EMS was called to her home wh ere she had become very weak and short of breath while using the toilet. She required endotracheal intubation and intraosseous access. There is no ventilator available at [facility] and she had to be mechanically bagged. Due to this, a complete work-up was not able to be performed in the emergency room and she was transferred to the [place] emergency room. After arrival, she was placed on a ventilator. CT scans were performed which showed no acute intracranial abnormalities but did reveal bilateral consolidations, pleural effusions, and possible pulmonary edema. She is Covid and flu negative. She was recently diagnosed with shingles. According to her nurse, she was awake and following commands prior to being started on sedation. Subjective/Events-last exam Essentially no change Lumbar puncture will be done today Will DC the Albuterol due to causing the AFIB EKG obtained showing AFIB consistent with a clinical exam ABG is 7.28/37/82 Hgb 8.5 Objective Exam Vital Signs Vital Signs Date Time Temp Pulse Resp B/P (MAP) Pulse Ox O2 Delivery O2 Flow Rate FiO2 05/26/21 06:00 61 30 117/70 (86) 92 Mechanical Ventilator 80.00 05/26/21 04:00 80 05/25/21 20:00 36.6 Capillary Refill : NONE General Appearance: No Apparent Distress, WD/WN, Chronically ill, Obese, Other (Intubated) Respiratory: Lungs Clear, Decreased Breath Sounds Results/Procedures Lab Laboratory Tests 05/26/21 05:00 Patient resulted labs reviewed. Imaging: Reviewed Imaging Films, Reviewed Imaging Report Assessment/Plan Assessment and Plan Assess & Plan/Chief Complaint Assessment: ARDS Severe sepsis Pneumonia Intubated 05/08/2021 Acute right neck herpes zoster maintained on acyclovir IV Non-ST elevation [place] requiring heparin drip New onset atrial fibrillation Plan: Heparin drip since non-ST elevation [place] and new onset atrial fibrillation take precedence over lumbar puncture Maintain acyclovir 05/20/2021: Acyclovir Antibiotics Supportive care Cardiology and pulmonology appreciated 05/21/2021: Monitor for recurrent A. fib Monitor coffee-ground fluid and OG tube 05/22/2021: Supportive care with intubation Appreciate eICU consultation 05/23/2021: Scaled back Lovenox dose We will try to reach out to eICU business management consultant today [place] evaluation Maintain ventilator 05/24/2021: CT head Lumbar puncture tomorrow to rule out encephalitis as cause of confusion and difficulty weaning Prognosis guarded 05/25/2021: Lumbar puncture today Monitor closely Critical Care Critically Ill Patient ASHWINI BLANKENSHIP DO May 25, 2021 06:22
[2021-05-25 07:24] VITALS: BP 114/73
[2021-05-25] MEDS: AMIODARONE 200 MG (CORDARONE) TAB PO SCH ×2 (08:02→21:53)
[2021-05-25] MEDS: ASPIRIN 81 MG CHEW (CHILDREN'S ASA) PO SCH (08:02)
[2021-05-25] MEDS: PANTOPRAZOLE 40 MG (PROTONIX) VIAL IV SCH (08:08)
[2021-05-25] MEDS ORDERED: LIDOCAINE BOLUS 100 MG/5 ML (IMS) SYR ONE (09:56)
[2021-05-25] MEDS: fentaNYL INJ 100 MCG/2 ML AMP IVP PRN (09:58)
[2021-05-25] MEDS ORDERED: LIDOCAINE BOLUS 100 MG/5 ML (IMS) SYR IV ONE (10:00)
--- NOTE | 2021-05-25 10:28 | Tele-ICU Progress Note ---
Subjective Date Seen by a Provider: May 25, 2021 Time Seen by a Provider: 09:00 Subjective/Events-last exam Patient acknowledged in this virtual visit which was conducted using real time audio/video. Thank you for asking us to see this patient for respiratory insufficiency and distress due to pna. Covid neg. HPC: Recent events: remains intubated tv400 rr 26 70%/+8. On versed/Fent. Again in afib on Amiodarone. LP pending to r/o herpes encephalitis PMH: Morbid ob., DM CAD HTN. SH: smoking history neg FH: Non-contributory ROS: limited by patient's clinical condition. PE: Morbid obesity. VSS HR 85 afib BP 94/65 RR 26 O2 sat 95% on 70%/+8 HEENT: No obvious masses, adenopathy or JVD. Chest: clear to auscultation. CV: RRR S1 S2 No murmur or added sounds. Abd: Non-tender. Bowel sounds . : Unremarkable. [place] . MEDICAL CLAIMS EXAMINER/psychiatric: grossly intact. No obvious focal findings. Extremities: Tr edema. Capillary refill < 3 seconds. Skin: unremarkable. Results: Elevated BUN 44, Na 145. A/P: Respiratory insufficiency/distress: Cont vent/sedation. Available chart/ vitals / labs / Images reviewed. Video assessment done using teleICU camera, rest of exam as per RN. Respiratory: Continue present management with mechanical ventilation. Monitor for increasing oxygenation needs. Give 0.45 saline 1 L bolus then 83 ml/hr. Critical Care: critically ill patient. Discussed with PIERRE Solano. Asked RN to reach out to eICU if any questions or concerns later. Time spent with patient/coordination of care with other health professionals (mins): 15. Sepsis Event Evaluation Sepsis Stage: Ruled Out Height, Weight, BMI Height: 5'1.00" Weight: 268lbs. 10.0oz. 121.791440nb; 59.07 BMI Method:Stated Focused Exam Sepsis Stage: Ruled Out Exam Exam Patient acknowledged, consented, and participated in this virtual visit which was conducted using real time audio/video Vital Signs Date Time Temp Pulse Resp B/P (MAP) Pulse Ox O2 Delivery O2 Flow Rate FiO2 05/25/21 09:00 98 25 111/63 (79) 91 Mechanical Ventilator 70.00 05/25/21 08:00 113 25 112/56 (74) 91 Mechanical Ventilator 70.00 05/25/21 07:57 36.5 05/25/21 07:54 Mechanical Ventilator 70.00 05/25/21 07:54 88 Mechanical Ventilator 60 05/25/21 07:24 89 25 92 60 05/25/21 07:00 93 05/25/21 07:00 101 25 114/73 (87) 92 Mechanical Ventilator 60.00 05/25/21 06:00 83 25 110/69 (83) 91 Mechanical Ventilator 60.00 05/25/21 05:18 82 22 126/72 05/25/21 05:00 82 21 126/72 (90) 91 Mechanical Ventilator 60.00 05/25/21 04:00 92 Mechanical Ventilator 45 05/25/21 04:00 86 21 122/72 (89) 90 Mechanical Ventilator 60.00 05/25/21 03:30 Mechanical Ventilator 60.00 05/25/21 03:00 99 21 128/65 (86) 90 Mechanical Ventilator 50.00 05/25/21 02:53 77 22 90 60 05/25/21 02:00 63 21 133/72 (92) 91 Mechanical Ventilator 50.00 05/25/21 01:00 66 21 130/66 (87) 91 Mechanical Ventilator 50.00 05/25/21 01:00 66 05/25/21 00:00 61 22 130/68 (88) 93 Mechanical Ventilator 50.00 05/24/21 23:59 92 Mechanical Ventilator 45 05/24/21 23:00 65 21 125/72 (89) 91 Mechanical Ventilator 50.00 05/24/21 22:00 64 22 137/73 (94) 92 Mechanical Ventilator 50.00 05/24/21 21:36 63 22 92 45 05/24/21 21:00 64 22 137/73 (94) 91 Mechanical Ventilator 50.00 05/24/21 20:00 66 21 132/69 (90) 91 Mechanical Ventilator 50.00 05/24/21 20:00 92 Mechanical Ventilator 45 05/24/21 19:38 35.8 05/24/21 19:00 64 05/24/21 19:00 64 21 130/68 (88) 92 Mechanical Ventilator 50.00 05/24/21 18:22 60 22 93 45 05/24/21 18:00 61 21 129/70 (89) 93 Mechanical Ventilator 50.00 05/24/21 17:00 62 21 129/74 (92) 93 Mechanical Ventilator 50.00 05/24/21 16:35 92 Mechanical Ventilator 45 05/24/21 16:31 62 134/74 05/24/21 16:00 63 21 Arterial Line 92 Mechanical Ventilator 50.00 05/24/21 15:53 36.6 05/24/21 15:27 Mechanical Ventilator 45.00 05/24/21 15:00 61 21 94 Mechanical Ventilator 50.00 05/24/21 14:47 91 22 93 55 05/24/21 14:00 36.9 61 22 90 Mechanical Ventilator 50.00 05/24/21 13:00 36.9 64 21 134/74 (94) 93 Mechanical Ventilator 50.00 05/24/21 13:00 65 05/24/21 12:30 94 Mechanical Ventilator 60 05/24/21 12:00 36.9 64 21 134/74 (94) 93 Mechanical Ventilator 50.00 05/24/21 11:00 37.0 64 24 119/61 (80) 94 Mechanical Ventilator 50.00 05/24/21 10:59 64 23 93 55 I & O 05/25/21 07:00 Intake Total 600 ml Output Total 1250 ml Balance -650 ml Height & Weight Height: 5'1.00" Weight: 268lbs. 10.0oz. 121.201089xs; 59.07 BMI Method:Stated General Appearance: No Apparent Distress, WD/WN, Chronically ill Neck: Normal Inspection, Supple, Other (shingles rash Right ant neck and submental area) Respiratory: Lungs Clear, Normal Breath Sounds Cardiovascular: Regular Rate, Rhythm Capillary Refill: NONE Gastrointestinal: normal bowel sounds, non tender, soft, no organomegaly, other (hypoactive BS, is having bowel movement, ? blood form NG) Extremity: Normal Capillary Refill, Normal Inspection Neurologic/Psychiatric: Alert, Oriented x3 Skin: Normal Color, Cool Lymphatic: No Adenopathy Results Lab Laboratory Tests 05/24/21 04:20 05/25/21 05:15 Assessment/Plan Assessment/Plan See free text. Critical Care: Critically Ill Patient Time spent on discussion(mins): 0 Diagnosis/Problems Diagnosis/Problems (1) Respiratory failure Status: Acute Qualifiers: Qualified Codes: J96.01 - Acute respiratory failure with hypoxia MIHAELA GIBBS MD May 25, 2021 10:28
[2021-05-25 10:42] VITALS: BP 93/69
[2021-05-25] MEDS ORDERED: 1/2 NS IV SOLUTION 2,000 ML IV ONE (11:00)
[2021-05-25] MEDS ORDERED: 1/2 NS IV SOLUTION 1,000 ML IV ONE (11:00)
[2021-05-25] MEDS: 1/2 NS IV SOLUTION 1,000 ML IV SCH ×2 (11:02→22:44)
[2021-05-25 11:19] LABS: CSF GLUCOSE 55 MG/DL (50-80)
[2021-05-25 11:23] LABS: APPEARANCE,CSF CLEAR; COLOR,CSF COLORLESS; CSF TUBE NUMBER 4; RED BLOOD CELL,CSF 50 CELLS (0-0); WHITE BLOOD CELL,CSF 5 CELLS (0-5)
[2021-05-25 11:25] LABS: CSF TOTAL PROTEIN 56 MG/DL (15-40)
[2021-05-25] MEDS ORDERED: DEXTROSE 50% 50 ML (IMS) SYR ONE (12:04)
[2021-05-25] MEDS ORDERED: DEXTROSE 50% 50 ML (IMS) SYR IV ONE (12:15)
--- NOTE | 2021-05-25 13:30 | Anesthesia-Procedure Note ---
Procedures/Interventions Procedure Start/Stop/Diagnosis Date of Procedure: May 25, 2021 Start Time: 10:06 Referring Physician: Jorje Stop Time: 10:30 Lumbar Puncture Discussed Risk,Benefits: Yes Patient Consents: Yes Position: L4-5, Right Sterile Technique: Yes Opening Pressure: 28.5 cm H2O Fluid Color: 1st vial blood tinged, then clear Spinal Needle Used: 20g Quinke 3 1/2inch (needle that is included in LP kit) Procedure Notes Post date entry from this am [id number]: Scheduled to be in ICU 12 for LP this am. Holding Lovenox for > 12hrs for the procedure and then will resume Lovenox tomorrow am. Cardiology okay with that plan. Patient's platelets are WNL and the CT of her head yesterday was negative. I received report from PIERRE [place] and noted consent has been signed and received orders from Jorje on what she wanted ordered on CSF. Patient responds some with opening her eyes. I explained to her that we would be rolling her to her right side and doing a procedure on her back that would involve some needle sticks. The patient seemed relaxed and I proceeded with turning her right lateral (toward vent). Sterile prepped and draped the patient's lower back with chloraprep. I could feel good spaces at L4- L5 and localized with 5 cc 2% Lido. I used the 20g spinal needle 3.5 inches that came in the LP kit and it took 1 stick to obtain CSF (no introducer utilized). Opening pressure was noted to be 28.5 cm H2O and then I collected 3 cc in each of the 4 vials. The CSF overall was clear. After the spinal needle was removed, I held pressure at the site for 5 minutes and applied a 2x2 and bandaid. No bleeding was at the site once the bandaid was applied. I repositioned the patient supine and put pillows under her left hip, and both lower extremities per Rosemarie's request. I reported off to PIERRE [place] and gave the vials with CSF to the supervisor component assembler to be delivered to lab. The patient seemed to tolerate the procedure well.Wrist restraints in place and the patients was left with stable VS and eyes closed. CHARISSA DOUGHERTY CRNA May 25, 2021 13:30
--- NOTE | 2021-05-25 13:46 | Progress Note - Cardiology ---
Cardiology SOAP Progress Note Subjective: Intubated, on mech vent, non-communicative Objective: I&O/Vital Signs 05/25/21 05/25/21 05/25/21 05/25/21 02:00 02:53 03:00 03:30 Pulse 63 77 99 Resp B/P (MAP) 133/72 (92) 128/65 (86) Pulse Ox 91 90 90 O2 Delivery Mechanical Ventilator Mechanical Ventilator Mechanical Ventilator O2 Flow Rate 50.00 50.00 60.00 FiO2 60 05/25/21 05/25/21 05/25/21 05/25/21 04:00 04:00 05:00 05:18 Pulse 86 82 82 Resp B/P (MAP) 122/72 (89) 126/72 (90) 126/72 Pulse Ox 90 92 91 O2 Delivery Mechanical Ventilator Mechanical Ventilator Mechanical Ventilator O2 Flow Rate 60.00 60.00 FiO2 45 05/25/21 05/25/21 05/25/21 05/25/21 06:00 07:00 07:00 07:24 Pulse 83 101 93 89 Resp 25 B/P (MAP) 110/69 (83) 114/73 (87) Pulse Ox 91 92 92 O2 Delivery Mechanical Ventilator Mechanical Ventilator O2 Flow Rate 60.00 60.00 FiO2 60 05/25/21 05/25/21 05/25/21 05/25/21 07:54 07:54 07:57 08:00 Temp 36.5 Pulse 113 Resp 25 B/P (MAP) 112/56 (74) Pulse Ox 88 91 O2 Delivery Mechanical Ventilator Mechanical Ventilator Mechanical Ventilator O2 Flow Rate 70.00 70.00 FiO2 60 05/25/21 05/25/21 05/25/21 05/25/21 09:00 10:00 10:42 11:00 Pulse 98 92 92 77 Resp 25 25 26 26 B/P (MAP) 111/63 (79) 93/69 (77) 102/67 (79) Pulse Ox 91 96 94 96 O2 Delivery Mechanical Ventilator Mechanical Ventilator Mechanical Ventilator O2 Flow Rate 70.00 70.00 70.00 FiO2 100 05/25/21 05/25/21 05/25/21 05/25/21 11:46 12:00 12:00 12:44 Temp 36.8 Pulse 80 79 Resp 20 B/P (MAP) 110/77 (88) Pulse Ox 98 98 O2 Delivery Mechanical Ventilator Mechanical Ventilator O2 Flow Rate 70.00 FiO2 100 05/25/21 13:00 Pulse 77 Resp 26 B/P (MAP) 110/68 (82) Pulse Ox 97 O2 Delivery Mechanical Ventilator O2 Flow Rate 70.00 05/25/21 00:00 Intake Total 480 ml Output Total 425 ml Balance 55 ml Weight (Pounds): 268 Weight (Ounces): 10.0 Weight (Calculated Kilograms): 121.460739 Constitutional: well-developed, well-nourished, other (Intubated, on mech vent, non-communicative) Respiratory: other (intubated; fair air entry) Cardiovascular: regular rate-rhythm; No JVD; S1 and S2 Gastrointestional: soft, audible bowel sounds Extremities: other (mild to mod bilat LE swelling) Neurologic/Psychiatric: other (Intubated, on mech vent, non-communicative) Skin: No rash on exposed areas, No ulcerations on exposed areas Results/Procedures: Labs Laboratory Tests 05/24/21 17:45: Glucometer 95 05/24/21 22:44: Glucometer 86 05/25/21 05:15: White Blood Count 8.0, Red Blood Count 3.51L, Hemoglobin 8.5L, Hematocrit 28L, Mean Corpuscular Volume 80, Mean Corpuscular Hemoglobin 24L, Mean Corpuscular Hemoglobin Concent 31L, Red Cell Distribution Width 16.5H, Platelet Count 203, Mean Platelet Volume 9.6, Immature Granulocyte % (Auto) 1, Neutrophils (%) (Auto) 79H, Lymphocytes (%) (Auto) 10L, Monocytes (%) (Auto) 8, Eosinophils (%) (Auto) 2, Basophils (%) (Auto) 1, Neutrophils # (Auto) 6.3, Lymphocytes # (Auto) 0.8L, Monocytes # (Auto) 0.6, Eosinophils # (Auto) 0.2, Basophils # (Auto) 0.0, Immature Granulocyte # (Auto) 0.1, Blood Gas Puncture Site RIGHT RADIAL, Blood Gas Patient Temperature 36.9, Arterial Blood pH 7.28*L, Arterial Blood Partial Pressure CO2 37, Arterial Blood Partial Pressure O2 82, Arterial Blood HCO3 17*L , Arterial Blood Total CO2 17.9L, Arterial Blood Oxygen Saturation 96, Arterial Blood Base Excess -8.7L, Erasto Test YES-POS, Blood Gas Ventilator Setting YES, Blood Gas Inspired Oxygen 65%, Sodium Level 145, Potassium Level 3.7, Chloride Level 120H, Carbon Dioxide Level 17L, Anion Gap 8, Blood Urea Nitrogen 44H, Creatinine 0.86, Estimat Glomerular Filtration Rate 66, BUN/Creatinine Ratio 51, Glucose Level 86, Calcium Level 8.0L, Phosphorus Level 3.6, Magnesium Level 2.4 05/25/21 10:12: CSF Tube Number 4, CSF Appearance CLEAR, CSF Color COLORLESS, CSF WBC 5, CSF RBC 50H, CSF Lymphocytes , CSF Mononuclear WBCs , CSF Polynuclear WBCs , CSF Glucose 55, CSF Total Protein 56H 05/25/21 11:51: Glucometer 69L 05/25/21 12:38: Glucometer 113H Microbiology 05/25/21 Gram Stain - Final, Resulted 05/25/21 CSF Culture, Resulted Pending 05/19/21 Blood Culture - Final, Complete No growth 05/18/21 Gram Stain - Final, Complete 05/18/21 Sputum Culture - Final, Complete Usual upper respiratory ruchi 05/18/21 Urine Culture - Final, Complete Escherichia coli Laboratory Tests 05/24/21 04:20 05/25/21 05:15 A/P: Assessment: Ac resp failure, multifactorial (obesity-hypoventilation, probable pneumonia, ARDS, sepsis, ac on chronic diastolic CHF), being managed by the Med and ICU services S/p lumbar puncture on the am of 05/25/21 New onset paroxysmal atrial fibrillation - first diagnosed during this hospitalization on May 19, 2021; currently maintaining SR Elevated troponin - Probably type 2 MS d/t sepsis/hypoxia Sepsis - secondary to UTI - management per medical/eICU services Acute on chronic diastolic (congestive) heart failure - Echo on 05-19-[address] Larsen: showed a-fib throughout the study; LVEF 60- 65%. Mild AoV sclerosis. PASP 34 mmHg Coronary artery disease with documented chronic angina pectoris - Previously reported she has had LAD stenting in early 2017 - Last card cath in late Dec 2018 at [place] and was told that she has diffused blockages in small caliber vessels and that she is not a candidate for further [facility] intervention - Previously reported severe intolerance to oral nitrates (severe headaches) IGGY on CKD - acute likely secondary to sepsis - CKD likely secondary to diabetic nephropathy Essential hypertension - continue current regimen - adjust as indicated HLD - statin DM 2 Obesity H/o medication intolerance: KEILY-inhib cause cough, but has been able to take ARBs Mild anemia of undetermined etiology, management per medical services Plan: Management is complex due to multiple comorbidities Monitor lab closely and replace electrolytes as indicated D/t episode of PAF, we advise OAC with Eliquis for stroke prophylaxis - to be approved by medical/eICU services Lovenox currently being held due to lumbar puncture this - expected to resume tomorrow DAPHNE FUCHS MD FACP FAC CCDS May 25, 2021 13:46
[2021-05-25 15:11] VITALS: BP 111/67
[2021-05-25 18:42] VITALS: BP 101/63
[2021-05-25 21:50] VITALS: BP 109/66
[2021-05-25] MEDS: ROSUVASTATIN 20 MG (CRESTOR) TABLET PO SCH (21:53)
[2021-05-25] MEDS: METOCLOPRAMIDE INJ 10 MG/2 ML (REGLAN) IVP SCH (22:33)
[2021-05-26] MEDS: ACYCLOVIR INJECTION 800 MG in NS (IVPB) 250 ML IV SCH ×4 (01:05→23:57)
[2021-05-26] MEDS: CEFEPIME 2,000 MG/SWFI 20 ML IV PUSH IV SCH ×4 (02:12→14:19)
[2021-05-26] MEDS: DOXYCYCLINE INJECTION 100 MG in NS (IVPB) 100 ML IV SCH ×2 (02:12→14:19)
[2021-05-26 02:22] VITALS: BP 117/63
[2021-05-26] MEDS: fentaNYL DRIP PRE-MIX 250 ML IV SCH ×6 (02:27→23:57)
[2021-05-26 05:14] LABS: ABG BASE EXCESS -9.7 MMOL/L (-2.5-2.5); ABG OXYGEN SATURATION 95 % (94-100); ABG PCO2 31 MMHG (35-45); ABG PO2 71 MMHG (79-93); ABG TCO2 16.3 MMOL/L (21.0-31.0)
[2021-05-26 05:15] LABS: BASOPHILS % (AUTO) 0 % (0-10); EOSINOPHILS # (AUTO) 0.1 10^3/uL (0.0-0.3); EOSINOPHILS % (AUTO) 2 % (0-10); HEMATOCRIT 27 % (35-52); HEMOGLOBIN 8.3 g/dL (11.5-16.0); LYMPHOCYTES # (AUTO) 0.9 10^3/uL (1.0-4.0); LYMPHOCYTES % (AUTO) 11 % (12-44); MEAN CORPUSCULAR HEMOGLOBIN 24 pg (25-34); MEAN CORPUSCULAR HGB CONC 30 g/dL (32-36); MEAN CORPUSCULAR VOLUME 80 fL (80-99); MEAN PLATELET VOLUME 10.3 fL (9.0-12.2); MONOCYTES # (AUTO) 0.5 10^3/uL (0.0-1.0); MONOCYTES % (AUTO) 7 % (0-12); NEUTROPHILS # (AUTO) 6.4 10^3/uL (1.8-7.8); NEUTROPHILS % (AUTO) 78 % (42-75); PLATELET COUNT 220 10^3/uL (130-400); WHITE BLOOD COUNT 8.2 10^3/uL (4.3-11.0)
[2021-05-26 05:16] LABS: ABG PH 7.32 (7.37-7.43)
[2021-05-26 05:17] LABS: ALLENS TEST YES-POS; INSPIRED O2 80%; PATIENT TEMP 36.8; VENTILATOR YES
[2021-05-26 05:21] LABS: POTASSIUM 3.8 MMOL/L (3.6-5.0)
--- NOTE | 2021-05-26 05:22 | Tele-ICU Progress Note ---
Subjective Date Seen by a Provider: May 26, 2021 Time Seen by a Provider: 05:21 Sepsis Event Evaluation Height, Weight, BMI Height: 5'1.00" Weight: 268lbs. 10.0oz. 121.598330vt; 59.07 BMI Method:Stated Exam Exam Patient acknowledged, consented, and participated in this virtual visit which was conducted using real time audio/video Vital Signs Date Time Temp Pulse Resp B/P (MAP) Pulse Ox O2 Delivery O2 Flow Rate FiO2 05/26/21 04:00 98 Mechanical Ventilator 80 05/26/21 03:00 61 33 115/66 (82) 89 Mechanical Ventilator 80.00 05/26/21 02:28 Mechanical Ventilator 80.00 05/26/21 02:22 65 26 91 80 05/26/21 02:00 63 26 117/63 (81) 91 Mechanical Ventilator 70.00 05/26/21 01:00 61 25 118/68 (85) 89 Mechanical Ventilator 70.00 05/26/21 01:00 62 05/26/21 00:00 65 25 120/70 (87) 87 Mechanical Ventilator 70.00 05/25/21 23:59 98 Mechanical Ventilator 65 05/25/21 23:00 65 26 105/62 (76) 92 Mechanical Ventilator 70.00 05/25/21 22:41 Mechanical Ventilator 70.00 05/25/21 22:00 Mechanical Ventilator 80.00 05/25/21 22:00 68 12 121/81 (94) 94 Mechanical Ventilator 80.00 05/25/21 21:50 61 26 93 65 05/25/21 21:00 63 25 109/66 (80) 93 Mechanical Ventilator 65.00 05/25/21 20:41 67 22 105/62 05/25/21 20:00 62 27 105/62 (76) 93 Mechanical Ventilator 65.00 05/25/21 20:00 36.6 05/25/21 20:00 98 Mechanical Ventilator 65 05/25/21 19:00 62 05/25/21 19:00 60 25 115/66 (82) 92 Mechanical Ventilator 65.00 05/25/21 19:00 Mechanical Ventilator 65.00 05/25/21 18:42 64 26 92 65 05/25/21 18:00 64 26 101/63 (76) 91 Mechanical Ventilator 70.00 05/25/21 17:00 61 31 103/64 (77) 90 Mechanical Ventilator 70.00 05/25/21 16:00 36.1 05/25/21 16:00 98 Mechanical Ventilator 75 05/25/21 16:00 63 25 115/72 (86) 94 Mechanical Ventilator 70.00 05/25/21 15:11 64 26 93 100 05/25/21 15:00 64 25 111/67 (82) 92 Mechanical Ventilator 70.00 05/25/21 14:35 77 110/68 05/25/21 14:00 81 22 110/73 (85) 92 Mechanical Ventilator 70.00 05/25/21 13:00 77 26 110/68 (82) 97 Mechanical Ventilator 70.00 05/25/21 12:44 79 05/25/21 12:00 80 20 110/77 (88) 98 Mechanical Ventilator 70.00 05/25/21 12:00 98 Mechanical Ventilator 100 05/25/21 11:46 36.8 05/25/21 11:00 77 26 102/67 (79) 96 Mechanical Ventilator 70.00 05/25/21 10:42 92 26 94 100 05/25/21 10:00 92 25 93/69 (77) 96 Mechanical Ventilator 70.00 05/25/21 09:00 98 25 111/63 (79) 91 Mechanical Ventilator 70.00 05/25/21 08:00 113 25 112/56 (74) 91 Mechanical Ventilator 70.00 05/25/21 07:57 36.5 05/25/21 07:54 Mechanical Ventilator 70.00 05/25/21 07:54 88 Mechanical Ventilator 60 05/25/21 07:24 89 25 92 60 05/25/21 07:00 93 05/25/21 07:00 101 25 114/73 (87) 92 Mechanical Ventilator 60.00 05/25/21 06:00 83 25 110/69 (83) 91 Mechanical Ventilator 60.00 I & O 05/26/21 07:00 Intake Total 1636 ml Output Total 605 ml Balance 1031 ml Height & Weight Height: 5'1.00" Weight: 268lbs. 10.0oz. 121.488235uf; 59.07 BMI Method:Stated General Appearance: No Apparent Distress, WD/WN, Chronically ill, Obese, Other (Intubated) Neck: Normal Inspection, Supple, Other (shingles rash Right ant neck and submental area) Respiratory: Lungs Clear, Decreased Breath Sounds Cardiovascular: Regular Rate, Rhythm Capillary Refill: NONE Gastrointestinal: normal bowel sounds, non tender, soft, no organomegaly, other (hypoactive BS, is having bowel movement, ? blood form NG) Extremity: Normal Capillary Refill, Normal Inspection Neurologic/Psychiatric: Alert, Oriented x3 Skin: Normal Color, Cool Lymphatic: No Adenopathy Results Lab Laboratory Tests 05/25/21 05:15 05/26/21 05:00 Assessment/Plan Assessment/Plan ABG reviewed: mild acidemia related to metabolic process; pt maintained hemodynamics and urine output per rn. JOSE MENDES MD May 26, 2021 05:22
[2021-05-26] MEDS: NOREPINEPHRINE 8 MG/250 ML 250 ML IV SCH ×3 (05:24→19:43)
[2021-05-26] MEDS: inSUlin ASPART (NovoLOG) 1 UNIT/0.01 ML (CHARGE PER UNIT) SC SCH ×4 (05:25→23:10)
[2021-05-26] MEDS: MAGNESIUM 1 GM/100 ML IVPB 100 ML IV SCH (05:25)
[2021-05-26] MEDS: KCL 20 MEQ TAB (K-DUR) PO SCH (05:25)
[2021-05-26] MEDS: POTASSIUM CL 10MEQ/50ML IVPB 50 ML IV SCH (05:25)
[2021-05-26 05:27] LABS: CREATININE SERUM 0.95 MG/DL (0.60-1.30); PHOSPHORUS 3.4 MG/DL (2.3-4.7)
[2021-05-26] MEDS: METOCLOPRAMIDE INJ 10 MG/2 ML (REGLAN) IVP SCH ×4 (05:28→23:10)
[2021-05-26 05:29] LABS: MAGNESIUM 2.3 MG/DL (1.6-2.4)
[2021-05-26] MEDS: LACTATED RINGERS 1,000 ML IV SCH ×2 (05:29→16:02)
--- NOTE | 2021-05-26 06:55 | Progress Note - Hospitalist ---
Subjective HPI/CC On Admission Date Seen by Provider: May 26, 2021 Time Seen by Provider: 12:00 Paulette Roger is a 65-year-old female with past medical history of hypertension, insulin-dependent diabetes, coronary artery disease, GERD, morbid obesity, who presented with weakness and respiratory failure. EMS was called to her home wh ere she had become very weak and short of breath while using the toilet. She required endotracheal intubation and intraosseous access. There is no ventilator available at [place] and she had to be mechanically bagged. Due to this, a complete work-up was not able to be performed in the emergency room and she was transferred to the [place] emergency room. After arrival, she was placed on a ventilator. CT scans were performed which showed no acute intracranial abnormalities but did reveal bilateral consolidations, pleural effusions, and possible pulmonary edema. She is Covid and flu negative. She was recently diagnosed with shingles. According to her nurse, she was awake and following commands prior to being started on sedation. Subjective/Events-last exam Patient still intubated FiO2 now 80% PEEP of 8 Hemoglobin 8.3 ABG revealed 7.3 Objective Exam Vital Signs Vital Signs Date Time Temp Pulse Resp B/P (MAP) Pulse Ox O2 Delivery O2 Flow Rate FiO2 05/27/21 05:00 37.5 73 25 141/72 (95) 93 Mechanical Ventilator 70.00 05/27/21 03:16 70 Capillary Refill : NONE General Appearance: No Apparent Distress, WD/WN, Chronically ill, Obese, Other (Intubated and sedated) Respiratory: Decreased Breath Sounds Cardiovascular: Regular Rate, Rhythm Results/Procedures Lab Laboratory Tests 05/27/21 03:37 Patient resulted labs reviewed. Imaging: Reviewed Imaging Films, Reviewed Imaging Report Assessment/Plan Assessment and Plan Assess & Plan/Chief Complaint Assessment: ARDS Severe sepsis Pneumonia Intubated 05/08/2021 Acute right neck herpes zoster maintained on acyclovir IV Non-ST elevation OH requiring heparin drip New onset atrial fibrillation Plan: Heparin drip since non-ST elevation OH and new onset atrial fibrillation take precedence over lumbar puncture Maintain acyclovir 05/20/2021: Acyclovir Antibiotics Supportive care Cardiology and pulmonology appreciated 05/21/2021: Monitor for recurrent A. fib Monitor coffee-ground fluid and OG tube 05/22/2021: Supportive care with intubation Appreciate eICU consultation 05/23/2021: Scaled back Lovenox dose We will try to reach out to eICU insurance consultant today [place] evaluation Maintain ventilator 05/24/2021: CT head Lumbar puncture tomorrow to rule out encephalitis as cause of confusion and difficulty weaning Prognosis guarded 05/25/2021: Lumbar puncture today Monitor closely 05/26/2021: Lumbar puncture results evaluated Monitor closely Critical Care Critically Ill Patient ASHWINI BLANKENSHIP DO May 26, 2021 06:55
[2021-05-26 07:20] VITALS: BP 120/70
[2021-05-26] MEDS: PANTOPRAZOLE 40 MG (PROTONIX) VIAL IV SCH (08:17)
[2021-05-26] MEDS: ASPIRIN 81 MG CHEW (CHILDREN'S ASA) PO SCH (08:17)
[2021-05-26] MEDS: AMIODARONE 200 MG (CORDARONE) TAB PO SCH ×2 (08:17→19:54)
[2021-05-26] MEDS: MIDAZOLAM DRIP PRE-MIX 100 ML IV SCH ×2 (09:44→23:12)
[2021-05-26] MEDS: ENOXAPARIN 40 MG/0.4 ML (LOVENOX) SYR SC SCH (09:44)
[2021-05-26 10:19] VITALS: BP 125/70
--- NOTE | 2021-05-26 11:18 | Tele-ICU Progress Note ---
Progress Note video rounds completed 65 y/o female with morbid obesity and respiratory failure Current vent settings: Ac 26/400/80%/8 PE Pulse: 63 NSR BP: 112/65 O2 sat 90% Labs: wbc: 8.2 Hgb: 8.3 Plts: 220 Na: 144 K: 3.8 Cl: 118 Co2 16 BUN: 47 Creat: 0.95 AB.32 Meds: doxyclene Acyclovir Protonix Lovenox IMP/PLAN: resp failure still requiring increaing O2 requirements UO borderline, improved with bolus.Laboratory Tests 05/23/21 11:29: 05/23/21 18:25: 05/23/21 23:11: Glucometer 131H 05/24/21 04:20: Hemoglobin 9.4L, Hematocrit 30L, Mean Corpuscular Volume 78L, Mean Corpuscular Hemoglobin 24L, Mean Corpuscular Hemoglobin Concent 31L, Red Cell Distribution Width 15.9H, Neutrophils (%) (Auto) 78H, Lymphocytes (%) (Auto) 10L, Lymphocytes # (Auto) 0.7L, Arterial Blood pH 7.31*L, Arterial Blood Partial Pressure O2 70L, Arterial Blood HCO3 17*L, Arterial Blood Total CO2 17.8L, Arterial Blood Oxygen Saturation 93L, Arterial Blood Base Excess -8.2L, Chloride Level 116H, Carbon Dioxide Level 17L, Blood Urea Nitrogen 40H, Glucose Level 133H, Calcium Level 7.9L 05/24/21 12:29: 05/24/21 17:45: 05/24/21 22:44: 05/25/21 05:15: Red Blood Count 3.51L, Hemoglobin 8.5L, Hematocrit 28L, Mean Corpuscular Hemoglobin 24L, Mean Corpuscular Hemoglobin Concent 31L, Red Cell Distribution Width 16.5H, Neutrophils (%) (Auto) 79H, Lymphocytes (%) (Auto) 10L, Lymphocytes # (Auto) 0.8L, Arterial Blood pH 7.28*L, Arterial Blood HCO3 17*L, Arterial Blood Total CO2 17.9L, Arterial Blood Base Excess -8.7L, Chloride Level 120H, Carbon Dioxide Level 17L, Blood Urea Nitrogen 44H, Calcium Level 8.0L 05/25/21 10:12: CSF RBC 50H, CSF Total Protein 56H 05/25/21 11:51: Glucometer 69L 05/25/21 12:38: Glucometer 113H 05/25/21 18:17: Glucometer 116H 05/25/21 22:46: 05/26/21 05:00: Red Blood Count 3.42L, Hemoglobin 8.3L, Hematocrit 27L, Mean Corpuscular Hemoglobin 24L, Mean Corpuscular Hemoglobin Concent 30L, Red Cell Distribution Width 16.5H, Neutrophils (%) (Auto) 78H, Lymphocytes (%) (Auto) 11L, Lymphocytes # (Auto) 0.9L, Immature Granulocyte # (Auto) 0.2H, Arterial Blood pH 7.32*L, Arterial Blood Partial Pressure CO2 31L, Arterial Blood Partial Pressure O2 71L, Arterial Blood HCO3 15*L, Arterial Blood Total CO2 16.3L, Arterial Blood Base Excess -9.7L, Chloride Level 118H, Carbon Dioxide Level 16L, Blood Urea Nitrogen 47H, Glucose Level 107H, Calcium Level 8.0L Laboratory Tests 05/25/21 11:51: Glucometer 69L 05/25/21 12:38: Glucometer 113H 05/25/21 18:17: Glucometer 116H 05/25/21 22:46: Glucometer 102 05/26/21 05:00: White Blood Count 8.2, Red Blood Count 3.42L, Hemoglobin 8.3L, Hematocrit 27L, Mean Corpuscular Volume 80, Mean Corpuscular Hemoglobin 24L, Mean Corpuscular Hemoglobin Concent 30L, Red Cell Distribution Width 16.5H, Platelet Count 220, Mean Platelet Volume 10.3, Immature Granulocyte % (Auto) 2, Neutrophils (%) (Aut o) 78H, Lymphocytes (%) (Auto) 11L, Monocytes (%) (Auto) 7, Eosinophils (%) (Auto) 2, Basophils (%) (Auto) 0, Neutrophils # (Auto) 6.4, Lymphocytes # (Auto) 0.9L, Monocytes # (Auto) 0.5, Eosinophils # (Auto) 0.1, Basophils # (Auto) 0.0, Immature Granulocyte # (Auto) 0.2H, Blood Gas Puncture Site RIGHT RADIAL, Blood Gas Patient Temperature 36.8, Arterial Blood pH 7.32*L, Arterial Blood Partial Pressure CO2 31L, Arterial Blood Partial Pressure O2 71L, Arterial Blood HCO3 15*L, Arterial Blood Total CO2 16.3L, Arterial Blood Oxygen Saturation 95, Arterial Blood Base Excess -9.7L, Erasto Test YES-POS, Blood Gas Ventilator Setting YES, Blood Gas Inspired Oxygen 80%, Sodium Level 144, Potassium Level 3.8, Chloride Level 118H, Carbon Dioxide Level 16L, Anion Gap 10, Blood Urea Nitrogen 47H, Creatinine 0.95, Estimat Glomerular Filtration Rate 59, BUN/Creatinine Ratio 49, Glucose Level 107H, Calcium Level 8.0L, Phosphorus Level 3.4, Magnesium Level 2.3 Microbiology 05/25/21 Gram Stain - Final, Resulted 05/25/21 CSF Culture, Resulted Pending 05/19/21 Blood Culture - Final, Complete No growth 05/18/21 Gram Stain - Final, Complete 05/18/21 Sputum Culture - Final, Complete Usual upper respiratory ruchi 05/18/21 Urine Culture - Final, Complete Escherichia coli Focused Exam Height, Weight, BMI Height: 5'1.00" Weight: 268lbs. 10.0oz. 121.576053ru; 59.07 BMI Method:Stated A/P-Cardiology Assessment/Admission Diagnosis PNA/ resp failure Discussion and Recomendations PLAN: cont vent support and antibiotics PATSY SOTELO MD May 26, 2021 11:18
[2021-05-26] MEDS: 1/2 NS IV SOLUTION 1,000 ML IV SCH ×2 (11:25→22:20)
[2021-05-26 11:42] LABS: ALBUMIN 2.8 GM/DL (3.2-4.5)
[2021-05-26 11:45] LABS: TOTAL PROTEIN 5.5 GM/DL (6.4-8.2)
[2021-05-26 11:47] LABS: BILIRUBIN,TOTAL 0.4 MG/DL (0.1-1.0)
[2021-05-26 11:51] LABS: BILIRUBIN,DIRECT 0.3 MG/DL (0.0-0.3); BILIRUBIN,INDIRECT 0.1 MG/DL
[2021-05-26 14:49] VITALS: BP 125/75
--- NOTE | 2021-05-26 16:29 | Progress Note - Cardiology ---
Cardiology SOAP Progress Note Subjective: On [facility] vent, noncommunicative Objective: I&O/Vital Signs 05/26/21 05/26/21 05/26/21 05/26/21 05:00 06:00 07:00 07:00 Pulse 61 61 60 63 Resp 51 30 34 B/P (MAP) 123/71 (88) 117/70 (86) 120/70 (87) Pulse Ox 91 92 92 O2 Delivery Mechanical Ventilator Mechanical Ventilator Mechanical Ventilator O2 Flow Rate 80.00 80.00 80.00 05/26/21 05/26/21 05/26/21 05/26/21 07:20 08:00 08:00 08:01 Temp 36.9 Pulse 61 60 Resp 26 25 B/P (MAP) 121/70 (87) Pulse Ox 92 93 92 O2 Delivery Mechanical Ventilator Mechanical Ventilator O2 Flow Rate 80.00 FiO2 80 80 05/26/21 05/26/21 05/26/21 05/26/21 09:00 09:44 10:00 10:19 Pulse 61 61 62 60 Resp 27 27 25 26 B/P (MAP) 119/70 (86) 119/70 125/70 (88) Pulse Ox 90 91 91 O2 Delivery Mechanical Ventilator Mechanical Ventilator O2 Flow Rate 80.00 80.00 FiO2 80 05/26/21 05/26/21 05/26/21 05/26/21 11:00 11:45 12:00 12:00 Temp 36.4 Pulse 62 62 Resp 25 B/P (MAP) 112/65 (81) 116/70 (85) Pulse Ox 90 91 92 O2 Delivery Mechanical Ventilator Mechanical Ventilator Mechanical Ventilator O2 Flow Rate 80.00 80.00 FiO2 80 05/26/21 05/26/21 05/26/21 05/26/21 12:39 13:00 13:00 14:00 Pulse 62 60 63 61 Resp 25 25 B/P (MAP) 116/70 122/72 (89) 125/75 (95) Pulse Ox 93 93 O2 Delivery Mechanical Ventilator Mechanical Ventilator O2 Flow Rate 80.00 80.00 05/26/21 05/26/21 05/26/21 05/26/21 14:49 15:00 15:38 16:00 Pulse 63 64 70 Resp 29 25 20 B/P (MAP) 129/74 (96) 140/81 (100) Pulse Ox 94 93 93 96 O2 Delivery Mechanical Ventilator Mechanical Ventilator Mechanical Ventilator O2 Flow Rate 80.00 80.00 FiO2 80 80 05/26/21 00:00 Intake Total 1060 ml Output Total 395 ml Balance 665 ml Weight (Pounds): 268 Weight (Ounces): 10.0 Weight (Calculated Kilograms): 121.417082 Constitutional: well-developed, well-nourished, other (Intubated, on mech vent, non-communicative) Respiratory: other (intubated; fair air entry) Cardiovascular: regular rate-rhythm; No JVD; S1 and S2 Gastrointestional: soft, audible bowel sounds Extremities: other (mild to mod bilat LE swelling) Neurologic/Psychiatric: other (Intubated, on mech vent, non-communicative) Skin: No rash on exposed areas, No ulcerations on exposed areas Results/Procedures: Labs Laboratory Tests 05/25/21 18:17: Glucometer 116H 05/25/21 22:46: Glucometer 102 05/26/21 05:00: White Blood Count 8.2, Red Blood Count 3.42L, Hemoglobin 8.3L, Hematocrit 27L, Mean Corpuscular Volume 80, Mean Corpuscular Hemoglobin 24L, Mean Corpuscular Hemoglobin Concent 30L, Red Cell Distribution Width 16.5H, Platelet Count 220, Mean Platelet Volume 10.3, Immature Granulocyte % (Auto) 2, Neutrophils (%) (Auto) 78H, Lymphocytes (%) (Auto) 11L, Monocytes (%) (Auto) 7, Eosinophils (%) (Auto) 2, Basophils (%) (Auto) 0, Neutrophils # (Auto) 6.4, Lymphocytes # (Auto) 0.9L, Monocytes # (Auto) 0.5, Eosinophils # (Auto) 0.1, Basophils # (Auto) 0.0, Immature Granulocyte # (Auto) 0.2H, Blood Gas Puncture Site RIGHT RADIAL, Blood Gas Patient Temperature 36.8, Arterial Blood pH 7.32*L, Arterial Blood Partial Pressure CO2 31L, Arterial Blood Partial Pressure O2 71L, Arterial Blood HCO3 15*L, Arterial Blood Total CO2 16.3L, Arterial Blood Oxygen Saturation 95, Arterial Blood Base Excess -9.7L, Erasto Test YES-POS, Blood Gas Ventilator Setting YES, Blood Gas Inspired Oxygen 80%, Sodium Level 144, Potassium Level 3.8, Chloride Level 118H, Carbon Dioxide Level 16L, Anion Gap 10, Blood Urea Nitrogen 47H, Creatinine 0.95, Estimat Glomerular Filtration Rate 59, BUN/Creatinine Ratio 49, Glucose Level 107H, Calcium Level 8.0L, Phosphorus Level 3.4, Magnesium Level 2.3, Total Bilirubin 0.4, Direct Bilirubin 0.3, Indirect Bilirubin 0.1, Aspartate Amino Transf (AST/SGOT) 24, Alanine Aminotransferase (ALT/SGPT) 29, Alkaline Phosphatase 62, Total Protein 5.5L, Albumin 2.8L 05/26/21 11:27: Glucometer 101 Microbiology 05/25/21 Gram Stain - Final, Resulted 05/25/21 CSF Culture - Preliminary, Resulted No growth 05/19/21 Blood Culture - Final, Complete No growth 05/18/21 Gram Stain - Final, Complete 05/18/21 Sputum Culture - Final, Complete Usual upper respiratory ruchi 05/18/21 Urine Culture - Final, Complete Escherichia coli Laboratory Tests 05/25/21 05:15 05/26/21 05:00 A/P: Assessment: Ac resp failure, multifactorial (obesity-hypoventilation, probable pneumonia, ARDS, sepsis, ac on chronic diastolic CHF), being managed by the Med and ICU services S/p lumbar puncture on the am of 05/25/21 New onset paroxysmal atrial fibrillation - first diagnosed during this hospitalization on May 19, 2021; currently maintaining SR Elevated troponin - Probably type 2 MS d/t sepsis/hypoxia Sepsis - secondary to UTI - management per medical/eICU services Acute on chronic diastolic (congestive) heart failure - Echo on 05-19-[address] Larsen: showed a-fib throughout the study; LVEF 60- 65%. Mild AoV sclerosis. PASP 34 mmHg Coronary artery disease with documented chronic angina pectoris - Previously reported she has had LAD stenting in early 2017 - Last card cath in late Dec 2018 at [place] and was told that she has diffused blockages in small caliber vessels and that she is not a candidate for further [facility] intervention - Previously reported severe intolerance to oral nitrates (severe headaches) IGGY on CKD - acute likely secondary to sepsis - CKD likely secondary to diabetic nephropathy Essential hypertension - continue current regimen - adjust as indicated HLD - statin DM 2 Obesity H/o medication intolerance: KEILY-inhib cause cough, but has been able to take ARBs Mild anemia of undetermined etiology, management per medical services Plan: Management is complex due to multiple comorbidities Monitor lab closely and replace electrolytes as indicated D/t episode of PAF, we advise OAC with Eliquis for stroke prophylaxis - to be approved by medical/eICU services DAPHNE FUCHS MD FACP FAC CCDS May 26, 2021 16:28
[2021-05-26 18:33] VITALS: BP 132/74
[2021-05-26] MEDS: ROSUVASTATIN 20 MG (CRESTOR) TABLET PO SCH (19:54)
[2021-05-26 21:34] VITALS: BP 141/81
[2021-05-27] MEDS: CEFEPIME 2,000 MG/SWFI 20 ML IV PUSH IV SCH ×4 (00:48→12:17)
[2021-05-27] MEDS: DOXYCYCLINE INJECTION 100 MG in NS (IVPB) 100 ML IV SCH ×2 (01:14→13:55)
[2021-05-27 01:26] VITALS: BP 132/65
[2021-05-27] MEDS: LACTATED RINGERS 1,000 ML IV SCH ×2 (02:02→12:17)
[2021-05-27] MEDS: NOREPINEPHRINE 8 MG/250 ML 250 ML IV SCH ×3 (02:21→19:35)
[2021-05-27 02:25] LABS: ABG BASE EXCESS -9.9 MMOL/L (-2.5-2.5); ABG OXYGEN SATURATION 92 % (94-100); ABG PCO2 28 MMHG (35-45); ABG PH 7.35 (7.37-7.43); ABG PO2 65 MMHG (79-93); ABG TCO2 15.5 MMOL/L (21.0-31.0)
[2021-05-27 02:28] LABS: ALLENS TEST YES-POS; INSPIRED O2 70%; PATIENT TEMP 37.1; VENTILATOR YES
[2021-05-27 03:46] LABS: BASOPHILS # (AUTO) 0.1 10^3/uL (0.0-0.1); BASOPHILS % (AUTO) 1 % (0-10); EOSINOPHILS # (AUTO) 0.2 10^3/uL (0.0-0.3); EOSINOPHILS % (AUTO) 2 % (0-10); HEMATOCRIT 30 % (35-52); HEMOGLOBIN 8.9 g/dL (11.5-16.0); LYMPHOCYTES # (AUTO) 1.1 10^3/uL (1.0-4.0); LYMPHOCYTES % (AUTO) 13 % (12-44); MEAN CORPUSCULAR HEMOGLOBIN 24 pg (25-34); MEAN CORPUSCULAR HGB CONC 30 g/dL (32-36); MEAN CORPUSCULAR VOLUME 80 fL (80-99); MEAN PLATELET VOLUME 10.1 fL (9.0-12.2); MONOCYTES # (AUTO) 0.6 10^3/uL (0.0-1.0); MONOCYTES % (AUTO) 8 % (0-12); NEUTROPHILS # (AUTO) 6.2 10^3/uL (1.8-7.8); NEUTROPHILS % (AUTO) 75 % (42-75); PLATELET COUNT 236 10^3/uL (130-400); WHITE BLOOD COUNT 8.3 10^3/uL (4.3-11.0)
[2021-05-27] MEDS: fentaNYL DRIP PRE-MIX 250 ML IV SCH ×4 (03:48→23:37)
[2021-05-27 03:57] LABS: POTASSIUM 3.9 MMOL/L (3.6-5.0)
[2021-05-27 03:58] LABS: CALCIUM 7.9 MG/DL (8.5-10.1)
[2021-05-27] MEDS: KCL 20 MEQ TAB (K-DUR) PO SCH (03:59)
[2021-05-27] MEDS: POTASSIUM CL 10MEQ/50ML IVPB 50 ML IV SCH (03:59)
[2021-05-27 04:02] LABS: CREATININE SERUM 0.86 MG/DL (0.60-1.30); PHOSPHORUS 3.1 MG/DL (2.3-4.7)
[2021-05-27] MEDS: MAGNESIUM 1 GM/100 ML IVPB 100 ML IV SCH (04:06)
[2021-05-27] MEDS: inSUlin ASPART (NovoLOG) 1 UNIT/0.01 ML (CHARGE PER UNIT) SC SCH ×4 (04:52→23:45)
[2021-05-27] MEDS: METOCLOPRAMIDE INJ 10 MG/2 ML (REGLAN) IVP SCH ×4 (05:03→23:49)
[2021-05-27] MEDS ORDERED: KCL 20 MEQ TAB (K-DUR) PO SCH (06:00)
--- NOTE | 2021-05-27 06:20 | Progress Note - Hospitalist ---
Subjective HPI/CC On Admission Date Seen by Provider: May 27, 2021 Time Seen by Provider: 10:00 Paulette Roger is a 65-year-old female with past medical history of hypertension, insulin-dependent diabetes, coronary artery disease, GERD, morbid obesity, who presented with weakness and respiratory failure. EMS was called to her home wh ere she had become very weak and short of breath while using the toilet. She required endotracheal intubation and intraosseous access. There is no ventilator available at [place] and she had to be mechanically bagged. Due to this, a complete work-up was not able to be performed in the emergency room and she was transferred to the [place] emergency room. After arrival, she was placed on a ventilator. CT scans were performed which showed no acute intracranial abnormalities but did reveal bilateral consolidations, pleural effusions, and possible pulmonary edema. She is Covid and flu negative. She was recently diagnosed with shingles. According to her nurse, she was awake and following commands prior to being started on sedation. Subjective/Events-last exam Pt still on ventilator FIO2 is now at 70% [employer] consult Labs okay Unsure potential of recovery Review of Systems General: Fatigue, Malaise Pulmonary: Dyspnea Objective Exam Vital Signs Vital Signs Date Time Temp Pulse Resp B/P (MAP) Pulse Ox O2 Delivery O2 Flow Rate FiO2 05/28/21 04:16 90 60 05/28/21 04:02 Mechanical Ventilator 60.00 05/28/21 03:57 122/63 05/28/21 02:13 67 26 05/28/21 00:00 37.1 Capillary Refill : NONE General Appearance: No Apparent Distress, WD/WN, Chronically ill, Obese Respiratory: Decreased Breath Sounds Cardiovascular: Regular Rate, Rhythm Results/Procedures Lab Laboratory Tests 05/28/21 04:02 Patient resulted labs reviewed. Imaging: Reviewed Imaging Films, Reviewed Imaging Report Assessment/Plan Assessment and Plan Assess & Plan/Chief Complaint Assessment: ARDS Severe sepsis Pneumonia Intubated 05/08/2021 Acute right neck herpes zoster maintained on acyclovir IV Non-ST elevation RI requiring heparin drip New onset atrial fibrillation Plan: Heparin drip since non-ST elevation RI and new onset atrial fibrillation take precedence over lumbar puncture Maintain acyclovir 05/20/2021: Acyclovir Antibiotics Supportive care Cardiology and pulmonology appreciated 05/21/2021: Monitor for recurrent A. fib Monitor coffee-ground fluid and OG tube 05/22/2021: Supportive care with intubation Appreciate eICU consultation 05/23/2021: Scaled back Lovenox dose We will try to reach out to eICU design studio consultant today [employer] evaluation Maintain ventilator 05/24/2021: CT head Lumbar puncture tomorrow to rule out encephalitis as cause of confusion and difficulty weaning Prognosis guarded 05/25/2021: Lumbar puncture today Monitor closely 05/26/2021: Lumbar puncture results evaluated Monitor closely 05/27/2021: Ventilator management [employer] Critical Care Critically Ill Patient ASHWINI BLANKENSHIP DO May 27, 2021 06:20
[2021-05-27 07:25] VITALS: BP 141/72
--- NOTE | 2021-05-27 08:40 | Progress Note - Cardiology ---
Cardiology SOAP Progress Note Subjective: Intubated/sedated Objective: I&O/Vital Signs 05/29/21 05/29/21 05/29/21 05/29/21 21:00 21:51 22:00 22:18 Pulse 66 70 70 Resp 25 B/P (MAP) 117/66 (83) 125/72 (89) Pulse Ox 89 90 91 O2 Delivery Mechanical Ventilator Mechanical Ventilator Mechanical Ventilator O2 Flow Rate 75.00 80.00 80.00 FiO2 80 05/29/21 05/30/21 05/30/21 05/30/21 23:00 00:00 00:03 00:52 Temp 36.0 Pulse 68 67 Resp B/P (MAP) 120/70 (87) 117/70 (86) Pulse Ox 94 96 92 O2 Delivery Mechanical Ventilator Mechanical Ventilator Mechanical Ventilator O2 Flow Rate 80.00 80.00 70.00 FiO2 80 05/30/21 05/30/21 05/30/21 05/30/21 01:00 01:00 01:45 02:00 Pulse 70 71 68 68 Resp B/P (MAP) 117/68 (84) 117/64 (81) Pulse Ox 93 96 95 O2 Delivery Mechanical Ventilator Mechanical Ventilator O2 Flow Rate 70.00 70.00 FiO2 70 05/30/21 05/30/21 05/30/21 05/30/21 03:00 03:00 04:00 04:00 Temp 36.6 Pulse 66 67 Resp B/P (MAP) 117/66 (83) 121/69 (86) Pulse Ox 94 95 O2 Delivery Mechanical Ventilator Mechanical Ventilator Mechanical Ventilator O2 Flow Rate 65.00 65.00 65.00 05/30/21 05/30/21 05/30/21 05/30/21 04:00 05:00 06:00 07:00 Pulse 66 68 68 Resp 25 B/P (MAP) 131/76 (94) 131/82 (98) 126/74 (91) Pulse Ox 92 92 89 91 O2 Delivery Mechanical Ventilator Mechanical Ventilator Mechanical Ventilator O2 Flow Rate 65.00 65.00 65.00 FiO2 80 05/30/21 05/30/21 05/30/21 05/30/21 07:00 07:45 07:52 07:53 Temp 36.8 Pulse 68 69 69 Resp B/P (MAP) 126/71 Pulse Ox 92 FiO2 70 05/30/21 05/30/21 08:00 08:33 Pulse 71 Resp 26 B/P (MAP) 130/72 (91) Pulse Ox 92 92 O2 Delivery Mechanical Ventilator O2 Flow Rate 65.00 FiO2 70 05/30/21 00:00 Intake Total 836 ml Output Total 425 ml Balance 411 ml Weight (Pounds): 268 Weight (Ounces): 10.0 Weight (Calculated Kilograms): 121.931138 Constitutional: well-developed, well-nourished, other Respiratory: other Cardiovascular: regular rate-rhythm, S1 and S2 Gastrointestional: soft, audible bowel sounds Extremities: other Neurologic/Psychiatric: other Skin: No rash on exposed areas, No ulcerations on exposed areas Results/Procedures: Labs Laboratory Tests 05/29/21 11:39: Glucometer 136H 05/29/21 15:59: Glucometer 146H 05/29/21 17:57: Glucometer 131H 05/30/21 00:44: Glucometer 139H 05/30/21 03:23: White Blood Count 9.0, Red Blood Count 3.28L, Hemoglobin 7.9L, Hematocrit 26L, Mean Corpuscular Volume 80, Mean Corpuscular Hemoglobin 24L, Mean Corpuscular Hemoglobin Concent 30L, Red Cell Distribution Width 17.0H, Platelet Count 229, Mean Platelet Volume 10.6, Immature Granulocyte % (Auto) 2, Neutrophils (%) (Auto) 78H, Lymphocytes (%) (Auto) 11L, Monocytes (%) (Auto) 7, Eosinophils (%) (Auto) 2, Basophils (%) (Auto) 0, Neutrophils # (Auto) 7.0, Lymphocytes # (Auto) 1.0, Monocytes # (Auto) 0.6, Eosinophils # (Auto) 0.2, Basophils # (Auto) 0.0, Immature Granulocyte # (Auto) 0.2H, Sodium Level 146H, Potassium Level 4.5, Chloride Level 120H, Carbon Dioxide Level 14L, Anion Gap 12, Blood Urea Nitrogen 41H, Creatinine 0.97, Estimat Glomerular Filtration Rate 58, BUN/Creatinine Ratio 42, Glucose Level 147H, Calcium Level 7.6L, Phosphorus Level 3.4, Magnesium Level 1.9 05/30/21 04:50: Blood Gas Puncture Site R RADIAL, Blood Gas Patient Temperature 36.6, Arterial Blood pH 7.26*L, Arterial Blood Partial Pressure CO2 41, Arterial Blood Partial Pressure O2 68L, Arterial Blood HCO3 18L, Arterial Blood Total CO2 18.9L, Arterial Blood Oxygen Saturation 94, Arterial Blood Base Excess -8.2L, Erasto Test YES-POS, Blood Gas Ventilator Setting YES, Blood Gas Inspired Oxygen NA 05/30/21 06:14: Blood Gas Puncture Site L RAD, Blood Gas Patient Temperature 36.6, Arterial Blood pH 7.28*L, Arterial Blood Partial Pressure CO2 39, Arterial Blood Partial Pressure O2 61L, Arterial Blood HCO3 18L, Arterial Blood Total CO2 19.0L, Arterial Blood Oxygen Saturation 92L, Arterial Blood Base Excess -7.8L, Erasto Test YES-POS, Blood Gas Ventilator Setting YES, Blood Gas Inspired Oxygen 65% Microbiology 05/25/21 - Final, Complete 05/19/21 Blood Culture - Final, Complete No growth 05/18/21 Gram Stain - Final, Complete 05/18/21 Sputum Culture - Final, Complete Usual upper respiratory ruchi 05/18/21 Urine Culture - Final, Complete Escherichia coli A/P: Assessment: Ac resp failure, multifactorial (obesity-hypoventilation, probable pneumonia, ARDS, sepsis, ac on chronic diastolic CHF), being managed by the Med and ICU services S/p lumbar puncture on the am of 05/25/21 New onset paroxysmal atrial fibrillation - first diagnosed during this hospitalization on May 19, 2021; currently maintaining SR Elevated troponin - Probably type 2 PA d/t sepsis/hypoxia Sepsis - secondary to UTI - management per medical/eICU services Acute on chronic diastolic (congestive) heart failure - Echo on 05-19-[address] Larsen: showed a-fib throughout the study; LVEF 60- 65%. Mild AoV sclerosis. PASP 34 mmHg Coronary artery disease with documented chronic angina pectoris - Previously reported she has had LAD stenting in early 2017 - Last card cath in late Dec 2018 at [place] and was told that she has diffused blockages in small caliber vessels and that she is not a candidate for further [facility] intervention - Previously reported severe intolerance to oral nitrates (severe headaches) IGGY on CKD - acute likely secondary to sepsis - CKD likely secondary to diabetic nephropathy Essential hypertension - continue current regimen - adjust as indicated HLD - statin DM 2 Obesity H/o medication intolerance: KEILY-inhib cause cough, but has been able to take ARBs Mild anemia of undetermined etiology, management per medical services Plan: Management is complex due to multiple comorbidities Monitor lab closely and replace electrolytes as indicated D/t episode of PAF, we advise OAC with Eliquis for stroke prophylaxis - to be approved by medical/eICU services SAL BACON May 27, 2021 08:40
[2021-05-27] MEDS: PANTOPRAZOLE 40 MG (PROTONIX) VIAL IV SCH (09:26)
[2021-05-27] MEDS: ASPIRIN 81 MG CHEW (CHILDREN'S ASA) PO SCH (09:26)
[2021-05-27] MEDS: AMIODARONE 200 MG (CORDARONE) TAB PO SCH ×2 (09:27→20:20)
[2021-05-27] MEDS: ENOXAPARIN 40 MG/0.4 ML (LOVENOX) SYR SC SCH (09:27)
[2021-05-27] MEDS: ACYCLOVIR INJECTION 800 MG in NS (IVPB) 250 ML IV SCH ×2 (09:47→16:44)
--- NOTE | 2021-05-27 11:12 | Progress Note - Hospitalist ---
CARLO DE LA O MED STUDENT 05/27/21 1112: Subjective HPI/CC On Admission Date Seen by Provider: May 27, 2021 Time Seen by Provider: 08:15 Paulette Roger is a 65-year-old female with past medical history of hypertension, insulin-dependent diabetes, coronary artery disease, GERD, morbid obesity, who presented with weakness and respiratory failure. EMS was called to her home where she had become very weak and short of breath while using the toilet. She required endotracheal intubation and intraosseous access. There is no ventilator available at [place] and she had to be mechanically bagged. Due to this, a complete work-up was not able to be performed in the emergency room and she was transferred to the [place] emergency room. After arrival, she was placed on a ventilator. CT scans were performed which showed no acute intracranial abnormalities but did reveal bilateral consolidations, pleural effusions, and possible pulmonary edema. She is Covid and flu negative. She was recently diagnosed with shingles. According to her nurse, she was awake and following commands prior to being started on sedation. Subjective/Events-last exam Intubated and sedated Objective Exam Vital Signs Vital Signs Date Time Temp Pulse Resp B/P (MAP) Pulse Ox O2 Delivery O2 Flow Rate FiO2 05/27/21 07:25 98 26 94 70 05/27/21 06:00 37.4 141/71 (94) Mechanical Ventilator 70.00 Capillary Refill : NONE General Appearance: Other (sedated; ill-appearing) Respiratory: Other (intubated) Cardiovascular: Regular Rate, Rhythm, No Murmur Gastrointestinal: Soft Extremity: Other (trace peripheral nonpitting edema) Neurologic/Psychiatric: Other (sedated) Skin: Normal Color, Warm/Dry Results/Procedures Lab Laboratory Tests 05/27/21 03:37 Patient resulted labs reviewed. Imaging: Reviewed Imaging Films, Reviewed Imaging Report Assessment/Plan Assessment and Plan Assess & Plan/Chief Complaint ARDS intubated 05/18 sedated with Versed and Precedex severe sepsis IV Cefepime and Doxycycline LP negative Head CT negative NSTEMI cardiology following Anemia-improved hgb stable Shingles Acyclovir Afib-resolved Amiodarone GI prophylaxis with Protonix. DVT prophylaxis with Lovenox. Consult with [facility]. Critical Care: Critically Ill Patient DIANDRA RECINOS DO 05/28/21 0516: Supervisory-Addendum Brief Verification & Attestation Participated in pt care: history, MDM, physical Personally performed: exam, history, MDM, supervision of care Care discussed with: Medical Student Procedures: n/a Results interpretation: Verified all documentation Verification and Attestation of Medical Student E/M Service A medical student performed and documented this service in my presence. I rev iewed and verified all information documented by the medical student and made modifications to such information, when appropriate. I personally performed the physical exam and medical decision making. Diandra Recinos, May 28, 2021,05:15 CARLO DE LA O MED STUDENT May 27, 2021 11:12 DIANDRA RECINOS DO May 28, 2021 05:16
[2021-05-27] MEDS: 1/2 NS IV SOLUTION 1,000 ML IV SCH (12:17)
[2021-05-27 12:18] VITALS: BP 114/71
[2021-05-27] MEDS ORDERED: FUROSEMIDE 40 MG/4 ML INJ (LASIX) IVP ONE (13:00)
--- NOTE | 2021-05-27 13:07 | Tele-ICU Progress Note ---
Subjective Date Seen by a Provider: May 27, 2021 Time Seen by a Provider: 13:07 Sepsis Event Evaluation Height, Weight, BMI Height: 5'1.00" Weight: 268lbs. 10.0oz. 121.990427dn; 59.07 BMI Method:Stated Exam Exam Patient acknowledged, consented, and participated in this virtual visit which was conducted using real time audio/video Vital Signs Date Time Temp Pulse Resp B/P (MAP) Pulse Ox O2 Delivery O2 Flow Rate FiO2 05/27/21 12:34 Mechanical Ventilator 60.00 05/27/21 12:25 60 05/27/21 12:18 90 26 96 70 05/27/21 10:00 37.6 95 25 100/62 (75) 90 Mechanical Ventilator 70.00 05/27/21 09:00 37.5 115 25 119/78 (92) 88 Mechanical Ventilator 70.00 05/27/21 08:00 37.4 102 26 144/83 (103) 92 Mechanical Ventilator 70.00 05/27/21 07:25 98 26 94 70 05/27/21 07:00 37.4 69 26 117/71 (86) 95 Mechanical Ventilator 70.00 05/27/21 07:00 70 05/27/21 06:00 37.4 72 25 141/71 (94) 94 Mechanical Ventilator 70.00 05/27/21 05:00 37.5 73 25 141/72 (95) 93 Mechanical Ventilator 70.00 05/27/21 04:00 37.4 72 25 141/73 (95) 90 Mechanical Ventilator 70.00 05/27/21 03:16 97 Mechanical Ventilator 70 05/27/21 03:00 37.3 69 25 138/69 (92) 95 Mechanical Ventilator 70.00 05/27/21 02:00 37.1 67 25 133/71 (91) 94 Mechanical Ventilator 70.00 05/27/21 01:26 67 26 94 70 05/27/21 01:00 37.2 70 25 134/75 (94) 93 Mechanical Ventilator 70.00 05/27/21 01:00 70 05/27/21 00:00 67 26 134/75 (94) 97 Mechanical Ventilator 70.00 05/26/21 23:22 97 Mechanical Ventilator 0 05/26/21 23:13 Mechanical Ventilator 70.00 05/26/21 23:12 67 138/84 05/26/21 23:06 36.3 05/26/21 23:00 66 21 138/84 (102) 98 Mechanical Ventilator 80.00 05/26/21 22:00 65 25 138/82 (100) 98 Mechanical Ventilator 80.00 05/26/21 21:34 67 26 93 80 05/26/21 21:00 65 25 141/80 (100) 96 Mechanical Ventilator 80.00 05/26/21 20:00 93 Mechanical Ventilator 80 05/26/21 20:00 67 26 140/77 (98) 96 Mechanical Ventilator 80.00 05/26/21 19:41 Mechanical Ventilator 80.00 05/26/21 19:39 36.2 05/26/21 19:00 65 05/26/21 19:00 65 20 128/77 (94) 96 Mechanical Ventilator 80.00 05/26/21 18:33 67 26 94 80 05/26/21 18:00 66 26 132/74 (93) 93 Mechanical Ventilator 80.00 05/26/21 17:00 64 21 123/70 (87) 95 Mechanical Ventilator 80.00 05/26/21 16:00 70 20 140/81 (100) 96 Mechanical Ventilator 80.00 05/26/21 16:00 37.0 05/26/21 15:38 93 Mechanical Ventilator 80 05/26/21 15:00 64 25 129/74 (96) 93 Mechanical Ventilator 80.00 05/26/21 14:49 63 29 94 80 05/26/21 14:00 61 25 125/75 (95) 93 Mechanical Ventilator 80.00 I & O 05/27/21 07:00 Intake Total 2570 ml Output Total 1225 ml Balance 1345 ml Height & Weight Height: 5'1.00" Weight: 268lbs. 10.0oz. 121.220756tz; 59.07 BMI Method:Stated General Appearance: Other (sedated; ill-appearing) Neck: Normal Inspection, Supple, Other (shingles rash Right ant neck and submental area) Respiratory: Other (intubated) Cardiovascular: Regular Rate, Rhythm, No Murmur Capillary Refill: NONE Gastrointestinal: normal bowel sounds, non tender, soft, no organomegaly, other (hypoactive BS, is having bowel movement, ? blood form NG) Extremity: Other (trace peripheral nonpitting edema) Neurologic/Psychiatric: Other (sedated) Skin: Normal Color, Warm/Dry Lymphatic: No Adenopathy Results Lab Laboratory Tests 05/26/21 05:00 05/27/21 03:37 Assessment/Plan Assessment/Plan (Tele-ICU Physician , Progress Note ) Available chart/ vitals / labs / Images reviewed Video assessment done using teleICU camera, rest of exam as per RN discussed with RN overnight increaded o2 Afebrile hemodynamically stable, no pressors, I/O =pos 2 l 48 h Drips: fentanyl, versed Consultants: cards VENT SETTINGS. AC 22 400-peep 8 60% PAP 32 ABG reviewed Sedation: RASS 1 , not follow commands versed ( elev tgl on propofol precedex Not candidate for SBTContraindications : Cardiovascular Stability / Sedation Score / FI02/PEEP / ABG / CXR reviewed Hospital course: 05/19 - intubated ( with exchange of ETT for right bronchus intubation and blockage of ETT , pressors , a fib rvr 05/21 - sinus , changed to versed wutg elv TGL ( high ) 05/23- AC 26 400-peep 12 45% PAP 32 AC 22 400-peep 8, increased 65% PAP 30 05/28 = Ac 26/400/80%/8 A/P Acute hypoxic respiratory failure due to possible underlying pneumonia and/or congestive heart failure CT 05/18 - no PE , bilat basilar infiltrates - intubated 05.19 , AC 22 400-peep 8, increased 65% PAP 30, mild met acidosis - secretion are thick - cont duop neb q4 h - might need mycomist , CXR pending today 05/27 = FIO@ &) , peep 8 - will stop IVF , lsix x1 SHOCK - off pressors 05/20 ID : PNA RLL / UTI, s/p LP 05/25 - cefepime / doxy - sputum NL ruchi 05/18 - urine - E coli 05/18 - blood staph coag ( contaminamt ) - repeated neg CAD , NSTEMI type II - ECHO 05/19/21 - EF 60% RVSP 34 mm Hg - cardiology follows A fib , new on admission - amio gtt - converted to sinus 05/21 - changed to po - heparing gtt OFF - to lovenox proph mental status change - CT HEAD NEG 05/18 - presumed due to Co2 retention , but with active Herpes and not folloing commands off propofol - will cont TX with acyclovir /cefepime 2 g q12 for meningitis - on fentanyl , midazolam - not followscommands - WILL STOP ALL SEDATION TODAY TO ASSESS ? need LP - W ILL DISCUSS WITH PCP IGGY - IMPROVING WITH HYDRATION - EF 60 % , on Fio2 70 % - anemia -brown-colored output from her OG tube. No michela blood follow OFF TF , ON PPI , hb STABLE - START TROPHIC FEEDING Shingels - not acive skin lesions as per Rn now DM II - iss , as per PCP hypoalbuminemeia Morbid obesity BMI 60 Lines : L IJ 05/18 , (Central Line Necessity Reviewed) Woods: + OG: + Nutrition: trophic feeding , start 50 today ( mita Analgesia: fentalyl Anxiety/ delirium VTE Prophylaxis: Stress Ulcer Prophylaxis: ppi Glycemic Control: + Plans in collaboration with bedside consultants and IM MDs. A total of 37 minutes of critical care time was devoted to this patient today, required to treat and/or prevent further deterioration of critical care conditi on ( as above ) . MOMO NIÑO MD May 27, 2021 13:07
[2021-05-27] MEDS: MIDAZOLAM DRIP PRE-MIX 100 ML IV SCH (13:56)
[2021-05-27 14:49] VITALS: BP 113/89
--- NOTE | 2021-05-27 15:24 | Progress Note - Cardiology ---
Cardiology SOAP Progress Note Subjective: Intubated, on mech vent, non-communicative Objective: I&O/Vital Signs 05/27/21 05/27/21 05/27/21 05/27/21 04:00 05:00 06:00 07:00 Temp 37.4 37.5 37.4 Pulse 72 73 72 70 Resp B/P (MAP) 141/73 (95) 141/72 (95) 141/71 (94) Pulse Ox 90 93 94 O2 Delivery Mechanical Ventilator Mechanical Ventilator Mechanical Ventilator O2 Flow Rate 70.00 70.00 70.00 05/27/21 05/27/21 05/27/21 05/27/21 07:00 07:25 08:00 09:00 Temp 37.4 37.4 37.5 Pulse 69 98 102 115 Resp B/P (MAP) 117/71 (86) 144/83 (103) 119/78 (92) Pulse Ox 95 94 92 88 O2 Delivery Mechanical Ventilator Mechanical Ventilator Mechanical Ventilator O2 Flow Rate 70.00 70.00 70.00 FiO2 70 05/27/21 05/27/21 05/27/21 05/27/21 10:00 12:18 12:25 12:34 Temp 37.6 Pulse 95 90 Resp B/P (MAP) 100/62 (75) Pulse Ox 90 96 O2 Delivery Mechanical Ventilator Mechanical Ventilator O2 Flow Rate 70.00 60.00 FiO2 70 60 05/27/21 05/27/21 05/27/21 13:00 13:56 14:49 Pulse 86 98 Resp B/P (MAP) 111/64 Pulse Ox 96 FiO2 60 05/27/21 00:00 Intake Total 1960 ml Output Total 650 ml Balance 1310 ml Weight (Pounds): 268 Weight (Ounces): 10.0 Weight (Calculated Kilograms): 121.921001 Constitutional: well-developed, well-nourished, other Respiratory: other Cardiovascular: regular rate-rhythm, S1 and S2 Gastrointestional: soft, audible bowel sounds Extremities: other Neurologic/Psychiatric: other Skin: No rash on exposed areas, No ulcerations on exposed areas Results/Procedures: Labs Laboratory Tests 05/26/21 17:23: Glucometer 95 05/26/21 23:09: Glucometer 83 05/27/21 02:16: Blood Gas Puncture Site LEFT RADIAL, Blood Gas Patient Temperature 37.1, Arterial Blood pH 7.35L, Arterial Blood Partial Pressure CO2 28L, Arterial Blood Partial Pressure O2 65L, Arterial Blood HCO3 15*L, Arterial Blood Total CO2 15.5L, Arterial Blood Oxygen Saturation 92L, Arterial Blood Base Excess -9.9L, Erasto Test YES-POS, Blood Gas Ventilator Setting YES, Blood Gas Inspired Oxygen 70% 05/27/21 03:37: White Blood Count 8.3, Red Blood Count 3.72L, Hemoglobin 8.9L, Hematocrit 30L, Mean Corpuscular Volume 80, Mean Corpuscular Hemoglobin 24L, Mean Corpuscular Hemoglobin Concent 30L, Red Cell Distribution Width 16.5H, Platelet Count 236, Mean Platelet Volume 10.1, Immature Granulocyte % (Auto) 3, Neutrophils (%) (Auto) 75, Lymphocytes (%) (Auto) 13, Monocytes (%) (Auto) 8, Eosinophils (%) (Auto) 2, Basophils (%) (Auto) 1, Neutrophils # (Auto) 6.2, Lymphocytes # (Auto) 1.1, Monocytes # (Auto) 0.6, Eosinophils # (Auto) 0.2, Basophils # (Auto) 0.1, Immature Granulocyte # (Auto) 0.2H, Sodium Level 144, Potassium Level 3.9, Chloride Level 119H, Carbon Dioxide Level 15L, Anion Gap 10, Blood Urea Nitrogen 44H, Creatinine 0.86, Estimat Glomerular Filtration Rate 66, BUN/Creatinine Ratio 51, Glucose Level 96, Calcium Level 7.9L, Phosphorus Level 3.1, Magnesium Level 2.0 05/27/21 12:18: Glucometer 94 Microbiology 05/25/21 Gram Stain - Final, Resulted 05/25/21 CSF Culture - Preliminary, Resulted No growth 05/19/21 Blood Culture - Final, Complete No growth 05/18/21 Gram Stain - Final, Complete 05/18/21 Sputum Culture - Final, Complete Usual upper respiratory ruchi 05/18/21 Urine Culture - Final, Complete Escherichia coli Laboratory Tests 05/26/21 05:00 05/27/21 03:37 A/P: Assessment: Ac resp failure, multifactorial (obesity-hypoventilation, probable pneumonia, ARDS, sepsis, ac on chronic diastolic CHF), being managed by the Med and ICU services S/p lumbar puncture on the am of 05/25/21 New onset paroxysmal atrial fibrillation - first diagnosed during this hospitalization on May 19, 2021; currently maintaining SR Elevated troponin - Probably type 2 AR d/t sepsis/hypoxia Sepsis - secondary to UTI - management per medical/eICU services Acute on chronic diastolic (congestive) heart failure - Echo on 05-19-[address] Larsen: showed a-fib throughout the study; LVEF 60- 65%. Mild AoV sclerosis. PASP 34 mmHg Coronary artery disease with documented chronic angina pectoris - Previously reported she has had LAD stenting in early 2017 - Last card cath in late Dec 2018 at [place] and was told that she has diffused blockages in small caliber vessels and that she is not a candidate for further [facility] intervention - Previously reported severe intolerance to oral nitrates (severe headaches) IGGY on CKD - acute likely secondary to sepsis - CKD likely secondary to diabetic nephropathy Essential hypertension - continue current regimen - adjust as indicated HLD - statin DM 2 Obesity H/o medication intolerance: KEILY-inhib cause cough, but has been able to take ARBs Mild anemia of undetermined etiology, management per medical services Plan: Management is complex due to multiple comorbidities Monitor lab closely and replace electrolytes as indicated D/t episode of PAF, we advise OAC with Eliquis for stroke prophylaxis - to be approved by medical/eICU services DAPHNE FUCHS MD FACP FAC CCDS May 27, 2021 15:24
[2021-05-27 19:08] VITALS: BP 118/67
[2021-05-27] MEDS: ROSUVASTATIN 20 MG (CRESTOR) TABLET PO SCH (20:20)
[2021-05-27 21:48] VITALS: BP 126/69
[2021-05-28] MEDS: DOXYCYCLINE INJECTION 100 MG in NS (IVPB) 100 ML IV SCH (01:59)
[2021-05-28] MEDS: ACYCLOVIR INJECTION 800 MG in NS (IVPB) 250 ML IV SCH ×3 (01:59→17:58)
[2021-05-28] MEDS: CEFEPIME 2,000 MG/SWFI 20 ML IV PUSH IV SCH ×2 (01:59)
[2021-05-28 02:13] VITALS: BP 121/66
[2021-05-28] MEDS: NOREPINEPHRINE 8 MG/250 ML 250 ML IV SCH ×3 (03:56→17:31)
[2021-05-28] MEDS: fentaNYL DRIP PRE-MIX 250 ML IV SCH ×5 (03:57→22:54)
[2021-05-28] MEDS: MIDAZOLAM DRIP PRE-MIX 100 ML IV SCH ×2 (03:57→22:21)
[2021-05-28 04:10] LABS: BASOPHILS % (AUTO) 1 % (0-10); EOSINOPHILS # (AUTO) 0.2 10^3/uL (0.0-0.3); EOSINOPHILS % (AUTO) 2 % (0-10); HEMATOCRIT 28 % (35-52); HEMOGLOBIN 8.6 g/dL (11.5-16.0); LYMPHOCYTES # (AUTO) 1.1 10^3/uL (1.0-4.0); LYMPHOCYTES % (AUTO) 13 % (12-44); MEAN CORPUSCULAR HEMOGLOBIN 24 pg (25-34); MEAN CORPUSCULAR HGB CONC 31 g/dL (32-36); MEAN CORPUSCULAR VOLUME 79 fL (80-99); MONOCYTES # (AUTO) 0.6 10^3/uL (0.0-1.0); MONOCYTES % (AUTO) 7 % (0-12); NEUTROPHILS # (AUTO) 6.1 10^3/uL (1.8-7.8); NEUTROPHILS % (AUTO) 73 % (42-75); PLATELET COUNT 245 10^3/uL (130-400); WHITE BLOOD COUNT 8.3 10^3/uL (4.3-11.0)
[2021-05-28 04:21] LABS: POTASSIUM 3.6 MMOL/L (3.6-5.0)
[2021-05-28 04:22] LABS: CALCIUM 7.7 MG/DL (8.5-10.1)
[2021-05-28 04:26] LABS: PHOSPHORUS 3.1 MG/DL (2.3-4.7)
[2021-05-28 04:27] LABS: CREATININE SERUM 0.91 MG/DL (0.60-1.30)
[2021-05-28 04:29] LABS: MAGNESIUM 1.9 MG/DL (1.6-2.4)
[2021-05-28] MEDS: KCL 20 MEQ TAB (K-DUR) PO SCH (04:36)
[2021-05-28] MEDS: MAGNESIUM 1 GM/100 ML IVPB 100 ML IV SCH (04:36)
[2021-05-28] MEDS: POTASSIUM CL 10MEQ/50ML IVPB 50 ML IV SCH ×3 (04:36→04:43)
[2021-05-28] MEDS: inSUlin ASPART (NovoLOG) 1 UNIT/0.01 ML (CHARGE PER UNIT) SC SCH ×3 (05:45→17:31)
[2021-05-28 06:14] LABS: ABG BASE EXCESS -8.7 MMOL/L (-2.5-2.5); ABG OXYGEN SATURATION 92 % (94-100); ABG PCO2 32 MMHG (35-45); ABG PO2 66 MMHG (79-93)
[2021-05-28 06:15] LABS: ABG PH 7.33 (7.37-7.43)
[2021-05-28 06:16] LABS: ALLENS TEST YES-POS; INSPIRED O2 60%; PATIENT TEMP 37.3; VENTILATOR YES
[2021-05-28] MEDS ORDERED: RT-ALBUTEROL SULF 2.5 MG/3 ML PRE-MIX VIAL IH SCH (06:32)
[2021-05-28 06:45] VITALS: BP 116/68
--- NOTE | 2021-05-28 07:30 | Diagnostic Imaging Report ---
EXAMINATION: Portable semierect AP chest at 5:09 AM INDICATION: Respiratory distress The cardiomegaly and the bilateral airspace opacities seen on the prior exam of 05/24/2021 are again evident. The appearance of the chest has worsened since the prior study as the density in the right upper lobe has increased consistent with greater pneumonia/atelectasis. The left lung may be slightly better aerated but is overall unchanged. The mediastinum is not widened. The osseous structures are intact. The supportive tubes and lines seem to be in good position. IMPRESSION: There are mixed results. There is greater involvement of the right upper lobe by pneumonia/atelectasis but the left lung does seem somewhat better aerated. A follow up study would be recommended for continued evaluation. Dictated by: Dictated on workstation # [id number]
[2021-05-28] MEDS ORDERED: RT-LEVALBUTEROL (XOPENEX) 1.25 MG/3 ML NEB NON-FORMULARY ONE (08:39)
--- NOTE | 2021-05-28 08:49 | Progress Note - Cardiology ---
Cardiology SOAP Progress Note Subjective: Remains intubated and sedated Objective: I&O/Vital Signs 05/29/21 05/29/21 05/29/21 05/29/21 21:00 21:51 22:00 22:18 Pulse 66 70 70 Resp B/P (MAP) 117/66 (83) 125/72 (89) Pulse Ox 89 90 91 O2 Delivery Mechanical Ventilator Mechanical Ventilator Mechanical Ventilator O2 Flow Rate 75.00 80.00 80.00 FiO2 80 05/29/21 05/30/21 05/30/21 05/30/21 23:00 00:00 00:03 00:52 Temp 36.0 Pulse 68 67 Resp B/P (MAP) 120/70 (87) 117/70 (86) Pulse Ox 94 96 92 O2 Delivery Mechanical Ventilator Mechanical Ventilator Mechanical Ventilator O2 Flow Rate 80.00 80.00 70.00 FiO2 80 05/30/21 05/30/21 05/30/21 05/30/21 01:00 01:00 01:45 02:00 Pulse 70 71 68 68 Resp B/P (MAP) 117/68 (84) 117/64 (81) Pulse Ox 93 96 95 O2 Delivery Mechanical Ventilator Mechanical Ventilator O2 Flow Rate 70.00 70.00 FiO2 70 05/30/21 05/30/21 05/30/21 05/30/21 03:00 03:00 04:00 04:00 Temp 36.6 Pulse 66 67 Resp B/P (MAP) 117/66 (83) 121/69 (86) Pulse Ox 94 95 O2 Delivery Mechanical Ventilator Mechanical Ventilator Mechanical Ventilator O2 Flow Rate 65.00 65.00 65.00 05/30/21 05/30/21 05/30/21 05/30/21 04:00 05:00 06:00 07:00 Pulse 66 68 68 Resp B/P (MAP) 131/76 (94) 131/82 (98) 126/74 (91) Pulse Ox 92 92 89 91 O2 Delivery Mechanical Ventilator Mechanical Ventilator Mechanical Ventilator O2 Flow Rate 65.00 65.00 65.00 FiO2 80 05/30/21 05/30/21 05/30/21 05/30/21 07:00 07:45 07:52 07:53 Temp 36.8 Pulse 68 69 69 Resp B/P (MAP) 126/71 Pulse Ox 92 FiO2 70 05/30/21 05/30/21 08:00 08:33 Pulse 71 Resp 26 B/P (MAP) 130/72 (91) Pulse Ox 92 92 O2 Delivery Mechanical Ventilator O2 Flow Rate 65.00 FiO2 70 05/30/21 00:00 Intake Total 836 ml Output Total 425 ml Balance 411 ml Weight (Pounds): 268 Weight (Ounces): 10.0 Weight (Calculated Kilograms): 121.999439 Constitutional: well-developed, well-nourished, other Respiratory: other Cardiovascular: regular rate-rhythm, S1 and S2 Gastrointestional: soft, audible bowel sounds Extremities: other Neurologic/Psychiatric: other Skin: No rash on exposed areas, No ulcerations on exposed areas Results/Procedures: Labs Laboratory Tests 05/29/21 11:39: Glucometer 136H 05/29/21 15:59: Glucometer 146H 05/29/21 17:57: Glucometer 131H 05/30/21 00:44: Glucometer 139H 05/30/21 03:23: White Blood Count 9.0, Red Blood Count 3.28L, Hemoglobin 7.9L, Hematocrit 26L, Mean Corpuscular Volume 80, Mean Corpuscular Hemoglobin 24L, Mean Corpuscular Hemoglobin Concent 30L, Red Cell Distribution Width 17.0H, Platelet Count 229, Mean Platelet Volume 10.6, Immature Granulocyte % (Auto) 2, Neutrophils (%) (Auto) 78H, Lymphocytes (%) (Auto) 11L, Monocytes (%) (Auto) 7, Eosinophils (%) (Auto) 2, Basophils (%) (Auto) 0, Neutrophils # (Auto) 7.0, Lymphocytes # (Auto) 1.0, Monocytes # (Auto) 0.6, Eosinophils # (Auto) 0.2, Basophils # (Auto) 0.0, Immature Granulocyte # (Auto) 0.2H, Sodium Level 146H, Potassium Level 4.5, Chloride Level 120H, Carbon Dioxide Level 14L, Anion Gap 12, Blood Urea Nitrogen 41H, Creatinine 0.97, Estimat Glomerular Filtration Rate 58, BUN/Creatinine Ratio 42, Glucose Level 147H, Calcium Level 7.6L, Phosphorus Level 3.4, Magnesium Level 1.9 05/30/21 04:50: Blood Gas Puncture Site R RADIAL, Blood Gas Patient Temperature 36.6, Arterial Blood pH 7.26*L, Arterial Blood Partial Pressure CO2 41, Arterial Blood Partial Pressure O2 68L, Arterial Blood HCO3 18L, Arterial Blood Total CO2 18.9L, Arterial Blood Oxygen Saturation 94, Arterial Blood Base Excess -8.2L, Erasto Test YES-POS, Blood Gas Ventilator Setting YES, Blood Gas Inspired Oxygen NA 05/30/21 06:14: Blood Gas Puncture Site L RAD, Blood Gas Patient Temperature 36.6, Arterial Blood pH 7.28*L, Arterial Blood Partial Pressure CO2 39, Arterial Blood Partial Pressure O2 61L, Arterial Blood HCO3 18L, Arterial Blood Total CO2 19.0L, Arterial Blood Oxygen Saturation 92L, Arterial Blood Base Excess -7.8L, Erasto Test YES-POS, Blood Gas Ventilator Setting YES, Blood Gas Inspired Oxygen 65% Microbiology 05/25/21 - Final, Complete 05/19/21 Blood Culture - Final, Complete No growth 05/18/21 Gram Stain - Final, Complete 05/18/21 Sputum Culture - Final, Complete Usual upper respiratory ruchi 05/18/21 Urine Culture - Final, Complete Escherichia coli Procedures NAME: JARVIS COLMENARES Jacky [facility] REC#: [id number] PT STATUS: ADM IN : 1955 PHYSICIAN: MOMO NIÑO MD ADMIT DATE: 05/18/21/ICU Draft Date of Exam:05/28/21 CHEST 1 VIEW, AP/PA ONLY EXAMINATION: Portable semierect AP chest at 5:09 AM INDICATION: Respiratory distress The cardiomegaly and the bilateral airspace opacities seen on the prior exam of 05/24/2021 are again evident. The appearance of the chest has worsened since the prior study as the density in the right upper lobe has increased consistent with greater pneumonia/atelectasis. The left lung may be slightly better aerated but is overall unchanged. The mediastinum is not widened. The osseous structures are intact. The supportive tubes and lines seem to be in good position. IMPRESSION: There are mixed results. There is greater involvement of the right upper lobe by pneumonia/atelectasis but the left lung does seem somewhat better aerated. A follow up study would be recommended for continued evaluation. Dictated on workstation # [id number] Dict: 05/28/2102 Trans: 05/28/21 0730 BRANDEE [id number] Interpreted by: KARINE PIKE MD Electronically signed by: A/P: Assessment: Ac resp failure, multifactorial (obesity-hypoventilation, probable pneumonia, ARDS, sepsis, ac on chronic diastolic CHF), being managed by the Med and ICU services S/p lumbar puncture on the am of 05/25/21 New onset paroxysmal atrial fibrillation - first diagnosed during this hospitalization on May 19, 2021; currently maintaining SR Elevated troponin - Probably type 2 [place] d/t sepsis/hypoxia Sepsis - secondary to UTI - management per medical/eICU services Acute on chronic diastolic (congestive) heart failure - Echo on 05-19-[address] Larsen: showed a-fib throughout the study; LVEF 60- 65%. Mild AoV sclerosis. PASP 34 mmHg Coronary artery disease with documented chronic angina pectoris - Previously reported she has had LAD stenting in early 2017 - Last card cath in late Dec 2018 at [place] and was told that she has diffused blockages in small caliber vessels and that she is not a candidate for further [facility] intervention - Previously reported severe intolerance to oral nitrates (severe headaches) IGGY on CKD - acute likely secondary to sepsis - CKD likely secondary to diabetic nephropathy Essential hypertension - continue current regimen - adjust as indicated HLD - statin DM 2 Obesity H/o medication intolerance: KEILY-inhib cause cough, but has been able to take ARBs Mild anemia of undetermined etiology, management per medical services Plan: Management is complex due to multiple comorbidities Monitor lab closely and replace electrolytes as indicated D/t episode of PAF, we advise OAC with Eliquis for stroke prophylaxis - to be approved by medical/eICU services Possible transfer to [facility] - management per medical services SAL BACON May 28, 2021 08:49
[2021-05-28] MEDS: ENOXAPARIN 40 MG/0.4 ML (LOVENOX) SYR SC SCH (08:50)
[2021-05-28] MEDS: PANTOPRAZOLE 40 MG (PROTONIX) VIAL IV SCH (08:50)
[2021-05-28] MEDS: AMIODARONE 200 MG (CORDARONE) TAB PO SCH ×2 (08:51→20:10)
[2021-05-28] MEDS: METOCLOPRAMIDE INJ 10 MG/2 ML (REGLAN) IVP SCH ×2 (08:51→16:48)
[2021-05-28] MEDS: ASPIRIN 81 MG CHEW (CHILDREN'S ASA) PO SCH (08:51)
[2021-05-28 09:45] LABS: ALBUMIN 2.6 GM/DL (3.2-4.5); BILIRUBIN,DIRECT 0.2 MG/DL (0.0-0.3); BILIRUBIN,INDIRECT 0.2 MG/DL; BILIRUBIN,TOTAL 0.4 MG/DL (0.1-1.0); TOTAL PROTEIN 5.5 GM/DL (6.4-8.2)
[2021-05-28 10:25] VITALS: BP 112/60
--- NOTE | 2021-05-28 11:05 | Progress Note - Hospitalist ---
CARLO DE LA O MED STUDENT 05/28/21 1105: Subjective HPI/CC On Admission Date Seen by Provider: May 28, 2021 Time Seen by Provider: 08:00 Paulette Roger is a 65-year-old female with past medical history of hypertension, insulin-dependent diabetes, coronary artery disease, GERD, morbid obesity, who presented with weakness and respiratory failure. EMS was called to her home where she had become very weak and short of breath while using the toilet. She required endotracheal intubation and intraosseous access. There is no ventilator available at [place] and she had to be mechanically bagged. Due to this, a complete work-up was not able to be performed in the emergency room and she was transferred to the [place] emergency room. After arrival, she was placed on a ventilator. CT scans were performed which showed no acute intracranial abnormalities but did reveal bilateral consolidations, pleural effusions, and possible pulmonary edema. She is Covid and flu negative. She was recently diagnosed with shingles. According to her nurse, she was awake and following commands prior to being started on sedation. Subjective/Events-last exam Intubated and sedated. Focused Exam Lactate Level 05/28/21 09:39: Lactic Acid Level 0.53 Lactic Acid Level Laboratory Tests Test 05/28/21 09:39 Lactic Acid Level 0.53 MMOL/L (0.50-2.00) Objective Exam Vital Signs Vital Signs Date Time Temp Pulse Resp B/P (MAP) Pulse Ox O2 Delivery O2 Flow Rate FiO2 05/28/21 10:25 67 26 92 85 05/28/21 09:42 Mechanical Ventilator 85.00 05/28/21 06:00 37.3 141/83 (102) Capillary Refill : NONE General Appearance: Chronically ill, Obese, Other (sedated) HEENT: Other (ET and OG tubes in place) Respiratory: Other (mechanically ventilated) Cardiovascular: Regular Rate, Rhythm, No Murmur, Other (mild nonpitting edema to LE and UE) Gastrointestinal: Soft Extremity: Normal Inspection Neurologic/Psychiatric: Other (sedated) Skin: Normal Color, Warm/Dry Results/Procedures Lab Laboratory Tests 05/28/21 04:02 Patient resulted labs reviewed. Imaging: Reviewed Imaging Films, Reviewed Imaging Report Assessment/Plan Assessment and Plan Assess & Plan/Chief Complaint ARDS intubated 05/18 sedated with Versed and Precedex severe sepsis IV Cefepime and Doxycycline NSTEMI cardiology following Anemia-improved hgb stable Shingles Acyclovir Afib-resolved Amiodarone GI prophylaxis with Protonix. DVT prophylaxis with Lovenox. Request for transfer to [place] denied. Will talk to pt's son about plan of care. DIANDRA RECINOS DO 05/28/212151: Subjective Subjective/Events-last exam Pt doing about the same FIO2 at 80% [place] was denied by her insurance Checked meds and labs Supervisory-Addendum Brief Verification & Attestation Participated in pt care: history, MDM, physical Personally performed: exam, history, MDM, supervision of care Care discussed with: Medical Student Procedures: n/a Results interpretation: Verified all documentation Verification and Attestation of Medical Student E/M Service A medical student performed and documented this service in my presence. I reviewed and verified all information documented by the medical student and made modifications to such information, when appropriate. I personally performed the physical exam and medical decision making. Diandra Recinos, May 28, 2021,21:51 CARLO DE LA O MED STUDENT May 28, 2021 11:05 DIANDRA RECINOS DO May 28, 2021 21:52
--- NOTE | 2021-05-28 11:47 | Tele-ICU Progress Note ---
Subjective Date Seen by a Provider: May 28, 2021 Time Seen by a Provider: 11:47 Sepsis Event Evaluation Height, Weight, BMI Height: 5'1.00" Weight: 268lbs. 10.0oz. 121.351622iu; 59.07 BMI Method:Stated Focused Exam Lactate Level 05/28/21 09:39: Lactic Acid Level 0.53 Lactic Acid Level Laboratory Tests Test 05/28/21 09:39 Lactic Acid Level 0.53 MMOL/L (0.50-2.00) Exam Exam Patient acknowledged, consented, and participated in this virtual visit which was conducted using real time audio/video Vital Signs Date Time Temp Pulse Resp B/P (MAP) Pulse Ox O2 Delivery O2 Flow Rate FiO2 05/28/21 10:25 67 26 92 85 05/28/21 09:42 93 Mechanical Ventilator 85.00 05/28/21 08:15 94 Mechanical Ventilator 95.00 05/28/21 07:50 90 60 05/28/21 07:30 Mechanical Ventilator 65.00 05/28/21 07:00 67 05/28/21 06:00 37.3 70 141/83 (102) 90 Mechanical Ventilator 60.00 05/28/21 05:00 37.2 68 25 117/62 (80) 94 Mechanical Ventilator 60.00 05/28/21 04:16 90 60 05/28/21 04:02 Mechanical Ventilator 60.00 05/28/21 04:00 37.2 72 22 122/65 (84) 88 Mechanical Ventilator 50.00 05/28/21 03:57 122/63 05/28/21 03:00 37.1 73 25 140/70 (93) 96 Mechanical Ventilator 50.00 05/28/21 02:13 67 26 90 50 05/28/21 02:00 37.2 66 25 121/66 (84) 91 Mechanical Ventilator 50.00 05/28/21 01:00 66 05/28/21 01:00 37.1 66 25 111/60 (77) 94 Mechanical Ventilator 50.00 05/28/21 00:00 37.1 68 26 119/68 (85) 93 Mechanical Ventilator 50.00 05/27/21 23:59 94 50 05/27/21 23:41 Mechanical Ventilator 50.00 05/27/21 23:00 37.2 68 25 128/68 (88) 94 Mechanical Ventilator 60.00 05/27/21 22:00 37.1 67 26 130/69 (89) 94 Mechanical Ventilator 60.00 05/27/21 21:48 68 26 94 50 05/27/21 21:00 37.2 67 26 118/67 (84) 93 Mechanical Ventilator 60.00 05/27/21 21:00 Mechanical Ventilator 55.00 05/27/21 20:00 37.2 69 35 113/62 (79) 92 Mechanical Ventilator 60.00 05/27/21 20:00 60 05/27/21 19:31 Mechanical Ventilator 60.00 05/27/21 19:08 69 26 92 50 05/27/21 19:00 37.1 70 25 118/67 (84) 92 Mechanical Ventilator 60.00 05/27/21 19:00 70 05/27/21 18:00 72 25 116/61 (79) 93 Mechanical Ventilator 60.00 05/27/21 17:00 70 25 96/55 (69) 94 Mechanical Ventilator 60.00 05/27/21 16:45 Mechanical Ventilator 60 05/27/21 16:00 93 26 107/64 (78) 94 Mechanical Ventilator 60.00 05/27/21 16:00 36.4 05/27/21 15:00 101 25 107/78 (88) 95 Mechanical Ventilator 60.00 05/27/21 14:49 98 26 96 60 05/27/21 14:00 121 10 113/89 (97) 87 Mechanical Ventilator 60.00 05/27/21 13:56 111/64 05/27/21 13:00 86 05/27/21 13:00 101 25 111/64 (80) 95 Mechanical Ventilator 60.00 05/27/21 12:34 Mechanical Ventilator 60.00 05/27/21 12:30 Mechanical Ventilator 60 05/27/21 12:25 60 05/27/21 12:18 90 26 96 70 05/27/21 12:00 95 25 87/56 (66) 95 Mechanical Ventilator 70.00 I & O 05/28/21 07:00 Intake Total 1206 ml Output Total 2725 ml Balance -1519 ml Height & Weight Height: 5'1.00" Weight: 268lbs. 10.0oz. 121.308664kq; 59.07 BMI Method:Stated General Appearance: Chronically ill, Obese, Other (sedated) HEENT: Other (ET and OG tubes in place) Neck: Normal Inspection, Supple, Other (shingles rash Right ant neck and submental area) Respiratory: Other (mechanically ventilated) Cardiovascular: Regular Rate, Rhythm, No Murmur, Other (mild nonpitting edema to LE and UE) Capillary Refill: NONE Gastrointestinal: normal bowel sounds, non tender, soft, no organomegaly, other (hypoactive BS, is having bowel movement, ? blood form NG) Extremity: Normal Inspection Neurologic/Psychiatric: Other (sedated) Skin: Normal Color, Warm/Dry Lymphatic: No Adenopathy Results Lab Laboratory Tests 05/27/21 03:37 05/28/21 04:02 Assessment/Plan Assessment/Plan (Tele-ICU Physician , Progress Note ) Available chart/ vitals / labs / Images reviewed Video assessment done using teleICU camera, rest of exam as per RN discussed with RN overnight - Afebrile - 37.3 hemodynamically stable, no pressors, I/O - neg 1800 Drips: fentanyl, versed Consultants: cards VENT SETTINGS. AC 22 400-peep 8 60% PAP 32 ABG reviewed Sedation: RASS 1 , not follow commands versed - fentanyl ( elev tgl on propofol precedex Hospital course: 05/19 - intubated ( with exchange of ETT for right bronchus intubation and blockage of ETT , pressors , a fib rvr 05/21 - sinus , changed to versed wutg elv TGL ( high ) 05/23- AC 26 400-peep 12 45% PAP 32 AC 22 400-peep 8, increased 65% PAP 30 05/28 = Ac 26/400/80%/8 - diuresisi - > 60% 05/28 back to 65% peep 10 A/P Acute hypoxic respiratory failure due to possible underlying pneumonia and/or congestive heart failure CT 05/18 - no PE , bilat basilar infiltrates - intubated . , AC 22 400-peep 10 increased 65% PAP 30, mild met acidosis - secretion are better - pat neb was " on hold " CXR pending today SHOCK - off pressors 05/20 ID : PNA RLL / UTI, s/p LP 05/25 - cefepime / doxy - sputum NL ruchi 05/18 - urine - E coli 05/18 - blood staph coag ( contaminamt ) - repeated neg MEtabolic acidosis - will recheck lactate , ketones , LFT CAD , NSTEMI type II - ECHO 05/19/21 - EF 60% RVSP 34 mm Hg - cardiology follows A fib , new on admission - amio gtt - converted to sinus 05/21 - changed to po - heparing gtt OFF - to lovenox proph mental status change - CT HEAD NEG 05/18 - presumed due to Co2 retention , but with active Herpes and not folloing commands off propofol - will cont TX with acyclovir /cefepime 2 g q12 for meningitis - on fentanyl , midazolam - not follows commands - LP done - WILL TRY TO RESUME GABAPENTIN AND HOME NOCRO , AND DECREASE DRIPS IGGY - normalised - EF 60 % anemia -brown-colored output from her OG tube. No michela blood follow OFF TF , ON PPI , hb STABLE - START TROPHIC FEEDING Shingels - not acive skin lesions as per Rn now DM II - iss , as per PCP hypoalbuminemia Morbid obesity BMI 60 Nutrition - tolerates better with reglan , increased Lines : L IJ 05/18 , (Central Line Necessity Reviewed) Woods: + OG: + Nutrition: trophic feeding , start 50 today ( mita Analgesia: fentalyl Anxiety/ delirium VTE Prophylaxis: LOVENOX 40 Stress Ulcer Prophylaxis: ppi Glycemic Control: + Plans in collaboration with bedside consultants and IM MDs. A total of 37 minutes of critical care time was devoted to this patient today, required to treat and/or prevent further deterioration of critical care condition ( as above ) . MOMO NIÑO MD May 28, 2021 11:47
--- NOTE | 2021-05-28 11:48 | Progress Note - Cardiology ---
Cardiology SOAP Progress Note Subjective: Intubated and on mech vent, non-communicative Objective: I&O/Vital Signs 05/27/21 05/28/21 05/28/21 05/28/21 23:59 00:00 01:00 01:00 Temp 37.1 37.1 Pulse 68 66 66 Resp B/P (MAP) 119/68 (85) 111/60 (77) Pulse Ox 94 93 94 O2 Delivery Mechanical Ventilator Mechanical Ventilator O2 Flow Rate 50.00 50.00 FiO2 50 05/28/21 05/28/21 05/28/21 05/28/21 02:00 02:13 03:00 03:57 Temp 37.2 37.1 Pulse 66 67 73 Resp B/P (MAP) 121/66 (84) 140/70 (93) 122/63 Pulse Ox 91 90 96 O2 Delivery Mechanical Ventilator Mechanical Ventilator O2 Flow Rate 50.00 50.00 FiO2 50 05/28/21 05/28/21 05/28/21 05/28/21 04:00 04:02 04:16 05:00 Temp 37.2 37.2 Pulse 72 68 Resp B/P (MAP) 122/65 (84) 117/62 (80) Pulse Ox 88 90 94 O2 Delivery Mechanical Ventilator Mechanical Ventilator Mechanical Ventilator O2 Flow Rate 50.00 60.00 60.00 FiO2 60 05/28/21 05/28/21 05/28/21 05/28/21 06:00 07:00 07:30 07:50 Temp 37.3 Pulse 70 67 B/P (MAP) 141/83 (102) Pulse Ox 90 90 O2 Delivery Mechanical Ventilator Mechanical Ventilator O2 Flow Rate 60.00 65.00 FiO2 60 05/28/21 05/28/21 05/28/21 08:15 09:42 10:25 Pulse 67 Resp 26 Pulse Ox 94 93 92 O2 Delivery Mechanical Ventilator Mechanical Ventilator O2 Flow Rate 95.00 85.00 FiO2 85 05/28/21 00:00 Intake Total 240 ml Output Total 2125 ml Balance -1885 ml Weight (Pounds): 268 Weight (Ounces): 10.0 Weight (Calculated Kilograms): 121.595202 Constitutional: well-developed, well-nourished, other Respiratory: other Cardiovascular: regular rate-rhythm, S1 and S2 Gastrointestional: soft, audible bowel sounds Extremities: other Neurologic/Psychiatric: other Skin: No rash on exposed areas, No ulcerations on exposed areas Results/Procedures: Labs Laboratory Tests 05/27/21 12:18: Glucometer 94 05/27/21 17:14: Glucometer 128H 05/27/21 23:40: Glucometer 114H 05/28/21 04:02: White Blood Count 8.3, Red Blood Count 3.56L, Hemoglobin 8.6L, Hematocrit 28L, Mean Corpuscular Volume 79L, Mean Corpuscular Hemoglobin 24L, Mean Corpuscular Hemoglobin Concent 31L, Red Cell Distribution Width 16.6H, Platelet Count 245, Mean Platelet Volume 10.0, Immature Granulocyte % (Auto) 4, Neutrophils (%) (Auto) 73, Lymphocytes (%) (Auto) 13, Monocytes (%) (Auto) 7, Eosinophils (%) (Auto) 2, Basophils (%) (Auto) 1, Neutrophils # (Auto) 6.1, Lymphocytes # (Auto) 1.1, Monocytes # (Auto) 0.6, Eosinophils # (Auto) 0.2, Basophils # (Auto) 0.0, Immature Granulocyte # (Auto) 0.3H, Sodium Level 144, Potassium Level 3.6, Chloride Level 118H, Carbon Dioxide Level 15L, Anion Gap 11, Blood Urea Nitrogen 41H, Creatinine 0.91, Estimat Glomerular Filtration Rate 62, BUN/Creatinine Ratio 45, Glucose Level 124H, Calcium Level 7.7L, Phosphorus Level 3.1, Magnesium Level 1.9, Total Bilirubin 0.4, Direct Bilirubin 0.2, Indirect Bilirubin 0.2, Aspartate Amino Transf (AST/SGOT) 19, Alanine Aminotransferase (ALT/SGPT) 27, Alkaline Phosphatase 64, Total Protein 5.5L, Albumin 2.6L 05/28/21 06:08: Blood Gas Puncture Site RIGHT RADIAL, Blood Gas Patient Temperature 37.3, Arterial Blood pH 7.33*L, Arterial Blood Partial Pressure CO2 32L, Arterial Blood Partial Pressure O2 66L, Arterial Blood HCO3 16*L, Arterial Blood Total CO2 17.0L, Arterial Blood Oxygen Saturation 92L, Arterial Blood Base Excess - 8.7L, Erasto Test YES-POS, Blood Gas Ventilator Setting YES, Blood Gas Inspired Oxygen 60% 05/28/21 09:39: Lactic Acid Level 0.53 Microbiology 05/25/21 Gram Stain - Final, Complete 05/25/21 CSF Culture - Final, Complete No growth 05/19/21 Blood Culture - Final, Complete No growth 05/18/21 Gram Stain - Final, Complete 05/18/21 Sputum Culture - Final, Complete Usual upper respiratory ruchi 05/18/21 Urine Culture - Final, Complete Escherichia coli Laboratory Tests 05/27/21 03:37 05/28/21 04:02 A/P: Assessment: Ac resp failure, multifactorial (obesity-hypoventilation, probable pneumonia, ARDS, sepsis, ac on chronic diastolic CHF), being managed by the Med and ICU services New onset paroxysmal atrial fibrillation - first diagnosed during this hospitalization on May 19, 2021; currently maintaining SR Elevated troponin - Probably type 2 MN d/t sepsis/hypoxia Sepsis - secondary to UTI - management per medical/eICU services Acute on chronic diastolic (congestive) heart failure - Echo on 05-19-[address] Larsen: showed a-fib throughout the study; LVEF 60- 65%. Mild AoV sclerosis. PASP 34 mmHg Coronary artery disease with documented chronic angina pectoris - Previously reported she has had LAD stenting in early 2017 - Last card cath in late Dec 2018 at [facility] and was told that she has diffused blockages in small caliber vessels and that she is not a candidate for further [facility] intervention - Previously reported severe intolerance to oral nitrates (severe headaches) IGGY on CKD - acute likely secondary to sepsis - CKD likely secondary to diabetic nephropathy Essential hypertension - continue current regimen - adjust as indicated HLD - statin DM 2 Obesity H/o medication intolerance: KEILY-inhib cause cough, but has been able to take ARBs Mild anemia of undetermined etiology, management per medical services Plan: Management is complex due to multiple comorbidities Monitor lab closely and replace electrolytes as indicated D/t episode of PAF, we advise OAC with Eliquis for stroke prophylaxis - to be approved by medical/eICU services Possible transfer to [facility] - management per Medical services DAPHNE FUCHS MD FACP [facility] May 28, 2021 11:48
[2021-05-28] MEDS: GABAPENTIN 600 MG (NEURONTIN) TAB PO SCH ×2 (13:42→20:10)
[2021-05-28 14:00] VITALS: BP 121/66
[2021-05-28] MEDS ORDERED: RT-ALBUTEROL SULF 2.5 MG/3 ML PRE-MIX VIAL INH SCH (18:00)
[2021-05-28 18:18] VITALS: BP 121/66
[2021-05-28] MEDS: RT-LEVALBUTEROL (XOPENEX) 1.25 MG/3 ML NEB NON-FORMULARY INH SCH ×2 (18:18→21:30)
[2021-05-28] MEDS: ROSUVASTATIN 20 MG (CRESTOR) TABLET PO SCH (20:10)
[2021-05-28 21:30] VITALS: BP 120/66
[2021-05-29] MEDS: inSUlin ASPART (NovoLOG) 1 UNIT/0.01 ML (CHARGE PER UNIT) SC SCH ×4 (00:23→16:42)
[2021-05-29] MEDS: METOCLOPRAMIDE INJ 10 MG/2 ML (REGLAN) IVP SCH ×4 (00:23→21:31)
[2021-05-29] MEDS: ACYCLOVIR INJECTION 800 MG in NS (IVPB) 250 ML IV SCH ×3 (01:06→16:42)
[2021-05-29] MEDS: NOREPINEPHRINE 8 MG/250 ML 250 ML IV SCH ×3 (02:28→16:42)
[2021-05-29 02:48] VITALS: BP 114/63
[2021-05-29] MEDS: RT-LEVALBUTEROL (XOPENEX) 1.25 MG/3 ML NEB NON-FORMULARY INH SCH ×6 (02:48→22:18)
[2021-05-29] MEDS: fentaNYL DRIP PRE-MIX 250 ML IV SCH ×5 (03:30→21:31)
[2021-05-29 05:01] LABS: ABG BASE EXCESS -7.5 MMOL/L (-2.5-2.5); ABG OXYGEN SATURATION 94 % (94-100); ABG PCO2 31 MMHG (35-45); ABG PH 7.35 (7.37-7.43); ABG PO2 63 MMHG (79-93); ABG TCO2 18.1 MMOL/L (21.0-31.0)
[2021-05-29 05:02] LABS: ALLENS TEST YES-POS; PATIENT TEMP 36.1; VENTILATOR YES
[2021-05-29 05:05] LABS: PLATELET COUNT 201 10^3/uL (130-400)
[2021-05-29 05:07] LABS: BASOPHILS # (AUTO) 0.1 10^3/uL (0.0-0.1); BASOPHILS % (AUTO) 1 % (0-10); EOSINOPHILS # (AUTO) 0.2 10^3/uL (0.0-0.3); EOSINOPHILS % (AUTO) 2 % (0-10); HEMATOCRIT 30 % (35-52); HEMOGLOBIN 8.8 g/dL (11.5-16.0); LYMPHOCYTES # (AUTO) 1.2 10^3/uL (1.0-4.0); LYMPHOCYTES % (AUTO) 14 % (12-44); MEAN CORPUSCULAR HEMOGLOBIN 24 pg (25-34); MEAN CORPUSCULAR HGB CONC 29 g/dL (32-36); MEAN CORPUSCULAR VOLUME 83 fL (80-99); MEAN PLATELET VOLUME 10.5 fL (9.0-12.2); MONOCYTES # (AUTO) 0.8 10^3/uL (0.0-1.0); MONOCYTES % (AUTO) 9 % (0-12); NEUTROPHILS # (AUTO) 6.3 10^3/uL (1.8-7.8); NEUTROPHILS % (AUTO) 73 % (42-75); WHITE BLOOD COUNT 8.7 10^3/uL (4.3-11.0)
[2021-05-29 05:18] LABS: POTASSIUM 4.1 MMOL/L (3.6-5.0)
[2021-05-29 05:19] LABS: CALCIUM 7.7 MG/DL (8.5-10.1)
[2021-05-29 05:23] LABS: PHOSPHORUS 3.1 MG/DL (2.3-4.7)
[2021-05-29 05:24] LABS: CREATININE SERUM 0.86 MG/DL (0.60-1.30)
[2021-05-29 05:26] LABS: MAGNESIUM 1.9 MG/DL (1.6-2.4)
[2021-05-29] MEDS: POTASSIUM CL 10MEQ/50ML IVPB 50 ML IV SCH (05:33)
[2021-05-29] MEDS: KCL 20 MEQ TAB (K-DUR) PO SCH (05:34)
[2021-05-29] MEDS: MAGNESIUM 1 GM/100 ML IVPB 100 ML IV SCH (05:34)
[2021-05-29 06:34] VITALS: BP 113/66
[2021-05-29] MEDS: ASPIRIN 81 MG CHEW (CHILDREN'S ASA) PO SCH (09:06)
[2021-05-29] MEDS: AMIODARONE 200 MG (CORDARONE) TAB PO SCH ×2 (09:06→21:31)
[2021-05-29] MEDS: GABAPENTIN 600 MG (NEURONTIN) TAB PO SCH ×3 (09:06→21:31)
[2021-05-29] MEDS: PANTOPRAZOLE 40 MG (PROTONIX) VIAL IV SCH (09:06)
[2021-05-29] MEDS: ENOXAPARIN 40 MG/0.4 ML (LOVENOX) SYR SC SCH (09:07)
[2021-05-29 10:35] VITALS: BP 114/61
[2021-05-29] MEDS: MIDAZOLAM DRIP PRE-MIX 100 ML IV SCH (12:27)
--- NOTE | 2021-05-29 12:54 | Progress Note - Hospitalist ---
CARLO DE LA O MED STUDENT 05/29/21 1254: Subjective HPI/CC On Admission Date Seen by Provider: May 29, 2021 Time Seen by Provider: 08:15 Paulette Roger is a 65-year-old female with past medical history of hypertension, insulin-dependent diabetes, coronary artery disease, GERD, morbid obesity, who presented with weakness and respiratory failure. EMS was called to her home where she had become very weak and short of breath while using the toilet. She required endotracheal intubation and intraosseous access. There is no ventilator available at [facility] and she had to be mechanically bagged. Due to this, a complete work-up was not able to be performed in the emergency room and she was transferred to the [place] emergency room. After arrival, she was placed on a ventilator. CT scans were performed which showed no acute intracranial abnormalities but did reveal bilateral consolidations, pleural effusions, and possible pulmonary edema. She is Covid and flu negative. She was recently diagnosed with shingles. According to her nurse, she was awake and following commands prior to being started on sedation. Subjective/Events-last exam Intubated and sedated Focused Exam Lactate Level 05/28/21 09:39: Lactic Acid Level 0.53 Objective Exam Vital Signs Vital Signs Date Time Temp Pulse Resp B/P (MAP) Pulse Ox O2 Delivery O2 Flow Rate FiO2 05/29/21 12:27 69 26 114/61 05/29/21 12:00 91 Mechanical Ventilator 60.00 05/29/21 11:44 37.0 05/29/21 10:35 60 Capillary Refill : NONE General Appearance: Chronically ill, Obese HEENT: Other (ET and OG tubes in place) Neck: Other (central line in place) Respiratory: Other (mechanically ventilated) Cardiovascular: Regular Rate, Rhythm, No Murmur Gastrointestinal: Soft Extremity: Other (mild BLE and APRYL swelling, unchanged from previous) Neurologic/Psychiatric: Other (sedated) Skin: Normal Color, Warm/Dry Results/Procedures Lab Laboratory Tests 05/29/21 04:52 Patient resulted labs reviewed. Imaging: Reviewed Imaging Films, Reviewed Imaging Report Assessment/Plan Assessment and Plan Assess & Plan/Chief Complaint ARDS intubated 05/18 sedated with Versed and Precedex Dr. Phelan consulted for trach tube and PEG tube placement severe sepsis IV Cefepime and Doxycycline NSTEMI cardiology following Anemia-improved hgb stable Shingles Acyclovir Afib-resolved Amiodarone GI prophylaxis with Protonix. DVT prophylaxis with Lovenox. Request for transfer to [place] denied. Will work with social work therapist to find an alternative. DIANDRA BLANKENSHIP DO 05/30/21 0458: Subjective Subjective/Events-last exam Pt about the same Updated son and lengthy conversation Trach and PEG tube will be placed Prognosis very guarded Objective Exam General Appearance: No Apparent Distress, Chronically ill, Obese, Other (Sedated and intubated) Respiratory: Lungs Clear, Decreased Breath Sounds Assessment/Plan Assessment and Plan Assess & Plan/Chief Complaint PEG tube and trach Prognosis poor Son insistent on aggressive care to continue Supervisory-Addendum Brief Verification & Attestation Participated in pt care: history, MDM, physical Personally performed: exam, history, MDM, supervision of care Care discussed with: Medical Student Procedures: n/a Results interpretation: Verified all documentation Verification and Attestation of Medical Student E/M Service A medical student performed and documented this service in my presence. I reviewed and verified all information documented by the medical student and made modifications to such information, when appropriate. I personally performed the physical exam and medical decision making. Diandra Blankenship, May 30, 2021,04:57 CARLO DE LA O MED STUDENT May 29, 2021 12:54 DIANDRA BLANKENSHIP DO May 30, 2021 04:58
[2021-05-29 13:19] VITALS: BP 113/61
--- NOTE | 2021-05-29 16:58 | Tele-ICU Progress Note ---
Subjective Date Seen by a Provider: May 29, 2021 Time Seen by a Provider: 16:57 Sepsis Event Evaluation Height, Weight, BMI Height: 5'1.00" Weight: 268lbs. 10.0oz. 121.553918bs; 59.07 BMI Method:Stated Focused Exam Lactate Level 05/28/21 09:39: Lactic Acid Level 0.53 Exam Exam Patient acknowledged, consented, and participated in this virtual visit which was conducted using real time audio/video Vital Signs Date Time Temp Pulse Resp B/P (MAP) Pulse Ox O2 Delivery O2 Flow Rate FiO2 05/29/21 16:45 37.0 05/29/21 16:42 66 113/66 05/29/21 16:26 92 80 05/29/21 16:00 66 25 113/66 (82) 92 Mechanical Ventilator 60.00 05/29/21 15:00 64 25 111/63 (79) 93 Mechanical Ventilator 60.00 05/29/21 14:00 66 26 118/65 (82) 91 Mechanical Ventilator 60.00 05/29/21 13:19 65 26 90 65 05/29/21 13:07 65 05/29/21 13:00 66 26 105/58 (74) 91 Mechanical Ventilator 60.00 05/29/21 12:27 69 26 114/61 05/29/21 12:26 69 114/61 05/29/21 12:00 92 80 05/29/21 12:00 64 25 112/62 (79) 91 Mechanical Ventilator 60.00 05/29/21 11:44 37.0 05/29/21 11:00 67 26 110/60 (77) 91 Mechanical Ventilator 60.00 05/29/21 10:35 69 26 91 60 05/29/21 10:00 68 25 113/61 (78) 91 Mechanical Ventilator 60.00 05/29/21 09:00 64 25 114/63 (80) 93 Mechanical Ventilator 60.00 05/29/21 08:00 66 25 112/62 (79) 94 Mechanical Ventilator 60.00 05/29/21 08:00 94 80 05/29/21 08:00 36.8 05/29/21 07:00 66 26 116/67 (83) 94 Mechanical Ventilator 60.00 05/29/21 06:45 65 05/29/21 06:41 Mechanical Ventilator 60.00 05/29/21 06:34 67 26 94 60 05/29/21 06:00 67 25 113/66 (82) 94 Mechanical Ventilator 55.00 05/29/21 05:00 68 25 119/68 (85) 94 Mechanical Ventilator 55.00 05/29/21 04:00 67 26 115/61 (79) 94 Mechanical Ventilator 55.00 05/29/21 04:00 94 55 05/29/21 03:39 36.1 05/29/21 03:31 Mechanical Ventilator 55.00 05/29/21 03:00 68 25 118/66 (83) 94 Mechanical Ventilator 60.00 05/29/21 02:48 69 26 94 60 05/29/21 02:00 70 25 114/63 (80) 93 Mechanical Ventilator 60.00 05/29/21 01:00 68 26 115/65 (82) 95 Mechanical Ventilator 60.00 05/29/21 01:00 68 05/29/21 00:22 94 75 05/29/21 00:00 66 26 123/70 (87) 96 Mechanical Ventilator 60.00 05/29/21 00:00 36.0 05/28/21 23:00 65 25 121/71 (88) 95 Mechanical Ventilator 60.00 05/28/21 22:56 Mechanical Ventilator 60.00 05/28/21 22:21 67 122/70 05/28/21 22:00 66 25 122/74 (90) 96 Mechanical Ventilator 75.00 05/28/21 21:30 66 26 96 75 05/28/21 21:00 68 26 132/74 (93) 96 Mechanical Ventilator 75.00 05/28/21 20:47 36.2 05/28/21 20:00 65 25 125/69 (87) 94 Mechanical Ventilator 75.00 05/28/21 20:00 94 75 05/28/21 19:00 66 05/28/21 19:00 66 25 119/64 (82) 93 Mechanical Ventilator 75.00 05/28/21 18:18 64 26 93 75 05/28/21 18:00 66 17 117/67 (84) 92 Mechanical Ventilator 75.00 05/28/21 17:00 68 19 109/62 (78) 90 Mechanical Ventilator 75.00 I & O 05/29/21 07:00 Intake Total 1712 ml Output Total 1125 ml Balance 587 ml Height & Weight Height: 5'1.00" Weight: 268lbs. 10.0oz. 121.465911lk; 59.07 BMI Method:Stated General Appearance: Chronically ill, Obese HEENT: Other (ET and OG tubes in place) Neck: Other (central line in place) Respiratory: Other (mechanically ventilated) Cardiovascular: Regular Rate, Rhythm, No Murmur Capillary Refill: NONE Gastrointestinal: normal bowel sounds, non tender, soft, no organomegaly, other (hypoactive BS, is having bowel movement, ? blood form NG) Extremity: Other (mild BLE and APRYL swelling, unchanged from previous) Neurologic/Psychiatric: Other (sedated) Skin: Normal Color, Warm/Dry Lymphatic: No Adenopathy Results Lab Laboratory Tests 05/28/21 04:02 05/29/21 04:52 Assessment/Plan Assessment/Plan (Tele-ICU Physician , Progress Note ) Available chart/ vitals / labs / Images reviewed Video assessment done using teleICU camera, rest of exam as per RN discussed with RN overnight - Afebrile - hemodynamically stable, no pressors, I/O - neg even Drips: fentanyl, versed Consultants: cards VENT SETTINGS. AC 22 400-peep 8 60% PAP 32 ABG reviewed Sedation: RASS 1 , not follow commands versed - fentanyl ( elev tgl on propofol precedex Hospital course: 05/19 - intubated ( with exchange of ETT for right bronchus intubation and blockage of ETT , pressors , a fib rvr 05/21 - sinus , changed to versed wutg elv TGL ( high ) 05/23- AC 26 400-peep 12 45% PAP 32 AC 22 400-peep 8, increased 65% PAP 30 05/28 = Ac 26/400/80%/8 - diuresisi - > 60% 05/28 back to 65% peep 10 A/P Acute hypoxic respiratory failure due to possible underlying pneumonia and/or congestive heart failure CT 05/18 - no PE , bilat basilar infiltrates - intubated 05.19 , AC 22 400-peep 10 increased 65% PAP 30, mild met acidosis - secretion are better - duo neb was " on hold " CXR pending today SHOCK - off pressors 05/20 ID : PNA RLL / UTI, s/p LP 05/25 - cefepime / doxy - sputum NL ruchi 05/18 - urine - E coli 05/18 - blood staph coag ( contaminamt ) - repeated neg MEtabolic acidosis - l actate , ketones , LFT - WNL - ? hyperchlorimic acidosis CAD , NSTEMI type II - ECHO 05/19/21 - EF 60% RVSP 34 mm Hg - cardiology follows A fib , new on admission - amio gtt - converted to sinus 05/21 - changed to po - heparing gtt OFF - to lovenox proph - as per cards - MEERA ADVISED - I do not see strong contraindicatin - will await IM MD opinion mental status change - CT HEAD NEG 05/18 - presumed due to Co2 retention , but with active Herpes and not folloing commands off propofol - will cont TX with acyclovir /cefepime 2 g q12 for meningitis - on fentanyl , midazolam - not follows commands - LP done - WILL TRY TO RESUME GABAPENTIN AND HOME NOCRO , AND DECREASE DRIPS IGGY - normalised - EF 60 % anemia -brown-colored output from her OG tube. No michela blood follow OFF TF , ON PPI , hb STABLE - START FEEDING Shingels - not acive skin lesions as per Rn now DM II - iss , as per PCP hypoalbuminemia Morbid obesity BMI 60 Nutrition - tolerates better with reglan , increased to 130 today Lines : L IJ 05/18 , (Central Line Necessity Reviewed) Woods: + OG: + Nutrition:OG Analgesia: fentalyl Anxiety/ delirium VTE Prophylaxis: LOVENOX 40 Stress Ulcer Prophylaxis: ppi Glycemic Control: + Plans in collaboration with bedside consultants and IM MDs. A total of 37 minutes of critical care time was devoted to this patient today, required to treat and/or prevent further deterioration of critical care condition ( as above ) . MOMO NIÑO MD May 29, 2021 16:58
--- NOTE | 2021-05-29 17:20 | Progress Note - Cardiology ---
Cardiology SOAP Progress Note Subjective: Intubated, on mech vent, non-communicative Objective: I&O/Vital Signs 05/29/21 05/29/21 05/29/21 05/29/21 06:00 06:34 06:41 06:45 Pulse 67 67 65 Resp B/P (MAP) 113/66 (82) Pulse Ox 94 94 O2 Delivery Mechanical Ventilator Mechanical Ventilator O2 Flow Rate 55.00 60.00 FiO2 60 05/29/21 05/29/21 05/29/21 05/29/21 07:00 08:00 08:00 08:00 Temp 36.8 Pulse 66 66 Resp B/P (MAP) 116/67 (83) 112/62 (79) Pulse Ox 94 94 94 O2 Delivery Mechanical Ventilator Mechanical Ventilator O2 Flow Rate 60.00 60.00 FiO2 80 05/29/21 05/29/21 05/29/21 05/29/21 09:00 10:00 10:35 11:00 Pulse 64 68 69 67 Resp B/P (MAP) 114/63 (80) 113/61 (78) 110/60 (77) Pulse Ox 93 91 91 91 O2 Delivery Mechanical Ventilator Mechanical Ventilator Mechanical Ventilator O2 Flow Rate 60.00 60.00 60.00 FiO2 60 05/29/21 05/29/21 05/29/21 05/29/21 11:44 12:00 12:00 12:26 Temp 37.0 Pulse 64 69 Resp B/P (MAP) 112/62 (79) 114/61 Pulse Ox 91 92 O2 Delivery Mechanical Ventilator O2 Flow Rate 60.00 FiO2 80 05/29/21 05/29/21 05/29/21 05/29/21 12:27 13:00 13:07 13:19 Pulse 69 66 65 65 Resp B/P (MAP) 114/61 105/58 (74) Pulse Ox 91 90 O2 Delivery Mechanical Ventilator O2 Flow Rate 60.00 FiO2 65 05/29/21 05/29/21 05/29/21 05/29/21 14:00 15:00 16:00 16:26 Pulse 66 64 66 Resp 25 B/P (MAP) 118/65 (82) 111/63 (79) 113/66 (82) Pulse Ox 91 93 92 92 O2 Delivery Mechanical Ventilator Mechanical Ventilator Mechanical Ventilator O2 Flow Rate 60.00 60.00 60.00 FiO2 80 05/29/21 05/29/21 16:42 16:45 Temp 37.0 Pulse 66 B/P (MAP) 113/66 05/29/21 00:00 Intake Total 856 ml Output Total 445 ml Balance 411 ml Weight (Pounds): 268 Weight (Ounces): 10.0 Weight (Calculated Kilograms): 121.070913 Constitutional: well-developed, well-nourished, other Respiratory: other Cardiovascular: regular rate-rhythm, S1 and S2 Gastrointestional: soft, audible bowel sounds Extremities: other Neurologic/Psychiatric: other Skin: No rash on exposed areas, No ulcerations on exposed areas Results/Procedures: Labs Laboratory Tests 05/29/21 00:04: Glucometer 149H 05/29/21 04:52: White Blood Count 8.7, Red Blood Count 3.67L, Hemoglobin 8.8L, Hematocrit 30L, Mean Corpuscular Volume 83, Mean Corpuscular Hemoglobin 24L, Mean Corpuscular Hemoglobin Concent 29L, Red Cell Distribution Width 17.0H, Platelet Count 201, Mean Platelet Volume 10.5, Immature Granulocyte % (Auto) 2, Neutrophils (%) (Auto) 73, Lymphocytes (%) (Auto) 14, Monocytes (%) (Auto) 9, Eosinophils (%) (Auto) 2, Basophils (%) (Auto) 1, Neutrophils # (Auto) 6.3, Lymphocytes # (Auto) 1.2, Monocytes # (Auto) 0.8, Eosinophils # (Auto) 0.2, Basophils # (Auto) 0.1, Immature Granulocyte # (Auto) 0.2H, Percent Immature Platelet Fraction 2.5, Sodium Level 142, Potassium Level 4.1, Chloride Level 119H, Carbon Dioxide Level 14L, Anion Gap 9, Blood Urea Nitrogen 41H, Creatinine 0.86, Estimat Glomerular Filtration Rate 66, BUN/Creatinine Ratio 48, Glucose Level 144H, Calcium Level 7.7L, Phosphorus Level 3.1, Magnesium Level 1.9 05/29/21 04:53: Blood Gas Puncture Site LEFT RADIAL, Blood Gas Patient Temperature 36.1, Arterial Blood pH 7.35L, Arterial Blood Partial Pressure CO2 31L, Arterial Blood Partial Pressure O2 63L, Arterial Blood HCO3 18L, Arterial Blood Total CO2 18.1L , Arterial Blood Oxygen Saturation 94, Arterial Blood Base Excess -7.5L, Erasto Test YES-POS, Blood Gas Ventilator Setting YES, Blood Gas Inspired Oxygen 55% 05/29/21 11:39: Glucometer 136H 05/29/21 15:59: Glucometer 146H Microbiology 05/25/21 - Final, Complete 05/19/21 Blood Culture - Final, Complete No growth 05/18/21 Gram Stain - Final, Complete 05/18/21 Sputum Culture - Final, Complete Usual upper respiratory ruchi 05/18/21 Urine Culture - Final, Complete Escherichia coli Laboratory Tests 05/28/21 04:02 05/29/21 04:52 A/P: Assessment: Ac resp failure, multifactorial (obesity-hypoventilation, probable pneumonia, ARDS, sepsis, ac on chronic diastolic CHF), being managed by the Med and ICU services New onset paroxysmal atrial fibrillation - first diagnosed during this hospitalization on May 19, 2021; currently maintaining SR Elevated troponin - Probably type 2 [place] d/t sepsis/hypoxia Sepsis - secondary to UTI - management per medical/eICU services Acute on chronic diastolic (congestive) heart failure - Echo on 05-19-[address] Larsen: showed a-fib throughout the study; LVEF 60- 65%. Mild AoV sclerosis. PASP 34 mmHg Coronary artery disease with documented chronic angina pectoris - Previously reported she has had LAD stenting in early 2017 - Last card cath in late Dec 2018 at [place] and was told that she has diffused blockages in small caliber vessels and that she is not a candidate for further [facility] intervention - Previously reported severe intolerance to oral nitrates (severe headaches) IGGY on CKD - acute likely secondary to sepsis - CKD likely secondary to diabetic nephropathy Essential hypertension - continue current regimen - adjust as indicated HLD - statin DM 2 Obesity H/o medication intolerance: KEILY-inhib cause cough, but has been able to take ARBs Mild anemia of undetermined etiology, management per medical services Plan: Management is complex due to multiple comorbidities Monitor lab closely and replace electrolytes as indicated D/t episode of PAF, we advise OAC with Eliquis for stroke prophylaxis - to be approved by medical/eICU services Possible transfer to [facility] - management per Medical services DAPHNE FUCHS MD FACP [facility] May 29, 2021 17:20
[2021-05-29 19:15] VITALS: BP 111/65
[2021-05-29] MEDS: ROSUVASTATIN 20 MG (CRESTOR) TABLET PO SCH (21:31)
[2021-05-29 22:18] VITALS: BP 125/72
[2021-05-30] MEDS: ACYCLOVIR INJECTION 800 MG in NS (IVPB) 250 ML IV SCH ×3 (00:45→18:04)
[2021-05-30] MEDS: NOREPINEPHRINE 8 MG/250 ML 250 ML IV SCH ×4 (00:45→23:25)
[2021-05-30] MEDS: inSUlin ASPART (NovoLOG) 1 UNIT/0.01 ML (CHARGE PER UNIT) SC SCH ×4 (00:45→18:02)
[2021-05-30 01:45] VITALS: BP 116/67
[2021-05-30] MEDS: RT-LEVALBUTEROL (XOPENEX) 1.25 MG/3 ML NEB NON-FORMULARY INH SCH ×6 (01:45→21:40)
[2021-05-30] MEDS: fentaNYL DRIP PRE-MIX 250 ML IV SCH ×4 (02:43→19:18)
[2021-05-30 03:59] LABS: BASOPHILS % (AUTO) 0 % (0-10); EOSINOPHILS # (AUTO) 0.2 10^3/uL (0.0-0.3); EOSINOPHILS % (AUTO) 2 % (0-10); HEMATOCRIT 26 % (35-52); HEMOGLOBIN 7.9 g/dL (11.5-16.0); LYMPHOCYTES % (AUTO) 11 % (12-44); MEAN CORPUSCULAR HEMOGLOBIN 24 pg (25-34); MEAN CORPUSCULAR HGB CONC 30 g/dL (32-36); MEAN CORPUSCULAR VOLUME 80 fL (80-99); MEAN PLATELET VOLUME 10.6 fL (9.0-12.2); MONOCYTES # (AUTO) 0.6 10^3/uL (0.0-1.0); MONOCYTES % (AUTO) 7 % (0-12); NEUTROPHILS % (AUTO) 78 % (42-75); PLATELET COUNT 229 10^3/uL (130-400)
[2021-05-30 04:18] LABS: POTASSIUM 4.5 MMOL/L (3.6-5.0)
[2021-05-30 04:19] LABS: CALCIUM 7.6 MG/DL (8.5-10.1)
[2021-05-30 04:23] LABS: CREATININE SERUM 0.97 MG/DL (0.60-1.30); PHOSPHORUS 3.4 MG/DL (2.3-4.7)
[2021-05-30 04:26] LABS: MAGNESIUM 1.9 MG/DL (1.6-2.4)
[2021-05-30] MEDS: POTASSIUM CL 10MEQ/50ML IVPB 50 ML IV SCH (05:04)
[2021-05-30] MEDS: KCL 20 MEQ TAB (K-DUR) PO SCH (05:04)
[2021-05-30] MEDS: METOCLOPRAMIDE INJ 10 MG/2 ML (REGLAN) IVP SCH ×3 (05:04→20:59)
[2021-05-30] MEDS: MAGNESIUM 1 GM/100 ML IVPB 100 ML IV SCH (05:04)
[2021-05-30 05:05] LABS: ABG BASE EXCESS -8.2 MMOL/L (-2.5-2.5); ABG OXYGEN SATURATION 94 % (94-100); ABG PCO2 41 MMHG (35-45); ABG PO2 68 MMHG (79-93); ABG TCO2 18.9 MMOL/L (21.0-31.0)
[2021-05-30 05:06] LABS: ABG PH 7.26 (7.37-7.43); ALLENS TEST YES-POS; PATIENT TEMP 36.6; VENTILATOR YES
--- NOTE | 2021-05-30 05:34 | Progress Note - Hospitalist ---
Subjective HPI/CC On Admission Date Seen by Provider: May 30, 2021 Time Seen by Provider: 11:00 Paulette Roger is a 65-year-old female with past medical history of hypertension, insulin-dependent diabetes, coronary artery disease, GERD, morbid obesity, who presented with weakness and respiratory failure. EMS was called to her home wh ere she had become very weak and short of breath while using the toilet. She required endotracheal intubation and intraosseous access. There is no ventilator available at [place] and she had to be mechanically bagged. Due to this, a complete work-up was not able to be performed in the emergency room and she was transferred to the [facility] emergency room. After arrival, she was placed on a ventilator. CT scans were performed which showed no acute intracranial abnormalities but did reveal bilateral consolidations, pleural effusions, and possible pulmonary edema. She is Covid and flu negative. She was recently diagnosed with shingles. According to her nurse, she was awake and following commands prior to being started on sedation. Subjective/Events-last exam Pt remains intubated Trach an PEG tube will be placed Unrealistic expectation of recovery from the son Will continue aggressive treatment Review of Systems General: Fatigue, Malaise Focused Exam Lactate Level 05/28/21 09:39: Lactic Acid Level 0.53 Objective Exam Vital Signs Vital Signs Date Time Temp Pulse Resp B/P (MAP) Pulse Ox O2 Delivery O2 Flow Rate FiO2 05/30/21 19:45 36.7 05/30/21 18:46 69 26 96 70 05/30/21 18:00 137/76 (96) Mechanical Ventilator 85.00 Capillary Refill : NONE General Appearance: No Apparent Distress, WD/WN, Chronically ill Respiratory: Lungs Clear, Normal Breath Sounds Results/Procedures Lab Laboratory Tests 05/30/21 03:23 Patient resulted labs reviewed. Imaging: Reviewed Imaging Films, Reviewed Imaging Report Assessment/Plan Assessment and Plan Assess & Plan/Chief Complaint PEG tube and trach Prognosis poor Son insistent on aggressive care to continue Trach and PEG tomorrow Unrealistic recovery expectations Critical Care Critically Ill Patient ASHWINI BLANKENSHIP DO May 30, 2021 05:34
[2021-05-30 06:34] LABS: ABG BASE EXCESS -7.8 MMOL/L (-2.5-2.5); ABG OXYGEN SATURATION 92 % (94-100); ABG PCO2 39 MMHG (35-45); ABG PO2 61 MMHG (79-93)
[2021-05-30 06:35] LABS: ABG PH 7.28 (7.37-7.43); ALLENS TEST YES-POS
[2021-05-30 06:36] LABS: INSPIRED O2 65%; PATIENT TEMP 36.6; VENTILATOR YES
[2021-05-30] MEDS: MIDAZOLAM DRIP PRE-MIX 100 ML IV SCH (07:45)
[2021-05-30 07:52] VITALS: BP 124/73
[2021-05-30] MEDS: PANTOPRAZOLE 40 MG (PROTONIX) VIAL IV SCH (08:17)
[2021-05-30] MEDS: ASPIRIN 81 MG CHEW (CHILDREN'S ASA) PO SCH (08:18)
[2021-05-30] MEDS: ENOXAPARIN 40 MG/0.4 ML (LOVENOX) SYR SC SCH (08:18)
[2021-05-30] MEDS: AMIODARONE 200 MG (CORDARONE) TAB PO SCH ×2 (08:18→20:59)
[2021-05-30] MEDS: GABAPENTIN 600 MG (NEURONTIN) TAB PO SCH ×3 (08:18→20:59)
--- NOTE | 2021-05-30 08:18 | Tele-ICU Progress Note ---
Subjective Date Seen by a Provider: May 30, 2021 Time Seen by a Provider: 09:36 Sepsis Event Evaluation Height, Weight, BMI Height: 5'1.00" Weight: 268lbs. 10.0oz. 121.592698uf; 59.07 BMI Method:Stated Focused Exam Lactate Level 05/28/21 09:39: Lactic Acid Level 0.53 Exam Exam Patient acknowledged, consented, and participated in this virtual visit which was conducted using real time audio/video Vital Signs Date Time Temp Pulse Resp B/P (MAP) Pulse Ox O2 Delivery O2 Flow Rate FiO2 05/30/21 07:53 36.8 05/30/21 07:52 69 26 92 70 05/30/21 07:45 69 26 126/71 05/30/21 07:00 68 05/30/21 05:00 66 25 131/76 (94) 92 Mechanical Ventilator 65.00 05/30/21 04:00 92 80 05/30/21 04:00 36.6 05/30/21 04:00 67 26 121/69 (86) 95 Mechanical Ventilator 65.00 05/30/21 03:00 Mechanical Ventilator 65.00 05/30/21 03:00 66 25 117/66 (83) 94 Mechanical Ventilator 65.00 05/30/21 02:00 68 26 117/64 (81) 95 Mechanical Ventilator 70.00 05/30/21 01:45 68 26 96 70 05/30/21 01:00 71 05/30/21 01:00 70 25 117/68 (84) 93 Mechanical Ventilator 70.00 05/30/21 00:52 36.0 Mechanical Ventilator 70.00 05/30/21 00:03 92 80 05/30/21 00:00 67 26 117/70 (86) 96 Mechanical Ventilator 80.00 05/29/21 23:00 68 25 120/70 (87) 94 Mechanical Ventilator 80.00 05/29/21 22:18 70 26 91 80 05/29/21 22:00 70 25 125/72 (89) 90 Mechanical Ventilator 80.00 05/29/21 21:51 Mechanical Ventilator 80.00 05/29/21 21:00 66 25 117/66 (83) 89 Mechanical Ventilator 75.00 05/29/21 20:00 36.4 05/29/21 20:00 92 75 05/29/21 20:00 68 26 117/65 (82) 90 Mechanical Ventilator 75.00 05/29/21 19:15 65 26 92 75 05/29/21 19:00 Mechanical Ventilator 75.00 05/29/21 19:00 66 26 111/65 (80) 91 Mechanical Ventilator 75.00 05/29/21 19:00 70 05/29/21 18:00 66 26 109/63 (78) 91 Mechanical Ventilator 60.00 05/29/21 17:00 67 25 103/58 (73) 90 Mechanical Ventilator 60.00 05/29/21 16:45 37.0 05/29/21 16:42 66 113/66 05/29/21 16:26 92 80 05/29/21 16:00 66 25 113/66 (82) 92 Mechanical Ventilator 60.00 05/29/21 15:00 64 25 111/63 (79) 93 Mechanical Ventilator 60.00 05/29/21 14:00 66 26 118/65 (82) 91 Mechanical Ventilator 60.00 05/29/21 13:19 65 26 90 65 05/29/21 13:07 65 05/29/21 13:00 66 26 105/58 (74) 91 Mechanical Ventilator 60.00 05/29/21 12:27 69 26 114/61 05/29/21 12:26 69 114/61 05/29/21 12:00 92 80 05/29/21 12:00 64 25 112/62 (79) 91 Mechanical Ventilator 60.00 05/29/21 11:44 37.0 05/29/21 11:00 67 26 110/60 (77) 91 Mechanical Ventilator 60.00 05/29/21 10:35 69 26 91 60 05/29/21 10:00 68 25 113/61 (78) 91 Mechanical Ventilator 60.00 05/29/21 09:00 64 25 114/63 (80) 93 Mechanical Ventilator 60.00 I & O 05/30/21 07:00 Intake Total 1656 ml Output Total 1005 ml Balance 651 ml Height & Weight Height: 5'1.00" Weight: 268lbs. 10.0oz. 121.335491av; 59.07 BMI Method:Stated General Appearance: No Apparent Distress, Chronically ill, Obese, Other (Sedated and intubated) HEENT: Other (ET and OG tubes in place) Neck: Other (central line in place) Respiratory: Lungs Clear, Decreased Breath Sounds Cardiovascular: Regular Rate, Rhythm, No Murmur Capillary Refill: NONE Gastrointestinal: normal bowel sounds, non tender, soft, no organomegaly, other (hypoactive BS, is having bowel movement, ? blood form NG) Extremity: Other (mild BLE and APRYL swelling, unchanged from previous) Neurologic/Psychiatric: Other (sedated) Skin: Normal Color, Warm/Dry Lymphatic: No Adenopathy Results Lab Laboratory Tests 05/29/21 04:52 05/30/21 03:23 Assessment/Plan Assessment/Plan (Tele-ICU Physician , Progress Note ) Available chart/ vitals / labs / Images reviewed Video assessment done using teleICU camera, rest of exam as per RN discussed with RN overnight - Afebrile - hemodynamically stable, no pressors, I/O - neg even Drips: fentanyl, versed Consultants: cards VENT SETTINGS. AC 22 400-peep 8 60% PAP 32 ABG reviewed Sedation: RASS 1 , not follow commands versed - fentanyl ( elev tgl on propofol precedex Hospital course: 05/19 - intubated ( with exchange of ETT for right bronchus intubation and blockage of ETT , pressors , a fib rvr 05/21 - sinus , changed to versed wutg elv TGL ( high ) 05/23- AC 26 400-peep 12 45% PAP 32 AC 22 400-peep 8, increased 65% PAP 30 05/28 = Ac 26/400/80%/8 - diuresisi - > 60% 05/28 back to 65% peep 10 A/P Acute hypoxic respiratory failure due to possible underlying pneumonia and/or congestive heart failure CT 05/18 - no PE , bilat basilar infiltrates - intubated 05.19 , AC 26 400-peep 8 ( will increase to 10 )70 % % PAP 30, mild met acidosis - secretion are better - duo neb was " on hold " CXR pending today SHOCK - off pressors 05/20 ID : PNA RLL / UTI, s/p LP 05/25 - cefepime / doxy - sputum NL ruchi 05/18 - urine - E coli 05/18 - blood staph coag ( contaminamt ) - repeated neg MEtabolic acidosis - l actate , ketones , LFT - WNL - ? hyperchlorimic acidosis - will start d5w and follow - improving CAD , NSTEMI type II - ECHO 05/19/21 - EF 60% RVSP 34 mm Hg - cardiology follows A fib , new on admission - amio gtt - converted to sinus 05/21 - changed to po - heparing gtt OFF - to lovenox proph - as per cards - MEERA ADVISED - I do not see strong contraindications- will await IM MD opinion mental status change - CT HEAD NEG 05/18 - presumed due to Co2 retention , but with active Herpes and not folloing commands off propofol - will cont TX with acyclovir /cefepime 2 g q12 for meningitis - on fentanyl , midazolam - not follows commands - LP done - WILL TRY TO RESUME GABAPENTIN AND HOME NOCRO , AND DECREASE DRIPS IGGY - normalised - EF 60 % anemia -brown-colored output from her OG tube. No michela blood - ON PPI , hb STABLE - START FEEDING Shingels - not acive skin lesions as per Rn now DM II - iss , as per PCP hypoalbuminemia Morbid obesity BMI 60 Nutrition - tolerates better with reglan , increased to 130 today Lines : L IJ 05/18 , (Central Line Necessity Reviewed) Woods: + OG: + Nutrition:OG Analgesia: fentalyl Anxiety/ delirium VTE Prophylaxis: LOVENOX 40 Stress Ulcer Prophylaxis: ppi Glycemic Control: + Plans in collaboration with bedside consultants and IM MDs. A total of 37 minutes of critical care time was devoted to this patient today, required to treat and/or prevent further deterioration of critical care condition ( as above ) . MOMO NIÑO MD May 30, 2021 08:18
--- NOTE | 2021-05-30 08:42 | Progress Note - Cardiology ---
Cardiology SOAP Progress Note Subjective: Intubated and sedated Objective: I&O/Vital Signs 05/29/21 05/29/21 05/29/21 05/29/21 21:51 22:00 22:18 23:00 Pulse 70 70 68 Resp 25 25 B/P (MAP) 125/72 (89) 120/70 (87) Pulse Ox 90 91 94 O2 Delivery Mechanical Ventilator Mechanical Ventilator Mechanical Ventilator O2 Flow Rate 80.00 80.00 80.00 FiO2 80 05/30/21 05/30/21 05/30/21 05/30/21 00:00 00:03 00:52 01:00 Temp 36.0 Pulse 67 70 Resp 25 B/P (MAP) 117/70 (86) 117/68 (84) Pulse Ox 96 92 93 O2 Delivery Mechanical Ventilator Mechanical Ventilator Mechanical Ventilator O2 Flow Rate 80.00 70.00 70.00 FiO2 80 05/30/21 05/30/21 05/30/21 05/30/21 01:00 01:45 02:00 03:00 Pulse 71 68 68 66 Resp 25 B/P (MAP) 117/64 (81) 117/66 (83) Pulse Ox 96 95 94 O2 Delivery Mechanical Ventilator Mechanical Ventilator O2 Flow Rate 70.00 65.00 FiO2 70 05/30/21 05/30/21 05/30/21 05/30/21 03:00 04:00 04:00 04:00 Temp 36.6 Pulse 67 Resp B/P (MAP) 121/69 (86) Pulse Ox 95 92 O2 Delivery Mechanical Ventilator Mechanical Ventilator O2 Flow Rate 65.00 65.00 FiO2 80 05/30/21 05/30/21 05/30/21 05/30/21 05:00 06:00 07:00 07:00 Pulse 66 68 68 68 Resp 25 26 B/P (MAP) 131/76 (94) 131/82 (98) 126/74 (91) Pulse Ox 92 89 91 O2 Delivery Mechanical Ventilator Mechanical Ventilator Mechanical Ventilator O2 Flow Rate 65.00 65.00 65.00 05/30/21 05/30/21 05/30/21 05/30/21 07:45 07:52 07:53 08:00 Temp 36.8 Pulse 69 69 71 Resp B/P (MAP) 126/71 130/72 (91) Pulse Ox 92 92 O2 Delivery Mechanical Ventilator O2 Flow Rate 65.00 FiO2 70 05/30/21 08:33 Pulse Ox 92 FiO2 70 05/30/21 00:00 Intake Total 836 ml Output Total 425 ml Balance 411 ml Weight (Pounds): 268 Weight (Ounces): 10.0 Weight (Calculated Kilograms): 121.745855 Constitutional: well-developed, well-nourished, other Respiratory: other Cardiovascular: regular rate-rhythm, S1 and S2 Gastrointestional: soft, audible bowel sounds Extremities: other Neurologic/Psychiatric: other Skin: No rash on exposed areas, No ulcerations on exposed areas Results/Procedures: Labs Laboratory Tests 05/29/21 11:39: Glucometer 136H 05/29/21 15:59: Glucometer 146H 05/29/21 17:57: Glucometer 131H 05/30/21 00:44: Glucometer 139H 05/30/21 03:23: White Blood Count 9.0, Red Blood Count 3.28L, Hemoglobin 7.9L, Hematocrit 26L, Mean Corpuscular Volume 80, Mean Corpuscular Hemoglobin 24L, Mean Corpuscular Hemoglobin Concent 30L, Red Cell Distribution Width 17.0H, Platelet Count 229, Mean Platelet Volume 10.6, Immature Granulocyte % (Auto) 2, Neutrophils (%) (Auto) 78H, Lymphocytes (%) (Auto) 11L, Monocytes (%) (Auto) 7, Eosinophils (%) (Auto) 2, Basophils (%) (Auto) 0, Neutrophils # (Auto) 7.0, Lymphocytes # (Auto) 1.0, Monocytes # (Auto) 0.6, Eosinophils # (Auto) 0.2, Basophils # (Auto) 0.0, Immature Granulocyte # (Auto) 0.2H, Sodium Level 146H, Potassium Level 4.5, Chloride Level 120H, Carbon Dioxide Level 14L, Anion Gap 12, Blood Urea Nitrogen 41H, Creatinine 0.97, Estimat Glomerular Filtration Rate 58, BUN/Creatinine Ratio 42, Glucose Level 147H, Calcium Level 7.6L, Phosphorus Level 3.4, Magnesium Level 1.9 05/30/21 04:50: Blood Gas Puncture Site R RADIAL, Blood Gas Patient Temperature 36.6, Arterial Blood pH 7.26*L, Arterial Blood Partial Pressure CO2 41, Arterial Blood Partial Pressure O2 68L, Arterial Blood HCO3 18L, Arterial Blood Total CO2 18.9L, Arterial Blood Oxygen Saturation 94, Arterial Blood Base Excess -8.2L, Erasto Test YES-POS, Blood Gas Ventilator Setting YES, Blood Gas Inspired Oxygen NA 05/30/21 06:14: Blood Gas Puncture Site L RAD, Blood Gas Patient Temperature 36.6, Arterial Blood pH 7.28*L, Arterial Blood Partial Pressure CO2 39, Arterial Blood Partial Pressure O2 61L, Arterial Blood HCO3 18L, Arterial Blood Total CO2 19.0L, Arterial Blood Oxygen Saturation 92L, Arterial Blood Base Excess -7.8L, Erasto Test YES-POS, Blood Gas Ventilator Setting YES, Blood Gas Inspired Oxygen 65% Microbiology 05/25/21 - Final, Complete 05/19/21 Blood Culture - Final, Complete No growth 05/18/21 Gram Stain - Final, Complete 05/18/21 Sputum Culture - Final, Complete Usual upper respiratory ruchi 05/18/21 Urine Culture - Final, Complete Escherichia coli A/P: Assessment: Ac resp failure, multifactorial (obesity-hypoventilation, probable pneumonia, ARDS, sepsis, ac on chronic diastolic CHF), being managed by the Med and ICU services New onset paroxysmal atrial fibrillation - first diagnosed during this hospitalization on May 19, 2021; currently maintaining SR Elevated troponin - Probably type 2 [place] d/t sepsis/hypoxia Sepsis - secondary to UTI - management per medical/eICU services Acute on chronic diastolic (congestive) heart failure - Echo on 05-19-[address] Larsen: showed a-fib throughout the study; LVEF 60- 65%. Mild AoV sclerosis. PASP 34 mmHg Coronary artery disease with documented chronic angina pectoris - Previously reported she has had LAD stenting in early 2017 - Last card cath in late Dec 2018 at [place] and was told that she has diffused blockages in small caliber vessels and that she is not a candidate for further [facility] intervention - Previously reported severe intolerance to oral nitrates (severe headaches) IGGY on CKD - acute likely secondary to sepsis - CKD likely secondary to diabetic nephropathy Essential hypertension - continue current regimen - adjust as indicated HLD - statin DM 2 Obesity H/o medication intolerance: KEILY-inhib cause cough, but has been able to take ARBs Mild anemia of undetermined etiology, management per medical services Plan: Management is complex due to multiple comorbidities Monitor lab closely and replace electrolytes as indicated D/t episode of PAF, we advise OAC with Eliquis for stroke prophylaxis - to be approved by medical/eICU services Insurance denied transfer to [place] - plan is trach and PEG tube placement by Dr. Phelan Poor prognosis SAL BACONP May 30, 2021 08:42
[2021-05-30] MEDS: D5W 1000 ML IV SOLUTION 1,000 ML IV SCH ×2 (09:38→23:24)
[2021-05-30 09:46] VITALS: BP 127/69
--- NOTE | 2021-05-30 09:51 | Cardiology Progress Note ---
Progress Note-Cardiology Events since last exam Date Seen by Provider: May 30, 2021 Time Seen by Provider: 09:46 Events since last exam We are seeing her due to paroxysmal atrial fibrillation accompanied by an el evated troponin level and heart failure. She remains intubated and sedated. The plan is for tracheostomy and PEG tube tomorrow. She is referred receiving tube feeds. She just got started on some IV fluids. I spoke to the nurse at the bedside. Vitals Last set of Vitals Signs Vital Signs 05/30/21 05/30/21 05/30/21 07:53 08:00 08:33 Temp 36.8 Pulse 71 Resp 26 B/P (MAP) 130/72 (91) Pulse Ox 92 O2 Delivery Mechanical Ventilator O2 Flow Rate 65.00 FiO2 70 Labs Labs Laboratory Tests 05/30/21 03:23 Exam Vital Signs Vital Signs Date Time Temp Pulse Resp B/P (MAP) Pulse Ox O2 Delivery O2 Flow Rate FiO2 05/30/21 08:33 92 70 05/30/21 08:00 71 26 130/72 (91) Mechanical Ventilator 65.00 05/30/21 07:53 36.8 Physical Exam General: Intubated and sedated. Well nourished and appears stated age. She is morbidly obese. Eye: Conjunctivae are clear. There are no xanthelasma. HENT: Normocephalic. Atraumatic. Carotid pulsations 2/2 without bruits. Neck: Jugular venous pressure does not appear elevated. No thyromegaly appreciated. Respiratory: Symmetrical expansion bilaterally. Coarse breath sounds to the ventilator. Cardiovascular: Normal rate. Regular rhythm. No murmur. No gallop. Point of maximal impulse is not appear displaced. Good pulses equal in all extremities. No edema. Gastrointestinal: Soft. Normal bowel sounds. Skin: Skin turgor is normal. There is no pallor. Musculoskeletal: No obvious deformities. Neurologic: Intubated and sedated. Psychiatric: Not obtainable due to clinical status. Labs Laboratory Tests Test 05/29/21 11:39 05/29/21 15:59 05/29/21 17:57 05/30/21 00:44 Range/Units Glucometer 136 H 146 H 131 H 139 H 70-110 MG/DL Test 05/30/21 03:23 05/30/21 04:50 05/30/21 06:14 Range/Units White Blood Count 9.0 4.3-11.0 10^3/uL Red Blood Count 3.28 L 3.80-5.11 10^6/uL Hemoglobin 7.9 L 11.5-16.0 g/dL Hematocrit 26 L 35-52 % Mean Corpuscular Volume 80 80-99 fL Mean Corpuscular Hemoglobin 24 L 25-34 pg Mean Corpuscular Hemoglobin Concent 30 L 32-36 g/dL Red Cell Distribution Width 17.0 H 10.0-14.5 % Platelet Count 229 130-400 10^3/uL Mean Platelet Volume 10.6 9.0-12.2 fL Immature Granulocyte % (Auto) 2 % Neutrophils (%) (Auto) 78 H 42-75 % Lymphocytes (%) (Auto) 11 L 12-44 % Monocytes (%) (Auto) 7 0-12 % Eosinophils (%) (Auto) 2 0-10 % Basophils (%) (Auto) 0 0-10 % Neutrophils # (Auto) 7.0 1.8-7.8 10^3/uL Lymphocytes # (Auto) 1.0 1.0-4.0 10^3/uL Monocytes # (Auto) 0.6 0.0-1.0 10^3/uL Eosinophils # (Auto) 0.2 0.0-0.3 10^3/uL Basophils # (Auto) 0.0 0.0-0.1 10^3/uL Immature Granulocyte # (Auto) 0.2 H 0.0-0.1 10^3/uL Sodium Level 146 H 135-145 MMOL/L Potassium Level 4.5 3.6-5.0 MMOL/L Chloride Level 120 H 98-107 MMOL/L Carbon Dioxide Level 14 L 21-32 MMOL/L Anion Gap 12 5-14 MMOL/L Blood Urea Nitrogen 41 H 7-18 MG/DL Creatinine 0.97 0.60-1.30 MG/DL Estimat Glomerular Filtration Rate 58 BUN/Creatinine Ratio 42 Glucose Level 147 H 70-105 MG/DL Calcium Level 7.6 L 8.5-10.1 MG/DL Phosphorus Level 3.4 2.3-4.7 MG/DL Magnesium Level 1.9 1.6-2.4 MG/DL Blood Gas Puncture Site R RADIAL L RAD Blood Gas Patient Temperature 36.6 36.6 Arterial Blood pH 7.26 *L 7.28 *L 7.37-7.43 Arterial Blood Partial Pressure CO2 41 39 35-45 MMHG Arterial Blood Partial Pressure O2 68 L 61 L 79-93 MMHG Arterial Blood HCO3 18 L 18 L 23-27 MMOL/L Arterial Blood Total CO2 18.9 L 19.0 L 21.0-31.0 MMOL/L Arterial Blood Oxygen Saturation 94 92 L 94-100 % Arterial Blood Base Excess -8.2 L -7.8 L -2.5-2.5 MMOL/L Erasto Test YES-POS YES-POS Blood Gas Ventilator Setting YES YES Blood Gas Inspired Oxygen NA 65% Diagnosis/Problems Diagnosis/Problems (1) Paroxysmal atrial fibrillation Assessment & Plan: This is a new finding in this patient during this hospitalization. I suspect this may have been brought on by her acute, noncardiac illness. She remains in sinus rhythm on oral amiodarone. I will hold off on oral anticoagulation since I believe the atrial fibrillation was brought on by her acute illnesses. She may need to be discharged with a short course of amiodarone if she makes it through this acute illness. I will obtain a follow-up electrocardiogram today. (2) NSTEMI (non-ST elevation myocardial infarction) Status: Acute Assessment & Plan: She had elevated troponin levels which continued to rise, but no obvious ischemic changes on her resting electrocardiogram. This could be a type II non-ST elevation myocardial infarction due to her acute respiratory failure and superimposed acute kidney injury. Continue aspirin, statin, and beta-elizabeth.Consider resuming clopidogrel when able. Likewise, resume ranolazine when able. Once her noncardiac issues are further stabilized, we may need to consider further evaluation with a cardiac catheterization. Of note, she received about 72 hours of anticoagulation with heparin and enoxaparin. (3) Acute on chronic diastolic (congestive) heart failure Assessment & Plan: Her echocardiogram from this admission showed a normal ejection fraction. Her chest x-rays have been showing mixed findings. I will obtain a follow-up chest x-ray today. As above, she will be undergoing a tracheostomy tomorrow. (4) Coronary artery disease with unstable angina pectoris Assessment & Plan: She had a slight drop in her hemoglobin during this hospitalization. As such, I will still hold off on administering clopidogrel. If her hemoglobin remains stable over the next few days, we could consider adding clopidogrel. (5) Acute on chronic respiratory failure with hypoxemia Assessment & Plan: Most likely multifactorial. The hospitalist and eICU are managing this condition. As above, I will obtain a follow-up chest x-ray. She has not had one in a couple of days. (6) Acute kidney injury superimposed on chronic kidney disease Assessment & Plan: This may have caused the troponin and BNP levels to be elevated. We will need to watch her renal function closely. (7) Essential hypertension Assessment & Plan: She has been normotensive on low-dose beta-elizabeth. (8) Mixed hyperlipidemia Assessment & Plan: Continue intensive dose rosuvastatin in light of the possible NSTEMI. (9) Morbid obesity Status: Chronic Assessment & Plan: This will need to be addressed in the long run. FARZAD HARDWICK JR, MD May 30, 2021 09:51
--- NOTE | 2021-05-30 10:17 | Diagnostic Imaging Report ---
INDICATION: Acute on chronic respiratory failure. Comparison is made with prior examination from 05/28/2021. FINDINGS: There is cardiomegaly and some venous congestion. There is a right basilar infiltrate. There is no pneumothorax. ET and NG tubes are in satisfactory position. IMPRESSION: Right basilar infiltrate Cardiomegaly and some central pulmonary venous congestion. Dictated by: Dictated on workstation # [id number]
--- NOTE | 2021-05-30 10:44 | Progress Note - Surgery ---
Subjective Time Seen by a Provider: 10:19 Subjective/Events-last exam Pt seen and examined, she is intubated and not responsive to commands. Surgery asked to see pt again, now regarding Tracheostomy and PEG tub placement. Review of Systems pt intubated and not responsive Focused Exam Lactate Level 05/28/21 09:39: Lactic Acid Level 0.53 Objective Exam Vital Signs Date Time Temp Pulse Resp B/P (MAP) Pulse Ox O2 Delivery O2 Flow Rate FiO2 05/30/21 09:46 67 26 91 70 05/30/21 08:33 92 70 05/30/21 08:00 71 26 130/72 (91) 92 Mechanical Ventilator 65.00 05/30/21 07:53 36.8 05/30/21 07:52 69 26 92 70 05/30/21 07:45 69 26 126/71 05/30/21 07:00 68 05/30/21 07:00 68 26 126/74 (91) 91 Mechanical Ventilator 65.00 05/30/21 06:00 68 25 131/82 (98) 89 Mechanical Ventilator 65.00 05/30/21 05:00 66 25 131/76 (94) 92 Mechanical Ventilator 65.00 05/30/21 04:00 92 80 05/30/21 04:00 36.6 05/30/21 04:00 67 26 121/69 (86) 95 Mechanical Ventilator 65.00 05/30/21 03:00 Mechanical Ventilator 65.00 05/30/21 03:00 66 25 117/66 (83) 94 Mechanical Ventilator 65.00 05/30/21 02:00 68 26 117/64 (81) 95 Mechanical Ventilator 70.00 05/30/21 01:45 68 26 96 70 05/30/21 01:00 71 05/30/21 01:00 70 25 117/68 (84) 93 Mechanical Ventilator 70.00 05/30/21 00:52 36.0 Mechanical Ventilator 70.00 05/30/21 00:03 92 80 05/30/21 00:00 67 26 117/70 (86) 96 Mechanical Ventilator 80.00 05/29/21 23:00 68 25 120/70 (87) 94 Mechanical Ventilator 80.00 05/29/21 22:18 70 26 91 80 05/29/21 22:00 70 25 125/72 (89) 90 Mechanical Ventilator 80.00 05/29/21 21:51 Mechanical Ventilator 80.00 05/29/21 21:00 66 25 117/66 (83) 89 Mechanical Ventilator 75.00 05/29/21 20:00 36.4 05/29/21 20:00 92 75 05/29/21 20:00 68 26 117/65 (82) 90 Mechanical Ventilator 75.00 05/29/21 19:15 65 26 92 75 05/29/21 19:00 Mechanical Ventilator 75.00 05/29/21 19:00 66 26 111/65 (80) 91 Mechanical Ventilator 75.00 05/29/21 19:00 70 05/29/21 18:00 66 26 109/63 (78) 91 Mechanical Ventilator 60.00 05/29/21 17:00 67 25 103/58 (73) 90 Mechanical Ventilator 60.00 05/29/21 16:45 37.0 05/29/21 16:42 66 113/66 05/29/21 16:26 92 80 05/29/21 16:00 66 25 113/66 (82) 92 Mechanical Ventilator 60.00 05/29/21 15:00 64 25 111/63 (79) 93 Mechanical Ventilator 60.00 05/29/21 14:00 66 26 118/65 (82) 91 Mechanical Ventilator 60.00 05/29/21 13:19 65 26 90 65 05/29/21 13:07 65 05/29/21 13:00 66 26 105/58 (74) 91 Mechanical Ventilator 60.00 05/29/21 12:27 69 26 114/61 05/29/21 12:26 69 114/61 05/29/21 12:00 92 80 05/29/21 12:00 64 25 112/62 (79) 91 Mechanical Ventilator 60.00 05/29/21 11:44 37.0 05/29/21 11:00 67 26 110/60 (77) 91 Mechanical Ventilator 60.00 I & O 05/30/21 07:00 Intake Total 1656 ml Output Total 1005 ml Balance 651 ml Capillary Refill : NONE General Appearance: No Apparent Distress, Chronically ill, Obese, Other (Sedated and intubated) HEENT: Other (ET and OG tubes in place) Neck: Other (central line in place) Respiratory: Lungs Clear, Decreased Breath Sounds Cardiovascular: Regular Rate, Rhythm, No Murmur Gastrointestinal: soft, no organomegaly, other (hypoactive BS, is having bowel movement, ? blood form NG) Extremity: Other (mild BLE and APRYL swelling, unchanged from previous) Skin: Normal Color, Warm/Dry Results Lab Laboratory Tests 05/29/21 11:39: Glucometer 136H 05/29/21 15:59: Glucometer 146H 05/29/21 17:57: Glucometer 131H 05/30/21 00:44: Glucometer 139H 05/30/21 03:23: White Blood Count 9.0, Red Blood Count 3.28L, Hemoglobin 7.9L, Hematocrit 26L, Mean Corpuscular Volume 80, Mean Corpuscular Hemoglobin 24L, Mean Corpuscular Hemoglobin Concent 30L, Red Cell Distribution Width 17.0H, Platelet Count 229, Mean Platelet Volume 10.6, Immature Granulocyte % (Auto) 2, Neutrophils (%) (Auto) 78H, Lymphocytes (%) (Auto) 11L, Monocytes (%) (Auto) 7, Eosinophils (%) (Auto) 2, Basophils (%) (Auto) 0, Neutrophils # (Auto) 7.0, Lymphocytes # (Auto) 1.0, Monocytes # (Auto) 0.6, Eosinophils # (Auto) 0.2, Basophils # (Auto) 0.0, Immature Granulocyte # (Auto) 0.2H, Sodium Level 146H, Potassium Level 4.5, Chloride Level 120H, Carbon Dioxide Level 14L, Anion Gap 12, Blood Urea Nitrogen 41H, Creatinine 0.97, Estimat Glomerular Filtration Rate 58, BUN/Creatinine Ratio 42, Glucose Level 147H, Calcium Level 7.6L, Phosphorus Level 3.4, Magnesium Level 1.9 05/30/21 04:50: Blood Gas Puncture Site R RADIAL, Blood Gas Patient Temperature 36.6, Arterial Blood pH 7.26*L, Arterial Blood Partial Pressure CO2 41, Arterial Blood Partial Pressure O2 68L, Arterial Blood HCO3 18L, Arterial Blood Total CO2 18.9L, Arterial Blood Oxygen Saturation 94, Arterial Blood Base Excess -8.2L, Erasto Test YES-POS, Blood Gas Ventilator Setting YES, Blood Gas Inspired Oxygen NA 05/30/21 06:14: Blood Gas Puncture Site L RAD, Blood Gas Patient Temperature 36.6, Arterial Blood pH 7.28*L, Arterial Blood Partial Pressure CO2 39, Arterial Blood Partial Pressure O2 61L, Arterial Blood HCO3 18L, Arterial Blood Total CO2 19.0L, Arterial Blood Oxygen Saturation 92L, Arterial Blood Base Excess -7.8L, Erasto Test YES-POS, Blood Gas Ventilator Setting YES, Blood Gas Inspired Oxygen 65% Microbiology 05/25/21 - Final, Complete 05/19/21 Blood Culture - Final, Complete No growth 05/18/21 Gram Stain - Final, Complete 05/18/21 Sputum Culture - Final, Complete Usual upper respiratory ruchi 05/18/21 Urine Culture - Final, Complete Escherichia coli Assessment/Plan Assessment/Plan Assessment/Plan Chronic Respiratory Failure Malnutrition Consultation with Medicine and E-ICU, pt does not appear to be improving fast enough and will most likely need vent and nutrition support long-term. Family sees mild improvement in decreasing certain vent settings and opening eyes more; at this time they want everything done and would like to give pt more time to see if she recovers. Plan for tracheostomy and PEG tube placement tomorrow. Will hold any anti-coagulation, make npo after MN and get consent for procedures. KILLIAN MOTT DO May 30, 2021 10:43
--- NOTE | 2021-05-30 11:19 | Progress Note - Hospitalist ---
CARLO [employer] O MED STUDENT 05/30/21 1119: Subjective HPI/CC On Admission Date Seen by Provider: May 30, 2021 Time Seen by Provider: 09:30 Paulette Roger is a 65-year-old female with past medical history of hypertension, insulin-dependent diabetes, coronary artery disease, GERD, morbid obesity, who presented with weakness and respiratory failure. EMS was called to her home where she had become very weak and short of breath while using the toilet. She required endotracheal intubation and intraosseous access. There is no ventilator available at [facility] and she had to be mechanically bagged. Due to this, a complete work-up was not able to be performed in the emergency room and she was transferred to the [facility] emergency room. After arrival, she was placed on a ventilator. CT scans were performed which showed no acute intracranial abnormalities but did reveal bilateral consolidations, pleural effusions, and possible pulmonary edema. She is Covid and flu negative. She was recently diagnosed with shingles. According to her nurse, she was awake and following commands prior to being started on sedation. Subjective/Events-last exam No changes. Intubated and sedated. Focused Exam Lactate Level 05/28/21 09:39: Lactic Acid Level 0.53 Objective Exam Vital Signs Vital Signs Date Time Temp Pulse Resp B/P (MAP) Pulse Ox O2 Delivery O2 Flow Rate FiO2 05/30/21 10:00 67 25 137/83 (101) 91 Mechanical Ventilator 65.00 05/30/21 09:46 70 05/30/21 07:53 36.8 Capillary Refill : NONE General Appearance: Chronically ill, Obese, Other (sedated) HEENT: Other (OG and ET tubes in place) Neck: Other (central line in place) Respiratory: Other (mechanically ventilated) Cardiovascular: Regular Rate, Rhythm, No Murmur Gastrointestinal: Soft Extremity: Other (diffuse swelling in the extremities) Neurologic/Psychiatric: Other (sedated) Skin: Normal Color, Warm/Dry Results/Procedures Lab Laboratory Tests 05/30/21 03:23 Patient resulted labs reviewed. Imaging: Reviewed Imaging Films, Reviewed Imaging Report Assessment/Plan Assessment and Plan Assess & Plan/Chief Complaint ARDS intubated 05/18 sedated with Versed and Precedex Dr. Phelan consulted; trach tube and PEG tube placement planned for tomorrow severe sepsis IV Cefepime and Doxycycline NSTEMI cardiology following Anemia-improved hgb stable Shingles Acyclovir Afib-resolved Amiodarone GI prophylaxis with Protonix. DVT prophylaxis with Lovenox. DIANDRA BLANEKNSHIP DO 05/30/213: Supervisory-Addendum Brief Verification & Attestation Participated in pt care: history, MDM, physical Personally performed: exam, history, MDM, supervision of care Care discussed with: Medical Student Procedures: n/a Results interpretation: Verified all documentation Verification and Attestation of Medical Student E/M Service A medical student performed and documented this service in my presence. I reviewed and verified all information documented by the medical student and made modifications to such information, when appropriate. I personally performed the physical exam and medical decision making. Diandra Blankenship, May 30, 2021,22:23 CARLO [employer] O MED STUDENT May 30, 2021 11:19 DIANDRA BLANKENSHIP DO May 30, 2021 22:23
[2021-05-30 15:34] VITALS: BP 116/58
[2021-05-30 18:46] VITALS: BP 150/60
[2021-05-30] MEDS: ROSUVASTATIN 20 MG (CRESTOR) TABLET PO SCH (20:59)
[2021-05-30 21:40] VITALS: BP 154/80
[2021-05-31] MEDS: ACYCLOVIR INJECTION 800 MG in NS (IVPB) 250 ML IV SCH ×3 (00:52→16:34)
[2021-05-31] MEDS: fentaNYL DRIP PRE-MIX 250 ML IV SCH ×5 (00:52→21:32)
[2021-05-31] MEDS: inSUlin ASPART (NovoLOG) 1 UNIT/0.01 ML (CHARGE PER UNIT) SC SCH ×4 (00:53→17:06)
[2021-05-31] MEDS: RT-LEVALBUTEROL (XOPENEX) 1.25 MG/3 ML NEB NON-FORMULARY INH SCH ×6 (01:33→21:12)
[2021-05-31 01:34] VITALS: BP 138/78
[2021-05-31 04:27] LABS: ABG BASE EXCESS -6.5 MMOL/L (-2.5-2.5); ABG OXYGEN SATURATION 93 % (94-100); ABG PCO2 38 MMHG (35-45); ABG PO2 61 MMHG (79-93); ABG TCO2 19.8 MMOL/L (21.0-31.0)
[2021-05-31 04:29] LABS: BASOPHILS % (AUTO) 0 % (0-10); EOSINOPHILS # (AUTO) 0.2 10^3/uL (0.0-0.3); EOSINOPHILS % (AUTO) 2 % (0-10); HEMATOCRIT 27 % (35-52); HEMOGLOBIN 8.2 g/dL (11.5-16.0); LYMPHOCYTES # (AUTO) 1.2 10^3/uL (1.0-4.0); LYMPHOCYTES % (AUTO) 12 % (12-44); MEAN CORPUSCULAR HEMOGLOBIN 25 pg (25-34); MEAN CORPUSCULAR HGB CONC 30 g/dL (32-36); MEAN CORPUSCULAR VOLUME 81 fL (80-99); MEAN PLATELET VOLUME 10.3 fL (9.0-12.2); MONOCYTES # (AUTO) 0.7 10^3/uL (0.0-1.0); MONOCYTES % (AUTO) 7 % (0-12); NEUTROPHILS # (AUTO) 7.5 10^3/uL (1.8-7.8); NEUTROPHILS % (AUTO) 76 % (42-75); PLATELET COUNT 257 10^3/uL (130-400); WHITE BLOOD COUNT 9.9 10^3/uL (4.3-11.0)
[2021-05-31 04:32] LABS: ALLENS TEST YES-POS; INSPIRED O2 50%; PATIENT TEMP 36.8; VENTILATOR YES
[2021-05-31 04:33] LABS: ABG PH 7.31 (7.37-7.43)
[2021-05-31 04:38] LABS: POTASSIUM 4.2 MMOL/L (3.6-5.0)
[2021-05-31 04:39] LABS: CALCIUM 7.9 MG/DL (8.5-10.1)
[2021-05-31 04:44] LABS: CREATININE SERUM 0.85 MG/DL (0.60-1.30); PHOSPHORUS 3.1 MG/DL (2.3-4.7)
[2021-05-31 04:46] LABS: MAGNESIUM 1.8 MG/DL (1.6-2.4)
[2021-05-31] MEDS: KCL 20 MEQ TAB (K-DUR) PO SCH (04:52)
[2021-05-31] MEDS: POTASSIUM CL 10MEQ/50ML IVPB 50 ML IV SCH (04:52)
[2021-05-31] MEDS: MAGNESIUM 1 GM/100 ML IVPB 100 ML IV SCH (04:52)
[2021-05-31] MEDS: METOCLOPRAMIDE INJ 10 MG/2 ML (REGLAN) IVP SCH ×3 (05:35→20:11)
[2021-05-31] MEDS: NOREPINEPHRINE 8 MG/250 ML 250 ML IV SCH ×3 (07:40→22:48)
[2021-05-31] MEDS: fentaNYL INJ 100 MCG/2 ML AMP IVP PRN (08:02)
[2021-05-31] MEDS: ASPIRIN 81 MG CHEW (CHILDREN'S ASA) PO SCH ×2 (08:25→08:40)
[2021-05-31] MEDS: AMIODARONE 200 MG (CORDARONE) TAB PO SCH ×2 (08:25→20:11)
[2021-05-31] MEDS: PANTOPRAZOLE 40 MG (PROTONIX) VIAL IV SCH (08:25)
[2021-05-31] MEDS: GABAPENTIN 600 MG (NEURONTIN) TAB PO SCH ×3 (08:25→20:11)
[2021-05-31 08:36] VITALS: BP 135/74
--- NOTE | 2021-05-31 08:46 | Cardiology Progress Note ---
Progress Note-Cardiology Events since last exam Date Seen by Provider: May 31, 2021 Time Seen by Provider: 08:45 Events since last exam We are seeing her due to NSTEMI, heart failure and paroxysmal atrial fibrill ation. She remains intubated/sedated in the ICU. I spoke to the nurse at the bedside. The plan was for a tracheostomy but yesterday the son made the patient DNR and canceled the procedure. He is exploring whether or not to place her on comfort care. Certain portions of this document may have been dictated utilizing voice recognition technology. Inherent to this technology, typographical and g rammatical errors may exist. As much as I am diligent to identify and correct these mistakes, some errors may remain in the document. Vitals Last set of Vitals Signs Vital Signs 05/31/21 05/31/21 05/31/21 15:56 18:00 18:09 Temp 36.4 Pulse 69 Resp 27 B/P (MAP) 102/62 (75) Pulse Ox 92 O2 Delivery Mechanical Ventilator O2 Flow Rate 75.00 FiO2 75 Labs Labs Laboratory Tests 05/31/21 04:10 Exam Vital Signs Vital Signs Date Time Temp Pulse Resp B/P (MAP) Pulse Ox O2 Delivery O2 Flow Rate FiO2 05/31/21 18:09 69 27 92 75 05/31/21 18:00 102/62 (75) Mechanical Ventilator 75.00 05/31/21 15:56 36.4 Physical Exam General: Intubated and sedated. Well nourished and appears stated age. She is obese. Eye: Conjunctivae are clear. There are no xanthelasma. HENT: Normocephalic. Atraumatic. Carotid pulsations 2/2 without bruits. Neck: Jugular venous pressure does not appear elevated. No thyromegaly appreciated. Respiratory: Symmetrical expansion bilaterally. Coarse breath sounds to the ventilator. Cardiovascular: Normal rate. Regular rhythm. No murmur. No gallop. Point of maximal impulse is not appear displaced. Good pulses equal in all extremities. No edema. Gastrointestinal: Soft. Normal bowel sounds. Skin: Skin turgor is normal. There is no pallor. Musculoskeletal: No obvious deformities. Neurologic: Intubated and sedated. Psychiatric: Not obtainable due to clinical status. Labs Laboratory Tests Test 05/31/21 00:18 05/31/21 04:10 05/31/21 11:33 05/31/21 17:05 Range/Units Glucometer 134 H 148 H 149 H 70-110 MG/DL White Blood Count 9.9 4.3-11.0 10^3/uL Red Blood Count 3.35 L 3.80-5.11 10^6/uL Hemoglobin 8.2 L 11.5-16.0 g/dL Hematocrit 27 L 35-52 % Mean Corpuscular Volume 81 80-99 fL Mean Corpuscular Hemoglobin 25 25-34 pg Mean Corpuscular Hemoglobin Concent 30 L 32-36 g/dL Red Cell Distribution Width 17.0 H 10.0-14.5 % Platelet Count 257 130-400 10^3/uL Mean Platelet Volume 10.3 9.0-12.2 fL Immature Granulocyte % (Auto) 2 % Neutrophils (%) (Auto) 76 H 42-75 % Lymphocytes (%) (Auto) 12 12-44 % Monocytes (%) (Auto) 7 0-12 % Eosinophils (%) (Auto) 2 0-10 % Basophils (%) (Auto) 0 0-10 % Neutrophils # (Auto) 7.5 1.8-7.8 10^3/uL Lymphocytes # (Auto) 1.2 1.0-4.0 10^3/uL Monocytes # (Auto) 0.7 0.0-1.0 10^3/uL Eosinophils # (Auto) 0.2 0.0-0.3 10^3/uL Basophils # (Auto) 0.0 0.0-0.1 10^3/uL Immature Granulocyte # (Auto) 0.2 H 0.0-0.1 10^3/uL Percent Immature Platelet Fraction 2.0 0.0-7.6 % Blood Gas Puncture Site R RAD Blood Gas Patient Temperature 36.8 Arterial Blood pH 7.31 *L 7.37-7.43 Arterial Blood Partial Pressure CO2 38 35-45 MMHG Arterial Blood Partial Pressure O2 61 L 79-93 MMHG Arterial Blood HCO3 19 L 23-27 MMOL/L Arterial Blood Total CO2 19.8 L 21.0-31.0 MMOL/L Arterial Blood Oxygen Saturation 93 L 94-100 % Arterial Blood Base Excess -6.5 L -2.5-2.5 MMOL/L Erasto Test YES-POS Blood Gas Ventilator Setting YES Blood Gas Inspired Oxygen 50% Sodium Level 141 135-145 MMOL/L Potassium Level 4.2 3.6-5.0 MMOL/L Chloride Level 115 H 98-107 MMOL/L Carbon Dioxide Level 18 L 21-32 MMOL/L Anion Gap 8 5-14 MMOL/L Blood Urea Nitrogen 34 H 7-18 MG/DL Creatinine 0.85 0.60-1.30 MG/DL Estimat Glomerular Filtration Rate 67 BUN/Creatinine Ratio 40 Glucose Level 148 H 70-105 MG/DL Calcium Level 7.9 L 8.5-10.1 MG/DL Phosphorus Level 3.1 2.3-4.7 MG/DL Magnesium Level 1.8 1.6-2.4 MG/DL Diagnosis/Problems Diagnosis/Problems (1) Paroxysmal atrial fibrillation Assessment & Plan: This is a new finding in this patient during this hospitalization. I suspect this may have been brought on by her acute, noncardiac illness. She remains in sinus rhythm on oral amiodarone. I will hold off on oral anticoagulation since I believe the atrial fibrillation was brought on by her acute illnesses. If family decides to continue full supportive care, she may need to be discharged with a short course of amiodarone if she makes it through this acute illness. I will obtain a follow-up electrocardiogram today. (2) NSTEMI (non-ST elevation myocardial infarction) Status: Acute Assessment & Plan: She had elevated troponin levels which continued to rise, but no obvious ischemic changes on her resting electrocardiogram. This could be a type II non-ST elevation myocardial infarction due to her acute respiratory failure and superimposed acute kidney injury. Continue aspirin, statin, and beta-elizabeth. She did also receive about 72 hours of full anticoagulation with heparin and enoxaparin. (3) Acute on chronic diastolic (congestive) heart failure Assessment & Plan: Her echocardiogram from this admission showed a normal ejection fraction. Her chest x-rays have been showing mixed findings. Tracheostomy is now on hold per family request. (4) Coronary artery disease with unstable angina pectoris Assessment & Plan: She had a slight drop in her hemoglobin during this hospitalization. As such, I have been holding off on administering clopidogrel. (5) Acute on chronic respiratory failure with hypoxemia Assessment & Plan: Most likely multifactorial. The hospitalist and eICU are managing this condition. As above, the patients family is considering comfort care. (6) Acute kidney injury superimposed on chronic kidney disease Assessment & Plan: This may have contributed to the troponin and BNP levels being elevated. (7) Essential hypertension Assessment & Plan: She has been normotensive on low-dose beta-elizabeth. (8) Mixed hyperlipidemia Assessment & Plan: Continue intensive dose rosuvastatin in light of the possibl e NSTEMI. (9) Morbid obesity Status: Chronic Assessment & Plan: This will need to be addressed in the long run unless she becomes comfort care. FARZAD HARDWICK JR, MD May 31, 2021 08:46
--- NOTE | 2021-05-31 09:51 | Tele-ICU Progress Note ---
Subjective Date Seen by a Provider: May 31, 2021 Time Seen by a Provider: 11:15 Subjective/Events-last exam 65 yo intubated by EMS for marked hypoxia, PNA, COVID neg, on acyclovir for shingles, off pressors On vent AC 26, Vt 400 FiO2 60%, PEEP 10 CXR 05/30 RLL infiltrate Was to get trach but family made her DNR due to poor mental status, LP negative + oral secretions, not much ET until this am, now greenish, will culture Sepsis Event Evaluation Height, Weight, BMI Height: 5'1.00" Weight: 268lbs. 10.0oz. 121.941378dw; 59.07 BMI Method:Stated Exam Exam Patient acknowledged, consented, and participated in this virtual visit which was conducted using real time audio/video Vital Signs Date Time Temp Pulse Resp B/P (MAP) Pulse Ox O2 Delivery O2 Flow Rate FiO2 05/31/21 09:00 72 26 135/74 (94) 91 Mechanical Ventilator 65.00 05/31/21 08:36 71 26 91 60 05/31/21 08:13 36.8 05/31/21 08:00 28 148/86 (112) 94 Mechanical Ventilator 50.00 05/31/21 08:00 91 50 05/31/21 07:00 73 05/31/21 07:00 73 22 137/70 (98) 92 Mechanical Ventilator 50.00 05/31/21 06:00 74 26 137/72 (93) 91 Mechanical Ventilator 50.00 05/31/21 05:00 76 26 143/78 (99) 91 Mechanical Ventilator 50.00 05/31/21 04:00 94 50 05/31/21 04:00 36.8 05/31/21 04:00 71 26 133/75 (94) 93 Mechanical Ventilator 50.00 05/31/21 03:00 71 25 141/87 (105) 93 Mechanical Ventilator 50.00 05/31/21 02:00 73 26 150/83 (105) 93 Mechanical Ventilator 50.00 05/31/21 01:34 71 26 94 50 05/31/21 01:00 70 05/31/21 01:00 70 28 135/80 (98) 94 Mechanical Ventilator 50.00 05/31/21 00:00 69 24 150/85 (106) 94 Mechanical Ventilator 50.00 05/31/21 00:00 36.6 05/30/21 23:52 94 50 05/30/21 23:00 70 25 141/82 (101) 94 Mechanical Ventilator 50.00 05/30/21 23:00 Mechanical Ventilator 50.00 05/30/21 22:00 71 22 146/83 (104) 95 Mechanical Ventilator 55.00 05/30/21 21:45 Mechanical Ventilator 55.00 05/30/21 21:40 70 28 97 65 05/30/21 21:00 68 20 150/82 (104) 98 Mechanical Ventilator 70.00 05/30/21 20:00 Mechanical Ventilator 70.00 05/30/21 20:00 94 70 05/30/21 20:00 68 15 145/80 (101) 96 Mechanical Ventilator 70.00 05/30/21 19:45 36.7 05/30/21 19:00 69 19 148/85 (106) 94 Mechanical Ventilator 70.00 05/30/21 19:00 70 05/30/21 18:46 69 26 96 70 05/30/21 18:00 69 14 137/76 (96) 94 Mechanical Ventilator 85.00 05/30/21 17:00 66 25 132/73 (92) 92 Mechanical Ventilator 85.00 05/30/21 16:32 94 90 05/30/21 16:32 Mechanical Ventilator 85.00 05/30/21 16:30 36.5 05/30/21 16:01 Mechanical Ventilator 90.00 05/30/21 16:00 66 25 126/72 (90) 95 Mechanical Ventilator 65.00 05/30/21 15:34 66 26 93 100 05/30/21 15:00 64 25 119/65 (83) 93 Mechanical Ventilator 65.00 05/30/21 14:00 68 26 139/74 (95) 95 Mechanical Ventilator 65.00 05/30/21 13:00 63 26 116/63 (80) 89 Mechanical Ventilator 65.00 05/30/21 12:31 64 05/30/21 12:30 90 70 05/30/21 12:00 63 25 121/79 (93) 93 Mechanical Ventilator 65.00 05/30/21 11:45 36.3 05/30/21 11:00 64 25 125/68 (87) 93 Mechanical Ventilator 65.00 05/30/21 10:00 67 25 137/83 (101) 91 Mechanical Ventilator 65.00 I & O 05/31/21 07:00 Intake Total 1116 ml Output Total 1600 ml Balance -484 ml Height & Weight Height: 5'1.00" Weight: 268lbs. 10.0oz. 121.908420tk; 59.07 BMI Method:Stated General Appearance: No Apparent Distress, WD/WN, Chronically ill, Other (motbidly obese, has left IJ line site looks ok) HEENT: Other (ET and OG tubes in place) Neck: Other (central line in place) Respiratory: Lungs Clear, Normal Breath Sounds Cardiovascular: Regular Rate, Rhythm, No Murmur Capillary Refill: NONE Gastrointestinal: normal bowel sounds, non tender, soft, no organomegaly, other (hypoactive BS, is having bowel movement, ? blood form NG) Extremity: Pedal Edema (+4 edema, ), Other (mild BLE and APRYL swelling, unchanged from previous) Neurologic/Psychiatric: Other (sedated) Skin: Normal Color, Warm/Dry Lymphatic: No Adenopathy Results Lab Laboratory Tests 05/30/21 03:23 05/31/21 04:10 Assessment/Plan Assessment/Plan Keep on full vent support pending family decision on goals of care culture sputum, may need abx will repeat CXR outlook poor Critical Care: Critically Ill Patient Time spent with patient (mins): 20 PATSY DAWKINS MD May 31, 2021 09:51
[2021-05-31 12:10] VITALS: BP 128/65
[2021-05-31] MEDS: D5W 1000 ML IV SOLUTION 1,000 ML IV SCH ×2 (12:53→13:20)
[2021-05-31 15:10] VITALS: BP 119/66
[2021-05-31 18:09] VITALS: BP 127/68
--- NOTE | 2021-05-31 18:54 | Progress Note - Hospitalist ---
Subjective HPI/CC On Admission Date Seen by Provider: May 31, 2021 Time Seen by Provider: 08:30 Paulette Roger is a 65-year-old female with past medical history of hypertension, insulin-dependent diabetes, coronary artery disease, GERD, morbid obesity, who presented with weakness and respiratory failure. EMS was called to her home wh ere she had become very weak and short of breath while using the toilet. She required endotracheal intubation and intraosseous access. There is no ventilator available at [facility] and she had to be mechanically bagged. Due to this, a complete work-up was not able to be performed in the emergency room and she was transferred to the [facility] emergency room. After arrival, she was placed on a ventilator. CT scans were performed which showed no acute intracranial abnormalities but did reveal bilateral consolidations, pleural effusions, and possible pulmonary edema. She is Covid and flu negative. She was recently diagnosed with shingles. According to her nurse, she was awake and following commands prior to being started on sedation. Subjective/Events-last exam She remains intubated and sedated. Objective Exam Vital Signs Vital Signs Date Time Temp Pulse Resp B/P (MAP) Pulse Ox O2 Delivery O2 Flow Rate FiO2 05/31/21 18:09 69 27 92 75 05/31/21 18:00 102/62 (75) Mechanical Ventilator 75.00 05/31/21 15:56 36.4 Capillary Refill : NONE General Appearance: No Apparent Distress, Obese Respiratory: Crackles, Decreased Breath Sounds, Other (intubated and mechanically ventilated) Gastrointestinal: Normal Bowel Sounds, Soft Extremity: Normal Inspection, Pedal Edema Neurologic/Psychiatric: Other (sedated) Skin: Normal Color, Warm/Dry Results/Procedures Lab Laboratory Tests 05/31/21 04:10 Patient resulted labs reviewed. Imaging: Reviewed Imaging Films, Reviewed Imaging Report Assessment/Plan Assessment and Plan Assess & Plan/Chief Complaint Acute respiratory distress syndrome Endotracheally intubated Severe sepsis due to pneumonia NSTEMI Anemia AFib Shingles CAD T2DM HTN Super super obesity Goals of care discussion/planning Poor prognosis Intubated 05/18 Planned for trach and PEG placement today, son requested cancelling Transition to DNR Plan to make comfort measures and extubate tomorrow morning Critical Care Critically Ill Patient Diagnosis/Problems Diagnosis/Problems (1) Acute respiratory distress syndrome (ARDS) Status: Acute (2) Endotracheally intubated Status: Acute (3) Severe sepsis Status: Acute (4) PNA (pneumonia) Status: Acute Qualifiers: Pneumonia type: due to unspecified organism Laterality: bilateral Lung location: unspecified part of lung Qualified Codes: J18.9 - Pneumonia, unspecified organism (5) NSTEMI (non-ST elevation myocardial infarction) Status: Acute (6) Pulmonary edema Status: Acute Qualifiers: Chronicity: acute Qualified Codes: J81.0 - Acute pulmonary edema (7) Bilateral pleural effusion Status: Acute (8) Herpes zoster infection of mandibular region Status: Acute (9) Hypertension Status: Chronic (10) Diabetes Status: Chronic (11) Super-super obese (12) Anemia (13) RACHELLE Cassidy MD May 31, 2021 18:54
[2021-05-31] MEDS: MIDAZOLAM DRIP PRE-MIX 100 ML IV SCH (19:16)
[2021-05-31] MEDS: ROSUVASTATIN 20 MG (CRESTOR) TABLET PO SCH (20:11)
[2021-05-31 21:12] VITALS: BP 129/69
[2021-06-01] MEDS: inSUlin ASPART (NovoLOG) 1 UNIT/0.01 ML (CHARGE PER UNIT) SC SCH ×2 (00:07→04:54)
[2021-06-01] MEDS: fentaNYL DRIP PRE-MIX 250 ML IV SCH ×2 (02:34→08:00)
[2021-06-01 03:01] VITALS: BP 121/66
[2021-06-01] MEDS: RT-LEVALBUTEROL (XOPENEX) 1.25 MG/3 ML NEB NON-FORMULARY INH SCH ×2 (03:01→07:14)
[2021-06-01 04:13] LABS: ABG BASE EXCESS -5.6 MMOL/L (-2.5-2.5); ABG OXYGEN SATURATION 70 % (94-100); ABG PCO2 41 MMHG (35-45); ABG TCO2 20.9 MMOL/L (21.0-31.0); BASOPHILS % (AUTO) 0 % (0-10); EOSINOPHILS # (AUTO) 0.2 10^3/uL (0.0-0.3); EOSINOPHILS % (AUTO) 2 % (0-10); HEMATOCRIT 25 % (35-52); HEMOGLOBIN 7.6 g/dL (11.5-16.0); LYMPHOCYTES # (AUTO) 1.1 10^3/uL (1.0-4.0); LYMPHOCYTES % (AUTO) 12 % (12-44); MEAN CORPUSCULAR HEMOGLOBIN 24 pg (25-34); MEAN CORPUSCULAR HGB CONC 30 g/dL (32-36); MEAN CORPUSCULAR VOLUME 81 fL (80-99); MEAN PLATELET VOLUME 10.3 fL (9.0-12.2); MONOCYTES # (AUTO) 0.7 10^3/uL (0.0-1.0); MONOCYTES % (AUTO) 8 % (0-12); NEUTROPHILS # (AUTO) 6.9 10^3/uL (1.8-7.8); NEUTROPHILS % (AUTO) 77 % (42-75); PLATELET COUNT 236 10^3/uL (130-400)
[2021-06-01 04:14] LABS: ALLENS TEST YES-POS
[2021-06-01 04:15] LABS: INSPIRED O2 75%; PATIENT TEMP 36.9; VENTILATOR YES
[2021-06-01 04:16] LABS: ABG PO2 39 MMHG (79-93)
[2021-06-01 04:28] LABS: POTASSIUM 4.3 MMOL/L (3.6-5.0)
[2021-06-01 04:29] LABS: CALCIUM 7.7 MG/DL (8.5-10.1)
[2021-06-01 04:33] LABS: PHOSPHORUS 3.4 MG/DL (2.3-4.7)
[2021-06-01 04:34] LABS: CREATININE SERUM 0.81 MG/DL (0.60-1.30)
[2021-06-01 04:36] LABS: MAGNESIUM 1.8 MG/DL (1.6-2.4)
[2021-06-01] MEDS: NOREPINEPHRINE 8 MG/250 ML 250 ML IV SCH (04:54)
[2021-06-01] MEDS: POTASSIUM CL 10MEQ/50ML IVPB 50 ML IV SCH (04:54)
[2021-06-01] MEDS: KCL 20 MEQ TAB (K-DUR) PO SCH (04:54)
[2021-06-01] MEDS: MAGNESIUM 1 GM/100 ML IVPB 100 ML IV SCH (04:54)
[2021-06-01] MEDS: METOCLOPRAMIDE INJ 10 MG/2 ML (REGLAN) IVP SCH (05:53)
[2021-06-01 07:14] VITALS: BP 117/69
[2021-06-01] MEDS: fentaNYL INJ 100 MCG/2 ML AMP IVP PRN ×2 (07:54→10:42)
--- NOTE | 2021-06-01 08:40 | Cardiology Progress Note ---
Progress Note-Cardiology Events since last exam Date Seen by Provider: Jun 01, 2021 Time Seen by Provider: 08:39 Events since last exam Plan is for palliative extubation later this morning. As such, cardiology will sign off. Please call if you have other questions or concerns. Vitals Last set of Vitals Signs Vital Signs 06/01/21 06/01/21 06/01/21 06/01/21 06:00 07:14 07:18 08:15 Temp 36.3 Pulse 64 Resp 26 B/P (MAP) 121/67 (85) Pulse Ox 91 O2 Delivery Mechanical Ventilator O2 Flow Rate 75.00 FiO2 75 Labs Labs Laboratory Tests 06/01/21 04:00 Exam Vital Signs Vital Signs Date Time Temp Pulse Resp B/P (MAP) Pulse Ox O2 Delivery O2 Flow Rate FiO2 06/01/21 08:15 36.3 06/01/21 07:18 91 75 06/01/21 07:14 64 26 06/01/21 06:00 121/67 (85) Mechanical Ventilator 75.00 Labs Laboratory Tests Test 05/31/21 11:33 05/31/21 17:05 05/31/21 23:59 06/01/21 04:00 Range/Units Glucometer 148 H 149 H 139 H 70-110 MG/DL White Blood Count 9.0 4.3-11.0 10^3/uL Red Blood Count 3.12 L 3.80-5.11 10^6/uL Hemoglobin 7.6 L 11.5-16.0 g/dL Hematocrit 25 L 35-52 % Mean Corpuscular Volume 81 80-99 fL Mean Corpuscular Hemoglobin 24 L 25-34 pg Mean Corpuscular Hemoglobin Concent 30 L 32-36 g/dL Red Cell Distribution Width 17.1 H 10.0-14.5 % Platelet Count 236 130-400 10^3/uL Mean Platelet Volume 10.3 9.0-12.2 fL Immature Granulocyte % (Auto) 1 % Neutrophils (%) (Auto) 77 H 42-75 % Lymphocytes (%) (Auto) 12 12-44 % Monocytes (%) (Auto) 8 0-12 % Eosinophils (%) (Auto) 2 0-10 % Basophils (%) (Auto) 0 0-10 % Neutrophils # (Auto) 6.9 1.8-7.8 10^3/uL Lymphocytes # (Auto) 1.1 1.0-4.0 10^3/uL Monocytes # (Auto) 0.7 0.0-1.0 10^3/uL Eosinophils # (Auto) 0.2 0.0-0.3 10^3/uL Basophils # (Auto) 0.0 0.0-0.1 10^3/uL Immature Granulocyte # (Auto) 0.1 0.0-0.1 10^3/uL Blood Gas Puncture Site R RAD Blood Gas Patient Temperature 36.9 Arterial Blood pH 7.30 *L 7.37-7.43 Arterial Blood Partial Pressure CO2 41 35-45 MMHG Arterial Blood Partial Pressure O2 39 *L 79-93 MMHG Arterial Blood HCO3 20 L 23-27 MMOL/L Arterial Blood Total CO2 20.9 L 21.0-31.0 MMOL/L Arterial Blood Oxygen Saturation 70 L 94-100 % Arterial Blood Base Excess -5.6 L -2.5-2.5 MMOL/L Erasto Test YES-POS Blood Gas Ventilator Setting YES Blood Gas Inspired Oxygen 75% Sodium Level 143 135-145 MMOL/L Potassium Level 4.3 3.6-5.0 MMOL/L Chloride Level 115 H 98-107 MMOL/L Carbon Dioxide Level 18 L 21-32 MMOL/L Anion Gap 10 5-14 MMOL/L Blood Urea Nitrogen 31 H 7-18 MG/DL Creatinine 0.81 0.60-1.30 MG/DL Estimat Glomerular Filtration Rate 71 BUN/Creatinine Ratio 38 Glucose Level 128 H 70-105 MG/DL Calcium Level 7.7 L 8.5-10.1 MG/DL Phosphorus Level 3.4 2.3-4.7 MG/DL Magnesium Level 1.8 1.6-2.4 MG/DL Diagnosis/Problems Diagnosis/Problems (1) Acute on chronic respiratory failure with hypoxemia Assessment & Plan: As above, plan is for palliative extubation today. Cardiology will sign off. Please call if you have other questions or concerns. FARZAD HARDWICK JR, MD Jun 01, 2021 08:40
[2021-06-01] MEDS: ASPIRIN 81 MG CHEW (CHILDREN'S ASA) PO SCH (08:45)
[2021-06-01] MEDS: AMIODARONE 200 MG (CORDARONE) TAB PO SCH (08:45)
[2021-06-01] MEDS: GABAPENTIN 600 MG (NEURONTIN) TAB PO SCH (08:45)
[2021-06-01] MEDS: PANTOPRAZOLE 40 MG (PROTONIX) VIAL IV SCH (08:45)
[2021-06-01] MEDS ORDERED: PROMETHAZINE INJ 25 MG/ML (PHENERGAN) AMP IVP PRN (10:00)
[2021-06-01] MEDS ORDERED: ONDANSETRON 4 MG/2 ML (SDV) Z0FRAN IVP PRN (10:00)
[2021-06-01] MEDS ORDERED: GLYCOPYRROLATE 0.2 MG/ML (ROBINUL) 2 ML VIAL IV PRN (10:00)
[2021-06-01] MEDS ORDERED: LORazepam INJ 2 MG/ML (ATIVAN) VIAL IVP PRN (10:00)
[2021-06-01] MEDS ORDERED: SALIVA STIMULANT MOUTH SPRAY (BIOTENE) 1.5 OZ MM PRN (10:00)
[2021-06-01] MEDS ORDERED: ARTIFICAL TEARS 0.4 ML UNIT DOSE (REFRESH PLUS) OU PRN (10:00)
[2021-06-01] MEDS ORDERED: RT-ALBUTEROL/IPRATROPIUM 3 ML (DUONEB) VIAL INH PRN (10:00)
[2021-06-01] MEDS ORDERED: ACETAMINOPHEN 650 MG SUPP (TYLENOL) PR PRN (10:00)
[2021-06-01] MEDS ORDERED: morphine INJ 4 MG/ML 1 ML (VIAL/SYRINGE) IV PRN (10:00)
[2021-06-01] MEDS ORDERED: morphine INJ 4 MG/ML 1 ML (VIAL/SYRINGE) ONE (10:15)
[2021-06-01] MEDS ORDERED: ONDANSETRON 4 MG/2 ML (SDV) Z0FRAN ONE (10:16)
== END 2021-06-01 14:16 | disposition expired | DRG 870 ==
LOC: EDUNIT# 09:26 → ER FS 09:35 → ICU 12:17
PROVIDERS: ADMIT Internal Medicine; ATTEND Internal Medicine
PROC: 5A1955Z Respiratory Ventilation, Greater than 96 Consecutive Hours (ICD-10-PCS; principal; 2021-05-18)
PROC: 0BH17EZ Insertion of Endotracheal Airway into Trachea, Via Natural or Artificial Opening (ICD-10-PCS; 2021-05-18)
PROC: 02HV33Z Insertion of Infusion Device into Superior Vena Cava, Percutaneous Approach (ICD-10-PCS; 2021-05-19)
PROC: 03HY32Z Insertion of Monitoring Device into Upper Artery, Percutaneous Approach (ICD-10-PCS; 2021-05-19)
PROC: 009U3ZX Drainage of Spinal Canal, Percutaneous Approach, Diagnostic (ICD-10-PCS; 2021-05-25)
DX: A41.9 Sepsis, unspecified organism (principal); J80 Acute respiratory distress syndrome; J18.9 Pneumonia, unspecified organism; I21.A1 Myocardial infarction type 2; G03.9 Meningitis, unspecified; I50.33 Acute on chronic diastolic (congestive) heart failure; E87.2 Acidosis; N39.0 Urinary tract infection, site not specified; Z68.44 Body mass index [BMI] 60.0-69.9, adult; N17.9 Acute kidney failure, unspecified; E46 Unspecified protein-calorie malnutrition; Z66 Do not resuscitate; Z51.5 Encounter for palliative care; I13.0 Hypertensive heart and chronic kidney disease with heart failure and stage 1 through stage 4 chronic kidney disease, or unspecified chronic kidney disease; R65.20 Severe sepsis without septic shock; Z95.5 Presence of coronary angioplasty implant and graft; J45.909 Unspecified asthma, uncomplicated; I25.10 Atherosclerotic heart disease of native coronary artery without angina pectoris; I25.2 Old myocardial infarction; E78.00 Pure hypercholesterolemia, unspecified; E11.40 Type 2 diabetes mellitus with diabetic neuropathy, unspecified; K21.9 Gastro-esophageal reflux disease without esophagitis; M19.90 Unspecified osteoarthritis, unspecified site; G89.29 Other chronic pain; M54.9 Dorsalgia, unspecified; F32.9 Major depressive disorder, single episode, unspecified; E66.01 Morbid (severe) obesity due to excess calories; B02.9 Zoster without complications; I48.91 Unspecified atrial fibrillation; D64.9 Anemia, unspecified; Z20.822 Contact with and (suspected) exposure to COVID-19; I95.9 Hypotension, unspecified; I87.2 Venous insufficiency (chronic) (peripheral); Z79.4 Long term (current) use of insulin; Z79.82 Long term (current) use of aspirin; Z79.899 Other long term (current) drug therapy; Z88.1 Allergy status to other antibiotic agents; Z88.5 Allergy status to narcotic agent; Z88.0 Allergy status to penicillin; I48.0 Paroxysmal atrial fibrillation; N18.9 Chronic kidney disease, unspecified; E78.2 Mixed hyperlipidemia; I25.119 Atherosclerotic heart disease of native coronary artery with unspecified angina pectoris; E11.21 Type 2 diabetes mellitus with diabetic nephropathy; E11.22 Type 2 diabetes mellitus with diabetic chronic kidney disease; Z91.19 Patient's noncompliance with other medical treatment and regimen; G47.33 Obstructive sleep apnea (adult) (pediatric); E87.6 Hypokalemia
CPT/HCPCS: 31500; 36410; 36415; 36600; 51702; 70450; 71045; 71275; 76937; 80048; 80053; 80061; 80076; 80306; 81000; 82274; 82805; 82945; 82947; 83605; 83735; 83880; 84100; 84145; 84157; 84478; 84484; 85007; 85025; 85027; 85379; 85610; 85730; 86592; 86788; 86789; 87040; 87070; 87077; 87088; 87186; 87205; 87254; 87498; 87529; 87636; 87899; 89051; 93005; 93306; 94002; 94003; 94640; 94799; 96374; 99291